=== PATIENT | female | born 1965 | race Caucasian/White ===

== ENCOUNTER 2017-05-06 10:12 | Inpatient (IN) | payer MEDICARE, MEDICAID ==
[~2017-05-06] VITALS: Ht 165.1 cm; Wt 88.7 kg
[2017-05-06] VITALS (36 sets, daily range): BP systolic 50–110; BP diastolic 38–69; PULSE 64–84; RESP 12–29; TEMP 97.6–98.2; O2SAT 76–100
[2017-05-06 10:59] LABS: AUTOMATED NEUTROPHIL # 5.8 TH/MM3 (1.8-7.7); BASOPHIL # 0.1 TH/MM3 (0-0.2); BASOPHIL % 1.7 % (0.0-2.0); EOSINOPHIL # 0.1 TH/MM3 (0-0.4); EOSINOPHIL % 0.8 % (0.0-4.0); HEMATOCRIT 48.8 % (35.0-46.0); HEMOGLOBIN 15.9 GM/DL (11.6-15.3); LYMPH % 15.9 % (9.0-44.0); LYMPHOCYTE # 1.2 TH/MM3 (1.0-4.8); MEAN CELL VOLUME 86.7 FL (80.0-100.0); MEAN CORPUSCULAR HEMOGLOBIN 28.2 PG (27.0-34.0); MEAN CORPUSCULAR HGB CONC 32.5 % (32.0-36.0); MEAN PLATELET VOLUME 9.6 FL (7.0-11.0); MONO % 5.9 % (0.0-8.0); MONOCYTE # 0.4 TH/MM3 (0-0.9); NEUT % 75.7 % (16.0-70.0); PLATELET COUNT 206 TH/MM3 (150-450); RED BLOOD COUNT 5.63 MIL/MM3 (4.00-5.30); RED CELL DISTRIBUTION WIDTH 18.8 % (11.6-17.2); WHITE BLOOD COUNT 7.6 TH/MM3 (4.0-11.0)
[2017-05-06] MEDS ORDERED: ZIPR1CAP12 PO (11:00)
[2017-05-06] MEDS ORDERED: CLON.5 PO (11:00)
[2017-05-06] MEDS ORDERED: PROM25TA10 PO (11:00)
[2017-05-06] MEDS ORDERED: ROSU1TAB10 PO (11:00)
[2017-05-06] MEDS ORDERED: CLOP75TA PO (11:00)
[2017-05-06] MEDS ORDERED: SERT-129 PO (11:00)
[2017-05-06] MEDS ORDERED: CYCL10TA PO (11:00)
[2017-05-06] MEDS ORDERED: METO1TAB43 PO (11:00)
[2017-05-06] MEDS ORDERED: LISI-515 PO (11:00)
[2017-05-06] MEDS ORDERED: HYDR25TA5 PO (11:00)
[2017-05-06] MEDS ORDERED: GABA600T PO (11:00)
[2017-05-06] MEDS ORDERED: ROPI2TAB PO (11:00)
[2017-05-06] MEDS ORDERED: LEVO100T5 PO (11:00)
[2017-05-06] MEDS ORDERED: OMEP20TA93 PO (11:00)
--- NOTE | 2017-05-06 11:00 | PD ---
HPI Chief Complaint: GI Complaint Time Seen by Provider: 10:29 Travel History International Travel<30 days: No Contact w/Intl Traveler<30days: No Traveled to known affect area: No History of Present Illness HPI The patient was seen and examined in the presence of the nurse. This patient is multiple complaints. She has had chest pain on and off for the last 3 days. It's located in the left upper chest. It is not exertional. It lasts several minutes and resolved. She is currently pain-free. She denies history of cardiac disease but she does take Plavix and has iliac stents for vascular disease. Symptom severity is moderate. No alleviating factors. No exacerbating factors. She also notes that her blood pressure was 100 systolic when she woke up this morning but then proceeded to take multiple antihypertensives. She has nausea and general malaise. She denies vomiting or diarrhea. No rectal bleeding. She has chronic intermittent abdominal discomfort and has had extensive workup including multiple CT scans and endoscopy/colonoscopy without diagnosis. [facility] Social History Alcohol Use: No Tobacco Use: No Substance Use: No Allergies-Medications (Allergen,Severity, Reaction): Coded Allergies: codeine (Verified Allergy, Intermediate, Anaphylaxis, 05/06/17) Reported Meds & Prescriptions Reported Meds & Active Scripts Active Reported [place] (Hydrocodone-Acetaminophen) 7.5-325 mg Tab 1 Tab PO Q8HR PRN Klonopin (Clonazepam) 0.5 Mg Tab 0.5 Mg PO TID PRN Rosuvastatin (Rosuvastatin Calcium) 40 Mg Tab 40 Mg PO HS Ziprasidone 80 Mg Cap 160 Mg PO HS Gabapentin 600 Mg Tab 600 Mg PO TID PRN Sertraline (Sertraline HCl) 100 Mg Tab 200 Mg PO DAILY Metoprolol Succinate ER 24 HR (Metoprolol Succinate) 100 Mg Tab 100 Mg PO DAILY Phenergan (Promethazine HCl) 25 Mg Tablet 25 Mg PO Q8HR PRN Flexeril (Cyclobenzaprine HCl) 10 Mg Tab 10 Mg PO BID Clopidogrel (Clopidogrel Bisulfate) 75 Mg Tab 75 Mg PO DAILY Lisinopril 20 Mg Tab 20 Mg PO HS Ropinirole 2 Mg Tab 2 Mg PO HS Omeprazole 20 Mg Tab 20 Mg PO DAILY Hydrochlorothiazide 25 Mg Tab 25 Mg PO DAILY Levothyroxine (Levothyroxine Sodium) 100 Mcg Tab 100 Mcg PO DAILY Review of Systems General / Constitutional: No: Fever Eyes: No: Visual changes HENT: Positive: Lightheadedness, No: Headaches Cardiovascular: Positive: Chest Pain or Discomfort Respiratory: No: Shortness of Breath Gastrointestinal: Positive: Nausea, Abdominal Pain Genitourinary: No: Dysuria Musculoskeletal: No: Pain Skin: No Rash Neurologic: No: Weakness Psychiatric: No: Depression Endocrine: No: Polydipsia Hematologic/Lymphatic: No: Easy Bruising Physical Exam Narrative GENERAL: Well-nourished, well-developed patient in no apparent distress. SKIN: Focused skin assessment reveals no rash and nodules. Skin is Warm and dry. HEAD: Atraumatic. Normocephalic. EYES: Pupils equal and round. No scleral icterus. No injection or drainage. ENT: No nasal bleeding or discharge. Mucous membranes pink and moist. NECK: Trachea midline. No JVD. CARDIOVASCULAR: Regular rate and rhythm. No murmur appreciated. RESPIRATORY: No accessory muscle use. Clear to auscultation. Breath sounds equal bilaterally. GASTROINTESTINAL: Abdomen soft, non-tender, nondistended. Hepatic and splenic margins not palpable. MUSCULOSKELETAL: No obvious deformities. No clubbing. No cyanosis. No edema. NEUROLOGICAL: Awake and alert. No obvious cranial nerve deficits. Motor grossly within normal limits. Normal speech. PSYCHIATRIC: Appropriate mood and affect; insight and judgment normal. Data Data Last Documented VS Vital Signs Date Time Temp Pulse Resp B/P (MAP) Pulse Ox O2 Delivery O2 Flow Rate FiO2 05/06/17 10:25 97.7 84 16 110/68 (82) 100 Orders Orders Iv Access Insert/Monitor (05/06/17 10:40) Complete Blood Count With Diff (05/06/17 10:40) Ckmb (Isoenzyme) Profile (05/06/17 10:40) Troponin I (05/06/17 10:40) Electrocardiogram (05/06/17 ) Chest, Single Ap (05/06/17 ) Prothrombin Time / Inr (Pt) (05/06/17 10:40) Act Partial Throm Time (Ptt) (05/06/17 10:40) Urinalysis - C+S If Indicated (05/06/17 10:40) Lipase (05/06/17 10:40) Comprehensive Metabolic Panel (05/06/17 10:40) Ondansetron Inj (Zofran Inj) (05/06/17 11:15) Sodium Chlor 0.9% 1000 Ml Inj (Ns 1000 M (05/06/17 11:15) Promethazine Inj (Phenergan Inj) (05/06/17 12:00) Sodium Chlor 0.9% 1000 Ml Inj (Ns 1000 M (05/06/17 12:00) CKMB (05/06/17 11:40) CKMB% (05/06/17 11:40) Admit Order (Ed Use Only) (05/06/17 12:26) Labs Laboratory Tests Test 05/06/17 10:40 05/06/17 11:40 White Blood Count 7.6 TH/MM3 Red Blood Count 5.63 MIL/MM3 Hemoglobin 15.9 GM/DL Hematocrit 48.8 % Mean Corpuscular Volume 86.7 FL Mean Corpuscular Hemoglobin 28.2 PG Mean Corpuscular Hemoglobin Concent 32.5 % Red Cell Distribution Width 18.8 % Platelet Count 206 TH/MM3 Mean Platelet Volume 9.6 FL Neutrophils (%) (Auto) 75.7 % Lymphocytes (%) (Auto) 15.9 % Monocytes (%) (Auto) 5.9 % Eosinophils (%) (Auto) 0.8 % Basophils (%) (Auto) 1.7 % Neutrophils # (Auto) 5.8 TH/MM3 Lymphocytes # (Auto) 1.2 TH/MM3 Monocytes # (Auto) 0.4 TH/MM3 Eosinophils # (Auto) 0.1 TH/MM3 Basophils # (Auto) 0.1 TH/MM3 CBC Comment DIFF FINAL Differential Comment Prothrombin Time 10.6 SEC Prothromb Time International Ratio 1.0 RATIO Activated Partial Thromboplast Time 27.1 SEC Blood Urea Nitrogen 14 MG/DL Creatinine 1.10 MG/DL Random Glucose 113 MG/DL Total Protein 6.8 GM/DL Albumin 3.5 GM/DL Calcium Level 9.1 MG/DL Alkaline Phosphatase 123 U/L Aspartate Amino Transf (AST/SGOT) 155 U/L Alanine Aminotransferase (ALT/SGPT) 195 U/L Total Bilirubin 0.3 MG/DL Sodium Level 135 MEQ/L Potassium Level 3.1 MEQ/L Chloride Level 98 MEQ/L Carbon Dioxide Level 30.5 MEQ/L Anion Gap 7 MEQ/L Estimat Glomerular Filtration Rate 52 ML/MIN Total Creatine Kinase 136 U/L Creatine Kinase MB 2.5 NG/ML Troponin I LESS THAN 0.02 NG/ML Lipase 142 U/L MDM Medical Decision Making Medical Screen Exam Complete: Yes Emergency Medical Condition: Yes Medical Record Reviewed: Yes Differential Diagnosis ACS, costochondritis, pleurisy, medication side effect, dehydration, gastroenteritis Narrative Course I have reviewed the patient's electronic medical record. IV placed I reviewed the EKG which is normal sinus rhythm without ST elevation I reviewed the chest x-ray which is normal Extended cardiac monitoring shows sinus rhythm without ectopy or tachycardia CBC which is normal Metabolic profile shows minor hyponatremia and hypokalemia CK is negative Troponin is negative Coagulation studies are normal LFTs show mild elevation in the 100-200 range Lipase is normal Initial blood pressure 98 systolic without tachycardia. I gave her IV Zofran and 1 L normal saline IV bolus and will reassess pressure Blood pressure didn't really change. Patient seems minimally symptomatic at this point. She has no tachycardia with a sinus rhythm in the 70s I'm giving her a second liter of normal saline IV now Call is in to the hospitalist to discuss She will require admission to telemetry for chest pain as well as other issues Will discuss CT imaging of the abdomen and pelvis with her but given that these are chronic abdominal symptoms and she's had multiple CTs I didn't immediately order it. Diagnosis Primary Impression: Chest pain in adult Additional Impressions: Nausea Hypotension Qualified Codes: I95.9 - Hypotension, unspecified Admitting Information Admitting Physician Requests: Admit Remigio Mahan MD May 06, 2017 11:00
[2017-05-06] MEDS ORDERED: HYDR-3288 PO (11:01)
[2017-05-06] MEDS ORDERED: ONDANSETRON HCL 4 MG/2 ML VIAL IVP ONE (11:15)
[2017-05-06] MEDS ORDERED: SODIUM CHLOR 0.9% 1000 ML INJ 1,000 ML IV ONE ×3 (11:15→13:45)
--- NOTE | 2017-05-06 11:42 | RADRPT ---
EXAM DATE/TIME: 05/06/2017 11:17 [facility] COMPARISON: No previous studies available for comparison. INDICATIONS : Left chest and upper abdomen pain for two days. MEDICAL HISTORY : Hypertension. SURGICAL HISTORY : None. ENCOUNTER: Initial ACUITY: 2 days PAIN SCORE: 8/10 LOCATION: Left chest Abdomen FINDINGS: A single view of the chest demonstrates the lungs to be symmetrically aerated without evidence of mas s, infiltrate or effusion. The cardiomediastinal contours are unremarkable. Osseous structures are intact. CONCLUSION: Normal examination. Vernon Vargas MD on May 06, 2017 at 11:40 Board Certified Radiologist. This report was verified electronically.
[2017-05-06 11:48] LABS: CHLORIDE 98 MEQ/L (98-107); SODIUM (NA) 135 MEQ/L (136-145)
[2017-05-06 11:52] LABS: ALBUMIN 3.5 GM/DL (3.4-5.0); CALCIUM 9.1 MG/DL (8.5-10.1)
[2017-05-06 11:53] LABS: BICARBONATE 30.5 MEQ/L (21.0-32.0); BLOOD UREA NITROGEN 14 MG/DL (7-18); GLUCOSE,RANDOM 113 MG/DL (74-106); LIPASE 142 U/L (73-393)
[2017-05-06 11:54] LABS: PROTHROMBIN TIME - PATIENT 10.6 SEC (9.8-11.6)
[2017-05-06 11:56] LABS: ALT (GPT) 195 U/L (10-53); AST (GOT) 155 U/L (15-37); GLOMERULAR FILTRATION RATE 52 ML/MIN (>89)
[2017-05-06 11:57] LABS: TOTAL BILIRUBIN ADULT 0.3 MG/DL (0.2-1.0); TOTAL PROTEIN 6.8 GM/DL (6.4-8.2)
[2017-05-06 11:58] LABS: ALKALINE PHOSPHATASE 123 U/L (45-117)
[2017-05-06] MEDS ORDERED: PROMETHAZINE INJ 25 MG/ML VIAL IM ONE (12:00)
[2017-05-06 12:01] LABS: TROPONIN I LESS THAN 0.02 NG/ML (0.02-0.05)
[2017-05-06 12:54] LABS: BILIRUBIN, URINE NEG (NEG); GLUCOSE,URINE NEG (NEG); KETONE, URINE NEG (NEG); NITRITE,URINE NEG (NEG); PH, URINE 6.5 (5.0-8.5); URINE LEUKOCYTE ESTERASE MOD (NEG)
[2017-05-06 12:59] LABS: BLOOD, URINE TRACE (NEG); URINE COLOR STRAW (YELLW/STRAW)
[2017-05-06 13:01] LABS: AMORPHOUS SEDIMENT, URINE MOD; BACTERIA, URINE MOD /hpf; RBC, URINE 0-3 /hpf (0-3)
[2017-05-06] MEDS ORDERED: VANCOMYCIN INJ 1,000 MG in SODIUM CHLOR 0.9% 250 ML INJ 250 ML IV SCH (14:00)
[2017-05-06] MEDS ORDERED: Vancomycin Consult Pharmacy 1 EA OTHER SCH (14:00)
--- NOTE | 2017-05-06 14:32 | HHI.HP ---
[facility] Service [facility] Primary Care Physician Non-Staff Admission Diagnosis chest pain,nausea,hypotension Diagnoses: Chief Complaint: Malaise for 4 days Travel History International Travel<30 Days: No Contact w/Intl Traveler <30 Da: No Traveled to Known Affected Are: No History of Present Illness This patient is a 51-year-old female with a history of hypertension. For the last 4 days she has felt ill. She says she's had vague chest discomfort which is nonexertional and not associated with cough. She's had abdominal pain which is typical for her as she has chronic abdominal discomfort and takes antiemetics and pain medicine for this. She notes no fevers or chills but felt dizzy. She had some diarrhea yesterday and this morning is awake but she took her blood pressure medications anyway. She came to the hospital and her blood pressure was actually in the 80s systolic. Dropped into the 60s. She has responded initially to normal saline and her blood pressures improved into the low 90s systolic. She denies any sick contacts. She has not had any intestinal bleeding. She says her toes feel blue and cold. She has good pulses on exam but says she felt like that previous to her iliac stent placement for peripheral artery disease. Normally takes Plavix for this and has not missed any doses. Recently her family relocated from [place] to [facility] and has yet to establish care locally. She has chronic pain and does take Narco code, Klonopin, Flexeril, gabapentin and notes that her blood pressure has never had a problem with these medications and she has not recently changed her medicines. EKG on my review is normal sinus without evidence of ischemic changes. Chest x-ray on my review is normal without any acute cardiopulmonary abnormality. Patient is recommended admission due to her persistent hypotension. Review of Systems Constitutional: COMPLAINS OF: Dizziness, DENIES: Diaphoretic episodes, Fatigue , Fever, Weight gain, Weight loss, Chills, Change in appetite, Night Sweats Endocrine: DENIES: Abnorml menstrual pattern, Heat/cold intolerance, Polydipsia , Polyuria, Polyphagia Eyes: DENIES: Blurred vision, Diplopia, Eye inflammation, Eye pain, Vision loss , Photosensitivity, Double Vision Ears, nose, mouth, throat: DENIES: Tinnitus, Hearing loss, Vertigo, Nasal discharge, Oral lesions, Throat pain, Hoarseness, Ear Pain, Running Nose, Epistaxis, Sinus Pain, Toothache, Odynophagia Respiratory: DENIES: Apneas, Cough, Snoring, Wheezing, Hemoptysis, Sputum production, Shortness of breath Cardiovascular: DENIES: Chest pain, Palpitations, Syncope, Dyspnea on Exertion , PND, Lower Extremity Edema, Orthopnea, Claudication Gastrointestinal: COMPLAINS OF: Abdominal pain, Diarrhea, Nausea, DENIES: Black stools, Bloody stools, Constipation, Vomiting, Difficulty Swallowing, Anorexia Genitourinary: DENIES: Abnormal vaginal bleeding, Dysmenorrhea, Dyspareunia, Sexual dysfunction, Urinary frequency, Urinary incontinence, Urgency, Hematuria , Dysuria, Nocturia, Vaginal discharge Musculoskeletal: DENIES: Joint pain, Muscle aches, Stiffness, Joint Swelling, Back pain, Neck pain Integumentary: DENIES: Abnormal pigmentation, Pruritus, Rash, Nail changes, Breast masses, Breast skin changes, Nipple discharge Hematologic/lymphatic: DENIES: Bruising, Lymphadenopathy Immunologic/allergic: DENIES: Eczema, Urticaria Neurologic: COMPLAINS OF: Poor Balance, DENIES: Abnormal gait, Headache, Localized weakness, Paresthesias, Seizures, Speech Problems, Tremor Psychiatric: DENIES: Anxiety, Confusion, Mood changes, Depression, Hallucinations, Agitation, Suicidal Ideation, Homicidal Ideation, Delusions Except as stated in HPI: all other systems reviewed are Neg Past Family Social History Past Medical History Hypertension Chronic back pain with spinal epidural several weeks ago Hyperlipidemia Restless leg syndrome Peripheral artery disease status post bilateral iliac stents Tobaccoism Past Surgical History Bilateral stents and iliac Bladder surg Reported Medications Viewed in the EMR Allergies: Coded Allergies: codeine (Verified Allergy, Intermediate, Anaphylaxis, 05/06/17) Active Ordered Medications Reviewed in the EMR Family History Mother had coronary disease and stents at 73, father's history is unknown Social History Patient smokes a half a pack a day for the last 20 years No alcohol Recently relocated to [place] Is raising her grandchildren Physical Exam Vital Signs Vital Signs Date Time Temp Pulse Resp B/P (MAP) Pulse Ox O2 Delivery O2 Flow Rate FiO2 05/06/17 14:02 69 16 85/58 (67) 98 Room Air 05/06/17 13:55 68 16 77/52 (60) 95 Room Air 05/06/17 13:45 68 16 76/55 (62) 95 Room Air 05/06/17 13:40 70 16 68/59 (62) 96 Room Air 05/06/17 13:35 71 16 69/49 (56) 96 Room Air 05/06/17 13:30 70 16 74/58 (63) 96 Room Air 05/06/17 12:30 70 16 93/69 (77) 96 Room Air 05/06/17 11:49 70 16 92/66 (75) 96 Room Air 05/06/17 10:30 78 16 98/65 (76) 95 Room Air 05/06/17 10:25 97.7 84 16 110/68 (82) 100 Physical Exam GENERAL: This is a well-nourished, well-developed patient,pale and light headed SKIN: No rashes, ecchymoses or lesions. Cool and dry. HEAD: Atraumatic. Normocephalic. No temporal or scalp tenderness. EYES: Pupils equal round and reactive. Extraocular motions intact. No scleral icterus. No injection or drainage. ENT: Nose without bleeding, purulent drainage or septal hematoma. Throat without erythema, tonsillar hypertrophy or exudate. Uvula midline. Airway patent. NECK: Trachea midline. No JVD or lymphadenopathy. Supple, nontender, no meningeal signs. CARDIOVASCULAR: Regular rate and rhythm without murmurs, gallops, or rubs. RESPIRATORY: Clear to auscultation. Breath sounds equal bilaterally. No wheezes , rales, or rhonchi. GASTROINTESTINAL: Abdomen soft, non-tender, nondistended. No hepato-splenomegaly , or palpable masses. No guarding. MUSCULOSKELETAL: Extremities without clubbing, cyanosis, or edema. No joint tenderness, effusion, or edema noted. No calf tenderness. Negative Homans sign bilaterally. NEUROLOGICAL: Awake and alert. Cranial nerves II through XII intact. Motor and sensory grossly within normal limits. Five out of 5 muscle strength in all muscle groups. Normal speech. Laboratory Laboratory Tests Test 05/06/17 10:40 05/06/17 11:40 05/06/17 12:45 White Blood Count 7.6 Red Blood Count 5.63 Hemoglobin 15.9 Hematocrit 48.8 Mean Corpuscular Volume 86.7 Mean Corpuscular Hemoglobin 28.2 Mean Corpuscular Hemoglobin Concent 32.5 Red Cell Distribution Width 18.8 Platelet Count 206 Mean Platelet Volume 9.6 Neutrophils (%) (Auto) 75.7 Lymphocytes (%) (Auto) 15.9 Monocytes (%) (Auto) 5.9 Eosinophils (%) (Auto) 0.8 Basophils (%) (Auto) 1.7 Neutrophils # (Auto) 5.8 Lymphocytes # (Auto) 1.2 Monocytes # (Auto) 0.4 Eosinophils # (Auto) 0.1 Basophils # (Auto) 0.1 CBC Comment DIFF FINAL Differential Comment Prothrombin Time 10.6 Prothromb Time International Ratio 1.0 Activated Partial Thromboplast Time 27.1 Blood Urea Nitrogen 14 Creatinine 1.10 Random Glucose 113 Total Protein 6.8 Albumin 3.5 Calcium Level 9.1 Alkaline Phosphatase 123 Aspartate Amino Transf (AST/SGOT) 155 Alanine Aminotransferase (ALT/SGPT) 195 Total Bilirubin 0.3 Sodium Level 135 Potassium Level 3.1 Chloride Level 98 Carbon Dioxide Level 30.5 Anion Gap 7 Estimat Glomerular Filtration Rate 52 Total Creatine Kinase 136 Creatine Kinase MB 2.5 Troponin I LESS THAN 0.02 Lipase 142 Urine Collection Type CLEAN CATCH Urine Color STRAW Urine Turbidity SLIGHT Urine pH 6.5 Urine Specific [place] 1.006 Urine Protein NEG Urine Glucose (UA) NEG Urine Ketones NEG Urine Occult Blood TRACE Urine Nitrite NEG Urine Bilirubin NEG Urine Leukocyte Esterase MOD Urine RBC 0-3 Urine WBC 20-24 Urine Squamous Epithelial Cells 6-8 Urine Amorphous Sediment MOD Urine Bacteria MOD Microscopic Urinalysis Comment CULTURE INDICATED Urine Collection Time 1247 Date/Time Source Procedure Growth Status 05/06/17 12:45 Urine Clean Catch Urine Culture Pending Received Result Diagram: 05/06/17 1040 05/06/17 1140 Imaging Last Impressions Chest X-Ray 05/06/17 0000 Signed Impressions: Service Date/Time: April 11:17 - CONCLUSION: Normal examination. MD Doug Varghese VTE Risk Assessment Doug VTE Risk Assessment: Mod/High Risk (score >= 2) Armandorini Risk Assessment Model Point Value = 1 Point Value = 2 Point Value = 3 Point Value = 5 Age 41-60 Minor surgery BMI > 25 kg/m2 Swollen legs Varicose veins or History of unexplained or recurrent spontaneous Oral contraceptives or hormone replacement Sepsis (< 1 month) Serious lung disease, including pneumonia (< 1 month) Abnormal pulmonary function Acute myocardial infarction Congestive heart failure (< 1 month) History of inflammatory bowel disease Medical patient at bed rest Age 61-74 Arthroscopic surgery Major open surgery (> 45 min) Laparoscopic surgery (> 45 min) Malignancy Confined to bed (> 72 hours) Immobilizing plaster cast Central venous access Age >= 75 History of VTE Family history of VTE Factor V Leiden Prothrombin [id number] Lupus anticoagulant Anticardiolipin antibodies Elevated serum homocysteine Heparin-induced thrombocytopenia Other congenital or acquired thrombophilia Stroke (< 1 month) Elective arthroplasty Hip, pelvis, or leg fracture Acute spinal cord injury (< 1 month) Prophylaxis Regimen Total Risk Factor Score Risk Level Prophylaxis Regimen 0-1 Low Early ambulation 2 Moderate Order ONE of the following: *Sequential Compression Device (SCD) *Heparin 5000 units SQ BID 3-4 Higher Order ONE of the following medications: *Heparin 5000 units SQ TID *Enoxaparin/Lovenox 40 mg SQ daily (WT < 150 kg, CrCl > 30 mL/min) *Enoxaparin/Lovenox 30 mg SQ daily (WT < 150 kg, CrCl > 10-29 mL/min) *Enoxaparin/Lovenox 30 mg SQ BID (WT < 150 kg, CrCl > 30 mL/min) AND/OR *Sequential Compression Device (SCD) 5 or more Highest Order ONE of the following medications: *Heparin 5000 units SQ TID (Preferred with Epidurals) *Enoxaparin/Lovenox 40 mg SQ daily (WT < 150 kg, CrCl > 30 mL/min) *Enoxaparin/Lovenox 30 mg SQ daily (WT < 150 kg, CrCl > 10-29 mL/min) *Enoxaparin/Lovenox 30 mg SQ BID (WT < 150 kg, CrCl > 30 mL/min) AND *Sequential Compression Device (SCD) Assessment and Plan Problem List: (1) Hypotension ICD Code: I95.9 - Hypotension, unspecified Status: Acute Plan: Persistent hypotension in patient who has multiple nondescript complaints. Patient has been taking her antihypertensive medications and we will hold these. 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 In the case of services not specified as inpatient-only, they are appropriately provided as inpatient services in accordance with the 2-midnight benchmark. Estimated LOS (days): 3 3 days is the estimated time the patient will need to remain in the hospital, assuming treatment plan goals are met and no additional complications. Post-Hospital Plan: Home Problem Qualifiers (1) Hypotension: Qualified Codes: I95.9 - Hypotension, unspecified Katerine Bach MD May 06, 2017 14:32
[2017-05-06] MEDS ORDERED: ACETAMINOPHEN 325 MG TAB PO PRN (14:45)
[2017-05-06] MEDS ORDERED: POTASSIUM CHLORIDE 10 MEQ CONTROLLED RELEASE TAB PO ONE (14:45)
[2017-05-06] MEDS ORDERED: SODIUM CHLORIDE 0.9% FLUSH 10 ML FLUSH IV FLUSH PRN (14:45)
[2017-05-06] MEDS ORDERED: NALOXONE HCL 0.4 MG/ML AMP IV PUSH PRN (14:45)
[2017-05-06] MEDS ORDERED: ONDANSETRON HCL 4 MG/2 ML VIAL IVP PRN (14:45)
[2017-05-06 14:51] LABS: AUTOMATED NEUTROPHIL # 4.1 TH/MM3 (1.8-7.7); BASOPHIL # 0.1 TH/MM3 (0-0.2); BASOPHIL % 2.1 % (0.0-2.0); EOSINOPHIL % 0.5 % (0.0-4.0); HEMATOCRIT 41.5 % (35.0-46.0); HEMOGLOBIN 13.1 GM/DL (11.6-15.3); LYMPH % 19.6 % (9.0-44.0); LYMPHOCYTE # 1.1 TH/MM3 (1.0-4.8); MEAN CELL VOLUME 87.9 FL (80.0-100.0); MEAN CORPUSCULAR HEMOGLOBIN 27.8 PG (27.0-34.0); MEAN CORPUSCULAR HGB CONC 31.6 % (32.0-36.0); MEAN PLATELET VOLUME 9.8 FL (7.0-11.0); MONO % 7.1 % (0.0-8.0); MONOCYTE # 0.4 TH/MM3 (0-0.9); NEUT % 70.7 % (16.0-70.0); PLATELET COUNT 153 TH/MM3 (150-450); RED BLOOD COUNT 4.72 MIL/MM3 (4.00-5.30); RED CELL DISTRIBUTION WIDTH 18.8 % (11.6-17.2); WHITE BLOOD COUNT 5.7 TH/MM3 (4.0-11.0)
--- NOTE | 2017-05-06 15:08 | EKG ---
Date Performed: 05/06/2017 Time Performed: 10:55:17 PTAGE: 51 years EKG: Baseline artifact present Sinus rhythm NORMAL ECG NO PREVIOUS TRACING DOCTOR: Sin Sams Interpretating Date/Time 05/06/2017 15:07:44
[2017-05-06] MEDS: HEPARIN SODIUM - SQ 10,000 UNITS/ML VIAL SQ SCH ×2 (15:10→23:27)
[2017-05-06] MEDS: VANCOMYCIN INJ 1,250 MG in SODIUM CHLOR 0.9% 250 ML INJ 250 ML IV SCH (15:11)
[2017-05-06] MEDS ORDERED: IOHEXOL 350 MG/ML 10 ML VIAL (for RAD DIAG) IVCONTRAST ONE (15:14)
[2017-05-06 15:38] LABS: ALBUMIN 3.1 GM/DL (3.4-5.0); ALKALINE PHOSPHATASE 113 U/L (45-117); ALT (GPT) 182 U/L (10-53); AST (GOT) 175 U/L (15-37); BLOOD UREA NITROGEN 13 MG/DL (7-18); CALCIUM 8.2 MG/DL (8.5-10.1); CHLORIDE 106 MEQ/L (98-107); CREATININE 0.92 MG/DL (0.50-1.00); GLOMERULAR FILTRATION RATE 64 ML/MIN (>89); GLUCOSE,RANDOM 89 MG/DL (74-106); SODIUM (NA) 138 MEQ/L (136-145); TOTAL BILIRUBIN ADULT 0.3 MG/DL (0.2-1.0); TOTAL PROTEIN 6.5 GM/DL (6.4-8.2)
--- NOTE | 2017-05-06 15:46 | RADRPT ---
EXAM DATE/TIME: 05/06/2017 14:48 [facility] COMPARISON: No previous studies available for comparison. INDICATIONS : Chest pain, upper back pain, upper abdominal pain x 4 days. Hypotension. Evaluate for aortic dissec tion. IV CONTRAST: 85 cc Omnipaque 350 (iohexol) IV RADIATION DOSE: 22.28 CTDIvol (mGy) MEDICAL HISTORY : Hypertension. Chronic obstructive pulmonary disease. Peripheral vascular disease. SURGICAL HISTORY : Tubal ligation. section.Appendectomy.Hysterectomy. Bladder tuck. Bilateral iliac stents. ENCOUNTER: Initial ACUITY: 4 - 6 days PAIN SCALE: 7/10 LOCATION: Left chest TECHNIQUE: Volumetric scanning was performed using a multi-row detector CT scanner. The data was post processed with a variety of visualization algorithms including full volume maximum intensity projection, multi -planar sliding thin slab reformation, curved planar reformation, and surface rendering techniques. Using automated exposure control and adjustment of the mA and/or kV according to patient size, radiat ion dose was kept as low as reasonably achievable to obtain optimal diagnostic quality images. DICOM format image data is available electronically for review and comparison. FINDINGS: These thoracic aorta is normal in caliber throughout. No evidence of stenosis, aneurysm or dissection . Mild atheromatous irregularity is present throughout. Classical three-vessel arch anatomy is identi fied. There is high grade stenosis at the origin of the left subclavian artery. The left common carot id artery and the right brachiocephalic artery are satisfactory in appearance. The visualized common carotid arteries are satisfactory in appearance. The abdominal aorta is also notable for mild diffuse atheromatous irregularity. There is slight fusif orm ectasia distally without mirela aneurysm. No stenosis or dissection. Looking at the aortic viscera l vessels, there is critical stenosis at the origin of the celiac artery and high-grade stenosis at t he origin of the superior mesenteric artery. There is mild disease involving the origin of the left r enal artery. Right renal artery is satisfactory. The DARRIUS is patent. Wrapped in the pelvis, the right common iliac is previously stented with mild neointimal hyperplasia within the stent. Left common carola ac is moderately stenotic. External iliacs are small in caliber however relatively free of disease. T he left distal external iliac is stented through the left common femoral to the level of the femoral bifurcation. The proximal SFA and profunda are intact. Contralateral right common femoral artery is n otable for mild-moderate posterior plaquing. The right SFA and proximal right profunda are intact. Elsewhere on the exam, note is made of mild emphysematous change and mild scarring or atelectasis in the posterior lung bases. No acute CT findings are identified in the abdomen or pelvis. CONCLUSION: High-grade ostial stenosis involving the left subclavian artery would be expected to produce signific ant asymmetry in arm pressures.. This lesion does appear amenable to endovascular treatment if the pa tient is symptomatic for claudication or subclavian steal symptoms. High-grade celiac and SMA stenoses. No acute vascular findings. Steven Silver MD on May 06, 2017 at 15:36 Board Certified Radiologist. This report was verified electronically.
[2017-05-06] MEDS ORDERED: PIPERACILLIN/TAZ 4.5 GM VIAL 4.5 GM in SODIUM CHLORIDE 0.9% INJ 100 ML IV ONE (16:00)
[2017-05-06] MEDS: SODIUM CHLOR 0.9% 1000 ML INJ 1,000 ML IV SCH (17:22)
[2017-05-06] MEDS ORDERED: CHLORHEXIDINE GLUCONATE 2 % 1 PACK (2 CLOTHS)(extra cloths) TOPICAL PRN (18:30)
[2017-05-06] MEDS ORDERED: TERBUTALINE INJ 1 MG/ML AMP SQ PRN (20:00)
[2017-05-06] MEDS ORDERED: HYDROCORTISONE SOD SUCCINATE 100 MG VIAL IV PUSH SCH (20:30)
[2017-05-06] MEDS ORDERED: ZIPRASIDONE HCL 80 MG CAP PO SCH (21:00)
[2017-05-06] MEDS: NOREPINEPHRINE INJ 4 MG in SODIUM CHLOR 0.9% 250 ML INJ 246 ML IV PRN (21:31)
[2017-05-06] MEDS: SODIUM CHLORIDE 0.9% FLUSH 10 ML FLUSH IV FLUSH SCH (21:36)
[2017-05-06] MEDS: ZIPRASIDONE HCL 40 MG CAP PO SCH (21:37)
[2017-05-06] MEDS ORDERED: PROMETHAZINE HCL 25 MG TAB PO PRN (22:00)
[2017-05-06] MEDS ORDERED: GABAPENTIN 300 MG CAP PO PRN (22:00)
[2017-05-06] MEDS: PIPERACIL-TAZO 4.5 GM PREMIX 100 ML IV SCH (23:49)
[2017-05-07] VITALS (66 sets, daily range): BP systolic 54–199; BP diastolic 35–107; PULSE 54–86; RESP 10–38; TEMP 97.6–98.7; O2SAT 87–100
[2017-05-07] MEDS: SODIUM CHLOR 0.9% 1000 ML INJ 1,000 ML IV SCH ×3 (02:32→20:58)
[2017-05-07] MEDS: CHLORHEXIDINE GLUCONATE 2 % 1 PACK (2 CLOTHS)(taper/protocol) TOPICAL SCH (04:00)
[2017-05-07] MEDS: HYDROCORTISONE SOD SUCCINATE 100 MG VIAL IV PUSH SCH ×4 (04:11→22:20)
[2017-05-07] MEDS: LEVOTHYROXINE SODIUM 100 MCG TAB PO SCH (05:05)
[2017-05-07 05:23] LABS: CREATININE 0.94 MG/DL (0.50-1.00)
[2017-05-07] MEDS: HEPARIN SODIUM - SQ 10,000 UNITS/ML VIAL SQ SCH ×3 (06:20→22:20)
[2017-05-07] MEDS: PIPERACIL-TAZO 4.5 GM PREMIX 100 ML IV SCH ×2 (09:03→19:09)
[2017-05-07] MEDS: VANCOMYCIN INJ 1,250 MG in SODIUM CHLOR 0.9% 250 ML INJ 250 ML IV SCH (09:04)
[2017-05-07] MEDS: PANTOPRAZOLE SOD 20 MG DELAYED RELEASE TAB PO SCH (09:04)
[2017-05-07] MEDS: SODIUM CHLORIDE 0.9% FLUSH 10 ML FLUSH IV FLUSH SCH ×2 (09:04→21:00)
[2017-05-07] MEDS: CLOPIDOGREL 75 MG TAB PO SCH (11:58)
[2017-05-07] MEDS: SERTRALINE HCL 100 MG TAB PO SCH (11:59)
[2017-05-07] MEDS: NOREPINEPHRINE INJ 4 MG in SODIUM CHLOR 0.9% 250 ML INJ 246 ML IV PRN (12:14)
--- NOTE | 2017-05-07 14:42 | HHI.PR ---
Subjective Remarks Patient seen and examined today in follow-up on hypotension, patient was still on Levophed first thing this morning. She was weaned off later this morning and is maintaining blood pressure at this time. Patient denies any symptoms to include chest pain, shortness of breath, abdominal pain, diarrhea, constipation , diaphoresis. Patient indicates that she usually has high blood pressure in which she is on at least 2 medications to control. She denies any overuse of her blood pressure medications. Will continue workup at this time. Objective Vital Signs Date Time Temp Pulse Resp B/P (MAP) Pulse Ox O2 Delivery O2 Flow Rate FiO2 05/07/17 13:20 80 84/54 05/07/17 13:10 80 92/54 05/07/17 12:34 80 106/75 05/07/17 12:24 78 56/49 05/07/17 12:14 82 54/41 05/07/17 08:16 70 18 113/80 (91) 97 05/07/17 07:46 72 22 112/67 (82) 96 05/07/17 07:31 66 15 105/77 (86) 97 05/07/17 07:30 97 Nasal Cannula 2.00 05/07/17 07:01 62 10 162/86 (111) 98 05/07/17 06:46 70 16 131/55 (80) 95 05/07/17 06:45 70 19 98 05/07/17 06:45 70 131/55 05/07/17 06:31 72 21 123/69 (87) 97 05/07/17 06:16 68 17 95/65 (75) 94 05/07/17 06:14 66 142/80 05/07/17 06:01 68 16 142/80 (100) 94 05/07/17 06:00 66 05/07/17 05:46 64 16 129/71 (90) 95 05/07/17 05:45 68 129/71 05/07/17 05:34 66 16 87/50 (62) 93 05/07/17 05:33 64 87/50 05/07/17 05:16 66 16 97/71 (80) 96 05/07/17 05:09 54 18 199/103 (135) 100 05/07/17 05:01 58 19 152/107 (122) 95 05/07/17 04:54 68 16 78/47 (57) 94 05/07/17 04:54 68 78/47 05/07/17 04:31 64 19 89/61 (70) 91 05/07/17 04:16 97.6 62 24 101/63 (76) 94 05/07/17 04:01 62 16 97/52 (67) 97 05/07/17 04:01 62 05/07/17 03:46 62 16 94/58 (70) 95 05/07/17 03:31 68 26 104/72 (83) 95 05/07/17 03:27 64 24 90/58 (69) 100 05/07/17 03:27 64 90/58 05/07/17 03:01 62 18 59/43 (48) 97 05/07/17 02:46 97 Nasal Cannula 2.00 05/07/17 02:31 60 18 63/42 (49) 95 05/07/17 02:30 65 71/37 05/07/17 02:16 62 16 71/37 (48) 94 05/07/17 02:01 64 05/07/17 02:01 95 Nasal Cannula 2.00 05/07/17 02:01 64 21 57/49 (52) 95 05/07/17 02:00 64 57/49 05/07/17 01:47 94 Nasal Cannula 2.00 05/07/17 01:46 64 17 65/44 (51) 95 05/07/17 01:31 66 22 61/44 (50) 94 05/07/17 01:16 66 15 70/35 (47) 93 05/07/17 01:01 68 19 60/35 (43) 87 05/07/17 01:00 86 Nasal Cannula 2.00 05/07/17 00:58 68 65/42 05/07/17 00:46 68 16 65/42 (50) 95 05/07/17 00:31 68 16 59/35 (43) 94 05/07/17 00:30 68 59/35 05/07/17 00:16 66 14 64/38 (47) 92 05/07/17 00:01 98.0 66 28 70/48 (55) 91 05/07/17 00:00 64 05/06/17 23:46 64 14 76/52 (60) 92 05/06/17 23:31 68 28 96/58 (71) 96 18 23:16 68 28 97/60 (72) 96 18 23:01 68 25 87/61 (70) 95 1818 22:46 66 21 77/60 (66) 76 18/18 22:30 66 20 77/51 (60) 98 1818 22:21 66 25 68/50 (56) 95 18 22:21 64 68/50 18 22:15 66 19 74/50 (58) 97 18 22:00 66 18 21:31 66 17 71/54 (60) 97 18 21:31 68 71/54 18 20:31 74 20 80/61 (67) 97 18 20:05 70 21 77/50 (59) 94 18 20:00 72 18 19:31 72 21 62/43 (49) 96 18 19:31 97.6 72 21 62/43 (49) 97 18 19:22 70 13 50/38 (42) 92 18 19:16 70 23 58/43 (48) 18 19:10 74 23 57/42 (47) 18 18:02 70 25 89/56 (67) 18 18:00 70 18 17:35 71 18 17:34 68 29 84/51 (62) 18 17:10 72 16 92/59 (70) 18 17:09 98.2 72 12 86/56 (66) 96 18 16:50 18 16:43 71 18 91/52 (65) 95 Room Air 05/06/17 16:15 74 16 107/56 (73) 94 Room Air 05/06/17 15:15 70 16 85/53 (64) 95 Room Air I/O 05/06/18 05/06/18 05/06/18 05/07/18 18 05/07/17 07:00 15:00 23:00 07:00 15:00 23:00 Intake Total 3000 ml 482.5 ml 2028 ml 972 ml Output Total 500 ml 1600 ml Balance 3000 ml -17.5 ml 428 ml 972 ml Intake Oral 120 ml 600 ml IV Total 3000 ml 362.5 ml 1428 ml 972 ml Output Urine Total 500 ml 1600 ml Stool Total 0 ml Result Diagram: 05/06/17 1440 05/07/17 0413 Imaging Last Impressions Chest X-Ray 05/06/17 0000 Signed Impressions: Service Date/Time: April 11:17 - CONCLUSION: Normal examination. Vernon Vargas MD Aorta CTA 05/06/17 0000 Signed Impressions: Service Date/Time: April 14:48 - CONCLUSION: High-grade ostial stenosis involving the left subclavian artery would be expected to produce significant asymmetry in arm pressures.. This lesion does appear amenable to endovascular treatment if the patient is symptomatic for claudication or subclavian steal symptoms. High-grade celiac and SMA stenoses. No acute vascular findings. Steven Silver MD Objective Remarks GENERAL: Well-developed, well-nourished, in no acute distress. alert and orientated HEENT: Head is normocephalic without any lesions or masses noted. Facial features are symmetric. Eyes: Extraocular muscles are intact. Conjunctivae were clear. NECK: Supple without any masses. Trachea midline no deviation. No JVD, CARDIAC: Regular rhythm, regular rate. S1/S2 are heard. No murmurs gallops or rubs. LUNGS: Clear to auscultation bilaterally. No wheeze, rhonchi or rales. No use of accessory muscles on inspiration or expiration. ABDOMEN: Soft, nontender. Nondistended. Bowel sounds heard in all 4 quadrants. No organomegaly or masses. Negative rebound, negative guarding EXTREMITIES: No edema, pulses are equal bilaterally. No cyanosis or clubbing NEUROLOGY: Mood and affect appear appropriate. Cranial nerves II through XII grossly intact. Moving all extremities, speech is clear A/P Assessment and Plan Hypotension, unknown etiology CTA of the aorta does not indicate any aortic dissection. Does show high- grade stenosis involving the left subclavian artery, high-grade celiac and SMA stenosis Status post 4 L of IV fluid Levophed to maintain map greater than 65. Had been weaned off by since 7:00 this morning Patient started on Solu-Cortef Continue to hold blood pressure medication Elevated liver enzymes, unknown etiology Could be secondary to hypoperfusion Continue monitor liver enzymes Obtain liver ultrasound Hypertension, hyperlipidemia, peripheral artery disease status post iliac stents Continue Plavix Blood pressure medication on hold secondary to hypotension We'll continue to hold statin secondary to elevated liver enzymes Chronic back pain, restless leg syndrome Hold narcotic medication this time secondary to hypotension Continue Requip, gabapentin Hypothyroidism Resume replacement therapy Check TSH DVT prevention Subcutaneous heparin Remigio Nunez May 07, 2017 14:42
[2017-05-07] MEDS ORDERED: SODIUM CHLOR 0.9% 1000 ML INJ 1,000 ML IV ONE (18:00)
[2017-05-07] MEDS ORDERED: ALBUMIN 25% INJ 50 ML IV ONE (18:00)
--- NOTE | 2017-05-07 19:42 | ECHRPT ---
Indication: Chest pain, unspecified CONCLUSIONS Normal left ventricular size and wall thickness. The left ventricular systolic function is normal wi th an estimated ejection fraction in the range of 60-65%. No definite wall motion abnormalities. Trace mitral valve regurgitation. There is trace tricuspid valve regurgitation. BP: / HR: Rhythm: Sinus MEASUREMENTS (Male / Female) Normal Values Technical Quality:Fair 2D ECHO LV Diastolic Diameter PLAX 4.3 cm 4.2 - 5.9 / 3.9 - 5.3 cm LV Systolic Diameter PLAX 3.4 cm IVS Diastolic Thickness 1.1 cm 0.6 - 1.0 / 0.6 - 0.9 cm LVPW Diastolic Thickness 1.0 cm 0.6 - 1.0 / 0.6 - 0.9 cm LV Relative Wall Thickness 0.5 LVOT Diameter 2.1 cm M-MODE Aortic Root Diameter MM 2.9 cm LA Systolic Diameter MM 4.4 cm LA Ao Ratio MM 1.5 AV Cusp Separation MM 1.7 cm DOPPLER AV Peak Velocity 194.0 cm/s AV Peak Gradient 15.1 mmHg LVOT Peak Velocity 164.0 cm/s LVOT Peak Gradient 10.8 mmHg AV Area Cont Eq pk 2.9 cm MR Peak Velocity 385.0 cm/s MR Peak Gradient 59.3 mmHg Mitral E Point Velocity 98.7 cm/s Mitral A Point Velocity 119.0 cm/s Mitral E to A Ratio 0.8 LV E' Lateral Velocity 9.6 cm/s Mitral E to LV E' Lateral Ratio 10.3 LV E' Septal Velocity 8.5 cm/s Mitral E to LV E' Septal Ratio 11.6 TR Peak Velocity 278.0 cm/s TR Peak Gradient 30.9 mmHg Right Atrial Pressure 10.0 mmHg Pulmonary Artery Systolic Pressu 40.9 mmHg Right Ventricular Systolic Press 40.9 mmHg PV Peak Velocity 129.0 cm/s PV Peak Gradient 6.7 mmHg FINDINGS LEFT VENTRICLE Normal left ventricular size and wall thickness. The left ventricular systolic function is normal wi th an estimated ejection fraction in the range of 60-65%. No definite wall motion abnormalities. RIGHT VENTRICLE Normal right ventricular size and systolic function. LEFT ATRIUM The left atrial size is mildly dilated. RIGHT ATRIUM The right atrial size is normal. ATRIAL SEPTUM Normal atrial septal thickness without atrial level shunting by limited color doppler interrogation. AORTA The aortic root and proximal ascending aorta are normal in size on limited imaging. MITRAL VALVE Trace mitral valve regurgitation. AORTIC VALVE Trileaflet aortic valve. No aortic valve stenosis or regurgitation. TRICUSPID VALVE There is trace tricuspid valve regurgitation. PULMONARY VALVE No pulmonary valve regurgitation or stenosis. VESSELS The inferior vena cava is normal in size. PERICARDIUM No pericardial effusion. Johnathan Zavala MD (Electronically Signed) Final Date:07 May 2017 19:41
[2017-05-07] MEDS: ZIPRASIDONE HCL 40 MG CAP PO SCH (19:54)
[2017-05-07] MEDS ORDERED: IBUPROFEN 400 MG TAB PO ONE (20:00)
[2017-05-07] MEDS ORDERED: ATORVASTATIN 80 MG TAB PO SCH (21:00)
[2017-05-07] MEDS ORDERED: ATORVASTATIN 40 MG TAB PO SCH (21:00)
[2017-05-08] VITALS (21 sets, daily range): BP systolic 102–138; BP diastolic 56–95; PULSE 68–84; RESP 15–32; TEMP 97–97.7; O2SAT 91–100
[2017-05-08] MEDS: PIPERACIL-TAZO 4.5 GM PREMIX 100 ML IV SCH ×2 (00:09→08:58)
[2017-05-08] MEDS: VANCOMYCIN INJ 1,250 MG in SODIUM CHLOR 0.9% 250 ML INJ 250 ML IV SCH (03:02)
[2017-05-08] MEDS: HYDROCORTISONE SOD SUCCINATE 100 MG VIAL IV PUSH SCH ×2 (03:47→08:59)
[2017-05-08] MEDS: CHLORHEXIDINE GLUCONATE 2 % 1 PACK (2 CLOTHS)(taper/protocol) TOPICAL SCH (03:47)
[2017-05-08] MEDS: SODIUM CHLOR 0.9% 1000 ML INJ 1,000 ML IV SCH (04:11)
[2017-05-08] MEDS: LEVOTHYROXINE SODIUM 100 MCG TAB PO SCH (05:30)
[2017-05-08] MEDS: HEPARIN SODIUM - SQ 10,000 UNITS/ML VIAL SQ SCH (05:31)
[2017-05-08 06:14] LABS: AUTOMATED NEUTROPHIL # 4.8 TH/MM3 (1.8-7.7); BASOPHIL % 0.1 % (0.0-2.0); HEMATOCRIT 37.4 % (35.0-46.0); HEMOGLOBIN 12.1 GM/DL (11.6-15.3); LYMPH % 10.7 % (9.0-44.0); LYMPHOCYTE # 0.6 TH/MM3 (1.0-4.8); MEAN CELL VOLUME 86.5 FL (80.0-100.0); MEAN CORPUSCULAR HEMOGLOBIN 28.1 PG (27.0-34.0); MEAN CORPUSCULAR HGB CONC 32.4 % (32.0-36.0); MEAN PLATELET VOLUME 9.4 FL (7.0-11.0); MONO % 3.8 % (0.0-8.0); MONOCYTE # 0.2 TH/MM3 (0-0.9); NEUT % 85.4 % (16.0-70.0); PLATELET COUNT 127 TH/MM3 (150-450); RED BLOOD COUNT 4.32 MIL/MM3 (4.00-5.30); RED CELL DISTRIBUTION WIDTH 18.1 % (11.6-17.2); WHITE BLOOD COUNT 5.6 TH/MM3 (4.0-11.0)
[2017-05-08 06:56] LABS: ALBUMIN 3.2 GM/DL (3.4-5.0); ALKALINE PHOSPHATASE 98 U/L (45-117); ALT (GPT) 186 U/L (10-53); AST (GOT) 155 U/L (15-37); BICARBONATE 26.2 MEQ/L (21.0-32.0); BLOOD UREA NITROGEN 14 MG/DL (7-18); CALCIUM 8.4 MG/DL (8.5-10.1); CHLORIDE 111 MEQ/L (98-107); CREATININE 0.85 MG/DL (0.50-1.00); GLOMERULAR FILTRATION RATE 70 ML/MIN (>89); GLUCOSE,RANDOM 115 MG/DL (74-106); MAGNESIUM 1.6 MG/DL (1.5-2.5); SODIUM (NA) 143 MEQ/L (136-145); TOTAL BILIRUBIN ADULT 0.2 MG/DL (0.2-1.0); TOTAL PROTEIN 6.1 GM/DL (6.4-8.2)
[2017-05-08] MEDS: CLOPIDOGREL 75 MG TAB PO SCH (08:58)
[2017-05-08] MEDS: SERTRALINE HCL 100 MG TAB PO SCH (08:58)
[2017-05-08] MEDS: PANTOPRAZOLE SOD 20 MG DELAYED RELEASE TAB PO SCH (08:58)
[2017-05-08] MEDS: SODIUM CHLORIDE 0.9% FLUSH 10 ML FLUSH IV FLUSH SCH (09:04)
--- NOTE | 2017-05-08 10:40 | RADRPT ---
EXAM DATE/TIME: 05/08/2017 09:51 [facility] COMPARISON: No previous studies available for comparison. INDICATIONS : Increased lab values. MEDICAL HISTORY : Chronic obstructive pulmonary disease. Hypercholesterolemia. Gastroesophageal reflux disease. Thyroid disease. Hearing loss. Syncope. Headaches. Hypertension. Peripheral vascular disease. Sleep apnea. I BD. Arthritis. Osteoporosis. Fatty liver disease. Depression. Anxiety. SURGICAL HISTORY : Appendectomy. Tubal ligation. Hysterectomy. section. Bladder tuck. Bilateral iliac stents. ENCOUNTER: Initial ACUITY: 2 days PAIN SCORE: 0/10 LOCATION: Bilateral upper quadrant MEASUREMENTS: LIVER: 21.2 cm length COMMON DUCT: 4 mm RIGHT KIDNEY: 11.3 x 5.0 x 5.4 cm SPLEEN: 16.4 cm length FINDINGS: The liver is slightly echogenic which maybe due to fatty infiltration and or hepatocellular dysfuncti on. The gallbladder is intact without any evidence for gallstones, however there is sludge in the gal lbladder without gallbladder wall thickening, or pericholecystic fluid. The visualized head of the p ancreas, and right kidney appear grossly intact for technique. The spleen is enlarged measuring 16.4 without focal lesions for technique. CONCLUSION: 1. The liver is slightly echogenic which maybe due to fatty infiltration and or hepatocellular dysfun ction. 2. Splenomegaly. 3. Sludge in the gallbladder without definite stones the technique. Lamin Cavazos MD on May 08, 2017 at 10:37 Board Certified Radiologist. This report was verified electronically.
[2017-05-08] MEDS ORDERED: POTASSIUM CHLORIDE 20 MEQ CONTROLLED RELEASE TAB PO ONE (10:45)
[2017-05-08] MEDS ORDERED: LISI10TA3 PO (10:56)
--- NOTE | 2017-05-08 10:56 | HHI.DCPOC ---
Discharge Care Plan Diagnosis: (1) Hypotension (2) LFT elevation Goals to Promote Your Health * To prevent worsening of your condition and complications * To maintain your health at the optimal level Directions to Meet Your Goals Take your medications as prescribed Follow your dietary instruction Follow activity as directed Keep your appointments as scheduled Take your immunizations and boosters as scheduled If your symptoms worsen call your PCP, if no PCP go to Urgent Care Center or Emergency Room Smoking is Dangerous to Your Health. Avoid second hand smoke Call the 24-hour hour crisis hotline for domestic abuse at Remigio Nunez May 08, 2017 10:56
--- NOTE | 2017-05-08 11:05 | HHI.DS ---
Discharge Summary Admission Date May 06, 2017 at 12:27 Discharge Date: May 08, 2017 Admitting Diagnosis chest pain,nausea,hypotension (1) Hypotension ICD Code: I95.9 - Hypotension, unspecified Status: Acute (2) LFT elevation ICD Code: R79.89 - Other specified abnormal findings of blood chemistry Procedures 05/07/17 echocardiogram showed normal left ventricular function, ejection fraction 60-65%. Trace of mitral valve regurgitation, trace of tricuspid valve regurgitation Brief History - From Admission This patient is a 51-year-old female with a history of hypertension. For the last 4 days she has felt ill. She says she's had vague chest discomfort which is nonexertional and not associated with cough. She's had abdominal pain which is typical for her as she has chronic abdominal discomfort and takes antiemetics and pain medicine for this. She notes no fevers or chills but felt dizzy. She had some diarrhea yesterday and this morning is awake but she took her blood pressure medications anyway. She came to the hospital and her blood pressure was actually in the 80s systolic. Dropped into the 60s. She has responded initially to normal saline and her blood pressures improved into the low 90s systolic. She denies any sick contacts. She has not had any intestinal bleeding. She says her toes feel blue and cold. She has good pulses on exam but says she felt like that previous to her iliac stent placement for peripheral artery disease. Normally takes Plavix for this and has not missed any doses. Recently her family relocated from [place] to [facility] and has yet to establish care locally. She has chronic pain and does take [place] code, Klonopin, Flexeril, gabapentin and notes that her blood pressure has never had a problem with these medications and she has not recently changed her medicines. EKG on my review is normal sinus without evidence of ischemic changes. Chest x-ray on my review is normal without any acute cardiopulmonary abnormality. Patient is recommended admission due to her persistent hypotension. CBC/BMP: 05/08/17 0550 05/08/17 0550 Significant Findings Laboratory Tests Test 05/06/17 10:40 05/06/17 11:40 05/06/17 12:45 05/06/17 14:35 Red Blood Count 5.63 MIL/MM3 (4.00-5.30) Hemoglobin 15.9 GM/DL (11.6-15.3) Hematocrit 48.8 % (35.0-46.0) Red Cell Distribution Width 18.8 % (11.6-17.2) Neutrophils (%) (Auto) 75.7 % (16.0-70.0) Creatinine 1.10 MG/DL (0.50-1.00) Random Glucose 113 MG/DL (74-106) Alkaline Phosphatase 123 U/L (45-117) Aspartate Amino Transf (AST/SGOT) 155 U/L (15-37) Alanine Aminotransferase (ALT/SGPT) 195 U/L (10-53) Sodium Level 135 MEQ/L (136-145) Potassium Level 3.1 MEQ/L (3.5-5.1) Estimat Glomerular Filtration Rate 52 ML/MIN (>89) Troponin I LESS THAN 0.02 NG/ML Urine Leukocyte Esterase MOD (NEG) Urine WBC 20-24 /hpf (0-5) Urine Squamous Epithelial Cells 6-8 /hpf (0-5) Urine Bacteria MOD /hpf (NONE) Test 05/06/17 14:40 05/06/17 20:05 05/07/17 04:13 05/08/17 05:50 Mean Corpuscular Hemoglobin Concent 31.6 % (32.0-36.0) Red Cell Distribution Width 18.8 % (11.6-17.2) 18.1 % (11.6-17.2) Neutrophils (%) (Auto) 70.7 % (16.0-70.0) 85.4 % (16.0-70.0) Basophils (%) (Auto) 2.1 % (0.0-2.0) Albumin 3.1 GM/DL (3.4-5.0) 3.2 GM/DL (3.4-5.0) Calcium Level 8.2 MG/DL (8.5-10.1) 8.4 MG/DL (8.5-10.1) Aspartate Amino Transf (AST/SGOT) 175 U/L (15-37) 155 U/L (15-37) Alanine Aminotransferase (ALT/SGPT) 182 U/L (10-53) 186 U/L (10-53) Estimat Glomerular Filtration Rate 64 ML/MIN (>89) 62 ML/MIN (>89) 70 ML/MIN (>89) Platelet Count 127 TH/MM3 (150-450) Lymphocytes # (Auto) 0.6 TH/MM3 (1.0-4.8) Random Glucose 115 MG/DL (74-106) Total Protein 6.1 GM/DL (6.4-8.2) Potassium Level 3.2 MEQ/L (3.5-5.1) Chloride Level 111 MEQ/L (98-107) Imaging Last Impressions Liver Ultrasound 05/08/17 0000 Signed Impressions: Service Date/Time: Monday, May 08, 2017 09:51 - CONCLUSION: 1. The liver is slightly echogenic which maybe due to fatty infiltration and or hepatocellular dysfunction. 2. Splenomegaly. 3. Sludge in the gallbladder without definite stones the technique. KLakeisha Cavazos MD Chest X-Ray 05/06/17 0000 Signed Impressions: Service Date/Time: April 11:17 - CONCLUSION: Normal examination. Vernon Vargas MD Aorta CTA 05/06/17 0000 Signed Impressions: Service Date/Time: April 14:48 - CONCLUSION: High-grade ostial stenosis involving the left subclavian artery would be expected to produce significant asymmetry in arm pressures.. This lesion does appear amenable to endovascular treatment if the patient is symptomatic for claudication or subclavian steal symptoms. High-grade celiac and SMA stenoses. No acute vascular findings. Steven Silver MD Hospital Course 51-year-old female with known history of hypertension who is on multiple medications for blood pressure to include metoprolol, lisinopril, clonidine, hydrochlorothiazide. Patient also with chronic back pain is on multiple medications to include Flexeril, Lortab. She does have anxiety, in which she is on multiple medications to include clonazepam, Zoloft, Zyprexa. Patient originally presented to the emergency department she had not felt very well for 4 days. She had vague chest discomfort which was nonexertional and is associated with a cough. There was chronic abdominal discomfort. She had workup done emergency department and found to have low blood pressure with systolic pressure lower than 100 on multiple occasions. Patient was given at least 4 L normal saline bolus and subsequently started on Levophed for blood pressure management. Blood pressure did well while on Levophed. It was discontinued yesterday morning and simply started back at 1 paolo in the afternoon. Patient was given another liter bolus with albumin. Her blood pressure has been doing fantastic since then. Patient has significant workup performed which did not indicate any acute coronary event. Echocardiogram was performed which did not indicate any abnormality and showed great ejection fraction and ventricular function. Blood pressure could have been low secondary to all of her medications that she has been taken. She did not indicate that she was doing any close follow-up with her primary medical doctor. Laboratory studies did indicate some mild liver enzyme elevation. Ultrasound was performed which did show some fatty liver. Patient is aware that at this time. Urinalysis was performed which does appear to have a mild urinary tract infection, however urine culture has not had any growth at this time. She was started on a plethora of antibiotics include vancomycin, Rocephin , Zosyn. Patient clinically stable this time is asking to go home. Will plan discharge accordingly. Notified the patient daily adjusting her medications and she needs to follow-up with her primary medical doctor in 3-5 days. Pt Condition on Discharge: Stable Discharge Disposition: Discharge Home Discharge Time: > 30 minutes Discharge Instructions DIET: Follow Instructions for: Heart Healthy Diet Activities you can perform: Regular-No Restrictions Activities to Avoid: Driving for 24 hrs Follow up Referrals: PCP Follow-up - 1 Week New Medications: Lisinopril (Lisinopril) 10 Mg Tab 10 MG PO DAILY, #30 TAB 0 Refills Continued Medications: Clonazepam (Klonopin) 0.5 Mg Tab 0.5 MG PO TID PRN for ANXIETY, #90 TAB 0 Refills Clopidogrel (Clopidogrel) 75 Mg Tab 75 MG PO DAILY for Blood Clot Prevention, #30 TAB 0 Refills Cyclobenzaprine (Flexeril) 10 Mg Tab 10 MG PO BID for Muscle Spasm, #90 TAB 0 Refills Gabapentin (Gabapentin) 600 Mg Tab 600 MG PO TID PRN for PAIN SCALE 1 TO 10, #90 TAB 0 Refills Hydrocodone-Acetaminophen ([place]) 7.5-325 mg Tab 1 TAB PO Q8HR PRN for PAIN, TAB 0 Refills Levothyroxine (Levothyroxine) 100 Mcg Tab 100 MCG PO DAILY for Thyroid, #30 TAB 0 Refills Omeprazole (Omeprazole) 20 Mg Tab 20 MG PO DAILY, #30 TAB 0 Refills Promethazine (Phenergan) 25 Mg Tablet 25 MG PO Q8HR PRN for NAUSEA OR VOMITING, TAB 0 Refills Ropinirole (Ropinirole) 2 Mg Tab 2 MG PO HS, #30 TAB 0 Refills Rosuvastatin (Rosuvastatin) 40 Mg Tab 40 MG PO HS for Cholesterol Management, #30 TAB 0 Refills Sertraline (Sertraline) 100 Mg Tab 200 MG PO DAILY, #30 TAB 0 Refills Ziprasidone (Ziprasidone) 80 Mg Cap 160 MG PO HS, #60 CAP 0 Refills Discontinued Medications: Hydrochlorothiazide (Hydrochlorothiazide) 25 Mg Tab 25 MG PO DAILY, #30 TAB 0 Refills Lisinopril (Lisinopril) 20 Mg Tab 20 MG PO HS, #30 TAB 0 Refills Metoprolol Succinate ER 24 HR (Metoprolol Succinate ER 24 HR) 100 Mg Tab 100 MG PO DAILY, #30 TAB 0 Refills Remigio Nunez May 08, 2017 11:05
[2017-05-08] MEDS ORDERED: PHARMACY ORDERED LAB ONE (20:45)
== END 2017-05-08 12:48 | disposition home or self-care (01) | DRG 316 ==
LOC: PHED 10:12 → PHEDA 12:27 → PHICU 17:00
PROVIDERS: ADMIT Hospitalist; ATTEND Hospitalist
DX: I95.9 Hypotension, unspecified (principal); K76.0 Fatty (change of) liver, not elsewhere classified; I10 Essential (primary) hypertension; I73.9 Peripheral vascular disease, unspecified; G89.29 Other chronic pain; M54.9 Dorsalgia, unspecified; E78.5 Hyperlipidemia, unspecified; G25.81 Restless legs syndrome; F17.210 Nicotine dependence, cigarettes, uncomplicated; R79.89 Other specified abnormal findings of blood chemistry; E03.9 Hypothyroidism, unspecified; F41.9 Anxiety disorder, unspecified
CPT/HCPCS: 71045; 71275; 74174; 76705; 80053; 81001; 82550; 82552; 82565; 83605; 83690; 83735; 84443; 84484; 85025; 85610; 85730; 87040; 87086; 87641; 87804; 93005; 93306; 96361; 96372; 96374; J1644; J1720; J2405; J2543; J2550; J3370; J7030; J7050; P9047; Q9967

== ENCOUNTER 2017-07-12 11:43 | Emergency (ER) | payer MEDICARE, MEDICAID ==
[~2017-07-12] VITALS: Ht 165.1 cm; Wt 79.2 kg
[~2017-07-12 11:43] MED LIST: CLON.5 PO; CLOP75TA PO; CYCL10TA PO; GABA600T PO; HYDR-3288 PO; LEVO100T5 PO; LISI10TA3 PO; OMEP20TA93 PO; PROM25TA10 PO; ROPI2TAB PO; ROSU1TAB10 PO; SERT-129 PO; ZIPR1CAP12 PO
[2017-07-12 11:46] VITALS: BP 145/64; PULSE 102; RESP 16; TEMP 98; O2SAT 97
[2017-07-12] MEDS ORDERED: ZOLO100T PO (12:23)
[2017-07-12] MEDS ORDERED: ASPI81CH6 CHEW (12:23)
[2017-07-12] MEDS ORDERED: REGL5TAB PO (12:23)
[2017-07-12] MEDS ORDERED: HYDR-3366 PO (12:23)
[2017-07-12] MEDS ORDERED: CLON0.5T PO (12:23)
[2017-07-12] MEDS ORDERED: LISI-519 PO (12:23)
--- NOTE | 2017-07-12 12:37 | PD ---
HPI Chief Complaint: Headache Time Seen by Provider: 12:35 Travel History International Travel<30 days: No Contact w/Intl Traveler<30days: No Traveled to known affect area: No History of Present Illness HPI 52-year-old female came to the emergency room with history of left-sided temporal headache along with some blurred vision for past 4 days. Patient says that she had a subclavian artery stent put in on the left side 4 days ago in [place]. She has history of peripheral ask her disease and has had other peripheral artery stented. After the procedure when she was in the recovery room she started to get headache. They gave her Percocet but the headache didn' t subside. Eventually they discharge her home. Patient has 10 mg of hydrocodone at home for her chronic pain which she took but the headache didn't get better. She also took her Reglan for nausea since patient was nauseous and vomited couple times. This did not help either. She called the vascular surgeon within the procedure and was recommended to come to the emergency room. Vital signs are stable. Patient has history of migraines which stopped 15 years ago. It has started now again. Patient does not appear to be toxic. No history of fever or chills. No history of neck pain. PFSH Past Medical History Narrative Medical List of her past medical, surgical, social and family history is reviewed from the nursing note. Hx Anticoagulant Therapy: Yes (PLAVIX) Arthritis: Yes Asthma: No Autoimmune Disease: No Anxiety: Yes Depression: Yes Cancer: No Cardiac Catheterization: Yes (07/09/17 STENT PLACED) Cardiovascular Problems: Yes (HTN) High Cholesterol: Yes Chest Pain: Yes COPD: Yes Cerebrovascular Accident: Yes (TIA'S TIMES 3) Endocrine: Yes Gastrointestinal Disorders: Yes GERD: Yes Genitourinary: Yes Headaches: Yes Hiatal Hernia: No Hypertension: Yes Immune Disorder: No Implanted Vascular Access Dvce: Yes Musculoskeletal: Yes (CHRONIC BACK PAIN, DDD) Neurologic: Yes Psychiatric: Yes Reproductive: No Respiratory: Yes Immunizations Current: Yes Sleep Apnea: Yes Thyroid Disease: Yes Ulcer: No Tetanus Vaccination: Never Vaccinated ?: Not Tubal Ligation: Yes Past Surgical History Abdominal Surgery: Yes (lap appy) Appendectomy: Yes Body Medical Devices: juana leg stents Section: Yes Coronary Stent: Yes (TOTAL STENTS =5) Genitourinary Surgery: Yes (BLADDER TUCK) Gynecologic Surgery: Yes (C section/Total hysterectomy) Hysterectomy: Yes Oral Surgery: Yes (uppers teeth romoved) Other Surgery: Yes (ILIAC STENTS X 3 BILATERALLY) Social History Alcohol Use: No Tobacco Use: Yes Substance Use: No Allergies-Medications (Allergen,Severity, Reaction): Coded Allergies: budesonide (Verified Allergy, Severe, 07/12/17) formoterol (Verified Allergy, Severe, 07/12/17) codeine (Verified Allergy, Intermediate, Anaphylaxis, 07/12/17) Comments List of allergies reviewed from the nursing note. Reported Meds & Prescriptions Reported Meds & Active Scripts Active Fioricet (Fkpkyaffnt-Nbuqpqwvsimub-Ovrkhjmx) 50-300-40 Mg Cap 1 Cap PO Q4H PRN Reported Zoloft (Sertraline HCl) 100 Mg Tab 150 Mg PO HS Reglan (Metoclopramide HCl) 5 Mg Tab 5 Mg PO DAILY Lisinopril 5 Mg Tab 5 Mg PO DAILY Clonazepam 0.5 Mg Tab 0.5 Mg PO HS [place] (Hydrocodone-Acetaminophen) 10-325 Mg Tab 1 Tab PO Q6H PRN Aspirin Low Dose (Aspirin) 81 Mg Chew 81 Mg CHEW DAILY Rosuvastatin (Rosuvastatin Calcium) 40 Mg Tab 40 Mg PO HS Ziprasidone 80 Mg Cap 160 Mg PO HS Clopidogrel (Clopidogrel Bisulfate) 75 Mg Tab 75 Mg PO DAILY Ropinirole 2 Mg Tab 2 Mg PO HS Omeprazole 20 Mg Tab 20 Mg PO DAILY Levothyroxine (Levothyroxine Sodium) 100 Mcg Tab 100 Mcg PO DAILY Narrative Medication List of her home medications reviewed from the nursing note. Review of Systems Except as stated in HPI: all other systems reviewed are Neg Neurologic: Positive: Headache Physical Exam Narrative GENERAL: Awake, alert, moderate distress SKIN: Focused skin assessment warm/dry. HEAD: Atraumatic. Normocephalic. EYES: Pupils equal and round. No scleral icterus. No injection or drainage. ENT: No nasal bleeding or discharge. Mucous membranes pink and moist. NECK: Trachea midline. No JVD. No neck stiffness or meningismus CARDIOVASCULAR: Regular rate and rhythm. No murmur appreciated. RESPIRATORY: No accessory muscle use. Clear to auscultation. Breath sounds equal bilaterally. GASTROINTESTINAL: Abdomen soft, non-tender, nondistended. Hepatic and splenic margins not palpable. MUSCULOSKELETAL: No obvious deformities. No clubbing. No cyanosis. No edema. NEUROLOGICAL: Awake and alert. No obvious cranial nerve deficits. Motor grossly within normal limits. Normal speech. PSYCHIATRIC: Appropriate mood and affect; insight and judgment normal. Data Data Last Documented VS Orders Orders Ct Brain W/O Iv Contrast(Rout) (07/12/17 ) Complete Blood Count With Diff (07/12/17 12:51) Basic Metabolic Panel (Bmp) (07/12/17 12:51) Ecg Monitoring (07/12/17 12:51) Iv Access Insert/Monitor (07/12/17 12:51) Oximetry (07/12/17 12:51) Sodium Chloride 0.9% Flush (Ns Flush) (07/12/17 13:00) Prochlorperazine Inj (Compazine Inj) (07/12/17 13:00) Sodium Chlor 0.9% 1000 Ml Inj (Ns 1000 M (07/12/17 12:51) Ed Discharge Order (07/12/17 14:03) Ketorolac Inj (Toradol Inj) (07/12/17 14:15) Labs Laboratory Tests Test 07/12/17 13:18 White Blood Count 4.3 TH/MM3 Red Blood Count 3.95 MIL/MM3 Hemoglobin 11.2 GM/DL Hematocrit 34.5 % Mean Corpuscular Volume 87.4 FL Mean Corpuscular Hemoglobin 28.4 PG Mean Corpuscular Hemoglobin Concent 32.5 % Red Cell Distribution Width 16.8 % Platelet Count 224 TH/MM3 Mean Platelet Volume 8.0 FL Neutrophils (%) (Auto) 72.3 % Lymphocytes (%) (Auto) 18.9 % Monocytes (%) (Auto) 7.5 % Eosinophils (%) (Auto) 0.6 % Basophils (%) (Auto) 0.7 % Neutrophils # (Auto) 3.2 TH/MM3 Lymphocytes # (Auto) 0.8 TH/MM3 Monocytes # (Auto) 0.3 TH/MM3 Eosinophils # (Auto) 0.0 TH/MM3 Basophils # (Auto) 0.0 TH/MM3 CBC Comment DIFF FINAL Differential Comment Blood Urea Nitrogen 6 MG/DL Creatinine 0.65 MG/DL Random Glucose 103 MG/DL Calcium Level 9.1 MG/DL Sodium Level 140 MEQ/L Potassium Level 4.2 MEQ/L Chloride Level 111 MEQ/L Carbon Dioxide Level 22.0 MEQ/L Anion Gap 7 MEQ/L Estimat Glomerular Filtration Rate 95 ML/MIN MDM Medical Decision Making Medical Screen Exam Complete: Yes Emergency Medical Condition: Yes Medical Record Reviewed: Yes Differential Diagnosis Migraine headache, status migrainous, headache NOS Narrative Course 1:57 PM patient was given IV fluid bolus and IV Compazine. Head CT and blood test results are unremarkable. I will reassess her. If she is feeling better she'll be discharged home. 2:01 PM patient says the headache has improved slightly. I we'll order dose of Toradol. She will be discharged home after that. Patient wanted me to look at her catheter site where they inserted for the stent. There is some bruising around but overall looks good. No pulsatile mass was felt. Procedures EKG Prior to Arrival: No Diagnosis Primary Impression: Status migrainosus Referrals: Primary Care Physician Additional Instructions: Drink lots of caffeinated beverages and stay hydrated. Take the medication as per the prescription direction. Return to the ER if condition worsens or any other new concerns. He should stay away from cigarette, alcohol, cheese, chocolate since these will worsen the headache. Follow-up with your primary care. Med/Other Pt SpecificInfo: Prescription(s) given Scripts Xmgkmyapxw-Hwnfkltsizpij-Xppkhtjq (Fioricet) 50-300-40 Mg Cap 1 CAP PO Q4H Y for HEADACHE, #20 CAP 0 Refills Prov: Mariia Braden MD 07/12/17 Disposition: DISCHARGE HOME Condition: Stable Mariia Braden MD Jul 12, 2017 12:36
[2017-07-12] MEDS ORDERED: SODIUM CHLOR 0.9% 1000 ML INJ 1,000 ML IV ONE (12:51)
[2017-07-12] MEDS ORDERED: PROCHLORPERAZINE INJ 10 MG/2 ML VIAL IVP ONE (13:00)
[2017-07-12] MEDS ORDERED: SODIUM CHLORIDE 0.9% FLUSH 10 ML FLUSH IVF PRN (13:00)
[2017-07-12 13:21] VITALS: O2SAT 97
[2017-07-12 13:27] LABS: AUTOMATED NEUTROPHIL # 3.2 TH/MM3 (1.8-7.7); BASOPHIL % 0.7 % (0.0-2.0); EOSINOPHIL % 0.6 % (0.0-4.0); HEMATOCRIT 34.5 % (35.0-46.0); HEMOGLOBIN 11.2 GM/DL (11.6-15.3); LYMPH % 18.9 % (9.0-44.0); LYMPHOCYTE # 0.8 TH/MM3 (1.0-4.8); MEAN CELL VOLUME 87.4 FL (80.0-100.0); MEAN CORPUSCULAR HEMOGLOBIN 28.4 PG (27.0-34.0); MEAN CORPUSCULAR HGB CONC 32.5 % (32.0-36.0); MONO % 7.5 % (0.0-8.0); MONOCYTE # 0.3 TH/MM3 (0-0.9); NEUT % 72.3 % (16.0-70.0); PLATELET COUNT 224 TH/MM3 (150-450); RED BLOOD COUNT 3.95 MIL/MM3 (4.00-5.30); RED CELL DISTRIBUTION WIDTH 16.8 % (11.6-17.2); WHITE BLOOD COUNT 4.3 TH/MM3 (4.0-11.0)
--- NOTE | 2017-07-12 13:37 | RADRPT ---
EXAM DATE/TIME: 07/12/2017 13:25 [facility] COMPARISON: No previous studies available for comparison. INDICATIONS : Cardiac catheterization three days ago, and now has a headache. RADIATION DOSE: 61.47 CTDIvol (mGy) MEDICAL HISTORY : Cardiovascular disease. Cerebrovascular disease. Anticoagulant therapy. SURGICAL HISTORY : Coronary artery stent. Hysterectomy. ENCOUNTER: Initial ACUITY: 3 days PAIN SCALE: 6/10 LOCATION: Left occipital TECHNIQUE: Multiple contiguous axial images were obtained of the head. Using automated exposure control and adj ustment of the mA and/or kV according to patient size, radiation dose was kept as low as reasonably a chievable to obtain optimal diagnostic quality images. DICOM format image data is available electro nically for review and comparison. FINDINGS: CEREBRUM: The ventricles are normal for age. No evidence of midline shift, mass lesion, hemorrhage or acute in farction. There is a small benign appearing calcification in left parietal lobe. No extra-axial flui d collections are seen. POSTERIOR FOSSA: The cerebellum and brainstem are intact. The 4th ventricle is midline. The cerebellopontine angle i s unremarkable. EXTRACRANIAL: The visualized portion of the orbits is intact. SKULL: The calvaria is intact. No evidence of skull fracture. CONCLUSION: Negative noncontrast CT. Austin Russell MD on July 12, 2017 at 13:32 Board Certified Radiologist. This report was verified electronically.
[2017-07-12 13:40] LABS: CALCIUM 9.1 MG/DL (8.5-10.1)
[2017-07-12 13:42] VITALS: BP 110/64; PULSE 86; RESP 18; O2SAT 95
[2017-07-12 13:44] LABS: CREATININE 0.65 MG/DL (0.50-1.00)
[2017-07-12] MEDS ORDERED: BUTA1CAP PO (14:03)
[2017-07-12] MEDS ORDERED: KETOROLAC TROMETHAMINE 30 MG/ML (IVP) VIAL IV PUSH ONE (14:15)
== END 2017-07-12 14:40 | disposition home or self-care (01) ==
LOC: PHED 11:43
DX: G43.901 Migraine, unspecified, not intractable, with status migrainosus (principal); E78.00 Pure hypercholesterolemia, unspecified; F32.9 Major depressive disorder, single episode, unspecified; F41.9 Anxiety disorder, unspecified; I10 Essential (primary) hypertension; J44.9 Chronic obstructive pulmonary disease, unspecified; I73.9 Peripheral vascular disease, unspecified; Z95.828 Presence of other vascular implants and grafts; Z72.0 Tobacco use
CPT/HCPCS: 70450; 80048; 85025; 96361; 96374; 96375; 99285; J0780; J1885; J7030

== ENCOUNTER 2017-10-03 12:04 | Inpatient (IN) | payer MEDICARE, MEDICAID ==
[2017-10-03] VITALS (11 sets, daily range): BP systolic 72–164; BP diastolic 42–76; PULSE 64–91; RESP 18–20; TEMP 97.5–98.1; O2SAT 93–97
[~2017-10-03] VITALS: Ht 165.1 cm; Wt 76.8 kg
[2017-10-03] MEDS: POTASSIUM CHLORIDE 20 MEQ CONTROLLED RELEASE TAB PO ONE (02:00)
[~2017-10-03 12:04] MED LIST changes: +ASPI81CH6 CHEW; +BUTA1CAP PO; -CLON.5 PO; +CLON0.5T PO; -CYCL10TA PO; -GABA600T PO; -HYDR-3288 PO; +HYDR-3366 PO; +LISI-519 PO; -LISI10TA3 PO; -PROM25TA10 PO; +REGL5TAB PO; -SERT-129 PO; +ZOLO100T PO
[2017-10-03] MEDS ORDERED: METO1TAB9 PO (13:25)
[2017-10-03 13:47] LABS: BILIRUBIN, URINE NEG (NEG); BLOOD, URINE MOD (NEG); GLUCOSE,URINE NEG (NEG); KETONE, URINE NEG (NEG); NITRITE,URINE NEG (NEG); URINE COLOR YELLOW (YELLW/STRAW); URINE LEUKOCYTE ESTERASE NEG (NEG)
[2017-10-03] MEDS ORDERED: SODIUM CHLOR 0.9% 1000 ML INJ 1,000 ML IV SCH (14:00)
[2017-10-03 14:16] LABS: AUTOMATED NEUTROPHIL # 7.9 TH/MM3 (1.8-7.7); BASOPHIL # 0.1 TH/MM3 (0-0.2); BASOPHIL % 0.6 % (0.0-2.0); EOSINOPHIL % 0.1 % (0.0-4.0); HEMATOCRIT 47.8 % (35.0-46.0); HEMOGLOBIN 15.9 GM/DL (11.6-15.3); LYMPH % 8.9 % (9.0-44.0); LYMPHOCYTE # 0.9 TH/MM3 (1.0-4.8); MEAN CELL VOLUME 87.3 FL (80.0-100.0); MEAN CORPUSCULAR HEMOGLOBIN 29.1 PG (27.0-34.0); MEAN CORPUSCULAR HGB CONC 33.3 % (32.0-36.0); MONO % 6.9 % (0.0-8.0); MONOCYTE # 0.7 TH/MM3 (0-0.9); NEUT % 83.5 % (16.0-70.0); PLATELET COUNT 167 TH/MM3 (150-450); RED BLOOD COUNT 5.48 MIL/MM3 (4.00-5.30); RED CELL DISTRIBUTION WIDTH 15.5 % (11.6-17.2); WHITE BLOOD COUNT 9.6 TH/MM3 (4.0-11.0)
--- NOTE | 2017-10-03 14:16 | PD ---
HPI Chief Complaint: GI Complaint Time Seen by Provider: 13:23 Travel History International Travel<30 days: No Contact w/Intl Traveler<30days: No Traveled to known affect area: No History of Present Illness HPI Is a 52-year-old woman who presents to the emergency department complaining of nausea vomiting abdominal pain weakness ongoing for the past several months or so, worse over the past week or 2. States she has lost 50 pounds during this time. Pain waxes and wanes, worse in certain positions and worse after eating. She had vomiting. States she has not been able to eat more than a peach in the past 2 weeks. She does drink some fluid. Pain is severe. She states she has had exhaustive testing and no etiology has been identified. She came in today because she just continues to worsen. She has a history of PAD, recently had her left subclavian stented by her lamp inspector in [place], Dr. mota. She is also had stents placed in her iliacs in the past. She has a history of COPD. She continues to smoke tobacco. She is a TIA, GERD, hypertension, thyroid disease. Multiple abdominal surgeries as well. History Past Medical History Narrative Medical TIA COPD Anxiety depression GERD Hypertension Thyroid disease PAD, history of stents in her left subclavian, and bilateral iliacs Multiple abdominal surgeries including appendectomy, bladder tuck. Social History Alcohol Use: No Tobacco Use: Yes (1ppd) Allergies-Medications (Allergen,Severity, Reaction): Coded Allergies: budesonide (Verified Allergy, Severe, 10/03/17) formoterol (Verified Allergy, Severe, 10/03/17) codeine (Verified Allergy, Intermediate, Anaphylaxis, 10/03/17) Reported Meds & Prescriptions Reported Meds & Active Scripts Active Fioricet (Gdotzgrvfy-Rcgphxevpjnyp-Argeekhs) 50-300-40 Mg Cap 1 Cap PO Q4H PRN Reported Metoprolol Succinate ER 24 HR (Metoprolol Succinate) 50 Mg Tab 50 Mg PO DAILY Zoloft (Sertraline HCl) 100 Mg Tab 150 Mg PO HS Reglan (Metoclopramide HCl) 5 Mg Tab 5 Mg PO DAILY Lisinopril 5 Mg Tab 20 Mg PO DAILY Clonazepam 0.5 Mg Tab 0.5 Mg PO HS [place] (Hydrocodone-Acetaminophen) 10-325 Mg Tab 1 Tab PO Q6H PRN Aspirin Low Dose (Aspirin) 81 Mg Chew 81 Mg CHEW DAILY Rosuvastatin (Rosuvastatin Calcium) 40 Mg Tab 40 Mg PO HS Ziprasidone 80 Mg Cap 160 Mg PO HS Clopidogrel (Clopidogrel Bisulfate) 75 Mg Tab 75 Mg PO DAILY Ropinirole 2 Mg Tab 2 Mg PO HS Omeprazole 20 Mg Tab 20 Mg PO DAILY Levothyroxine (Levothyroxine Sodium) 100 Mcg Tab 100 Mcg PO DAILY Review of Systems Except as stated in HPI: all other systems reviewed are Neg Physical Exam Narrative GENERAL: 52-year-old woman, generally well-appearing, nontoxic. SKIN: Focused skin assessment warm/dry. NECK: Trachea midline. No JVD. CARDIOVASCULAR: Regular rate and rhythm. No murmur appreciated. RESPIRATORY: No accessory muscle use. Clear to auscultation. Breath sounds equal bilaterally. GASTROINTESTINAL: Abdomen soft, non-tender, nondistended. Hepatic and splenic margins not palpable. MUSCULOSKELETAL: No obvious deformities. No clubbing. No cyanosis. No edema. NEUROLOGICAL: Awake and alert. No obvious cranial nerve deficits. Motor grossly within normal limits. Normal speech. PSYCHIATRIC: Appropriate mood and affect; insight and judgment normal. Data Data Last Documented VS Vital Signs Date Time Temp Pulse Resp B/P (MAP) Pulse Ox O2 Delivery O2 Flow Rate FiO2 10/03/17 16:48 69 18 94/57 (69) 96 Room Air 10/03/17 12:13 98.1 Orders Orders Urinalysis - C+S If Indicated (10/03/17 13:12) Complete Blood Count With Diff (10/03/17 13:50) Comprehensive Metabolic Panel (10/03/17 13:50) Lipase (10/03/17 13:50) Iv Access Insert/Monitor (10/03/17 13:50) Sodium Chlor 0.9% 1000 Ml Inj (Ns 1000 M (10/03/17 14:00) Metoclopramide Inj (Reglan Inj) (10/03/17 14:30) Urine Culture (10/03/17 13:15) Potassium Chlor 20 Meq Premix (Kcl 20 Me (10/03/17 15:00) Sodium Chlor 0.9% 1000 Ml Inj (Ns 1000 M (10/03/17 15:00) Us Abdomen Gallbladder (10/03/17 ) Labs Laboratory Tests Test 10/03/17 13:15 10/03/17 14:00 Urine Collection Type VOIDED Urine Color YELLOW Urine Turbidity CLEAR Urine pH 6.0 Urine Specific [place] 1.015 Urine Protein 100 mg/dL Urine Glucose (UA) NEG mg/dL Urine Ketones NEG mg/dL Urine Occult Blood MOD Urine Nitrite NEG Urine Bilirubin NEG Urine Urobilinogen 0.2 MG/DL Urine Leukocyte Esterase NEG Urine WBC 9-14 /hpf Urine Squamous Epithelial Cells 2-4 /hpf Urine Bacteria FEW /hpf Microscopic Urinalysis Comment CULTURE INDICATED White Blood Count 9.6 TH/MM3 Red Blood Count 5.48 MIL/MM3 Hemoglobin 15.9 GM/DL Hematocrit 47.8 % Mean Corpuscular Volume 87.3 FL Mean Corpuscular Hemoglobin 29.1 PG Mean Corpuscular Hemoglobin Concent 33.3 % Red Cell Distribution Width 15.5 % Platelet Count 167 TH/MM3 Mean Platelet Volume 11.0 FL Neutrophils (%) (Auto) 83.5 % Lymphocytes (%) (Auto) 8.9 % Monocytes (%) (Auto) 6.9 % Eosinophils (%) (Auto) 0.1 % Basophils (%) (Auto) 0.6 % Neutrophils # (Auto) 7.9 TH/MM3 Lymphocytes # (Auto) 0.9 TH/MM3 Monocytes # (Auto) 0.7 TH/MM3 Eosinophils # (Auto) 0.0 TH/MM3 Basophils # (Auto) 0.1 TH/MM3 CBC Comment DIFF FINAL Differential Comment Blood Urea Nitrogen 47 MG/DL Creatinine 2.10 MG/DL Random Glucose 112 MG/DL Total Protein 7.5 GM/DL Albumin 3.6 GM/DL Calcium Level 10.0 MG/DL Alkaline Phosphatase 135 U/L Aspartate Amino Transf (AST/SGOT) 300 U/L [place] Aminotransferase (ALT/SGPT) 257 U/L Total Bilirubin 0.3 MG/DL Sodium Level 130 MEQ/L Potassium Level 2.3 MEQ/L Chloride Level 95 MEQ/L Carbon Dioxide Level 20.6 MEQ/L Anion Gap 14 MEQ/L Estimat Glomerular Filtration Rate 25 ML/MIN Lipase 127 U/L [facility] Medical Decision Making Medical Screen Exam Complete: Yes Emergency Medical Condition: Yes Interpretation(s) LABS: CBC shows elevated H&H probably hemoconcentration. CMP shows low sodium, low potassium, low bicarb, elevated BUN and creatinine, elevated liver enzymes Lipase is normal UA trace pyuria. Ultrasound gallbladder: No gallstones seen. No focal lesion. Differential Diagnosis Chronic mesenteric ischemia, bowel obstruction, gastroparesis, gastritis, other Narrative Course Medical decision making Is a 52-year-old woman, worsening subacute abdominal pain the past couple months , worse after eating. Straight vasculopathy. Review of the CTA of the aorta shows critical stenosis of the origin of the celiac trunk, and high-grade stenosis of the origin of the SMA. I think the patient's symptoms are consistent with chronic mesenteric ischemia that appears to be steadily worsening. States she is not able to eat or drink at this point, is having severe abdominal pains. Will repeat a CTA of the abdominal aorta with focus on the abdominal branch vessels, likely admission for evaluation for intervention. FINAL: 52-year-old woman with symptoms suggestive of chronic mesenteric ischemia. Known critical stenosis of the celiac, and significant stenosis of the SMA. She has acute kidney injury with elevated creatinine I do not think treating the angiography today. I spoke with Dr. Jerez, vascular surgery. He will consult on patient. We will plan on admission, volume resuscitation and electrolyte correction, vascular surgery consultation. Liver enzymes are abnormal however right upper quadrant ultrasound does not show any evidence of chronic cholecystitis. I think her history is more suggestive of mesenteric ischemia. Diagnosis Primary Impression: Mesenteric ischemia, chronic Additional Impressions: Hypokalemia Dehydration Admitting Information Admitting Physician Requests: it Vernon Munoz MD Oct 03, 2017 14:16
[2017-10-03] MEDS ORDERED: METOCLOPRAMIDE HCL 10 MG/2 ML VIAL IV PUSH ONE (14:30)
[2017-10-03 14:34] LABS: BACTERIA, URINE FEW /hpf
[2017-10-03 14:46] LABS: ALBUMIN 3.6 GM/DL (3.4-5.0); ALKALINE PHOSPHATASE 135 U/L (45-117); ALT (GPT) 257 U/L (10-53); AST (GOT) 300 U/L (15-37); BICARBONATE 20.6 MEQ/L (21.0-32.0); BLOOD UREA NITROGEN 47 MG/DL (7-18); CHLORIDE 95 MEQ/L (98-107); GLOMERULAR FILTRATION RATE 25 ML/MIN (>89); GLUCOSE,RANDOM 112 MG/DL (74-106); SODIUM (NA) 130 MEQ/L (136-145); TOTAL BILIRUBIN ADULT 0.3 MG/DL (0.2-1.0); TOTAL PROTEIN 7.5 GM/DL (6.4-8.2)
[2017-10-03] MEDS: POTASSIUM CHLOR 20 MEQ PREMIX 100 ML IV SCH ×2 (15:22→17:11)
[2017-10-03] MEDS: SODIUM CHLOR 0.9% 1000 ML INJ 1,000 ML IV SCH (15:22)
--- NOTE | 2017-10-03 16:56 | RADRPT ---
EXAM DATE: 10/03/2017 4:45 PM EDT AGE/SEX: 52 years / Female INDICATIONS: Right upper quadrant pain. CLINICAL DATA: This is the patient's initial encounter. Patient reports that signs and/or symptoms h ave been present for 7 - 11 months and indicates a pain score of 7/10. MEDICAL/SURGICAL HISTORY: Chronic obstructive pulmonary disease. Hypercholesterolemia. Hypertensi on. Thyroid disease. Numbness. Anticoagulant therapy. Sleep apnea. IBD. GERD. Back pain. Arthritis. Osteoporosis. Depression. Anxiety. Fatty liver disease. Cerebrovascular accident. Syncope. Appendect randell. section. Hysterectomy. Coronary artery stents. Tubal ligation. Bilateral iliac stent s. COMPARISON: No prior exams available for comparison. MEASUREMENTS (cm x cm x cm): Liver:__ 17.3 cm length Common Bile Duct:__ 6mm FINDINGS: Liver: Normal echotexture without focal lesion or ductal dilatation. Portal Vein: Hepatopedal flow seen in portal vein. Common Duct: No intraluminal mass or stone visualized. Gallbladder: Demonstrates no wall thickening or pericholecystic fluid. No stones visualized. Pancreas: The visualized portions are within normal limits Right Kidney: Normal echotexture and cortical thickness. No mass or hydronephrosis. Other: None. CONCLUSION: 1. No gallstones seen. 2. Hepatomegaly without focal lesion. Electronically signed by: Riki Hardin MD 10/03/2017 4:54 PM EDT
[2017-10-03] MEDS ORDERED: ACETAMINOPHEN 325 MG TAB PO PRN (17:45)
[2017-10-03] MEDS ORDERED: BISACODYL 10 MG SUPP RECTAL PRN (17:45)
[2017-10-03] MEDS ORDERED: SODIUM CHLORIDE 0.9% FLUSH 10 ML FLUSH IV FLUSH PRN (17:45)
[2017-10-03] MEDS ORDERED: NALOXONE HCL 0.4 MG/ML AMP IV PUSH PRN (17:45)
[2017-10-03] MEDS: METOCLOPRAMIDE HCL 10 MG/2 ML VIAL IV PUSH PRN (20:14)
[2017-10-03] MEDS: HEPARIN SODIUM - SQ 10,000 UNITS/ML VIAL SQ SCH (20:20)
[2017-10-03] MEDS: SODIUM CHLORIDE 0.9% FLUSH 10 ML FLUSH IV FLUSH SCH (20:21)
[2017-10-03] MEDS ORDERED: SODIUM CHLORID 0.9% 500 ML INJ 500 ML IV ONE (22:30)
[2017-10-03] MEDS ORDERED: SODIUM CHLOR 0.9% 1000 ML INJ 1,000 ML IV ONE (23:15)
--- NOTE | 2017-10-03 23:26 | HHI.HP ---
HPI Service [facility] Primary Care Physician Non-Staff Admission Diagnosis Mesenteric ischemia, dehydration, hypokalemia Diagnoses: Chief Complaint: N/V, abd pain Travel History International Travel<30 Days: No Contact w/Intl Traveler <30 Da: No Traveled to Known Affected Are: No History of Present Illness This patient is a 52-year-old female with a history of hypertension, chronic back pain, hyperlipidemia, restless leg syndrome, peripheral artery disease status post iliac stents bilaterally, chronic mesenteric ischemia, TIA, GERD, HTN and current tobacco use. Patient presents to the [facility] complaining of nausea vomiting abdominal pain weakness ongoing for the past 7 months or so, worse over the past 1-2 weeks. States she has lost 50 pounds during this time. Pain waxes and wanes, worse in certain positions and worse after eating. Patient reports she has had nausea and vomiting for the past 7 months. Patient reports she was able to tolerate pizza earlier today and she has been able to drink some fluids. She came in today because she just continues to worsen. She has a history of PAD, recently had her left subclavian stented by her productivity engineer in [place]. She is also had stents placed bilateral iliacs arteries in the past. She continues to smoke tobacco. Review of Systems Except as stated in HPI: all other systems reviewed are Neg Past Family Social History Past Medical History hypertension, chronic back pain, hyperlipidemia, restless leg syndrome, peripheral artery disease status post iliac stents bilaterally, chronic mesenteric ischemia, TIA, GERD, HTN and current tobacco use Past Surgical History Bilateral iliac stents Subclavian stent Bladder surg Reported Medications Fioricet (Plnlahuyyj-Emwodhinzxxny-Qaicduus) 50-300-40 Mg Cap 1 Cap PO Q4H PRN Metoprolol Succinate ER 24 HR (Metoprolol Succinate) 50 Mg Tab 50 Mg PO DAILY Zoloft (Sertraline HCl) 100 Mg Tab 150 Mg PO HS Reglan (Metoclopramide HCl) 5 Mg Tab 5 Mg PO DAILY Lisinopril 5 Mg Tab 20 Mg PO DAILY Clonazepam 0.5 Mg Tab 0.5 Mg PO HS [place] (Hydrocodone-Acetaminophen) 10-325 Mg Tab 1 Tab PO Q6H PRN Aspirin Low Dose (Aspirin) 81 Mg Chew 81 Mg CHEW DAILY Rosuvastatin (Rosuvastatin Calcium) 40 Mg Tab 40 Mg PO HS Ziprasidone 80 Mg Cap 160 Mg PO HS Clopidogrel (Clopidogrel Bisulfate) 75 Mg Tab 75 Mg PO DAILY Ropinirole 2 Mg Tab 2 Mg PO HS Omeprazole 20 Mg Tab 20 Mg PO DAILY Levothyroxine (Levothyroxine Sodium) 100 Mcg Tab 100 Mcg PO DAILY Allergies: Coded Allergies: budesonide (Verified Allergy, Severe, 10/03/17) formoterol (Verified Allergy, Severe, 10/03/17) codeine (Verified Allergy, Intermediate, Anaphylaxis, 10/03/17) Active Ordered Medications Current Medications Medications (Trade) Dose Ordered Sig/Bhakti Route Start Time Stop Time Status Last Admin Sodium Chloride 1,000 ml @ 125 mls/hr Q8H IV 10/03/17 15:00 10/03/17 15:22 (NS Flush) 2 ml UNSCH PRN IV FLUSH 10/03/17 17:45 (NS Flush) 2 ml BID IV FLUSH 10/03/17 21:00 10/03/17 20:21 (Tylenol) 650 mg Q4H PRN PO 10/03/17 17:45 (Reglan Inj) 5 mg Q6H PRN IV PUSH 10/03/17 17:45 10/03/17 20:14 (Narcan Inj) 0.4 mg UNSCH PRN IV PUSH 10/03/17 17:45 (Dulcolax Supp) 10 mg DAILY PRN RECTAL 10/03/17 17:45 (Heparin Inj) 5,000 units Q12HR SQ 10/03/17 21:00 10/03/17 20:20 Sodium Chloride 500 ml @ 500 mls/hr BOLUS ONCE IV 10/03/17 22:30 10/03/17 23:29 10/03/17 22:30 Sodium Chloride 1,000 ml @ 999 mls/hr BOLUS ONCE IV 10/03/17 23:15 10/04/17 00:15 Family History Mother had coronary disease and stents at 73, father's history is unknown Social History Patient smokes a half a pack a day for the last 20 years has cut back from 1 pack per day started smoking at age 8 No alcohol Denies EtOH use Physical Exam Vital Signs Vital Signs Date Time Temp Pulse Resp B/P (MAP) Pulse Ox O2 Delivery O2 Flow Rate FiO2 10/03/17 22:59 72/42 (52) 10/03/17 22:30 97.5 66 18 79/44 (56) 96 10/03/17 21:17 10/03/17 20:21 64 18 100/67 (78) 95 Room Air 10/03/17 18:55 68 18 86/59 (68) 97 Room Air 10/03/17 17:11 68 18 119/57 (77) 96 Room Air 10/03/17 16:48 69 18 94/57 (69) 96 Room Air 10/03/17 15:54 68 18 83/59 (67) 96 Room Air 10/03/17 15:34 67 18 89/50 (63) 96 Room Air 10/03/17 13:26 73 18 94/52 (66) 97 Room Air 10/03/17 12:13 98.1 73 20 86/59 (68) 97 Physical Exam GENERAL: This is a well-nourished, well-developed patient, in no apparent distress. SKIN: No rashes, ecchymoses or lesions. Cool and dry. HEAD: Atraumatic. Normocephalic. No temporal or scalp tenderness. EYES: Extraocular motions intact. No scleral icterus. No injection or drainage. CARDIOVASCULAR: Regular rate and rhythm RESPIRATORY: Clear to auscultation. Breath sounds equal bilaterally. GASTROINTESTINAL: Abdomen soft, mildly tender RUQ, nondistended. MUSCULOSKELETAL: Extremities without clubbing, cyanosis, or edema. No joint tenderness, effusion, or edema noted. No calf tenderness. Negative Homans sign bilaterally. NEUROLOGICAL: Awake and alert. No focal deficits. Motor and sensory grossly within normal limits. Five out of 5 muscle strength in all muscle groups. Normal speech. Laboratory Laboratory Tests Test 10/03/17 13:15 10/03/17 14:00 Urine Collection Type VOIDED Urine Color YELLOW Urine Turbidity CLEAR Urine pH 6.0 Urine Specific [place] 1.015 Urine Protein 100 Urine Glucose (UA) NEG Urine Ketones NEG Urine Occult Blood MOD Urine Nitrite NEG Urine Bilirubin NEG Urine Urobilinogen 0.2 Urine Leukocyte Esterase NEG Urine WBC 9-14 Urine Squamous Epithelial Cells 2-4 Urine Bacteria FEW Microscopic Urinalysis Comment CULTURE INDICATED White Blood Count 9.6 Red Blood Count 5.48 Hemoglobin 15.9 Hematocrit 47.8 Mean Corpuscular Volume 87.3 Mean Corpuscular Hemoglobin 29.1 Mean Corpuscular Hemoglobin Concent 33.3 Red Cell Distribution Width 15.5 Platelet Count 167 Mean Platelet Volume 11.0 Neutrophils (%) (Auto) 83.5 Lymphocytes (%) (Auto) 8.9 Monocytes (%) (Auto) 6.9 Eosinophils (%) (Auto) 0.1 Basophils (%) (Auto) 0.6 Neutrophils # (Auto) 7.9 Lymphocytes # (Auto) 0.9 Monocytes # (Auto) 0.7 Eosinophils # (Auto) 0.0 Basophils # (Auto) 0.1 CBC Comment DIFF FINAL Differential Comment Blood Urea Nitrogen 47 Creatinine 2.10 Random Glucose 112 Total Protein 7.5 Albumin 3.6 Calcium Level 10.0 Alkaline Phosphatase 135 Aspartate Amino Transf (AST/SGOT) 300 Alanine Aminotransferase (ALT/SGPT) 257 Total Bilirubin 0.3 Sodium Level 130 Potassium Level 2.3 Chloride Level 95 Carbon Dioxide Level 20.6 Anion Gap 14 Estimat Glomerular Filtration Rate 25 Lipase 127 Date/Time Source Procedure Growth Status 10/03/17 13:15 Urine Random Urine Urine Culture Pending Received Result Diagram: 10/03/17 1400 10/03/17 1400 Imaging Last Impressions Gall Bladder Ultrasound 10/03/17 0000 Signed Impressions: CONCLUSION: 1. No gallstones seen. 2. Hepatomegaly without focal lesion. Caprini VTE Risk Assessment Caprini VTE Risk Assessment: Mod/High Risk (score >= 2) Caprini Risk Assessment Model Point Value = 1 Point Value = 2 Point Value = 3 Point Value = 5 Age 41-60 Minor surgery BMI > 25 kg/m2 Swollen legs Varicose veins or History of unexplained or recurrent spontaneous Oral contraceptives or hormone replacement Sepsis (< 1 month) Serious lung disease, including pneumonia (< 1 month) Abnormal pulmonary function Acute myocardial infarction Congestive heart failure (< 1 month) History of inflammatory bowel disease Medical patient at bed rest Age 61-74 Arthroscopic surgery Major open surgery (> 45 min) Laparoscopic surgery (> 45 min) Malignancy Confined to bed (> 72 hours) Immobilizing plaster cast Central venous access Age >= 75 History of VTE Family history of VTE Factor V Leiden Prothrombin [id number] Lupus anticoagulant Anticardiolipin antibodies Elevated serum homocysteine Heparin-induced thrombocytopenia Other congenital or acquired thrombophilia Stroke (< 1 month) Elective arthroplasty Hip, pelvis, or leg fracture Acute spinal cord injury (< 1 month) Prophylaxis Regimen Total Risk Factor Score Risk Level Prophylaxis Regimen 0-1 Low Early ambulation 2 Moderate Order ONE of the following: *Sequential Compression Device (SCD) *Heparin 5000 units SQ BID 3-4 Higher Order ONE of the following medications: *Heparin 5000 units SQ TID *Enoxaparin/Lovenox 40 mg SQ daily (WT < 150 kg, CrCl > 30 mL/min) *Enoxaparin/Lovenox 30 mg SQ daily (WT < 150 kg, CrCl > 10-29 mL/min) *Enoxaparin/Lovenox 30 mg SQ BID (WT < 150 kg, CrCl > 30 mL/min) AND/OR *Sequential Compression Device (SCD) 5 or more Highest Order ONE of the following medications: *Heparin 5000 units SQ TID (Preferred with Epidurals) *Enoxaparin/Lovenox 40 mg SQ daily (WT < 150 kg, CrCl > 30 mL/min) *Enoxaparin/Lovenox 30 mg SQ daily (WT < 150 kg, CrCl > 10-29 mL/min) *Enoxaparin/Lovenox 30 mg SQ BID (WT < 150 kg, CrCl > 30 mL/min) AND *Sequential Compression Device (SCD) Assessment and Plan Problem List: (1) Mesenteric ischemia, chronic ICD Code: K55.1 - Chronic vascular disorders of intestine Status: Acute Plan: CTA with runoff May 06, 2017 revealed high-grade celiac and SMA stenosis CTA not repeated today due to elevated creatinine Patient presented to [facility] today with continued chronic nausea vomiting and abdominal pain for the past 7 months Gallbladder ultrasound revealed no gallstones and hepatomegaly without focal lesion ER provider spoke to Dr. Jerez who will see patient in consult Consultation placed to Dr. Jerez (2) Dehydration ICD Code: E86.0 - Dehydration Status: Acute Plan: Likely secondary to poor p.o. intake IV fluids for hydration Recheck BMP in a.m. (3) Hypokalemia ICD Code: E87.6 - Hypokalemia Status: Acute Plan: 40 meq KCL IV 40 meq KCL PO check Mag (4) LFT elevation ICD Code: R79.89 - Other specified abnormal findings of blood chemistry Plan: recheck CMP in AM (5) Hypotension ICD Code: I95.9 - Hypotension, unspecified Plan: Patient has been been hypotension through out today after 500ml bolus BP 72/42 Transfer patient to ICU 1L NS bolus Assessment and Plan Case discussed with Dr. Walter Patient also evaluated by Dr. Walter Physician Certification 2 Midnight Certification Type: Admission for Inpatient Services Order for Inpatient Services The services are ordered in accordance with Medicare regulations or non- Medicare payer requirements, as applicable. In the case of services not specified as inpatient-only, they are appropriately provided as inpatient services in accordance with the 2-midnight benchmark. Estimated LOS (days): 4 days is the estimated time the patient will need to remain in the hospital, assuming treatment plan goals are met and no additional complications. Post-Hospital Plan: Not yet determined Gisela Ramsey Oct 03, 2017 23:26
[2017-10-04] VITALS (12 sets, daily range): BP systolic 85–117; BP diastolic 44–62; PULSE 58–82; RESP 12–22; TEMP 97.7–98.2; O2SAT 92–99
[2017-10-04] MEDS: SODIUM CHLOR 0.9% 1000 ML INJ 1,000 ML IV SCH ×3 (00:44→13:30)
[2017-10-04] MEDS: POTASSIUM CHLOR 20 MEQ PREMIX 100 ML IV SCH ×2 (01:37→04:06)
[2017-10-04] MEDS: POTASSIUM CHLORIDE 20 MEQ CONTROLLED RELEASE TAB PO ONE (01:53)
[2017-10-04 02:05] LABS: BICARBONATE 18.8 MEQ/L (21.0-32.0); CALCIUM 8.2 MG/DL (8.5-10.1); CREATININE 1.39 MG/DL (0.50-1.00)
[2017-10-04 02:23] LABS: BASOPHIL % 0.3 % (0.0-2.0); EOSINOPHIL % 0.2 % (0.0-4.0); HEMATOCRIT 36.8 % (35.0-46.0); HEMOGLOBIN 12.3 GM/DL (11.6-15.3); LYMPH % 23.1 % (9.0-44.0); MEAN CORPUSCULAR HGB CONC 33.4 % (32.0-36.0); MONO % 8.8 % (0.0-8.0); NEUT % 67.6 % (16.0-70.0); PLATELET COUNT 106 TH/MM3 (150-450); RED BLOOD COUNT 4.23 MIL/MM3 (4.00-5.30); RED CELL DISTRIBUTION WIDTH 15.9 % (11.6-17.2); WHITE BLOOD COUNT 4.9 TH/MM3 (4.0-11.0)
[2017-10-04 02:24] LABS: AUTOMATED NEUTROPHIL # 3.3 TH/MM3 (1.8-7.7); LYMPHOCYTE # 1.1 TH/MM3 (1.0-4.8); MONOCYTE # 0.4 TH/MM3 (0-0.9)
[2017-10-04] MEDS: METOCLOPRAMIDE HCL 10 MG/2 ML VIAL IV PUSH PRN ×3 (05:16→19:08)
[2017-10-04] MEDS: SODIUM CHLORIDE 0.9% FLUSH 10 ML FLUSH IV FLUSH SCH ×2 (08:49→21:00)
[2017-10-04] MEDS: HEPARIN SODIUM - SQ 10,000 UNITS/ML VIAL SQ SCH ×3 (08:50→21:31)
[2017-10-04] MEDS ORDERED: POTASSIUM CHLOR 20 MEQ PREMIX 100 ML IV ONE ×2 (13:30)
--- NOTE | 2017-10-04 15:02 | PD.CAR.PN ---
CVT Progress Note Subjective/Hospital Course: 52-year-old patient with chronic abdominal pain and about 40 pound weight loss. 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 Since then patient has been treated at [facility] with subclavian stent however according to her the other issues were not addressed Patient now comes to us through the ER because " she lives closer to here'. On exam abdomen is soft active bowel sounds and tender diffusely tender but no rebound or guarding is noted Patient should have repeat CT angiogram here because I am not sure what was done up there in last few months and what was actually not addressed and based on that we can tailor further therapy Full consult to follow Thanks J Objective: Vital Signs Date Time Temp Pulse Resp B/P (MAP) Pulse Ox O2 Delivery O2 Flow Rate FiO2 10/04/17 14:00 65 10/04/17 12:00 66 10/04/17 12:00 98.0 66 14 103/52 (69) 99 10/04/17 10:00 67 10/04/17 08:00 97.7 73 16 102/57 (72) 92 10/04/17 08:00 73 10/04/17 07:00 98 Room Air 10/04/17 06:00 68 10/04/17 04:00 98.0 62 20 117/62 (80) 99 10/04/17 04:00 62 10/04/17 02:00 68 10/04/17 00:00 97.9 58 22 85/44 (58) 95 10/04/17 00:00 58 10/03/17 22:59 72/42 (52) 10/03/17 22:30 97.5 66 18 79/44 (56) 96 10/03/17 21:17 10/03/17 20:21 64 18 100/67 (78) 95 Room Air 10/03/17 18:55 68 18 86/59 (68) 97 Room Air 10/03/17 17:11 68 18 119/57 (77) 96 Room Air 10/03/17 16:48 69 18 94/57 (69) 96 Room Air 10/03/17 15:54 68 18 83/59 (67) 96 Room Air 10/03/17 15:34 67 18 89/50 (63) 96 Room Air Labs: Laboratory Tests Test 10/04/17 12:31 Potassium Level 2.9 MEQ/L (3.5-5.1) Result Diagram: 10/04/17 0038 10/04/17 1231 Margo Robert MD Oct 04, 2017 15:02
--- NOTE | 2017-10-04 15:52 | HHI.PR ---
Subjective Remarks "Him hungry ""can I eat" Patient reported abdominal pain 6 out of 10 with positive nausea vomiting she did not vomit today, no fever or chills, positive bowel movement no blood Objective Vitals Vital Signs Date Time Temp Pulse Resp B/P (MAP) Pulse Ox O2 Delivery O2 Flow Rate FiO2 10/04/17 14:00 65 10/04/17 12:00 66 10/04/17 12:00 98.0 66 14 103/52 (69) 99 10/04/17 10:00 67 10/04/17 08:00 97.7 73 16 102/57 (72) 92 10/04/17 08:00 73 10/04/17 07:00 98 Room Air 10/04/17 06:00 68 10/04/17 04:00 98.0 62 20 117/62 (80) 99 10/04/17 04:00 62 10/04/17 02:00 68 10/04/17 00:00 97.9 58 22 85/44 (58) 95 10/04/17 00:00 58 10/03/17 22:59 72/42 (52) 10/03/17 22:30 97.5 66 18 79/44 (56) 96 10/03/17 21:17 10/03/17 20:21 64 18 100/67 (78) 95 Room Air 10/03/17 18:55 68 18 86/59 (68) 97 Room Air 10/03/17 17:11 68 18 119/57 (77) 96 Room Air 10/03/17 16:48 69 18 94/57 (69) 96 Room Air 10/03/17 15:54 68 18 83/59 (67) 96 Room Air I/O 10/03/17 10/03/17 10/03/17 10/04/17 10/04/17 10/04/17 07:00 15:00 23:00 07:00 15:00 23:00 Intake Total 1100 ml 1700 ml 1100 ml Balance 1100 ml 1700 ml 1100 ml Intake Oral 100 ml IV Total 1100 ml 1600 ml 1100 ml # Voids 1 3 # Bowel Movements 0 Result Diagram: 10/04/17 0038 10/04/17 1231 Objective Remarks GENERAL: This is a well-nourished, well-developed patient, in no apparent distress. CARDIOVASCULAR: RRR, no gallops, or rubs. RESPIRATORY: Fair air entry bilaterally. No W, R, or R GASTROINTESTINAL: Abdomen soft, positive tenderness to palpation, nondistended. Positive bowel sounds MUSCULOSKELETAL: Extremities without clubbing, cyanosis, or edema. Pedal pulses appreciated NEUROLOGICAL: Awake and alert. Moves all extremity. Normal speech.no focal neurological deficit A/P Problem List: (1) Mesenteric ischemia, chronic ICD Code: K55.1 - Chronic vascular disorders of intestine Status: Acute (2) Dehydration ICD Code: E86.0 - Dehydration Status: Acute (3) Hypokalemia ICD Code: E87.6 - Hypokalemia Status: Acute (4) LFT elevation ICD Code: R79.89 - Other specified abnormal findings of blood chemistry (5) Hypotension ICD Code: I95.9 - Hypotension, unspecified Assessment and Plan Chronic mesenteric ischemia Dehydration Elevated LFT Lactic acidosis Hypertension DVT prophylaxis on heparin, watch out closely due to drop in platelets 106 Plan: CTA not repeated today due to elevated creatinine Patient presented to [facility] today with continued chronic nausea vomiting and abdominal pain for the past 7 months Gallbladder ultrasound revealed no gallstones and hepatomegaly without focal lesion Surgery consulted Dr. Jerez will see the patient appreciate their assistance Continue IV fluid with as needed repleting potassium Monitor CMP C BC in a.m. to monitor platelet 10/04: Check CMP in a.m., pending surgery consult, continue aggressive hydration Cyril Navarrete MD Oct 04, 2017 15:52
[2017-10-04 17:22] LABS: INTERNATIONAL NORMALIZED RATIO 1.1 RATIO; PROTHROMBIN TIME - PATIENT 10.7 SEC (9.8-11.6)
[2017-10-05] VITALS (21 sets, daily range): BP systolic 106–143; BP diastolic 55–78; PULSE 61–72; RESP 12–21; TEMP 97.7–98.5; O2SAT 93–100
[2017-10-05] MEDS: SODIUM CHLOR 0.9% 1000 ML INJ 1,000 ML IV SCH ×2 (00:40→08:40)
[2017-10-05] MEDS: METOCLOPRAMIDE HCL 10 MG/2 ML VIAL IV PUSH PRN ×4 (01:51→18:47)
[2017-10-05 06:26] LABS: ALBUMIN 2.8 GM/DL (3.4-5.0); BICARBONATE 17.7 MEQ/L (21.0-32.0); CALCIUM 9.1 MG/DL (8.5-10.1); CREATININE 0.78 MG/DL (0.50-1.00); DIRECT BILIRUBIN ADULT 0.1 MG/DL (0.0-0.2); INDIRECT BILIRUBIN 0.1 MG/DL (0.0-0.8); MAGNESIUM 1.3 MG/DL (1.5-2.5); PHOSPHORUS 2.5 MG/DL (2.5-4.9); TOTAL BILIRUBIN ADULT 0.2 MG/DL (0.2-1.0); TOTAL PROTEIN 5.5 GM/DL (6.4-8.2)
--- NOTE | 2017-10-05 07:52 | MB ---
cc: Margo Robert MD DATE: 10/04/2017 CONSULTING PHYSICIAN: Dr. Robert, Vascular Surgery REASON FOR CONSULTATION: Critical SMA and celiac axis stenosis, chronic intestinal ischemia, PVD and abdominal pain. TIME SPENT: Critical care 32 minutes. HISTORY OF PRESENT ILLNESS: This is a 52-year-old female with a quite extensive medical history, presents to the [facility] in [place] with nausea, vomiting, abdominal pain of about 7 months. The patient states is somewhat worse over the last few weeks. During that period, she lost about 50 pounds. Pain comes and goes. The patient stated that she was admitted in April to our hospital, I could see those studies, and was admitted to the hospital in [facility] and there had some stents put in, probably left subclavian, I would say. I do not know if there was anything down to the legs. Now, question arises about SMA and celiac axis stenosis noted on a CT angiogram of the aorta. PAST MEDICAL HISTORY: Hyperlipidemia, hypertension, chronic back pain, peripheral artery disease, post-iliac stenting bilaterally at [facility], TIA, hypertension. PAST SURGICAL HISTORY: That of left subclavian stent and bladder surgery. MEDICATIONS: Can be found on the record. SOCIAL HISTORY: The patient continues to smoke about half pack a day. Before that, she smoked about 1 pack a day from age of 8, so I guess 45 years and is not stopping. PHYSICAL EXAMINATION: GENERAL: Reveals a 52-year-old female appearing older than her actual age. HEENT: Normocephalic. No trauma to the head. Pupils are equal, reactive. Extraocular muscles intact. NECK: Supple. Bilateral carotid pulses, actually faint right-sided carotid bruit. CHEST: Bilateral breath sounds. HEART: Regular rhythm. ABDOMEN, PELVIC: Soft, active bowel sounds. No rebound, no guarding, no masses. On palpation, sort of tender in all 4 quadrants, but not specifically no point tenderness is noted. The patient then states that the pain comes and goes. Pelvic area is normal. Groins are normal. No hernias. EXTREMITIES: Within normal limits. No signs of acute vascular deficit. The patient has poor femoral pulses, barely palpable, popliteal only by Doppler and then posterior tibial, bilateral dorsalis pedis only on the right. NEUROLOGIC: The patient is grossly intact. PLAN: I reviewed the diagnostic procedures. This patient in April had a CTA of the aorta, which does show indeed fairly tight SMA and celiac artery stenosis. DARRIUS looks okay. After this, the patient and went to [facility] and they stuck some stents in her, probably subclavian, which was an easy thing and maybe some iliac stents, but I have not seen those yet because there is no repeat study. At this point, I believe the best way to go is to do a formal angiogram of the aorta, see how tight the stenosis are, measure the pressures and then if necessary do a balloon angioplasty of the SMA. Celiac axis is rarely an issue, so this should probably be left alone. Otherwise, there is a problem with it. Rarely ever these patients end up having a bypass surgery as an open procedure and should be avoided if possible. Thank you very much for referral. I will consult also interventional radiology. We will see where we go from here. MD TIFF Buck/SERA , 06:17 PM , 09:34 PM
[2017-10-05] MEDS: HEPARIN SODIUM - SQ 10,000 UNITS/ML VIAL SQ SCH ×2 (08:44→20:40)
[2017-10-05] MEDS: SODIUM CHLORIDE 0.9% FLUSH 10 ML FLUSH IV FLUSH SCH ×2 (08:44→20:40)
--- NOTE | 2017-10-05 09:41 | PD.RAD ---
Radiology Note 52 y/o with a 7 month history of abdominal pain and a 50lb weight loss during that time. PT experiences severe post prandial abdominal pain. Pt. is know to have advanced vascular disease with previous stent placement in the left subclavian and the iliac circulation. CTA demonstrated severe stenosis at the celiac and SMA origins. A/P: 52 y/o with mesenteric ischemia. Lesions at the SMA and celiac are amenable to stent placement. The risk, benefits and potential complications of celiac and SMA stenting were discussed. The risk included but were not limited to bleeding, bowel infarction , emergent surgery and rarely . The patient understands these risks. Signed consent obtained. Isauro Rendon MD Oct 05, 2017 09:41
[2017-10-05] MEDS ORDERED: MIDAZOLAM HCL 5 MG/5 ML VIAL ONE (09:43)
[2017-10-05] MEDS ORDERED: fentaNYL CITRATE 250 MCG/5 ML AMP ONE (09:43)
[2017-10-05] MEDS ORDERED: HEPARIN SODIUM - IV 10,000 UNITS/10 ML VIAL ONE (10:21)
[2017-10-05] MEDS ORDERED: ceFAZolin 2 GM PREMIX 50 ML ONE (10:39)
[2017-10-05] MEDS ORDERED: POTASSIUM CHLOR 20 MEQ PREMIX 100 ML IV ONE (10:45)
[2017-10-05] MEDS ORDERED: CLOPIDOGREL 75 MG TAB PO ONE (11:30)
--- NOTE | 2017-10-05 11:31 | PD.RAD ---
Post Procedure Progress Note Pre Procedure Diagnosis: (1) Mesenteric ischemia, chronic Post Procedure Diagnosis: (1) Mesenteric ischemia, chronic Procedure Date: Oct 05, 2017 Supervising Radiologist: Isauro Rendon Estimated blood loss: 5cc Anesthesia: Local, Conscious Sedation Plan of Activity Patient to Unit: Nursing Unit Patient Condition: Fair Additional Comments: SMA and Celiac stents placed without difficulty. Excellent flow in both arteries post procedure. Full dictated report to follow. See PACS Report for procedural detail/treatment Isauro Rendon MD Oct 05, 2017 11:31
[2017-10-05] MEDS ORDERED: IODIXANOL 320 MG/ML 50 ML VIAL (for RAD SPEC) I-ARTERIAL ONE (11:40)
[2017-10-05] MEDS ORDERED: PILL SPLITTER OTHER PRN (12:00)
[2017-10-05] MEDS: MAGNESIUM SULFATE 1 GM PREMIX 100 ML IV SCH ×2 (12:28→14:39)
[2017-10-05] MEDS: METOPROLOL SUCCINATE 50 MG EXTENDED RELEASE TAB PO SCH (12:33)
[2017-10-05] MEDS: LEVOTHYROXINE SODIUM 100 MCG TAB PO SCH (12:33)
[2017-10-05] MEDS: LISINOPRIL 20 MG TAB PO SCH (12:33)
[2017-10-05] MEDS: PANTOPRAZOLE SOD 20 MG DELAYED RELEASE TAB PO SCH (12:34)
[2017-10-05] MEDS ORDERED: ICU - MAGNESIUM SULFATE 4 GM/NS 100 ML IV PRN ×2 (13:15)
[2017-10-05] MEDS ORDERED: ICU - POTASSIUM CHLORIDE/AQUEOUS SOLN 40 MEQ/100 ML IVPB IV PRN (13:15)
[2017-10-05] MEDS ORDERED: ICU - CALL ORDERING PHYSICIAN PRN (13:15)
[2017-10-05] MEDS ORDERED: POTASSIUM CHLORIDE 25 MEQ EFFERVESCENT TAB PO PRN (13:15)
[2017-10-05] MEDS ORDERED: ICU - POTASSIUM CHLORIDE/AQUEOUS SOLN 20 MEQ/100 ML IVPB IV PRN (13:15)
[2017-10-05] MEDS ORDERED: ICU - POTASSIUM PHOSPHATE MONOBASIC 500 MG TAB PO PRN (13:15)
[2017-10-05] MEDS ORDERED: ICU - MAGNESIUM SULFATE 2 GM/NS 100 ML IV PRN ×2 (13:15)
[2017-10-05] MEDS ORDERED: ICU - POTASSIUM PHOSPHATE 30 MMOL/NS 250 ML IV PRN ×2 (13:15)
[2017-10-05] MEDS ORDERED: ICU - D/C ICU ELECTROLYTE ORDERS PRN (13:15)
[2017-10-05] MEDS ORDERED: ICU - SODIUM PHOSPHATE 30 MMOL/NS 250 ML IV PRN ×2 (13:15)
[2017-10-05] MEDS ORDERED: ICU - MAGNESIUM OXIDE 400 MG TAB PO PRN (13:15)
--- NOTE | 2017-10-05 13:24 | HHI.PR ---
Subjective Remarks Patient had an SMA and iliac stenting today, he is laying in bed now she told me the abdominal pain feels better now however she requested pain medication for her chronic pain, she also reported little nausea but no vomiting Objective Vitals Vital Signs Date Time Temp Pulse Resp B/P (MAP) Pulse Ox O2 Delivery O2 Flow Rate FiO2 10/05/17 08:00 97.7 64 19 131/61 (84) 100 10/05/17 08:00 64 10/05/17 07:00 98 Room Air 10/05/17 06:00 68 10/05/17 04:00 97.8 66 20 116/59 (78) 95 10/05/17 04:00 69 10/05/17 02:00 67 10/05/17 00:00 72 10/05/17 00:00 97.7 72 20 125/61 (82) 95 10/04/17 22:00 70 10/04/17 20:00 98.2 82 16 103/61 (75) 96 10/04/17 20:00 82 10/04/17 19:00 96 Room Air 10/04/17 18:00 68 10/04/17 16:00 64 10/04/17 16:00 98.0 64 12 99/56 (70) 99 10/04/17 14:00 65 I/O 10/04/17 10/04/17 10/04/17 10/05/17 10/05/17 10/05/17 07:00 15:00 23:00 07:00 15:00 23:00 Intake Total 1700 ml 1100 ml 820 ml 580 ml 50 ml Balance 1700 ml 1100 ml 820 ml 580 ml 50 ml Intake Oral 100 ml 720 ml 480 ml IV Total 1600 ml 1100 ml 100 ml 100 ml 50 ml # Voids 3 6 4 # Bowel Movements 0 4 1 Result Diagram: 10/04/17 0038 10/05/17 0544 Objective Remarks GENERAL: This is a well-nourished, well-developed patient, in no apparent distress. CARDIOVASCULAR: RRR, no gallops, or rubs. RESPIRATORY: Fair air entry bilaterally. No W, R, or R GASTROINTESTINAL: Abdomen soft, no tenderness palpation, nondistended. Positive bowel sounds MUSCULOSKELETAL: Extremities without clubbing, cyanosis, or edema. Pedal pulses appreciated NEUROLOGICAL: Awake and alert. Moves all extremity. Normal speech.no focal neurological deficit A/P Problem List: (1) Mesenteric ischemia, chronic ICD Code: K55.1 - Chronic vascular disorders of intestine Status: Acute (2) Dehydration ICD Code: E86.0 - Dehydration Status: Acute (3) Hypokalemia ICD Code: E87.6 - Hypokalemia Status: Acute (4) LFT elevation ICD Code: R79.89 - Other specified abnormal findings of blood chemistry (5) Hypotension ICD Code: I95.9 - Hypotension, unspecified Assessment and Plan Chronic mesenteric ischemia Dehydration Elevated LFT Lactic acidosis Hypertension DVT prophylaxis on heparin, watch out closely due to drop in platelets 106 Plan: Appreciate CVA consultation, status post SMA and celiac stent successfully 10/05 Patient presented to [facility] today with continued chronic nausea vomiting and abdominal pain for the past 7 months Gallbladder ultrasound revealed no gallstones and hepatomegaly without focal lesion Continue IV fluid with as needed repleting potassium Monitor CMP C BC in a.m. to monitor platelet Cyril Navarrete MD Oct 05, 2017 13:24
--- NOTE | 2017-10-05 13:35 | RADRPT ---
EXAM DATE: 10/05/2017 12:15 PM EDT AGE/SEX: 52 years / Female INDICATIONS: Patient presents with mesenteric ischemia in need of angiogram with possible interventi ons. CLINICAL DATA: This is the patient's initial encounter. Patient reports that signs and symptoms have been present for 2 days and indicates a pain score of 8/10. MEDICAL/SURGICAL HISTORY: . HypertensionChronic back painHyperlipidemiaRestless leg syndromePer ipheral artery disease Iliac stents bilaterallyChronic mesenteric ischemiaTIAGERDHTN Current tobacco use . Bilateral iliac stents Subclavian stentBladder surgery COMPARISON: HHPO, CTA THORACIC ABDOMINAL AORTA W 3D RECON, 05/06/2017. . FLUORO TIME (min): 29.18 IMAGE SERIES: 22 ACCESS SITE: Right femoral artery SEDATION TIME (min): 60 CONTRAST (cc): 125 cc Visipaque (iodixanol) MEDICATION(S): 2 g Ancef 250 mcg fentanyl (Sublimaze) IV 5,000 units Heparin IV 5 mg midazolam (Versed) IV Vancomycin within 2 hrs of procedure, Ancef (or alternative) within 1 hr of procedure. DEVICE(S): Right Superior mesenteric artery stent (balloon expanding) 6mm x 17mm 75cm Right celiac artery stent (balloon expanding) 7mm x 15mm 150cm Right common femoral artery Angio-Seal 6fr PROCEDURE : 1. Ultrasound-guided puncture of the access site. 2. Conscious sedation with continuous EKG and Oximetry monitoring. 3. Angiography of the celiac axis 4. Angiography of the SMA 5. Angiography of the right common femoral 6. Stenting of the celiac axis. 7. Stenting of the SMA. 8. Follow-up angiogram x2. The risks, benefits and alternatives to the procedure were explained and verbal and written consent w as obtained. The site was prepped in sterile fashion. Full sterile technique was used, including ca p, mask, sterile gloves and gown and a large sterile sheet. Hand hygiene and 2% chlorhexidine and/or betadine/alcohol prep was utilized per protocol for cutaneous antisepsis. Sterile gel and sterile p robe cover were utilized for ultrasound guidance. The skin and subcutaneous tissues were infiltrated with local anesthetic solution. With ultrasound and fluoroscopic guidance the selected artery was punctured and a vascular sheath was placed. A 0.035 angle Glidewire and 4 Egyptian hook catheter was advanced into the abdominal aorta. The celiac origin was selected. Selective angiography confirmed high-grade stenosis at the origin of the celiac. The catheter was pulled down. Evaluation of the SMA was performed. This again confirmed high-grade o stial stenosis of the SMA. The 4 Egyptian sheath was exchanged for a 6 Egyptian Ansell 3 catheter. This was advanced into the abdomi nal aorta. The SMA origin was easily selected. A 6 mm x 1.7 cm balloon expanding stent was advanced i nto position across the origin of the SMA. Multiple angiographic runs confirm position. The stent was deployed without difficulty. Follow-up angiography demonstrated the SMA to be widely patent. The the Walter wire was removed from the SMA. The celiac was again selected with a 4 Egyptian duct and a 0.035 angle Glidewire. This combination was advanced out into the celiac circulation exchanged for a 0.018 steel core wire. A 7 mm x 1.5 cm balloon expanding stent was advanced over the wire and positi oned across the celiac origin. The stent was deployed without difficulty. Follow-up angiography demon strated the celiac to be widely patent. The puncture site in the right groin was closed with an Angio-Seal closure device. The patient tolera barrett the procedure well. Conscious sedation was performed with the prescribed dosages and duration as above in the presence of an independent trained radiology nurse to assist in the monitoring of the patient. EKG and oximetry remained stable throughout the procedure. CONCLUSION: 1. Successful stenting of high-grade stenosis at the SMA origin. 2. Successful stenting of a high-grade stenosis at the celiac origin. Electronically signed by: Isauro Rendon MD 10/05/2017 1:33 PM EDT
[2017-10-05] MEDS: NS + KCL 20 MEQ INJ 1,000 ML IV SCH ×2 (14:45→20:41)
[2017-10-05] MEDS ORDERED: ACETAMINOPHEN/HYDROcodone 325 MG/7.5 MG TAB PO PRN ×2 (15:45)
[2017-10-05] MEDS ORDERED: ACETAMINOPHEN/HYDROcodone 325 MG/5 MG TAB PO PRN ×2 (15:45)
[2017-10-05] MEDS ORDERED: clonazePAM 0.5 MG TAB PO SCH (21:00)
[2017-10-05] MEDS ORDERED: ATORVASTATIN 80 MG TAB PO SCH (21:00)
[2017-10-05] MEDS ORDERED: ZIPRASIDONE HCL 80 MG CAP PO SCH (21:00)
[2017-10-05] MEDS ORDERED: SERTRALINE HCL 100 MG TAB PO SCH (21:00)
[2017-10-05 21:58] LABS: MAGNESIUM 1.7 MG/DL (1.5-2.5)
[2017-10-06] VITALS (9 sets, daily range): BP systolic 106–132; BP diastolic 53–74; PULSE 64–78; RESP 15–26; TEMP 97.7–98.8; O2SAT 94–98
[2017-10-06] MEDS: LEVOTHYROXINE SODIUM 100 MCG TAB PO SCH (05:32)
[2017-10-06] MEDS: NS + KCL 20 MEQ INJ 1,000 ML IV SCH ×2 (05:33→13:30)
[2017-10-06] MEDS ORDERED: CLOPIDOGREL 75 MG TAB PO SCH (09:00)
[2017-10-06 09:10] LABS: AUTOMATED NEUTROPHIL # 3.2 TH/MM3 (1.8-7.7); BASOPHIL % 0.3 % (0.0-2.0); EOSINOPHIL % 0.5 % (0.0-4.0); HEMATOCRIT 39.3 % (35.0-46.0); LYMPH % 14.1 % (9.0-44.0); LYMPHOCYTE # 0.6 TH/MM3 (1.0-4.8); MEAN CELL VOLUME 86.9 FL (80.0-100.0); MEAN CORPUSCULAR HEMOGLOBIN 28.7 PG (27.0-34.0); MEAN PLATELET VOLUME 9.8 FL (7.0-11.0); MONO % 6.6 % (0.0-8.0); MONOCYTE # 0.3 TH/MM3 (0-0.9); NEUT % 78.5 % (16.0-70.0); PLATELET COUNT 116 TH/MM3 (150-450); RED BLOOD COUNT 4.52 MIL/MM3 (4.00-5.30); RED CELL DISTRIBUTION WIDTH 16.4 % (11.6-17.2); WHITE BLOOD COUNT 4.1 TH/MM3 (4.0-11.0)
[2017-10-06] MEDS: PANTOPRAZOLE SOD 20 MG DELAYED RELEASE TAB PO SCH (09:18)
[2017-10-06] MEDS: METOPROLOL SUCCINATE 50 MG EXTENDED RELEASE TAB PO SCH (09:18)
[2017-10-06] MEDS: LISINOPRIL 20 MG TAB PO SCH (09:18)
[2017-10-06] MEDS: HEPARIN SODIUM - SQ 10,000 UNITS/ML VIAL SQ SCH (09:19)
[2017-10-06] MEDS: SODIUM CHLORIDE 0.9% FLUSH 10 ML FLUSH IV FLUSH SCH (09:19)
[2017-10-06 09:31] LABS: BICARBONATE 17.1 MEQ/L (21.0-32.0); CALCIUM 9.2 MG/DL (8.5-10.1); CREATININE 0.65 MG/DL (0.50-1.00)
--- NOTE | 2017-10-06 10:53 | PD.CAR.PN ---
CVT Progress Note Subjective/Hospital Course: 52-year-old patient with chronic abdominal pain and about 40 pound weight loss. 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 Since then patient has been treated at [facility] with subclavian stent however according to her the other issues were not addressed Patient now comes to us through the ER because " she lives closer to here'. On exam abdomen is soft active bowel sounds and tender diffusely tender but no rebound or guarding is noted Patient should have repeat CT angiogram here because I am not sure what was done up there in last few months and what was actually not addressed and based on that we can tailor further therapy Full consult to follow Thanks J 10/06/2017 Patient is status post successful celiac artery and superior mesenteric artery balloon angioplasty and stenting in interventional suite Superb job by Dr. James Rendon Abdomen is soft with active bowel sounds Patient can transfer to floor and be discharged when okay with medicine Nothing to add from vascular/endovascular surgery point Objective: Vital Signs Date Time Temp Pulse Resp B/P (MAP) Pulse Ox O2 Delivery O2 Flow Rate FiO2 10/06/17 06:00 69 10/06/17 04:00 98.4 64 15 106/54 (71) 94 10/06/17 04:00 64 10/06/17 02:00 68 10/06/17 00:00 70 10/06/17 00:00 98.3 70 22 111/53 (72) 94 10/05/17 22:00 72 10/05/17 20:00 61 10/05/17 20:00 97.9 61 12 118/55 (76) 100 10/05/17 19:00 100 Room Air 10/05/17 18:00 98.4 61 19 107/64 (78) 98 10/05/17 18:00 61 10/05/17 17:00 98.4 66 14 119/70 (86) 99 10/05/17 16:30 98.4 65 20 120/67 (84) 99 10/05/17 16:00 63 10/05/17 16:00 98.4 63 15 124/78 (93) 98 10/05/17 15:30 97.7 65 18 128/66 (86) 96 10/05/17 15:00 97.7 68 17 117/58 (77) 96 10/05/17 14:30 97.7 68 18 130/67 (88) 96 10/05/17 14:00 67 10/05/17 14:00 98.5 67 21 127/65 (85) 96 10/05/17 13:30 98.5 69 17 95 10/05/17 13:00 98.5 63 21 143/72 (95) 95 10/05/17 12:45 98.4 69 15 95 10/05/17 12:30 98.5 67 17 93 10/05/17 12:15 98.5 62 20 106/64 (78) 93 10/05/17 12:00 64 Labs: Laboratory Tests Test 10/06/17 08:45 White Blood Count 4.1 TH/MM3 (4.0-11.0) Red Blood Count 4.52 MIL/MM3 (4.00-5.30) Hemoglobin 13.0 GM/DL (11.6-15.3) Hematocrit 39.3 % (35.0-46.0) Mean Corpuscular Volume 86.9 FL (80.0-100.0) Mean Corpuscular Hemoglobin 28.7 PG (27.0-34.0) Mean Corpuscular Hemoglobin Concent 33.0 % (32.0-36.0) Red Cell Distribution Width 16.4 % (11.6-17.2) Platelet Count 116 TH/MM3 (150-450) Mean Platelet Volume 9.8 FL (7.0-11.0) Neutrophils (%) (Auto) 78.5 % (16.0-70.0) Lymphocytes (%) (Auto) 14.1 % (9.0-44.0) Monocytes (%) (Auto) 6.6 % (0.0-8.0) Eosinophils (%) (Auto) 0.5 % (0.0-4.0) Basophils (%) (Auto) 0.3 % (0.0-2.0) Neutrophils # (Auto) 3.2 TH/MM3 (1.8-7.7) Lymphocytes # (Auto) 0.6 TH/MM3 (1.0-4.8) Monocytes # (Auto) 0.3 TH/MM3 (0-0.9) Eosinophils # (Auto) 0.0 TH/MM3 (0-0.4) Basophils # (Auto) 0.0 TH/MM3 (0-0.2) CBC Comment DIFF FINAL Differential Comment Blood Urea Nitrogen 4 MG/DL (7-18) Creatinine 0.65 MG/DL (0.50-1.00) Random Glucose 89 MG/DL (74-106) Calcium Level 9.2 MG/DL (8.5-10.1) Sodium Level 143 MEQ/L (136-145) Potassium Level 3.1 MEQ/L (3.5-5.1) Chloride Level 115 MEQ/L (98-107) Carbon Dioxide Level 17.1 MEQ/L (21.0-32.0) Anion Gap 11 MEQ/L (5-15) Estimat Glomerular Filtration Rate 95 ML/MIN (>89) Result Diagram: 10/06/17 0845 10/06/17 0845 Margo Robert MD Oct 06, 2017 10:52
[2017-10-06] MEDS ORDERED: POTASSIUM CHLORIDE 10 MEQ CONTROLLED RELEASE TAB PO ONE (12:00)
--- NOTE | 2017-10-06 14:35 | PD.RAD ---
Radiology Note 52 y/o POD #1 s/p celiac and SMA Stent placement. S: Pt. resting comfortably state she is now able to eat again and her symptoms have completely resolved. O: No hematoma at the right groin access site. A/P: 1. Pt. will continue Plavix 75mg PO Qday indefinitely. 2. Discharge will be per hospitalist service 3. 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
[2017-10-06] MEDS ORDERED: CLOP75TA PO (16:54)
[2017-10-06] MEDS ORDERED: PANT20 PO (16:54)
[2017-10-06] MEDS ORDERED: LISI-519 PO (16:54)
[2017-10-06] MEDS ORDERED: POTA10CA PO (16:55)
[2017-10-06] MEDS ORDERED: SODIUM BICARBONATE 325 MG TAB PO ONE (17:00)
[2017-10-06] MEDS ORDERED: POTASSIUM CHLORIDE 10 MEQ CAP PO ONE (17:00)
--- NOTE | 2017-10-06 17:02 | HHI.PR ---
Subjective Remarks Patient says she is feeling well. Denies any chest pain or shortness of breath. Reports abdominal pain has improved. She agrees to follow-up with primary care within several days. Very eager to leave hospital. Objective Vital Signs Date Time Temp Pulse Resp B/P (MAP) Pulse Ox O2 Delivery O2 Flow Rate FiO2 10/06/17 07:00 95 Room Air 10/06/17 06:00 69 10/06/17 04:00 98.4 64 15 106/54 (71) 94 10/06/17 04:00 64 10/06/17 02:00 68 10/06/17 00:00 70 10/06/17 00:00 98.3 70 22 111/53 (72) 94 10/05/17 22:00 72 10/05/17 20:00 61 10/05/17 20:00 97.9 61 12 118/55 (76) 100 10/05/17 19:00 100 Room Air 10/05/17 18:00 98.4 61 19 107/64 (78) 98 10/05/17 18:00 61 I/O 10/05/17 10/05/17 10/05/17 10/06/17 10/06/17 10/06/17 07:00 15:00 23:00 07:00 15:00 23:00 Intake Total 580 ml 1125 ml 1920 ml 1000 ml Output Total 1450 ml Balance 580 ml 1125 ml 1920 ml -450 ml Intake Oral 480 ml 720 ml IV Total 100 ml 1125 ml 1200 ml 1000 ml Output Urine Total 1450 ml # Voids 4 6 3 # Bowel Movements 1 1 1 Result Diagram: 10/06/17 0845 10/06/17 0845 Objective Remarks GENERAL: Patient lying in bed. Appears comfortable. Alert and oriented 3. SKIN: Warm and dry. HEAD: Normocephalic. EYES: No scleral icterus. No injection or drainage. NECK: Supple, trachea midline. No JVD. CARDIOVASCULAR: Regular rate and rhythm without murmurs, gallops, or rubs. RESPIRATORY: Breath sounds equal bilaterally. No accessory muscle use. GASTROINTESTINAL: Abdomen soft, non-tender, nondistended. Positive bowel sounds MUSCULOSKELETAL: No cyanosis, or edema. BACK: Nontender without obvious deformity. No CVA tenderness. A/P Assessment and Plan //Chronic mesenteric ischemia Gallbladder ultrasound revealed no gallstones and hepatomegaly without focal lesion = Status post SMA and celiac stent on 10/05. Cleared by interventional radiology. Continue on Plavix indefinitely. Follow-up with primary care and Dr. Jerez as outpatient. //Hypokalemia. Potassium 3.1. Replace. //Dehydration = Improved after IV fluids. Regular diet at home. //Elevated LFT = LFTs have stabilized. Hold off on statin for now follow-up with primary care as outpatient. Follow-up with primary care. //Lactic acidosis. Resolved. //Hypertension. Blood pressure acceptable. //DVT prophylaxis on heparin, watch out closely due to drop in platelets 106- stable. Discharge Planning Discharge home. Mahamed Valentin MD Oct 06, 2017 17:02
--- NOTE | 2017-10-06 17:06 | HHI.DS ---
Discharge Summary Admission Date Oct 03, 2017 at 17:20 Discharge Date: Oct 06, 2017 Admitting Diagnosis Mesenteric ischemia, dehydration, hypokalemia (1) Mesenteric ischemia, chronic ICD Code: K55.1 - Chronic vascular disorders of intestine Status: Acute (2) Dehydration ICD Code: E86.0 - Dehydration Status: Acute (3) Hypokalemia ICD Code: E87.6 - Hypokalemia Status: Acute (4) LFT elevation ICD Code: R79.89 - Other specified abnormal findings of blood chemistry (5) Hypotension ICD Code: I95.9 - Hypotension, unspecified Procedures Interventional radiology stented SMA, celiac arteries. Please see report. Brief History - From Admission This patient is a 52-year-old female with a history of hypertension, chronic back pain, hyperlipidemia, restless leg syndrome, peripheral artery disease status post iliac stents bilaterally, chronic mesenteric ischemia, TIA, GERD, HTN and current tobacco use. Patient presents to the [facility] complaining of nausea vomiting abdominal pain weakness ongoing for the past 7 months or so, worse over the past 1-2 weeks. States she has lost 50 pounds during this time. Pain waxes and wanes, worse in certain positions and worse after eating. Patient reports she has had nausea and vomiting for the past 7 months. Patient reports she was able to tolerate pizza earlier today and she has been able to drink some fluids. She came in today because she just continues to worsen. 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 She is also had stents placed bilateral iliacs arteries in the past. She continues to smoke tobacco. CBC/BMP: 10/06/17 0845 10/06/17 0845 Significant Findings Laboratory Tests Test 10/04/17 00:38 10/04/17 12:31 10/04/17 16:55 10/05/17 05:44 Platelet Count 106 TH/MM3 (150-450) Monocytes (%) (Auto) 8.8 % (0.0-8.0) Blood Urea Nitrogen 34 MG/DL (7-18) Creatinine 1.39 MG/DL (0.50-1.00) Calcium Level 8.2 MG/DL (8.5-10.1) Potassium Level 2.6 MEQ/L (3.5-5.1) 2.9 MEQ/L (3.5-5.1) 2.8 MEQ/L (3.5-5.1) Chloride Level 111 MEQ/L (98-107) 115 MEQ/L (98-107) Carbon Dioxide Level 18.8 MEQ/L (21.0-32.0) 17.7 MEQ/L (21.0-32.0) Estimat Glomerular Filtration Rate 40 ML/MIN (>89) 77 ML/MIN (>89) Total Protein 5.5 GM/DL (6.4-8.2) Albumin 2.8 GM/DL (3.4-5.0) Magnesium Level 1.3 MG/DL (1.5-2.5) Alkaline Phosphatase 123 U/L (45-117) Aspartate Amino Transf (AST/SGOT) 274 U/L (15-37) Alanine Aminotransferase (ALT/SGPT) 233 U/L (10-53) Test 10/05/17 21:05 10/06/17 08:45 Potassium Level 3.0 MEQ/L (3.5-5.1) 3.1 MEQ/L (3.5-5.1) Platelet Count 116 TH/MM3 (150-450) Neutrophils (%) (Auto) 78.5 % (16.0-70.0) Lymphocytes # (Auto) 0.6 TH/MM3 (1.0-4.8) Blood Urea Nitrogen 4 MG/DL (7-18) Chloride Level 115 MEQ/L (98-107) Carbon Dioxide Level 17.1 MEQ/L (21.0-32.0) Imaging Last Impressions Abdominal Angiography 10/05/17 0000 Signed Impressions: CONCLUSION: 1. Successful stenting of high-grade stenosis at the SMA origin. 2. Successful stenting of a high-grade stenosis at the celiac origin. Gall Bladder Ultrasound 10/03/17 0000 Signed Impressions: CONCLUSION: 1. No gallstones seen. 2. Hepatomegaly without focal lesion. PE at Discharge GENERAL: This is a well-nourished, well-developed patient, in no apparent distress. CARDIOVASCULAR: RRR, no gallops, or rubs. RESPIRATORY: Fair air entry bilaterally. No W, R, or R GASTROINTESTINAL: Abdomen soft, no tenderness palpation, nondistended. Positive bowel sounds MUSCULOSKELETAL: Extremities without clubbing, cyanosis, or edema. Pedal pulses appreciated NEUROLOGICAL: Awake and alert. Moves all extremity. Normal speech.no focal neurological deficit Hospital Course Labs on admission showed severe hypokalemia with potassium 2.3, as well as AK I with creatinine 2.1. Aggressive potassium and fluid replacement with resolution of AK I, as well as potassium increasing to 3.1. Patient will go home on 10 MEQ daily potassium for 1 week. Close follow-up with primary care for repeat labs. Patient was found to have SMA, as well as celiac stenosis on imaging as above. This was stented by interventional radiology. Patient will need to continue on Plavix indefinitely. Follow-up with vascular surgery as outpatient. Patient was also found to have elevation in LFTs with ultrasound as above. AST , ALT in the 300s. Stable however. Will need to follow with primary care. Statin medication will be held for now. Recommend consider restarting anticholesterol medication as outpatient due to atherosclerosis. For problem based summary from most recent progress note, please see below. //Chronic mesenteric ischemia Gallbladder ultrasound revealed no gallstones and hepatomegaly without focal lesion = Status post SMA and celiac stent on 10/05. Cleared by interventional radiology. Continue on Plavix indefinitely. Follow-up with primary care and Dr. Jerez as outpatient. //Hypokalemia. Potassium 3.1. Replace. //Dehydration = Improved after IV fluids. Regular diet at home. //Elevated LFT = LFTs have stabilized. Hold off on statin for now follow-up with primary care as outpatient. Follow-up with primary care. //Lactic acidosis. Resolved. //Hypertension. Blood pressure acceptable. //DVT prophylaxis on heparin, watch out closely due to drop in platelets 106- stable. Pt Condition on Discharge: Good Discharge Disposition: Discharge Home Discharge Time: > 30 minutes Discharge Instructions DIET: Follow Instructions for: Heart Healthy Diet Activities you can perform: Regular-No Restrictions Follow up Referrals: PCP Follow-up - 3-5 Days Vascular Surgery - 1 Week New Orders: COMP MET PROF (CMP) - 3-5 Days New Medications: Potassium Chloride ER (Potassium Chloride ER) 10 Meq Cap 10 MEQ PO DAILY for Electrolyte Replacement for 7 Days, #7 CAP 0 Refills Pantoprazole (Protonix) 20 Mg Tab 20 MG PO DAILY for Reflux for 30 Days, #30 TAB Changed Medications: Lisinopril (Lisinopril) 5 Mg Tab 5 MG PO DAILY for Blood Pressure Management for 30 Days, #30 TAB 0 Refills ( Changed from: 20 MG) Continued Medications: Aspirin (Aspirin Low Dose) 81 Mg Chew 81 MG CHEW DAILY, TAB 0 Refills Dthvquhaxe-Qbnyrbvdocvjx-Idyjmdup (Fioricet) 50-300-40 Mg Cap 1 CAP PO Q4H PRN for HEADACHE, #20 CAP 0 Refills Clonazepam (Clonazepam) 0.5 Mg Tab 0.5 MG PO HS, #60 TAB 0 Refills Clopidogrel (Clopidogrel) 75 Mg Tab 75 MG PO DAILY for Blood Clot Prevention for 30 Days, #30 TAB 0 Refills (This prescription has been renewed) Hydrocodone-Acetaminophen ([place]) 10-325 Mg Tab 1 TAB PO Q6H PRN for PAIN, TAB 0 Refills Levothyroxine (Levothyroxine) 100 Mcg Tab 100 MCG PO DAILY for Thyroid, #30 TAB 0 Refills Metoclopramide (Reglan) 5 Mg Tab 5 MG PO DAILY, #120 TAB 0 Refills Metoprolol Succinate ER 24 HR (Metoprolol Succinate ER 24 HR) 50 Mg Tab 50 MG PO DAILY, #30 TAB 0 Refills Ropinirole (Ropinirole) 2 Mg Tab 2 MG PO HS, #30 TAB 0 Refills Sertraline (Zoloft) 100 Mg Tab 150 MG PO HS, #30 TAB 0 Refills Ziprasidone (Ziprasidone) 80 Mg Cap 160 MG PO HS, #60 CAP 0 Refills Discontinued Medications: Omeprazole (Omeprazole) 20 Mg Tab 20 MG PO DAILY, #30 TAB 0 Refills Rosuvastatin (Rosuvastatin) 40 Mg Tab 40 MG PO HS for Cholesterol Management, #30 TAB 0 Refills Mahamed Valentin MD Oct 06, 2017 17:06
== END 2017-10-06 18:21 | disposition home or self-care (01) | DRG 357 ==
LOC: PHED 12:04 → PHEDA 17:20 → N07B 21:50 → N03B 23:29
PROVIDERS: ADMIT Internal Medicine; ATTEND Internal Medicine
PROC: 04713DZ Dilation of Celiac Artery with Intraluminal Device, Percutaneous Approach (ICD-10-PCS; principal; 2017-10-05)
PROC: 04753DZ Dilation of Superior Mesenteric Artery with Intraluminal Device, Percutaneous Approach (ICD-10-PCS; 2017-10-05)
PROC: B41FYZZ Fluoroscopy of Right Lower Extremity Arteries using Other Contrast (ICD-10-PCS; 2017-10-05)
PROC: B41JYZZ Fluoroscopy of Other Lower Arteries using Other Contrast (ICD-10-PCS; 2017-10-05)
PROC: B414YZZ Fluoroscopy of Superior Mesenteric Artery using Other Contrast (ICD-10-PCS; 2017-10-05)
DX: K55.1 Chronic vascular disorders of intestine (principal); N17.9 Acute kidney failure, unspecified; I95.9 Hypotension, unspecified; I77.4 Celiac artery compression syndrome; E87.2 Acidosis; R16.0 Hepatomegaly, not elsewhere classified; I10 Essential (primary) hypertension; J44.9 Chronic obstructive pulmonary disease, unspecified; E86.0 Dehydration; E87.6 Hypokalemia; I73.9 Peripheral vascular disease, unspecified; K21.9 Gastro-esophageal reflux disease without esophagitis; E07.9 Disorder of thyroid, unspecified; E78.5 Hyperlipidemia, unspecified; R79.89 Other specified abnormal findings of blood chemistry; R63.4 Abnormal weight loss; F17.210 Nicotine dependence, cigarettes, uncomplicated; F41.8 Other specified anxiety disorders; Z86.73 Personal history of transient ischemic attack (TIA), and cerebral infarction without residual deficits; Z88.5 Allergy status to narcotic agent; Z95.820 Peripheral vascular angioplasty status with implants and grafts
CPT/HCPCS: 76705; 80048; 80053; 80076; 81001; 83605; 83690; 83735; 84100; 84132; 85025; 85610; 87086; 96361; 96365; 96366; 96375; C1760; C1769; C1874; C1876; C1887; C1894; J0690; J1644; J2250; J2765; J3010; J3475; J3480; J7030; J7040; Q9967

== ENCOUNTER 2017-11-03 20:40 | Inpatient (IN) ==
[2017-11-03] MEDS ORDERED: Sod Chloride 0.9% Inj 1,000 ML IV.SIG ONE ×3 (21:14→23:36)
[2017-11-03] MEDS ORDERED: Morphine Inj 4 MG/ML Vial IV.PUSH ONE (21:14)
[2017-11-03 21:33] LABS: Baso % (Auto) 0.5 % (0.0-2.0); Eos % (Auto) 0.3 % (0.0-4.0); Hemoglobin 16.5 gm/dL (11.6-15.3); Lymph # (Auto) 1.7 th/mm3 (1.0-4.8); Lymph % (Auto) 19.3 % (9.0-44.0); Mean Corpuscular HGB Conc 33.1 % (32.0-36.0); Mean Corpuscular Hemoglobin 28.9 pg (27.0-34.0); Mean Corpuscular Volume 87.4 fL (80.0-100.0); Mean Platelet Volume 8.9 fL (7.0-11.0); Mono # (Auto) 0.6 th/mm3 (0.0-0.9); Mono % (Auto) 6.9 % (0.0-8.0); Neut # (Auto) 6.7 th/mm3 (1.8-7.7); Platelet Count 203 th/mm3 (150-450); Red Blood Count 5.72 mil/mm3 (4.00-5.30); Red Cell Distribution Width 14.7 % (11.6-17.2)
[2017-11-03 21:45] LABS: Activated Partial Thrombo Time 48.9 sec (24.3-30.1); INR 1.4 Ratio; Prothrombin Time 13.7 sec (9.8-11.6)
[2017-11-03 21:49] LABS: Alanine Aminotransferase 61 U/L (10-53); Albumin 4.3 g/dL (3.4-5.0); Alkaline Phosphatase 109 U/L (45-117); Anion Gap 11 meq/L (5-15); Aspartate Aminotransferase 67 U/L (15-37); Blood Urea Nitrogen 20 mg/dL (7-18); Carbon Dioxide 24.9 meq/L (21.0-32.0); Chloride 92 meq/L (98-107); Glomerular Filtration Rate 52 mL/min (>89); Glucose,Random 112 mg/dL (74-106); Lipase 138 U/L (73-393); Sodium 128 meq/L (136-145)
[2017-11-03 21:53] LABS: Potassium 1.9 meq/L (3.5-5.1)
--- NOTE | 2017-11-03 22:04 | ED ---
HPI General Chief complaint: Nausea/Vomiting/Diarrhea Stated complaint: Low Bp/Light Headed/N/V [id number] Time Seen by Provider: 11/03/17 21:04 Source: patient Mode of arrival: wheelchair Limitations: no limitations History of Present Illness HPI narrative: Patient is a 52-year-old female who comes in complaining of abdominal pain with nausea and vomiting. She says this is been going on for the past 7 months. She has been admitted here a few times for this. Most recently in September, she had stents placed in her SMA and celiac arteries. She says she continues to vomit. She says that it has gotten worse over the past 2 or 3 days. She says the pain is in the left side of her abdomen. She says she has not been able to eat anything, so she has not had a bowel movement. She denies fever chills. She has been feeling very weak, noticed her blood pressure was low today, prompting her to come in. Severity is moderate. Related Data Home Medications Medication Instructions Recorded Confirmed Aspirin Low Dose 81 mg PO DAILY 11/03/17 11/03/17 albuterol sulfate [ProAir HFA] 2 puff INHALATION Q4H PRN 11/03/17 11/03/17 levothyroxine 100 mcg PO DAILY 11/03/17 11/03/17 lisinopril 5 mg PO DAILY 11/03/17 11/03/17 metoclopramide HCl 10 mg PO QID 11/03/17 11/03/17 metoprolol succinate 50 mg PO DAILY 11/03/17 11/03/17 pantoprazole [Protonix] 40 mg PO DAILY 11/03/17 11/03/17 potassium chloride [Klor-Con 10] 10 meq PO DAILY 11/03/17 11/03/17 rivaroxaban [Xarelto] 20 mg PO DAILY 11/03/17 11/03/17 ropinirole 2 mg PO DAILY 11/03/17 11/03/17 sertraline 200 mg PO DAILY 11/03/17 11/03/17 umeclidinium-vilanterol [Anoro 1 inh INHALATION Q24H 11/03/17 11/03/17 Ellipta] ziprasidone HCl [Geodon] 80 mg PO QPM 11/03/17 11/03/17 Allergies Allergy/AdvReac Type Severity Reaction Status Date / Time budesonide Allergy Severe Swelling Verified 11/03/17 20:45 of Lip/Tongue/Throat formoterol Allergy Severe Swelling Verified 11/03/17 20:45 of Lip/Tongue/Throat codeine Allergy Intermediate Anaphylaxis Verified 11/03/17 21:12 Review of Systems Except as stated in HPI: all other systems reviewed are negative Constitutional Denies chills, Denies fever(s) and Reports headache(s) ENT Reports dizziness Cardiovascular Denies chest pain and Denies dyspnea Gastrointestinal Reports abdominal pain, Reports nausea and Reports vomiting Musculoskeletal Denies myalgias and Denies arthralgias Integumentary/Breasts Denies rash Neurologic Denies focal weakness [facility] Medical History Medical History CAD (coronary artery disease) (Acute) COPD (chronic obstructive pulmonary disease) (Acute) IBS (irritable bowel syndrome) (Acute) PAD (peripheral artery disease) (Acute) TIA (transient ischemic attack) (Acute) Surgical History Surgical History H/O heart artery stent (Acute) History of (Acute) History of cholecystectomy (Acute) S/P appy (Acute) Social History Social History Substance History: Active Abuse Second Hand Smoke Exposure: No Smoking Status: Heavy tobacco smoker Tobacco Type: Cigarettes How Often Do You Have a Drink Containing Alcohol: Never Recent Travel in [facility] within the Last 8 Weeks: No Recent Out of Country Travel within the Last 8 Weeks: No Substance Abuse Detail Marijuana: Route Used Substance Abuse: Inhalation Substance Abuse Comment: USES FOR NAUSEA AND VOMITING Immunization History Tetanus Immunization: <5 Years Hx Influenza Vaccine This Season: No Exam Narrative Exam Narrative: GENERAL: Awake and alert, no acute distress. SKIN: Focused skin assessment warm/dry. No wounds or signs of infection. HEAD: Atraumatic. Normocephalic. EYES: Pupils equal and round. No scleral icterus. ENT: Dry mucous membranes. NECK: Trachea midline. No JVD. CARDIOVASCULAR: Regular rate and rhythm. No murmur appreciated. RESPIRATORY: No accessory muscle use. Clear to auscultation. Breath sounds equal bilaterally. GASTROINTESTINAL: Abdomen soft, nondistended. Tender to palpation of left side of the abdomen. No rebound or guarding. MUSCULOSKELETAL: No obvious deformities. No clubbing. No cyanosis. No edema. NEUROLOGICAL: Awake and alert. No obvious cranial nerve deficits. Motor grossly within normal limits. Normal speech. PSYCHIATRIC: Appropriate mood and affect; insight and judgment normal. Procedures Central Line Placement Right IJ: Time Out Performed: Yes Patient Placed on Monitor/Pulse Ox: Yes MD Prep: mask, gown, gloves and other Central Line Prep: Chlorhexidine scrub and sterile drapes applied Local anesthesia used: lidocaine 1% Amount of anesthesia used (mL): 4 Ultrasound Used for Placement: Yes Central Line Lumen Inserted: triple Post Procedure: sutured in place, good blood return, all ports aspirated, flushed, capped and sterile dressing applied Post Procedure X-Ray: tip of catheter in good position and no pneumothorax seen Patient Tolerated Procedure: well and no complications Course Hospital Course: IV established, labs sent. Patient given IV fluids, morphine, Compazine. Reevaluation(s) Reevaluation #1: Patient resting comfortably. Blood pressure did drop after medications. Given additional fluids. Potassium is low, replacement ordered. Time: 22:27 Initial Documented Vital Signs Temperature 98.8 F 11/03/17 20:45 Pulse Rate 72 11/03/17 20:45 Respiratory Rate 16 11/03/17 20:45 Pulse Oximetry 97 11/03/17 20:45 Last Documented Vital Signs Temperature 98.3 F 11/04/17 14:00 Pulse Rate 62 11/04/17 18:00 Respiratory Rate 16 11/04/17 18:00 Blood Pressure 124/59 L 11/04/17 18:00 Pulse Oximetry 91 L 11/04/17 18:00 Critical Care Time Critical Care Time: Yes Total Critical Care Time: 45 Attestation: Aggregate critical care time was 45 minutes. Time to perform other separately billable procedures was not included in the critical care time. My time did not include minutes spent treating any other patients simultaneously or on activities that did not directly contribute to the patient's treatment. The services I provided to this patient were to treat and/or prevent clinically significant deterioration that could result in: Serious illness or I provided critical care services requiring my management, as noted below: Chart data review, documentation time, medication orders and management, vital sign assessments/reviewing monitor data, ordering and reviewing lab tests, ordering and interpreting/reviewing x-rays and diagnostic studies, care of the patient and discussion of the patient with the admitting physicians. Medical Decision Making MDM Narrative Medical decision making narrative: Patient is a 52-year-old female who comes in complaining of nausea, vomiting, weakness. Exam shows tenderness left side of the abdomen. IV established, labs sent. Labs concerning for a potassium of 1.9. Patient is hypotensive, given IV fluids with some response. Lactic acid is within normal limits. Based on patient's electrolyte abnormalities and hypotension, believe patient will benefit from ICU stay. Differential Diagnosis Differential Diagnosis: Dehydration versus electrolyte abnormality versus gastroenteritis Medical Records Medical records reviewed: Yes I reviewed the patient's medical records. Lab Data Lab results reviewed: Yes I reviewed the patient's lab results. Result diagrams: 11/03/17 21:10 11/04/17 14:54 Lab Results 11/03/17 11/03/17 11/03/17 Range/Units 21:10 21:10 21:10 CBC w Diff Auto diff final WBC 9.0 (4.0-11.0) th/mm3 RBC 5.72 H (4.00-5.30) mil/mm3 Hgb 16.5 H (11.6-15.3) gm/dL Hct 50.0 H (35.0-46.0) % MCV 87.4 (80.0-100.0) fL MCH 28.9 (27.0-34.0) pg MCHC 33.1 (32.0-36.0) % RDW 14.7 (11.6-17.2) % Plt Count 203 (150-450) th/mm3 MPV 8.9 (7.0-11.0) fL Neut % (Auto) 73.0 H (16.0-70.0) % Lymph % (Auto) 19.3 (9.0-44.0) % [place] % (Auto) 6.9 (0.0-8.0) % Eos % (Auto) 0.3 (0.0-4.0) % Baso % (Auto) 0.5 (0.0-2.0) % Neut # (Auto) 6.7 (1.8-7.7) th/mm3 Lymph # (Auto) 1.7 (1.0-4.8) th/mm3 [place] # (Auto) 0.6 (0.0-0.9) th/mm3 Eos # (Auto) 0.0 (0.0-0.4) th/mm3 Baso # (Auto) 0.0 (0.0-0.2) th/mm3 WBC Differential . Differential Comment . PT 13.7 H (9.8-11.6) sec INR 1.4 Ratio APTT 48.9 H (24.3-30.1) sec Sodium 128 L (136-145) meq/L Potassium 1.9 L* (3.5-5.1) meq/L Chloride 92 L (98-107) meq/L Carbon Dioxide 24.9 (21.0-32.0) meq/L Anion Gap 11 (5-15) meq/L BUN 20 H (7-18) mg/dL Creatinine 1.10 H (0.50-1.00) mg/dL Estimated GFR 52 L (>89) mL/min Random Glucose 112 H (74-106) mg/dL Lactic Acid (0.4-2.0) mmol/L Calcium 11.0 H (8.5-10.1) mg/dL Magnesium 2.0 (1.5-2.5) mg/dL Total Bilirubin 0.5 (0.2-1.0) mg/dL AST 67 H (15-37) U/L ALT 61 H (10-53) U/L Alkaline Phosphatase 109 (45-117) U/L Lactate Dehydrogenase (84-246) U/L Total Creatine Kinase (26-192) U/L Total Protein 8.0 (6.4-8.2) g/dL Albumin 4.3 (3.4-5.0) g/dL Amylase (25-115) U/L Lipase 138 (73-393) U/L TSH (0.358-3.740) uIU/mL Cortisol mcg/dL Urine Color (Yellw/Straw) Urine Clarity (Clear) Urine pH (5.0-8.5) Ur Specific [place] (1.002-1.035) Urine Protein (Neg-Trace) mg/dL Urine Glucose (UA) (Negative) mg/dL Urine Ketones (Negative) mg/dL Urine Occult Blood (Negative) Urine Nitrate (Negative) Urine Bilirubin (Negative) Urine Urobilinogen (Less than 2) mg/dL Ur Leukocyte Esterase (Negative) Urine RBC (0-3) /hpf Urine WBC (0-5) /hpf Ur Squamous Epith Cells (0-5) /hpf Micro UA Comment Urine Culture Comments Nasal Screen MRSA (PCR) (Negative) 11/03/17 11/04/17 11/04/17 Range/Units 21:10 00:30 02:45 CBC w Diff WBC (4.0-11.0) th/mm3 RBC (4.00-5.30) mil/mm3 Hgb (11.6-15.3) gm/dL Hct (35.0-46.0) % MCV (80.0-100.0) fL MCH (27.0-34.0) pg MCHC (32.0-36.0) % RDW (11.6-17.2) % Plt Count (150-450) th/mm3 MPV (7.0-11.0) fL Neut % (Auto) (16.0-70.0) % Lymph % (Auto) (9.0-44.0) % [place] % (Auto) (0.0-8.0) % Eos % (Auto) (0.0-4.0) % Baso % (Auto) (0.0-2.0) % Neut # (Auto) (1.8-7.7) th/mm3 Lymph # (Auto) (1.0-4.8) th/mm3 [place] # (Auto) (0.0-0.9) th/mm3 Eos # (Auto) (0.0-0.4) th/mm3 Baso # (Auto) (0.0-0.2) th/mm3 WBC Differential Differential Comment PT (9.8-11.6) sec INR Ratio APTT (24.3-30.1) sec Sodium (136-145) meq/L Potassium (3.5-5.1) meq/L Chloride (98-107) meq/L Carbon Dioxide (21.0-32.0) meq/L Anion Gap (5-15) meq/L BUN (7-18) mg/dL Creatinine (0.50-1.00) mg/dL Estimated GFR (>89) mL/min Random Glucose (74-106) mg/dL Lactic Acid 0.9 (0.4-2.0) mmol/L Calcium (8.5-10.1) mg/dL Magnesium (1.5-2.5) mg/dL Total Bilirubin (0.2-1.0) mg/dL AST (15-37) U/L ALT (10-53) U/L Alkaline Phosphatase (45-117) U/L Lactate Dehydrogenase (84-246) U/L Total Creatine Kinase (26-192) U/L Total Protein (6.4-8.2) g/dL Albumin (3.4-5.0) g/dL Amylase (25-115) U/L Lipase (73-393) U/L TSH (0.358-3.740) uIU/mL Cortisol mcg/dL Urine Color Yellow (Yellw/Straw) Urine Clarity Clear (Clear) Urine pH 7.0 (5.0-8.5) Ur Specific [place] Less/equal 1.005 (1.002-1.035) Urine Protein Negative (Neg-Trace) mg/dL Urine Glucose (UA) Negative (Negative) mg/dL Urine Ketones Negative (Negative) mg/dL Urine Occult Blood Negative (Negative) Urine Nitrate Negative (Negative) Urine Bilirubin Negative (Negative) Urine Urobilinogen 0.2 (Less than 2) mg/dL Ur Leukocyte Esterase Negative (Negative) Urine RBC 0-3 (0-3) /hpf Urine WBC 0-5 (0-5) /hpf Ur Squamous Epith Cells 0-5 (0-5) /hpf Micro UA Comment Cath-culture not ind Urine Culture Comments Cath-cult not ind Nasal Screen MRSA (PCR) Not detected (Negative) 11/04/17 11/04/17 11/04/17 Range/Units 03:15 03:15 03:15 CBC w Diff WBC (4.0-11.0) th/mm3 RBC (4.00-5.30) mil/mm3 Hgb (11.6-15.3) gm/dL Hct (35.0-46.0) % MCV (80.0-100.0) fL MCH (27.0-34.0) pg MCHC (32.0-36.0) % RDW (11.6-17.2) % Plt Count (150-450) th/mm3 MPV (7.0-11.0) fL Neut % (Auto) (16.0-70.0) % Lymph % (Auto) (9.0-44.0) % [place] % (Auto) (0.0-8.0) % Eos % (Auto) (0.0-4.0) % Baso % (Auto) (0.0-2.0) % Neut # (Auto) (1.8-7.7) th/mm3 Lymph # (Auto) (1.0-4.8) th/mm3 [place] # (Auto) (0.0-0.9) th/mm3 Eos # (Auto) (0.0-0.4) th/mm3 Baso # (Auto) (0.0-0.2) th/mm3 WBC Differential Differential Comment PT (9.8-11.6) sec INR Ratio APTT (24.3-30.1) sec Sodium 143 D (136-145) meq/L Potassium 3.0 L D (3.5-5.1) meq/L Chloride 112 H D (98-107) meq/L Carbon Dioxide 21.8 (21.0-32.0) meq/L Anion Gap 9 (5-15) meq/L BUN 15 (7-18) mg/dL Creatinine 0.72 (0.50-1.00) mg/dL Estimated GFR 84 L (>89) mL/min Random Glucose 85 (74-106) mg/dL Lactic Acid (0.4-2.0) mmol/L Calcium 7.5 L D (8.5-10.1) mg/dL Magnesium 1.6 (1.5-2.5) mg/dL Total Bilirubin (0.2-1.0) mg/dL AST (15-37) U/L ALT (10-53) U/L Alkaline Phosphatase (45-117) U/L Lactate Dehydrogenase (84-246) U/L Total Creatine Kinase (26-192) U/L Total Protein (6.4-8.2) g/dL Albumin (3.4-5.0) g/dL Amylase (25-115) U/L Lipase (73-393) U/L TSH 1.060 (0.358-3.740) uIU/mL Cortisol 19.7 mcg/dL Urine Color (Yellw/Straw) Urine Clarity (Clear) Urine pH (5.0-8.5) Ur Specific [place] (1.002-1.035) Urine Protein (Neg-Trace) mg/dL Urine Glucose (UA) (Negative) mg/dL Urine Ketones (Negative) mg/dL Urine Occult Blood (Negative) Urine Nitrate (Negative) Urine Bilirubin (Negative) Urine Urobilinogen (Less than 2) mg/dL Ur Leukocyte Esterase (Negative) Urine RBC (0-3) /hpf Urine WBC (0-5) /hpf Ur Squamous Epith Cells (0-5) /hpf Micro UA Comment Urine Culture Comments Nasal Screen MRSA (PCR) (Negative) 11/04/17 11/04/17 Range/Units 12:13 14:54 CBC w Diff WBC (4.0-11.0) th/mm3 RBC (4.00-5.30) mil/mm3 Hgb (11.6-15.3) gm/dL Hct (35.0-46.0) % MCV (80.0-100.0) fL MCH (27.0-34.0) pg MCHC (32.0-36.0) % RDW (11.6-17.2) % Plt Count (150-450) th/mm3 MPV (7.0-11.0) fL Neut % (Auto) (16.0-70.0) % Lymph % (Auto) (9.0-44.0) % [place] % (Auto) (0.0-8.0) % Eos % (Auto) (0.0-4.0) % Baso % (Auto) (0.0-2.0) % Neut # (Auto) (1.8-7.7) th/mm3 Lymph # (Auto) (1.0-4.8) th/mm3 [place] # (Auto) (0.0-0.9) th/mm3 Eos # (Auto) (0.0-0.4) th/mm3 Baso # (Auto) (0.0-0.2) th/mm3 WBC Differential Differential Comment PT (9.8-11.6) sec INR Ratio APTT (24.3-30.1) sec Sodium 145 (136-145) meq/L Potassium 3.2 L (3.5-5.1) meq/L Chloride 115 H (98-107) meq/L Carbon Dioxide 21.7 (21.0-32.0) meq/L Anion Gap 8 (5-15) meq/L BUN 10 (7-18) mg/dL Creatinine 0.62 (0.50-1.00) mg/dL Estimated GFR Greater than 89 (>89) mL/min Random Glucose 105 (74-106) mg/dL Lactic Acid 0.6 (0.4-2.0) mmol/L Calcium 8.5 D (8.5-10.1) mg/dL Magnesium (1.5-2.5) mg/dL Total Bilirubin (0.2-1.0) mg/dL AST (15-37) U/L ALT (10-53) U/L Alkaline Phosphatase (45-117) U/L Lactate Dehydrogenase 130 (84-246) U/L Total Creatine Kinase 124 (26-192) U/L Total Protein (6.4-8.2) g/dL Albumin (3.4-5.0) g/dL Amylase 21 L (25-115) U/L Lipase (73-393) U/L TSH (0.358-3.740) uIU/mL Cortisol mcg/dL Urine Color (Yellw/Straw) Urine Clarity (Clear) Urine pH (5.0-8.5) Ur Specific [place] (1.002-1.035) Urine Protein (Neg-Trace) mg/dL Urine Glucose (UA) (Negative) mg/dL Urine Ketones (Negative) mg/dL Urine Occult Blood (Negative) Urine Nitrate (Negative) Urine Bilirubin (Negative) Urine Urobilinogen (Less than 2) mg/dL Ur Leukocyte Esterase (Negative) Urine RBC (0-3) /hpf Urine WBC (0-5) /hpf Ur Squamous Epith Cells (0-5) /hpf Micro UA Comment Urine Culture Comments Nasal Screen MRSA (PCR) (Negative) Imaging Data Radiologist's impression: Chest X-Ray 11/04/17 00:06 CONCLUSION: Right central line tip in superior vena cava without pneumothorax. Abdomen/Pelvis CT 11/04/17 00:07 CONCLUSION: 1. Dependent atelectasis in the lungs. 2. Stable appearance of vascular stents in the celiac and superior mesenteric artery and proximal right common iliac artery compared with October 16. Stable stenosis left common iliac artery. 3. Carmen catheter in bladder. Colonic diverticulosis. ECG Data EKG Prior to Arrival: No Attestation: I personally reviewed and interpreted this ECG as follows: Interpretation: ECG shows sinus bradycardia at a rate of 56. There is T-wave inversions and Q waves in leads I, 2, aVL, V3 through V6. Discharge Plan Discharge Disposition Patient Disposition: 30 Still Patient Physicians Team ED Provider: Tammy Quinn Primary Care Provider: UNKNOWN, Attending Provider: Aster Hensley Other Providers: Jim Barry Status ED Status: Left Department Discharge Information Discharge Date/Time: 11/04/17 02:10
[2017-11-03] MEDS: Potassium Chlor 10 mEq Premix 10 MEQ/100 ML PIGGYBACK IV.SIG SCH ×2 (22:24→23:42)
[2017-11-03] MEDS ORDERED: Sodium Phosphate Inj 30 MMOL in Sodium Chlor 0.9% Inj 250 ML IV.SIG PRN (23:03)
[2017-11-03] MEDS ORDERED: Potassium Chlor 20 mEq Premix 20 MEQ/100 ML PIGGYBACK IV.SIG PRN ×2 (23:03)
[2017-11-03] MEDS ORDERED: Potassium Chloride 25 MEQ Effervescent Tablet PO PRN (23:03)
[2017-11-03] MEDS ORDERED: Magnesium Sulfate Inj 2 GM in Sodium Chlor 0.9% Inj 96 ML IV.SIG PRN (23:03)
[2017-11-03] MEDS ORDERED: Potassium Phosphate Inj 30 MMOL in Sodium Chlor 0.9% Inj 250 ML IV.SIG PRN (23:03)
[2017-11-03] MEDS ORDERED: Potassium Chlor 40 mEq Premix 40 MEQ/100 ML PIGGYBACK IV.SIG PRN (23:03)
[2017-11-03] MEDS ORDERED: Potassium Phosphate 500 MG Soluble Tablet PO PRN ×2 (23:03)
[2017-11-03] MEDS ORDERED: Magnesium Sulfate Inj 4 GM in Sodium Chlor 0.9% Inj 92 ML IV.SIG PRN (23:03)
[2017-11-03] MEDS ORDERED: Magnesium Oxide 400 MG Tablet PO PRN (23:03)
--- NOTE | 2017-11-04 00:25 | XR ---
EXAM DATE: 11/04/2017 12:21 AM EDT AGE/SEX: 52 years / Female INDICATIONS: . Evaluate for right sided central line placement. CLINICAL DATA: This is the patient's initial encounter. Patient reports that signs and symptoms have been present for 1 day and indicates a pain score of 0/10. MEDICAL/SURGICAL HISTORY: None. None. COMPARISON: [facility], CHEST SINGLE AP, 05/06/2017. . FINDINGS: A single AP view of the chest demonstrates the lungs to be symmetrically aerated without evidence of mass, infiltrate or effusion. Right central line tip in superior vena cava. The cardiomediastinal co ntours are unremarkable. Osseous structures are intact. CONCLUSION: Right central line tip in superior vena cava without pneumothorax. Electronically signed by: Pelon Macedo MD 11/04/2017 12:24 AM EDT
[2017-11-04] MEDS: Potassium Chlor 10 mEq Premix 10 MEQ/100 ML PIGGYBACK IV.SIG SCH (00:42)
--- NOTE | 2017-11-04 01:19 | CT ---
EXAM DATE: 11/04/2017 1:10 AM EDT AGE/SEX: 52 years / Female INDICATIONS: Abdominal pain. Nausea. Vomiting. CLINICAL DATA: This is the patient's initial encounter. Patient reports that signs and symptoms have been present for 7 - 11 months and indicates a pain score of 7/10. MEDICAL/SURGICAL HISTORY: Chronic obstructive pulmonary disease. Irritable bowel syndrome. Lloyd arean section. Cholecystectomy. ORAL CONTRAST: No oral contrast ingested. RADIATION DOSE: 14.85 CTDI (mGy) COMPARISON: [facility], CTA ABDOMEN & PELVIS W 3D RECON, 10/16/2017. . TECHNIQUE: Multiple contiguous axial images were obtained through the abdomen and pelvis following b olus infusion of 100 ml Omnipaque 350 (iohexol) nonionic water-soluble contrast as a single exam do se. No oral contrast ingested. Using automated exposure control and adjustment of the mA and/or kV a ccording to patient size, radiation dose was kept as low as reasonably achievable to obtain optimal d iagnostic quality images. DICOM format image data is available electronically for review and compari son. FINDINGS: Lung bases demonstrate some dependent atelectasis. There is a vascular stent in the proximal celiac and superior mesenteric arteries. No acute findings in the liver, spleen, adrenals, kidneys or pancreas. No calcified gallstones or biliary ductal dilata tion. Again seen is stenosis of the left common iliac artery and dense plaque in the proximal right common iliac artery unchanged from [place] on October 16. Right common iliac artery stent is noted. There is colonic diverticulosis without evidence for diverticulitis. No inflammatory changes identifi ed within the abdomen and pelvis. Carmen catheter in the bladder. CONCLUSION: 1. Dependent atelectasis in the lungs. 2. Stable appearance of vascular stents in the celiac and superior mesenteric artery and proximal ri ght common iliac artery compared with October 16. Stable stenosis left common iliac artery. 3. Carmen catheter in bladder. Colonic diverticulosis. Electronically signed by: Pelon Macedo MD 11/04/2017 1:18 AM EDT
[2017-11-04 01:32] LABS: Bilirubin,Urine Negative (Negative); Clarity,Urine Clear (Clear); Color,Urine Yellow (Yellw/Straw); Glucose,Urine (UA) Negative (Negative); Leukocyte Esterase,Urine Negative (Negative); Nitrite,Urine Negative (Negative); Specific Gravity,Urine Less/Equal 1.005 (1.002-1.035); Urobilinogen,Urine 0.2 mg/dL (Less than 2)
[2017-11-04] MEDS: Potassium Chlor 40 mEq Premix 40 MEQ/100 ML PIGGYBACK IV.SIG SCH ×2 (01:42→05:42)
[2017-11-04 01:53] LABS: Squamous Epithelial Cell,Urine 0-5 /hpf (0-5); WBC,Urine 0-5 /hpf (0-5)
[2017-11-04 01:54] LABS: RBC,Urine 0-3 /hpf (0-3)
[2017-11-04] MEDS ORDERED: Dicyclomine 10 MG Capsule PO PRN (03:25)
[2017-11-04 04:18] LABS: Magnesium 1.6 mg/dL (1.5-2.5)
[2017-11-04 04:27] LABS: Thyroid Stimulating Hormone 1.06 uIU/mL (0.358-3.740)
[2017-11-04 04:50] LABS: Calcium 7.5 mg/dL (8.5-10.1); Carbon Dioxide 21.8 meq/L (21.0-32.0)
--- NOTE | 2017-11-04 06:47 | P.HPCC ---
History of Present Illness Service: Critical Care medicine Primary Care Physician: UNKNOWN History of Present Illness: 52 yo WF with PMH of chronic mesenteric ischemia, PAD with bilateral iliac stents, left subclavian stent, hypothyroidism, depression, chronic pain, restless leg syndrome, TIA, GERD, who states she has an 8 month history of abdominal pain, nausea and vomiting. 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 James Rendon. She states since that time she has had "constant" abdominal pain, multifocal (points to right upper abdomen and left mid and lower abdomen). She states pain is worse with eating and is accompanied by postprandial nausea and vomiting. She has had no melena or bright red blood per rectum. No hematemesis. Stools tend to be loose when she does have them, last bowel movement was 4 days ago. No hematemesis. She states she had an EGD and colonoscopy in February 2017 performed in [place] and states that they were unremarkable. Reports 60 pound unintentional weight loss. She presented to [facility] ED last night. She states " I couldn't keep anything down x 3days and was lightheaded and I knew it had gotten to the point of dehydration" and because BP on home monitor was in the 50s or 60s. She has been on a liquid diet for several months, says she can't tolerated solids at all. Upon presentation, she had no fever or leukocytosis. Lactic acid was normal. She was hemoconcentrated with HCT 50, with MARIUSZ with creatinine 1.1 and severe hypokalemia with potassium 1.9. Initially plan was to admit to [facility] for electrolyte replacement and IVF, however she had persistent hypotension requiring multiple fluid boluses so Dr. Quinn placed R IJ CVL and transferred to [facility]. CT abd/pelvis demonstrates patency of celiac and SMA stents without abnormality. - Diagnosis (1) Chronic mesenteric ischemia (2) SMA stenosis (3) Depression (4) Chronic abdominal pain (5) Moderate protein malnutrition (6) Hypothyroid (7) Tobacco abuse counseling (8) Intractable nausea and vomiting (9) MARIUSZ (acute kidney injury) (10) Hypokalemia (11) Dehydration with hyponatremia (12) PAD (peripheral artery disease) (13) Chronic anticoagulation Inpatient Certification: I certify that the inpatient services were ordered in accordance with Medicare regulations governing the order. This includes certification that hospital inpatient services are reasonable and necessary and in the case of services not specified as inpatient-only under 42 CFR 419.22(n), that they are appropriately provided as inpatient services in accordance to with the 2-midnight benchmark under 43 CFR 412.3(e) [facility] - History History Provided By: Patient, Family Member - Medical History Medical History: Medical History (Last Updated 11/04/17 @ 07:13 by Aster Hensley MD) CAD (coronary artery disease) COPD (chronic obstructive pulmonary disease) Celiac artery stenosis Depression Hypothyroid IBS (irritable bowel syndrome) PAD (peripheral artery disease) Restless leg syndrome Subclavian artery stenosis, left Superior mesenteric artery stenosis TIA (transient ischemic attack) Tobacco abuse - Surgical History Surgical History: Surgical History (Last Reviewed 11/03/17 @ 22:03 by Tammy Quinn MD) H/O heart artery stent History of History of cholecystectomy S/P appy - Family History Family History: Family History (Last Updated 11/04/17 @ 07:14 by Aster Hensley MD) Mother HTN (hypertension) Emphysema of lung - Tobacco History Second Hand Smoke Exposure: No Tobacco Use In Past 30 Days: Yes Smoking Status: Heavy tobacco smoker Tobacco Type: Cigarettes - Alcohol History How Often Do You Have a Drink Containing Alcohol: Never - Substance Use History Substance History: Active Abuse - Substance Use Type Marijuana Status: Active Route Used: Inhalation Comment: USES FOR NAUSEA AND VOMITING - Travel History Recent Travel in the [place] Within the Last 8 Weeks: No Recent Travel Out of the Country Within the Last 8 Weeks: No - Immunization History Tetanus Immunization: <5 Years Hx Influenza Vaccine This Season: No Medications and Allergies Active Medications: Active Medications Aspirin (Aspirin Chew) 81 mg PO DAILY REGINALDO Dicyclomine HCl (Bentyl) 10 mg PO QID PRN PRN Reason: ABDOMINAL PAIN Potassium Chloride (Kcl 40 Meq Premix Inj) 40 meq in 100 mls @ 25 mls/hr IV.SIG Q4H REGINALDO Stop: 11/04/17 07:14 Last Admin: 11/04/17 05:42 Dose: 25 mls/hr Magnesium Sulfate Inj 2 gm/ (Sodium Chloride) 100 mls @ 50 mls/hr IV.SIG UNSCH PRN PRN Reason: For Magnesium 1.2 - 1.6 mg/dL Potassium Chloride (Kcl 40 Meq Premix Inj) 40 meq in 100 mls @ 25 mls/hr IV.SIG Q2H PRN PRN Reason: For Potassium 2.8 - 3.2 mEq/L Potassium Chloride (Kcl 20 Meq Premix Inj) 20 meq in 100 mls @ 50 mls/hr IV.SIG Q2H PRN PRN Reason: For Potassium 3.3 - 3.5 mEq/L Potassium Chloride (Kcl 40 Meq Premix Inj) 40 meq in 100 mls @ 25 mls/hr IV.SIG UNSCH PRN PRN Reason: For Potassium 3.3 - 3.5 mEq/L Last Admin: 11/04/17 05:42 Dose: 25 mls/hr Potassium Chloride (Kcl 20 Meq Premix Inj) 20 meq in 100 mls @ 50 mls/hr IV.SIG Q2H PRN PRN Reason: For Potassium 2.8 - 3.2 mEq/L Potassium Phosphate 30 mmol/ (Sodium Chloride) 260 mls @ 42 mls/hr IV.SIG UNSCH PRN PRN Reason: SEE LABEL COMMENTS Sodium Phosphate 30 mmol/ (Sodium Chloride) 260 mls @ 42 mls/hr IV.SIG UNSCH PRN PRN Reason: For Phosphorus < 2.5 mg/dL Magnesium Sulfate Inj 4 gm/ (Sodium Chloride) 100 mls @ 50 mls/hr IV.SIG UNSCH PRN PRN Reason: For Magnesium 0.9 - 1.1 mg/dL Potassium Chloride/Sodium Chloride (Ns + Kcl 40 Meq Inj) 1,000 mls @ 125 mls/ hr IV.CONT .Q8H REGINALDO Last Admin: 11/04/17 01:24 Dose: 125 mls/hr Magnesium Oxide (Mag-Ox) 800 mg PO UNSCH PRN PRN Reason: For Magnesium 1.2 - 1.6 mg/dL Ondansetron HCl (Zofran Odt) 4 mg PO Q4H PRN PRN Reason: NAUSEA OR VOMITING Potassium Bicarb/Potassium Chloride (K-Lyte Cl Eff) 50 meq PO UNSCH PRN PRN Reason: For Potassium 3.3 - 3.5 mEq/L Potassium Phosphate (K-Phos Original) 2,000 mg PO Q4H PRN PRN Reason: Phosphorus Less Than 2.5 mg/dL Potassium Phosphate (K-Phos Original) 2,000 mg PO UNSCH PRN PRN Reason: SEE LABEL COMMENTS Sodium Chloride (Ns Flush) 2 ml IV.FLUSH PRN PRN PRN Reason: FLUSH AFTER USING IV ACCESS Allergies Allergy/AdvReac Type Severity Reaction Status Date / Time budesonide Allergy Severe Swelling Verified 11/03/17 20:45 of Lip/Tongue/Throat formoterol Allergy Severe Swelling Verified 11/03/17 20:45 of Lip/Tongue/Throat codeine Allergy Intermediate Anaphylaxis Verified 11/03/17 21:12 Home Medications Medication Instructions Recorded Confirmed Type Aspirin Low Dose 81 mg PO DAILY 11/03/17 11/03/17 History albuterol sulfate [ProAir HFA] 2 puff INHALATION Q4H PRN 11/03/17 11/03/17 History levothyroxine 100 mcg PO DAILY 11/03/17 11/03/17 History lisinopril 5 mg PO DAILY 11/03/17 11/03/17 History metoclopramide HCl 10 mg PO QID 11/03/17 11/03/17 History metoprolol succinate 50 mg PO DAILY 11/03/17 11/03/17 History pantoprazole [Protonix] 40 mg PO DAILY 11/03/17 11/03/17 History potassium chloride [Klor-Con 10] 10 meq PO DAILY 11/03/17 11/03/17 History rivaroxaban [Xarelto] 20 mg PO DAILY 11/03/17 11/03/17 History ropinirole 2 mg PO DAILY 11/03/17 11/03/17 History sertraline 200 mg PO DAILY 11/03/17 11/03/17 History umeclidinium-vilanterol [Anoro 1 inh INHALATION Q24H 11/03/17 11/03/17 History Ellipta] ziprasidone HCl [Geodon] 80 mg PO QPM 11/03/17 11/03/17 History Results - Labs CBC & Chem 7: 11/03/17 21:10 11/04/17 03:15 Labs: Short CBC 11/03/17 Range/Units 21:10 WBC 9.0 (4.0-11.0) th/mm3 Hgb 16.5 H (11.6-15.3) gm/dL Hct 50.0 H (35.0-46.0) % Plt Count 203 (150-450) th/mm3 [facility] 11/03/17 11/04/17 21:10 03:15 Sodium 128 L 143 D Potassium 1.9 L* 3.0 L D Chloride 92 L 112 H D Carbon Dioxide 24.9 21.8 BUN 20 H 15 Creatinine 1.10 H 0.72 Calcium 11.0 H 7.5 L D Liver Function 11/03/17 Range/Units 21:10 Total Bilirubin 0.5 (0.2-1.0) mg/dL AST 67 H (15-37) U/L ALT 61 H (10-53) U/L Alkaline Phosphatase 109 (45-117) U/L Albumin 4.3 (3.4-5.0) g/dL Urine 11/04/17 Range/Units 00:30 Urine Color Yellow (Yellw/Straw) Urine Clarity Clear (Clear) Urine pH 7.0 (5.0-8.5) Ur Specific [place] Less/equal 1.005 (1.002-1.035) Urine Protein Negative (Neg-Trace) mg/dL Urine Glucose (UA) Negative (Negative) mg/dL - Imaging Impressions Chest X-Ray 11/04/17 00:06 CONCLUSION: Right central line tip in superior vena cava without pneumothorax. Abdomen/Pelvis CT 11/04/17 00:07 CONCLUSION: 1. Dependent atelectasis in the lungs. 2. Stable appearance of vascular stents in the celiac and superior mesenteric artery and proximal right common iliac artery compared with October 16. Stable stenosis left common iliac artery. 3. Carmen catheter in bladder. Colonic diverticulosis. Exam Vital signs: Vital Signs 11/03/17 20:45 11/03/17 21:05 11/03/17 21:26 Temperature 98.8 F Pulse Rate 72 58 L Respiratory Rate 16 16 Blood Pressure 81/62 L 95/48 L Pulse Oximetry 97 94 L 11/03/17 21:52 11/03/17 21:53 11/03/17 22:15 Temperature Pulse Rate 58 L 56 L Respiratory Rate 16 18 Blood Pressure 72/45 L 65/47 L Pulse Oximetry 95 95 98 11/03/17 22:20 11/03/17 22:40 11/04/17 00:13 Temperature Pulse Rate 57 L 55 L Respiratory Rate 16 16 Blood Pressure 72/44 L 91/52 L 90/56 L Pulse Oximetry 100 11/04/17 00:33 11/04/17 01:17 11/04/17 01:30 Temperature Pulse Rate 56 L 57 L 58 L Respiratory Rate 16 16 16 Blood Pressure 93/50 L 87/55 L 90/60 L Pulse Oximetry 97 11/04/17 02:07 11/04/17 02:08 11/04/17 02:38 Temperature Pulse Rate 64 60 Respiratory Rate 18 20 Blood Pressure 95/58 L Pulse Oximetry 97 11/04/17 02:41 11/04/17 03:00 11/04/17 04:00 Temperature 97.9 F Pulse Rate 61 60 63 Respiratory Rate 15 20 18 Blood Pressure 102/63 109/55 L Pulse Oximetry 96 98 11/04/17 04:01 11/04/17 04:07 11/04/17 05:00 Temperature Pulse Rate 66 66 66 Respiratory Rate 28 H 22 17 Blood Pressure 83/50 L 84/51 L Pulse Oximetry 97 98 95 11/04/17 05:01 11/04/17 05:08 11/04/17 05:33 Temperature Pulse Rate 67 67 60 Respiratory Rate 16 16 22 Blood Pressure 79/48 L 79/51 L 80/53 L Pulse Oximetry 95 96 99 11/04/17 05:44 11/04/17 06:00 Temperature Pulse Rate 58 L 59 L Respiratory Rate 19 20 Blood Pressure 92/50 L 93/46 L Pulse Oximetry 98 97 Intake & Output 11/03/17 11/03/17 11/04/17 06:59 18:59 06:59 Intake Total 2700 / 2700 Output Total 1700 / 1700 Balance 1000 / 1000 Weight 72.2 kg Intake: IV 2500 / 2500 KCl 10 mEq Premix Inj 10 meq In 300 / 300 100 ml @ 100 mls/hr IV.SIG Q1H REGINALDO Rx#:[id number] KCl 40 mEq Premix Inj 40 meq In 100 / 100 100 ml @ 25 mls/hr IV.SIG Q4H REGINALDO Rx#:[id number] NS Inj 1,000 ML @ Wide Open IV. 1999 SIG BOLUS ONE Rx#:[id number] Rocephin Inj 1,000 MG In NS Inj 100 / 100 100 ML @ 200 mls/hr IV.SIG Q24H REGINALDO Rx#:[id number] Oral 200 / 200 Output: Urine Amount (Catheter) 1700 / 1700 Indwelling Urethral Catheter 1700 / 1700 Other: Date of Last Bowel Movement 11/01/17 Weight On Admission 72 kg Narrative: GENERAL: Well developed, alert and pleasant female laying in [facility] [place]. SKIN: Warm and dry, adequately perfused. HEAD: Atraumatic. Normocephalic. EYES: Pupils equal and round, 3 mm and reactive to 2 mm bilaterally. No scleral icterus. No injection or drainage. ENT: No nasal bleeding or discharge. Mucous membranes dry. NECK: Trachea midline. No JVD. CARDIOVASCULAR: Regular rate and rhythm, sinus on the monitor. No murmurs rubs or gallops. RESPIRATORY: No accessory muscle use, breathing comfortably on 2 L NC. Clear to auscultation. Breath sounds equal bilaterally. GASTROINTESTINAL: Abdomen soft, tender right upper/mid abdomen and Left mid and lower abdomen. No rebound or guarding. Bowel sounds present. No HSM. : Carmen in place with light yellow urine output per MUSCULOSKELETAL: Extremities without clubbing, cyanosis, or edema. No obvious deformities. NEUROLOGICAL: Awake and alert. No obvious cranial nerve deficits. Motor grossly within normal limits. Normal speech. Caprini VTE Risk Assessment Caprini VTE Risk Assessment: Moderate/High Risk (score >= 2) Caprini Risk Assessment Model: Point Value = 1 Point Value = 2 Point Value = 3 Point Value = 5 Age 41-60 Minor surgery BMI > 25 kg/m2 Swollen legs Varicose veins or History of unexplained or recurrent spontaneous Oral contraceptives or hormone replacement Sepsis (< 1 month) Serious lung disease, including pneumonia (< 1 month) Abnormal pulmonary function Acute myocardial infarction Congestive heart failure (< 1 month) History of inflammatory bowel disease Medical patient at bed rest Age 61-74 Arthroscopic surgery Major open surgery (> 45 min) Laparoscopic surgery (> 45 min) Malignancy Confined to bed (> 72 hours) Immobilizing plaster cast Central venous access Age >= 75 History of VTE Family history of VTE Factor V Leiden Prothrombin [id number] Lupus anticoagulant Anticardiolipin antibodies Elevated serum homocysteine Heparin-induced thrombocytopenia Other congenital or acquired thrombophilia Stroke (< 1 month) Elective arthroplasty Hip, pelvis, or leg fracture Acute spinal cord injury (< 1 month) Prophylaxis Regimen: Total Risk Factor Score Risk Level Prophylaxis Regimen 0-1 Low Early ambulation 2 Moderate Order ONE of the following: *Sequential Compression Device (SCD) *Heparin 5000 units SQ BID 3-4 Higher Order ONE of the following medications: *Heparin 5000 units SQ TID *Enoxaparin/Lovenox 40 mg SQ daily (WT < 150 kg, CrCl > 30 mL/min) *Enoxaparin/Lovenox 30 mg SQ daily (WT < 150 kg, CrCl > 10-29 mL/min) *Enoxaparin/Lovenox 30 mg SQ BID (WT < 150 kg, CrCl > 30 mL/min) AND/OR *Sequential Compression Device (SCD) 5 or more Highest Order ONE of the following medications: *Heparin 5000 units SQ TID (Preferred with Epidurals) *Enoxaparin/Lovenox 40 mg SQ daily (WT < 150 kg, CrCl > 30 mL/min) *Enoxaparin/Lovenox 30 mg SQ daily (WT < 150 kg, CrCl > 10-29 mL/min) *Enoxaparin/Lovenox 30 mg SQ BID (WT < 150 kg, CrCl > 30 mL/min) AND *Sequential Compression Device (SCD) Assessment and Plan - Problem List (1) Chronic mesenteric ischemia Code(s): K55.1 - Chronic vascular disorders of intestine Status: Chronic (2) SMA stenosis Code(s): I77.1 - Stricture of artery Status: Chronic (3) Depression Code(s): F32.9 - Major depressive disorder, single episode, unspecified Status : Chronic (4) Chronic abdominal pain Code(s): R10.9 - Unspecified abdominal pain; G89.29 - Other chronic pain Status: Chronic (5) Moderate protein malnutrition Code(s): E44.0 - Moderate protein-calorie malnutrition Status: Chronic (6) Hypothyroid Code(s): E03.9 - Hypothyroidism, unspecified Status: Chronic (7) Tobacco abuse counseling Code(s): Z71.6 - Tobacco abuse counseling Status: Acute (8) Intractable nausea and vomiting Code(s): R11.2 - Nausea with vomiting, unspecified Status: Acute (9) MARIUSZ (acute kidney injury) Code(s): N17.9 - Acute kidney failure, unspecified Status: Acute (10) Hypokalemia Code(s): E87.6 - Hypokalemia Status: Acute (11) Dehydration with hyponatremia Code(s): E87.1 - Hypo-osmolality and hyponatremia Status: Acute (12) PAD (peripheral artery disease) Code(s): I73.9 - Peripheral vascular disease, unspecified Status: Chronic (13) Chronic anticoagulation Code(s): Z79.01 - care home (current) use of anticoagulants Status: Chronic - Assessment and Plan Plan: NEURO: Chronic pain Depression Restless leg syndrome Continue Zoloft, geodon, ropinirole Morphine reportedly caused significant hypotension. RESP: Tobacco abuse Tobacco cessation counseling discussed. Incentive spirometry every hour awake Continue Anoro-Ellipta inhaler. CV: Hypotension secondary to hypovolemia PAD with iliac stents Continue ASA 81 daily. Hold lisinopril/metoprolol due to hypotension. Received 3 L NS bolus. Continue Fluid resus with NS adn 40 MEQ KCL/L @ 125/hr. TSH and cortisol normal. GI: Chronic abdominal pain Intractable nausea/vomiting Chronic mesenteric ischemia with SMA and celiac stenosis now s/p stents 10/05/17 Recurrent prandial n/v, abdominal pain. Stents patent on followup CT scan 10/16 and 11/04. Consult GI for recommendations regarding chronic pain and vomiting. ? feeding tube with continuous feeds to see if that would be better tolerated form of nutrition. Dr. Jerez with Vascular surgery saw previously, no further recommendations. Continue ASA. Rivaroxaban on hold this morning, but will resume if no procedures planned. Bentyl prn abd pain. Zofran prn. FEN/RENAL: MARIUSZ Severe hypokalemia Hyponatremic dehydration Carmen is in place. Monitoring intake and output closely. Monitoring electrolytes. Received KCl 50 mEq p.o. in the emergency department. Giving additional KCL 120 MEQ IV. Followup BMP. ID: Single dose of Rocephin given due to concern for UTI, however later realized lab was from 10/03 so was discontinued. Repeat U/a today is normal. HEME: Monitor CBC ENDO: Chronic hypothyroidism. TSH at target. Continue synthroid. PROPH: SCDs for DVT prophylaxis. Rivaroxaban currently on hold pending GI plan , but can be resumed to provide DVT prophylaxis. Protonix for stress ulcer proph and history of GERD ACCESS: Right IJ central venous line placed by ED physician FULL CODE Level 3 H and P H&P: Quality - VTE Deep Vein Thrombosis/Pulmonary Embolism Present on Admission: No
[2017-11-04] MEDS ORDERED: Bisacodyl 10 MG Supp RECTAL PRN (07:24)
[2017-11-04] MEDS: Sertraline 100 MG Tablet PO SCH (08:49)
[2017-11-04] MEDS: Metoclopramide 10 MG Tablet PO SCH ×4 (08:50→20:40)
[2017-11-04] MEDS: Senna/Docusate Sodium 8.6/50 MG Tablet PO SCH ×2 (08:52→20:41)
[2017-11-04] MEDS ORDERED: Rivaroxaban 10 MG Tablet PO SCH (09:00)
[2017-11-04] MEDS: Levothyroxine 50 MCG Tablet PO SCH (12:30)
[2017-11-04] MEDS: Umeclindinium 62.5 MCG/Vilanterol 25 MCG Inhaler INH SCH (12:30)
[2017-11-04] MEDS: Mag Sulf 1 gm/100 ml Premix 100 ML IV.SIG SCH ×2 (13:45→14:57)
--- NOTE | 2017-11-04 14:10 | P.CONGI ---
History of Present Illness Consult date: 11/04/17 Consult reason: Intractable nausea and vomiting Chief complaint: Hypokalemia,hypotension,dehydration History of Present Illness: This is a 52 yo F with PMH significant for mesenteric ischemia S/P stenting of the celiac axis and SMA, PAD with bilateral iliac stent, left subclavian stent, hypothyroidism, depression, chronic pain, restless leg syndrome, TIA and GERD who presented to the ER yesterday with complaints of nausea, vomiting and abdominal pain for the past seven months. States she has anywhere from 4-10 episodes of emesis daily, denies hematemesis and coffee ground emesis. States emesis not always related to PO intake but any time she does try eating she is unable to finish a meal without everything coming back up. States abdominal bloating after meals. Also reports abdominal pain, points to multiple places in her abdomen (epigastric area, RUQ, and LLQ) and states pains are constant with intermittent episodes of intensified pains. Also reports diarrhea for the past seven months associated with fecal urgency and incontinence. Denies hematochezia and melena. Last EGD and colonoscopy in August 2016 done at [facility], states both exams were normal. Denies ETOH. Smokes 10 cigarettes a day. Also admits to routine marijuana use, last use was yesterday. Denies NSAID use. <Carin Omalley - Last Filed: 11/04/17 13:53> Review of Systems Gastrointestinal: Reports abdominal pain, Reports loose stools, Reports nausea, Reports vomiting <Carin Omalley - Last Filed: 11/04/17 13:53> [facility] - History History Provided By: Patient, Family Member - Medical History Medical History: Medical History (Last Reviewed 11/04/17 @ 12:28 by Behzad Zamarripa MD) CAD (coronary artery disease) COPD (chronic obstructive pulmonary disease) Celiac artery stenosis Depression Hypothyroid IBS (irritable bowel syndrome) PAD (peripheral artery disease) Restless leg syndrome Subclavian artery stenosis, left Superior mesenteric artery stenosis TIA (transient ischemic attack) Tobacco abuse - Surgical History Surgical History: Surgical History (Last Reviewed 11/04/17 @ 12:28 by Behzad Zamarripa MD) H/O heart artery stent History of History of cholecystectomy S/P appy - Family History Family History: Family History (Last Reviewed 11/04/17 @ 12:28 by Behzad Zamarripa MD) Mother HTN (hypertension) Emphysema of lung - Tobacco History Second Hand Smoke Exposure: No Tobacco Use In Past 30 Days: Yes Smoking Status: Heavy tobacco smoker Tobacco Type: Cigarettes - Alcohol History How Often Do You Have a Drink Containing Alcohol: Never - Substance Use History Substance History: Active Abuse - Substance Use Type Marijuana Status: Active Route Used: Inhalation Comment: USES FOR NAUSEA AND VOMITING - Travel History Recent Travel in the [place] Within the Last 8 Weeks: No Recent Travel Out of the Country Within the Last 8 Weeks: No - Immunization History Tetanus Immunization: <5 Years Hx Influenza Vaccine This Season: No <Carin Omalley - Last Filed: 11/04/17 13:53> - Medical History Medical History: Medical History (Last Reviewed 11/04/17 @ 12:28 by Behzad Zamarripa MD) CAD (coronary artery disease) COPD (chronic obstructive pulmonary disease) Celiac artery stenosis Depression Hypothyroid IBS (irritable bowel syndrome) PAD (peripheral artery disease) Restless leg syndrome Subclavian artery stenosis, left Superior mesenteric artery stenosis TIA (transient ischemic attack) Tobacco abuse - Surgical History Surgical History: Surgical History (Last Reviewed 11/04/17 @ 12:28 by Behzad Zamarripa MD) H/O heart artery stent History of History of cholecystectomy S/P appy - Family History Family History: Family History (Last Reviewed 11/04/17 @ 12:28 by Behzad Zamarripa MD) Mother HTN (hypertension) Emphysema of lung <Jim Barry - Last Filed: 11/04/17 22:13> Medications and Allergies Active Medications: Active Medications Al Hydroxide/Mg Hydroxide (Milk Of Lary Barney) 30 ml PO Q12H PRN PRN Reason: Mild Constipation Aspirin (Aspirin Chew) 81 mg PO DAILY [facility] Last Admin: 11/04/17 08:50 Dose: 81 mg Bisacodyl (Dulcolax Supp) 10 mg RECTAL DAILY PRN PRN Reason: SEVERE CONSITIPATION Chlorhexidine Gluconate (Chlorhexidine 2% Cloth) 3 pack TOPICAL DAILY@0400 PRN PRN Reason: Extra cloth needed Stop: 11/10/17 03:59 Dicyclomine HCl (Bentyl) 10 mg PO QID PRN PRN Reason: ABDOMINAL PAIN Last Admin: 11/04/17 12:39 Dose: 10 mg Magnesium Sulfate Inj 2 gm/ (Sodium Chloride) 100 mls @ 50 mls/hr IV.SIG UNSCH PRN PRN Reason: For Magnesium 1.2 - 1.6 mg/dL Potassium Chloride (Kcl 40 Meq Premix Inj) 40 meq in 100 mls @ 25 mls/hr IV.SIG Q2H PRN PRN Reason: For Potassium 2.8 - 3.2 mEq/L Potassium Chloride (Kcl 20 Meq Premix Inj) 20 meq in 100 mls @ 50 mls/hr IV.SIG Q2H PRN PRN Reason: For Potassium 3.3 - 3.5 mEq/L Potassium Chloride (Kcl 40 Meq Premix Inj) 40 meq in 100 mls @ 25 mls/hr IV.SIG UNSCH PRN PRN Reason: For Potassium 3.3 - 3.5 mEq/L Last Admin: 11/04/17 05:42 Dose: 25 mls/hr Potassium Chloride (Kcl 20 Meq Premix Inj) 20 meq in 100 mls @ 50 mls/hr IV.SIG Q2H PRN PRN Reason: For Potassium 2.8 - 3.2 mEq/L Potassium Phosphate 30 mmol/ (Sodium Chloride) 260 mls @ 42 mls/hr IV.SIG UNSCH PRN PRN Reason: SEE LABEL COMMENTS Sodium Phosphate 30 mmol/ (Sodium Chloride) 260 mls @ 42 mls/hr IV.SIG UNSCH PRN PRN Reason: For Phosphorus < 2.5 mg/dL Magnesium Sulfate Inj 4 gm/ (Sodium Chloride) 100 mls @ 50 mls/hr IV.SIG UNSCH PRN PRN Reason: For Magnesium 0.9 - 1.1 mg/dL Potassium Chloride/Sodium Chloride (Ns + Kcl 40 Meq Inj) 1,000 mls @ 125 mls/ hr IV.CONT .Q8H [facility] Last Admin: 11/04/17 08:51 Dose: 125 mls/hr Magnesium Sulfate/Dextrose (Magnesium Sulfate 1 Gm/D5w 100 Ml Premix) 100 mls @ 100 mls/hr IV.SIG Q1H [facility] Stop: 11/04/17 14:59 Last Admin: 11/04/17 13:45 Dose: 100 mls/hr Lactulose (Lactulose Liq) 30 ml PO DAILY PRN PRN Reason: SEVERE CONSITIPATION Levothyroxine Sodium (Synthroid) 100 mcg PO DAILY@0600 [facility] Last Admin: 11/04/17 12:30 Dose: Not Given Magnesium Oxide (Mag-Ox) 800 mg PO UNSCH PRN PRN Reason: For Magnesium 1.2 - 1.6 mg/dL Metoclopramide HCl (Reglan) 10 mg PO QID [facility] Last Admin: 11/04/17 12:39 Dose: 10 mg Ondansetron HCl (Zofran Odt) 4 mg PO Q4H PRN PRN Reason: NAUSEA OR VOMITING Last Admin: 11/04/17 08:50 Dose: 4 mg Pantoprazole Sodium (Protonix) 40 mg PO DAILY [facility] Last Admin: 11/04/17 08:50 Dose: 40 mg Potassium Bicarb/Potassium Chloride (K-Lyte Cl Eff) 50 meq PO UNSCH PRN PRN Reason: For Potassium 3.3 - 3.5 mEq/L Potassium Phosphate (K-Phos Original) 2,000 mg PO Q4H PRN PRN Reason: Phosphorus Less Than 2.5 mg/dL Potassium Phosphate (K-Phos Original) 2,000 mg PO UNSCH PRN PRN Reason: SEE LABEL COMMENTS Ropinirole HCl (Requip) 2 mg PO DAILY [facility] Last Admin: 11/04/17 12:30 Dose: Not Given Senna/Docusate Sodium (Ericka-Colace) 1 tab PO BID [facility] Last Admin: 11/04/17 08:52 Dose: 1 tab Sennosides (Senokot) 17.2 mg PO Q12H PRN PRN Reason: Moderate Constipation Sertraline HCl (Zoloft) 200 mg PO DAILY [facility] Last Admin: 11/04/17 08:49 Dose: 200 mg Sodium Chloride (Ns Flush) 2 ml IV.FLUSH BID [facility] Last Admin: 11/04/17 08:51 Dose: 2 ml Sodium Chloride (Ns Flush) 2 ml IV.FLUSH PRN PRN PRN Reason: FLUSH AFTER USING IV ACCESS Umeclidinium/Vilanterol (Anoro-Ellipta 62.5/25 Mcg Inh) 1 puff INH Q24H [facility] Last Admin: 11/04/17 12:30 Dose: Not Given Ziprasidone (Geodon) 80 mg PO QPM [facility] <Carin Omalley - Last Filed: 11/04/17 13:53> Active Medications: Active Medications Al Hydroxide/Mg Hydroxide (Milk Of Lary Barney) 30 ml PO Q12H PRN PRN Reason: Mild Constipation Aspirin (Aspirin Chew) 81 mg PO DAILY [facility] Last Admin: 11/04/17 08:50 Dose: 81 mg Bisacodyl (Dulcolax Supp) 10 mg RECTAL DAILY PRN PRN Reason: SEVERE CONSITIPATION Chlorhexidine Gluconate (Chlorhexidine 2% Cloth) 3 pack TOPICAL DAILY@0400 PRN PRN Reason: Extra cloth needed Stop: 11/10/17 03:59 Dicyclomine HCl (Bentyl) 10 mg PO QID PRN PRN Reason: ABDOMINAL PAIN Last Admin: 11/04/17 12:39 Dose: 10 mg Magnesium Sulfate Inj 2 gm/ (Sodium Chloride) 100 mls @ 50 mls/hr IV.SIG UNSCH PRN PRN Reason: For Magnesium 1.2 - 1.6 mg/dL Potassium Chloride (Kcl 40 Meq Premix Inj) 40 meq in 100 mls @ 25 mls/hr IV.SIG Q2H PRN PRN Reason: For Potassium 2.8 - 3.2 mEq/L Last Admin: 11/04/17 22:04 Dose: 25 mls/hr Potassium Chloride (Kcl 20 Meq Premix Inj) 20 meq in 100 mls @ 50 mls/hr IV.SIG Q2H PRN PRN Reason: For Potassium 3.3 - 3.5 mEq/L Potassium Chloride (Kcl 40 Meq Premix Inj) 40 meq in 100 mls @ 25 mls/hr IV.SIG UNSCH PRN PRN Reason: For Potassium 3.3 - 3.5 mEq/L Last Admin: 11/04/17 05:42 Dose: 25 mls/hr Potassium Chloride (Kcl 20 Meq Premix Inj) 20 meq in 100 mls @ 50 mls/hr IV.SIG Q2H PRN PRN Reason: For Potassium 2.8 - 3.2 mEq/L Potassium Phosphate 30 mmol/ (Sodium Chloride) 260 mls @ 42 mls/hr IV.SIG UNSCH PRN PRN Reason: SEE LABEL COMMENTS Sodium Phosphate 30 mmol/ (Sodium Chloride) 260 mls @ 42 mls/hr IV.SIG UNSCH PRN PRN Reason: For Phosphorus < 2.5 mg/dL Magnesium Sulfate Inj 4 gm/ (Sodium Chloride) 100 mls @ 50 mls/hr IV.SIG UNSCH PRN PRN Reason: For Magnesium 0.9 - 1.1 mg/dL Potassium Chloride/Sodium Chloride (Ns + Kcl 40 Meq Inj) 1,000 mls @ 125 mls/ hr IV.CONT .Q8H [facility] Last Admin: 11/04/17 14:58 Dose: 125 mls/hr Lactulose (Lactulose Liq) 30 ml PO DAILY PRN PRN Reason: SEVERE CONSITIPATION Levothyroxine Sodium (Synthroid) 100 mcg PO DAILY@0600 [facility] Last Admin: 11/04/17 12:30 Dose: Not Given Magnesium Oxide (Mag-Ox) 800 mg PO UNSCH PRN PRN Reason: For Magnesium 1.2 - 1.6 mg/dL Metoclopramide HCl (Reglan) 10 mg PO QID [facility] Last Admin: 11/04/17 20:40 Dose: 10 mg Ondansetron HCl (Zofran Odt) 4 mg PO Q4H PRN PRN Reason: NAUSEA OR VOMITING Last Admin: 11/04/17 08:50 Dose: 4 mg Pantoprazole Sodium (Protonix) 40 mg PO DAILY [facility] Last Admin: 11/04/17 08:50 Dose: 40 mg Potassium Bicarb/Potassium Chloride (K-Lyte Cl Eff) 50 meq PO UNSCH PRN PRN Reason: For Potassium 3.3 - 3.5 mEq/L Potassium Phosphate (K-Phos Original) 2,000 mg PO Q4H PRN PRN Reason: Phosphorus Less Than 2.5 mg/dL Potassium Phosphate (K-Phos Original) 2,000 mg PO UNSCH PRN PRN Reason: SEE LABEL COMMENTS Ropinirole HCl (Requip) 2 mg PO DAILY [facility] Last Admin: 11/04/17 12:30 Dose: Not Given Senna/Docusate Sodium (Ericka-Colace) 1 tab PO BID [facility] Last Admin: 11/04/17 20:41 Dose: Not Given Sennosides (Senokot) 17.2 mg PO Q12H PRN PRN Reason: Moderate Constipation Sertraline HCl (Zoloft) 200 mg PO DAILY [facility] Last Admin: 11/04/17 08:49 Dose: 200 mg Sodium Chloride (Ns Flush) 2 ml IV.FLUSH BID [facility] Last Admin: 11/04/17 20:45 Dose: 2 ml Sodium Chloride (Ns Flush) 2 ml IV.FLUSH PRN PRN PRN Reason: FLUSH AFTER USING IV ACCESS Umeclidinium/Vilanterol (Anoro-Ellipta 62.5/25 Mcg Inh) 1 puff INH Q24H [facility] Last Admin: 11/04/17 12:30 Dose: Not Given Ziprasidone (Geodon) 160 mg PO HS [facility] <Jim Barry - Last Filed: 11/04/17 22:13> Allergies Allergy/AdvReac Type Severity Reaction Status Date / Time budesonide Allergy Severe Swelling Verified 11/03/17 20:45 of Lip/Tongue/Throat formoterol Allergy Severe Swelling Verified 11/03/17 20:45 of Lip/Tongue/Throat codeine Allergy Intermediate Anaphylaxis Verified 11/03/17 21:12 Home Medications Medication Instructions Recorded Confirmed Type Aspirin Low Dose 81 mg PO DAILY 11/03/17 11/03/17 History albuterol sulfate [ProAir HFA] 2 puff INHALATION Q4H PRN 11/03/17 11/03/17 History levothyroxine 100 mcg PO DAILY 11/03/17 11/03/17 History lisinopril 5 mg PO DAILY 11/03/17 11/03/17 History metoclopramide HCl 10 mg PO QID 11/03/17 11/03/17 History metoprolol succinate 50 mg PO DAILY 11/03/17 11/03/17 History pantoprazole [Protonix] 40 mg PO DAILY 11/03/17 11/03/17 History potassium chloride [Klor-Con 10] 10 meq PO DAILY 11/03/17 11/03/17 History rivaroxaban [Xarelto] 20 mg PO DAILY 11/03/17 11/03/17 History ropinirole 2 mg PO DAILY 11/03/17 11/03/17 History sertraline 200 mg PO DAILY 11/03/17 11/03/17 History umeclidinium-vilanterol [Anoro 1 inh INHALATION Q24H 11/03/17 11/03/17 History Ellipta] ziprasidone HCl [Geodon] 80 mg PO QPM 11/03/17 11/03/17 History Exam Vital signs: Vital Signs 11/03/17 20:45 11/03/17 21:05 11/03/17 21:26 Temperature 98.8 F Pulse Rate 72 58 L Respiratory Rate 16 16 Blood Pressure 81/62 L 95/48 L Pulse Oximetry 97 94 L 11/03/17 21:52 11/03/17 21:53 11/03/17 22:15 Temperature Pulse Rate 58 L 56 L Respiratory Rate 16 18 Blood Pressure 72/45 L 65/47 L Pulse Oximetry 95 95 98 11/03/17 22:20 11/03/17 22:40 11/04/17 00:13 Temperature Pulse Rate 57 L 55 L Respiratory Rate 16 16 Blood Pressure 72/44 L 91/52 L 90/56 L Pulse Oximetry 100 11/04/17 00:33 11/04/17 01:17 11/04/17 01:30 Temperature Pulse Rate 56 L 57 L 58 L Respiratory Rate 16 16 16 Blood Pressure 93/50 L 87/55 L 90/60 L Pulse Oximetry 97 11/04/17 02:07 11/04/17 02:08 11/04/17 02:38 Temperature Pulse Rate 64 60 Respiratory Rate 18 20 Blood Pressure 95/58 L Pulse Oximetry 97 11/04/17 02:41 11/04/17 03:00 11/04/17 04:00 Temperature 97.9 F Pulse Rate 61 60 63 Respiratory Rate 15 20 18 Blood Pressure 102/63 109/55 L Pulse Oximetry 96 98 11/04/17 04:01 11/04/17 04:07 11/04/17 05:00 Temperature Pulse Rate 66 66 66 Respiratory Rate 28 H 22 17 Blood Pressure 83/50 L 84/51 L Pulse Oximetry 97 98 95 11/04/17 05:01 11/04/17 05:08 11/04/17 05:33 Temperature Pulse Rate 67 67 60 Respiratory Rate 16 16 22 Blood Pressure 79/48 L 79/51 L 80/53 L Pulse Oximetry 95 96 99 11/04/17 05:44 11/04/17 06:00 11/04/17 08:00 Temperature 98 F Pulse Rate 58 L 59 L 64 Respiratory Rate 19 20 18 Blood Pressure 92/50 L 93/46 L 91/55 L Pulse Oximetry 98 97 98 11/04/17 09:00 11/04/17 09:12 11/04/17 10:00 Temperature 97.8 F Pulse Rate 60 61 Respiratory Rate 16 18 Blood Pressure 77/51 L 80/46 L Pulse Oximetry 98 99 91 L 11/04/17 11:00 11/04/17 12:00 11/04/17 13:00 Temperature 98 F Pulse Rate 65 60 59 L Respiratory Rate 20 16 18 Blood Pressure 91/52 L 97/52 L 91/51 L Pulse Oximetry 88 L 97 99 Intake & Output 11/03/17 11/04/17 11/04/17 18:59 06:59 18:59 Intake Total 2700 / 2700 1000 / 1000 Output Total 1700 / 1700 Balance 1000 / 1000 1000 / 1000 Weight 72.2 kg Intake: IV 2500 / 2500 1000 / 1000 NS + KCl 40 mEq Inj 1,000 ML @ 1000 / 1000 125 mls/hr IV.CONT .Q8H [facility] Rx# :[id number] KCl 10 mEq Premix Inj 10 meq In 300 / 300 100 ml @ 100 mls/hr IV.SIG Q1H [facility] Rx#:[id number] KCl 40 mEq Premix Inj 40 meq In 100 / 100 100 ml @ 25 mls/hr IV.SIG Q4H [facility] Rx#:[id number] NS Inj 1,000 ML @ Wide Open IV. 1999 / 1999 SIG BOLUS ONE Rx#:[id number] Rocephin Inj 1,000 MG In NS Inj 100 / 100 100 ML @ 200 mls/hr IV.SIG Q24H [facility] Rx#:[id number] Oral 200 / 200 Output: Urine Amount (Catheter) 1700 / 1700 Indwelling Urethral Catheter 1700 / 1700 Other: Date of Last Bowel Movement 11/01/17 11/01/17 Weight On Admission 72 kg - Constitutional no acute distress - Routine HEENT Exam Head: Present: normocephalic, atraumatic - Routine Respiratory Exam Absent: accessory muscle use - Routine Cardiovascular Exam Present: RRR - Routine Abdominal Exam Present: soft, normoactive bowel sounds, tenderness (diffuse tenderness ) - Routine Skin Exam Present: dry, warm - Routine Neurological Exam Present: alert, oriented X3 <Carin Omalley - Last Filed: 11/04/17 13:53> Vital signs: Vital Signs 11/03/17 22:15 11/03/17 22:20 11/03/17 22:40 Temperature Pulse Rate 56 L 57 L Respiratory Rate 18 16 Blood Pressure 65/47 L 72/44 L 91/52 L Pulse Oximetry 98 100 11/04/17 00:13 11/04/17 00:33 11/04/17 01:17 Temperature Pulse Rate 55 L 56 L 57 L Respiratory Rate 16 16 16 Blood Pressure 90/56 L 93/50 L 87/55 L Pulse Oximetry 11/04/17 01:30 11/04/17 02:07 11/04/17 02:08 Temperature Pulse Rate 58 L 64 Respiratory Rate 16 18 Blood Pressure 90/60 L 95/58 L Pulse Oximetry 97 97 11/04/17 02:38 11/04/17 02:41 11/04/17 03:00 Temperature 97.9 F Pulse Rate 60 61 60 Respiratory Rate 20 15 20 Blood Pressure 102/63 109/55 L Pulse Oximetry 96 11/04/17 04:00 11/04/17 04:01 11/04/17 04:07 Temperature Pulse Rate 63 66 66 Respiratory Rate 18 28 H 22 Blood Pressure 83/50 L 84/51 L Pulse Oximetry 98 97 98 11/04/17 05:00 11/04/17 05:01 11/04/17 05:08 Temperature Pulse Rate 66 67 67 Respiratory Rate 17 16 16 Blood Pressure 79/48 L 79/51 L Pulse Oximetry 95 95 96 11/04/17 05:33 11/04/17 05:44 11/04/17 06:00 Temperature Pulse Rate 60 58 L 59 L Respiratory Rate 22 19 20 Blood Pressure 80/53 L 92/50 L 93/46 L Pulse Oximetry 99 98 97 11/04/17 08:00 11/04/17 09:00 11/04/17 09:12 Temperature 98 F 97.8 F Pulse Rate 64 60 Respiratory Rate 18 16 Blood Pressure 91/55 L 77/51 L Pulse Oximetry 98 98 99 11/04/17 10:00 11/04/17 11:00 11/04/17 12:00 Temperature 98 F Pulse Rate 61 65 60 Respiratory Rate 18 20 16 Blood Pressure 80/46 L 91/52 L 97/52 L Pulse Oximetry 91 L 88 L 97 11/04/17 13:00 11/04/17 14:00 11/04/17 15:00 Temperature 98.3 F Pulse Rate 59 L 64 65 Respiratory Rate 18 20 16 Blood Pressure 91/51 L 101/58 L 101/56 L Pulse Oximetry 99 92 L 91 L 11/04/17 17:00 11/04/17 18:00 Temperature Pulse Rate 65 62 Respiratory Rate 18 16 Blood Pressure 126/60 124/59 L Pulse Oximetry 96 91 L Intake & Output 11/04/17 11/04/17 11/05/17 06:59 18:59 06:59 Intake Total 2700 / 2700 2700 / 2700 Output Total 1700 / 1700 4000 / 4000 Balance 1000 / 1000 -1300 / -1300 Weight 72.2 kg Intake: IV 2500 / 2500 2100 / 2100 NS + KCl 40 mEq Inj 1,000 ML @ 1999 / 1999 125 mls/hr IV.CONT .Q8H [facility] Rx# :[id number] Magnesium Sulfate 1 gm/D5W 100 100 / 100 ml Premix 100 ML @ 100 mls/hr IV.SIG Q1H [facility] Rx#:[id number] KCl 10 mEq Premix Inj 10 meq In 300 / 300 100 ml @ 100 mls/hr IV.SIG Q1H [facility] Rx#:[id number] KCl 40 mEq Premix Inj 40 meq In 100 / 100 100 ml @ 25 mls/hr IV.SIG Q4H [facility] Rx#:[id number] NS Inj 1,000 ML @ Wide Open IV. 1999 SIG BOLUS ONE Rx#:[id number] Rocephin Inj 1,000 MG In NS Inj 100 / 100 100 ML @ 200 mls/hr IV.SIG Q24H [facility] Rx#:[id number] Oral 200 / 200 600 / 600 Output: Urine Amount (Catheter) 1700 / 1700 4000 / 4000 Indwelling Urethral Catheter 1700 / 1700 4000 / 4000 Other: Date of Last Bowel Movement 11/01/17 11/01/17 Weight On Admission 72 kg <Jim Barry E - Last Filed: 11/04/17 22:13> Results - Labs CBC & Chem 7: 11/03/17 21:10 11/04/17 03:15 Labs: Laboratory Results - last 24 hr 11/03/17 11/03/17 11/03/17 21:10 21:10 21:10 CBC w Diff Auto diff final WBC 9.0 RBC 5.72 H Hgb 16.5 H Hct 50.0 H MCV 87.4 MCH 28.9 MCHC 33.1 RDW 14.7 Plt Count 203 MPV 8.9 Neut % (Auto) 73.0 H Lymph % (Auto) 19.3 [place] % (Auto) 6.9 Eos % (Auto) 0.3 Baso % (Auto) 0.5 Neut # (Auto) 6.7 Lymph # (Auto) 1.7 [place] # (Auto) 0.6 Eos # (Auto) 0.0 Baso # (Auto) 0.0 WBC Differential . Differential Comment . PT 13.7 H INR 1.4 APTT 48.9 H Sodium 128 L Potassium 1.9 L* Chloride 92 L Carbon Dioxide 24.9 Anion Gap 11 BUN 20 H Creatinine 1.10 H Estimated GFR 52 L Random Glucose 112 H Lactic Acid Calcium 11.0 H Magnesium 2.0 Total Bilirubin 0.5 AST 67 H ALT 61 H Alkaline Phosphatase 109 Total Protein 8.0 Albumin 4.3 Lipase 138 TSH Cortisol Urine Color Urine Clarity Urine pH Ur Specific Moro Urine Protein Urine Glucose (UA) Urine Ketones Urine Occult Blood Urine Nitrate Urine Bilirubin Urine Urobilinogen Ur Leukocyte Esterase Urine RBC Urine WBC Ur Squamous Epith Cells Micro UA Comment Urine Culture Comments Nasal Screen MRSA (PCR) 11/03/17 11/04/17 11/04/17 21:10 00:30 02:45 CBC w Diff WBC RBC Hgb Hct MCV MCH MCHC RDW Plt Count MPV Neut % (Auto) Lymph % (Auto) [place] % (Auto) Eos % (Auto) Baso % (Auto) Neut # (Auto) Lymph # (Auto) [place] # (Auto) Eos # (Auto) Baso # (Auto) WBC Differential Differential Comment PT INR APTT Sodium Potassium Chloride Carbon Dioxide Anion Gap BUN Creatinine Estimated GFR Random Glucose Lactic Acid 0.9 Calcium Magnesium Total Bilirubin AST ALT Alkaline Phosphatase Total Protein Albumin Lipase TSH Cortisol Urine Color Yellow Urine Clarity Clear Urine pH 7.0 Ur Specific [place] Less/equal 1.005 Urine Protein Negative Urine Glucose (UA) Negative Urine Ketones Negative Urine Occult Blood Negative Urine Nitrate Negative Urine Bilirubin Negative Urine Urobilinogen 0.2 Ur Leukocyte Esterase Negative Urine RBC 0-3 Urine WBC 0-5 Ur Squamous Epith Cells 0-5 Micro UA Comment Cath-culture not ind Urine Culture Comments Cath-cult not ind Nasal Screen MRSA (PCR) Not detected 11/04/17 11/04/17 11/04/17 03:15 03:15 03:15 CBC w Diff WBC RBC Hgb Hct MCV MCH MCHC RDW Plt Count MPV Neut % (Auto) Lymph % (Auto) [place] % (Auto) Eos % (Auto) Baso % (Auto) Neut # (Auto) Lymph # (Auto) [place] # (Auto) Eos # (Auto) Baso # (Auto) WBC Differential Differential Comment PT INR APTT Sodium 143 D Potassium 3.0 L D Chloride 112 H D Carbon Dioxide 21.8 Anion Gap 9 BUN 15 Creatinine 0.72 Estimated GFR 84 L Random Glucose 85 Lactic Acid Calcium 7.5 L D Magnesium 1.6 Total Bilirubin AST ALT Alkaline Phosphatase Total Protein Albumin Lipase TSH 1.060 Cortisol 19.7 Urine Color Urine Clarity Urine pH Ur Specific [place] Urine Protein Urine Glucose (UA) Urine Ketones Urine Occult Blood Urine Nitrate Urine Bilirubin Urine Urobilinogen Ur Leukocyte Esterase Urine RBC Urine WBC Ur Squamous Epith Cells Micro UA Comment Urine Culture Comments Nasal Screen MRSA (PCR) 11/04/17 12:13 CBC w Diff WBC RBC Hgb Hct MCV MCH MCHC RDW Plt Count MPV Neut % (Auto) Lymph % (Auto) [place] % (Auto) Eos % (Auto) Baso % (Auto) Neut # (Auto) Lymph # (Auto) [place] # (Auto) Eos # (Auto) Baso # (Auto) WBC Differential Differential Comment PT INR APTT Sodium Potassium Chloride Carbon Dioxide Anion Gap BUN Creatinine Estimated GFR Random Glucose Lactic Acid 0.6 Calcium Magnesium Total Bilirubin AST ALT Alkaline Phosphatase Total Protein Albumin Lipase TSH Cortisol Urine Color Urine Clarity Urine pH Ur Specific [place] Urine Protein Urine Glucose (UA) Urine Ketones Urine Occult Blood Urine Nitrate Urine Bilirubin Urine Urobilinogen Ur Leukocyte Esterase Urine RBC Urine WBC Ur Squamous Epith Cells Micro UA Comment Urine Culture Comments Nasal Screen MRSA (PCR) - Imaging Impressions Chest X-Ray 11/04/17 00:06 CONCLUSION: Right central line tip in superior vena cava without pneumothorax. Abdomen/Pelvis CT 11/04/17 00:07 CONCLUSION: 1. Dependent atelectasis in the lungs. 2. Stable appearance of vascular stents in the celiac and superior mesenteric artery and proximal right common iliac artery compared with October 16. Stable stenosis left common iliac artery. 3. Carmen catheter in bladder. Colonic diverticulosis. <Carin Omalley - Last Filed: 11/04/17 13:53> - Labs CBC & Chem 7: 11/03/17 21:10 11/04/17 14:54 Labs: Laboratory Results - last 24 hr 11/03/17 11/04/17 11/04/17 21:10 00:30 02:45 Sodium 128 L Potassium 1.9 L* Chloride 92 L Carbon Dioxide 24.9 Anion Gap 11 BUN 20 H Creatinine 1.10 H Estimated GFR 52 L Random Glucose 112 H Lactic Acid Calcium 11.0 H Magnesium 2.0 Total Bilirubin 0.5 AST 67 H ALT 61 H Alkaline Phosphatase 109 Lactate Dehydrogenase Total Creatine Kinase Total Protein 8.0 Albumin 4.3 Amylase Lipase 138 TSH Cortisol Urine Color Yellow Urine Clarity Clear Urine pH 7.0 Ur Specific [place] Less/equal 1.005 Urine Protein Negative Urine Glucose (UA) Negative Urine Ketones Negative Urine Occult Blood Negative Urine Nitrate Negative Urine Bilirubin Negative Urine Urobilinogen 0.2 Ur Leukocyte Esterase Negative Urine RBC 0-3 Urine WBC 0-5 Ur Squamous Epith Cells 0-5 Micro UA Comment Cath-culture not ind Urine Culture Comments Cath-cult not ind Nasal Screen MRSA (PCR) Not detected 11/04/17 11/04/17 11/04/17 03:15 03:15 03:15 Sodium 143 D Potassium 3.0 L D Chloride 112 H D Carbon Dioxide 21.8 Anion Gap 9 BUN 15 Creatinine 0.72 Estimated GFR 84 L Random Glucose 85 Lactic Acid Calcium 7.5 L D Magnesium 1.6 Total Bilirubin AST ALT Alkaline Phosphatase Lactate Dehydrogenase Total Creatine Kinase Total Protein Albumin Amylase Lipase TSH 1.060 Cortisol 19.7 Urine Color Urine Clarity Urine pH Ur Specific [place] Urine Protein Urine Glucose (UA) Urine Ketones Urine Occult Blood Urine Nitrate Urine Bilirubin Urine Urobilinogen Ur Leukocyte Esterase Urine RBC Urine WBC Ur Squamous Epith Cells Micro UA Comment Urine Culture Comments Nasal Screen MRSA (PCR) 11/04/17 11/04/17 12:13 14:54 Sodium 145 Potassium 3.2 L Chloride 115 H Carbon Dioxide 21.7 Anion Gap 8 BUN 10 Creatinine 0.62 Estimated GFR Greater than 89 Random Glucose 105 Lactic Acid 0.6 Calcium 8.5 D Magnesium Total Bilirubin AST ALT Alkaline Phosphatase Lactate Dehydrogenase 130 Total Creatine Kinase 124 Total Protein Albumin Amylase 21 L Lipase TSH Cortisol Urine Color Urine Clarity Urine pH Ur Specific Moro Urine Protein Urine Glucose (UA) Urine Ketones Urine Occult Blood Urine Nitrate Urine Bilirubin Urine Urobilinogen Ur Leukocyte Esterase Urine RBC Urine WBC Ur Squamous Epith Cells Micro UA Comment Urine Culture Comments Nasal Screen MRSA (PCR) - Imaging Impressions Chest X-Ray 11/04/17 00:06 CONCLUSION: Right central line tip in superior vena cava without pneumothorax. Abdomen/Pelvis CT 11/04/17 00:07 CONCLUSION: 1. Dependent atelectasis in the lungs. 2. Stable appearance of vascular stents in the celiac and superior mesenteric artery and proximal right common iliac artery compared with October 16. Stable stenosis left common iliac artery. 3. Carmen catheter in bladder. Colonic diverticulosis. <Jim Barry - Last Filed: 11/04/17 22:13> Assessment and Plan - Plan Assessment: - MARIUSZ secondary to dehydration from intractable nausea and vomiting Pt reports symptoms for the past seven months of nausea with 4-10 episodes of emesis daily, denies hematemesis and coffee ground emesis. Also reports abdominal pain, constant (points to RUQ, LLQ and epigastric area). Abdominal bloating after meals. Last EGD in Feb 2017 and states normal exam Pt reports frequent marijuana use to try and help with nausea symptoms, last use was yesterday. - Diarrhea for the past seven months with fecal urgency and incontinence, denies hematochezia and melena. Last BM was 4 days ago. Last colonoscopy in Feb 2017 and states normal exam - Mesenteric ischemia S/P stenting of the celiac axis and SMA CT noted stents to be patent. - Elevated LFTs AST-67 ALT-61 Alk phos-109 T bili-0.5 LFTs highest during admission in April Liver US (Apr 2017) The liver is slightly echogenic which maybe due to fatty infiltration and or hepatocellular dysfunction. Splenomegaly. Sludge in the gallbladder without definite stones the technique. Pt denies ETOH Symptoms may be in part related to cyclic vomiting secondary to marijuana use. Plan for EGD and colonoscopy to rule out other etiology. Plan: EGD and colonoscopy tomorrow Obtain consent Clear liquids today Mag Citrate prep NPO after MN Continue Reglan Stool studies Advised again marijuana use Further recommendations based on clinical course and results of above Pt has been seen and examined by myself and Dr. Barry and this note is written on his behalf <Carin Omalley - Last Filed: 11/04/17 13:53> - Attending Attestation Patient seen and examined Agree with above Continue with current supportive care Monitor labs EGD colonoscopy tomorrow <Jim Barry - Last Filed: 11/04/17 22:13>
[2017-11-04] MEDS ORDERED: Magnesium Citrate Liq 300 ML Bottle PO ONE ×2 (16:00→18:00)
[2017-11-04 16:26] LABS: Amylase 21 U/L (25-115); Anion Gap 8 meq/L (5-15); Blood Urea Nitrogen 10 mg/dL (7-18); Calcium 8.5 mg/dL (8.5-10.1); Carbon Dioxide 21.7 meq/L (21.0-32.0); Chloride 115 meq/L (98-107); Creatine Kinase 124 U/L (26-192); Glomerular Filtration Rate Greater Than 89 mL/min (>89); Glucose,Random 105 mg/dL (74-106); Lactate Dehydrogenase 130 U/L (84-246); Potassium 3.2 meq/L (3.5-5.1); Sodium 145 meq/L (136-145)
--- NOTE | 2017-11-04 17:17 | P.PNADD ---
Addendum to Inpatient Note Reason for Addendum: Additional Documentation (Patient seen and examined. Plan for EGD and colonoscopy with GI in a.m. 11/05. Will hold rivaroxaban in the interim per gastroenterology request for a total of 48 hours off for endoscopy as above. A.m. laboratory orders have been placed. Discussed with patient.)
--- NOTE | 2017-11-04 19:15 | ECG ---
Date Performed: 11/03/2017 Time Performed: 22:09:09 PTAGE: 52 years EKG: NORMAL SINUS RYTHM NONSPECIFIC ST & T-WAVE ABNORMALITY BORDERLINE ECG PREVIOUS TRACING : 10/16/2017 16.30 Marked prolonged QT interval more prominent in the prior tr acing. Clinical correlation is recommended DOCTOR: Pedro Marks Interpretating Date/Time 11/04/2017 19:14:55
[2017-11-04] MEDS: Potassium Chlor 40 mEq Premix 40 MEQ/100 ML PIGGYBACK IV.SIG PRN (22:04)
[2017-11-05] MEDS: Potassium Chlor 40 mEq Premix 40 MEQ/100 ML PIGGYBACK IV.SIG PRN (03:27)
[2017-11-05] MEDS ORDERED: Chlorhexidine Gluconate 2% 1 Pack (2 Cloths) TOPICAL SCH (04:00)
[2017-11-05] MEDS ORDERED: Chlorhexidine Gluconate 2% 1 Pack (2 Cloths) TOPICAL PRN (04:00)
[2017-11-05 04:49] LABS: Hematocrit 32.9 % (35.0-46.0); Hemoglobin 10.8 gm/dL (11.6-15.3); Mean Corpuscular HGB Conc 32.9 % (32.0-36.0); Mean Corpuscular Hemoglobin 28.3 pg (27.0-34.0); Mean Corpuscular Volume 86.1 fL (80.0-100.0); Mean Platelet Volume 8.3 fL (7.0-11.0); Platelet Count 91 th/mm3 (150-450); Red Blood Count 3.82 mil/mm3 (4.00-5.30); Red Cell Distribution Width 16.3 % (11.6-17.2)
[2017-11-05 05:17] LABS: Anion Gap 9 meq/L (5-15); Blood Urea Nitrogen 5 mg/dL (7-18); Calcium 9.2 mg/dL (8.5-10.1); Carbon Dioxide 19.4 meq/L (21.0-32.0); Chloride 119 meq/L (98-107); Glomerular Filtration Rate Greater Than 89 mL/min (>89); Glucose,Random 74 mg/dL (74-106); Phosphorus 1.8 mg/dL (2.5-4.9); Potassium 3.8 meq/L (3.5-5.1); Sodium 147 meq/L (136-145)
[2017-11-05] MEDS: Levothyroxine 50 MCG Tablet PO SCH (05:41)
[2017-11-05] MEDS: Senna/Docusate Sodium 8.6/50 MG Tablet PO SCH ×2 (08:12→20:06)
[2017-11-05] MEDS: Sertraline 100 MG Tablet PO SCH (08:12)
[2017-11-05] MEDS: Metoclopramide 10 MG Tablet PO SCH ×4 (08:12→20:06)
[2017-11-05] MEDS: Umeclindinium 62.5 MCG/Vilanterol 25 MCG Inhaler INH SCH (08:13)
--- NOTE | 2017-11-05 10:22 | P.PCN ---
Date of procedure: 11/05/17 Pre-op diagnosis: Nausea, vomiting, diarrhea Post-op diagnosis: other Procedure: PROCEDURE PERFORMED EGD with biopsy followed by colonoscopy with biopsy INDICATION FOR PROCEDURE Nausea, vomiting, diarrhea PROCEDURE: The procedure, risks and benefits were discussed with Patient/POA and informed consent was obtained. Anesthesia sedated Patient with Diprivan. Patient was placed in the left lateral decubitus position. EGD: The Pentax videoscope was introduced through the oropharynx and advanced to the second portion of the duodenum under direct visualization. Retroflexion was performed in the stomach. FINDINGS: The esophagus this appeared to be unremarkable and within normal limits The stomach there was patchy erythema in the antrum but no ulcerations and no erosions antral biopsies were taken for further evaluation the rest of the stomach was unremarkable The duodenum this was normal Colonoscopy: The Pentax videoscope was introduced through the rectum and advanced to cecum where the ileocecal valve and appendiceal orifice were identified. Retroflexion was performed in the rectum. Colonic prep was fair FINDINGS: Colonic withdrawal time greater than 6 minutes. As the scope was slowly withdrawn colonic mucosa was carefully inspected colonic mucosa appeared to be unremarkable and within normal limits all the way through random biopsies were taken from the ascending and descending colon the patient was noted to have mild diverticulosis of the sigmoid region retroflexion did reveal moderate size internal hemorrhoids rectal examination otherwise unremarkable ESTIMATED BLOOD LOSS: None SPECIMENS REMOVED: Gastric and colon biopsies COMPLICATIONS: None IMPRESSION: Mild gastritis Mild diverticulosis Moderate size internal hemorrhoids PLAN: Await biopsies Continue supportive care Stop marijuana use High-fiber diet Colonoscopy in 5 years Anesthesia: IVÁN Surgeon: Jim Barry Pathology: other Condition: stable Disposition: no change
--- NOTE | 2017-11-05 11:11 | P.PNCC ---
Subjective Subjective Remarks/Hospital Course: 52 yo WF with PMH of chronic mesenteric ischemia, PAD with bilateral iliac stents, left subclavian stent, hypothyroidism, depression, chronic pain, restless leg syndrome, TIA, GERD, who states she has an 8 month history of abdominal pain, nausea and vomiting. 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 James Rendon. She states since that time she has had "constant" abdominal pain, multifocal (points to right upper abdomen and left mid and lower abdomen). She states pain is worse with eating and is accompanied by postprandial nausea and vomiting. She has had no melena or bright red blood per rectum. No hematemesis. Stools tend to be loose when she does have them, last bowel movement was 4 days ago. No hematemesis. She states she had an EGD and colonoscopy in February 2017 performed in [place] and states that they were unremarkable. Reports 60 pound unintentional weight loss. She presented to [facility] ED last night. She states " I couldn't keep anything down x 3days and was lightheaded and I knew it had gotten to the point of dehydration" and because BP on home monitor was in the 50s or 60s. She has been on a liquid diet for several months, says she can't tolerated solids at all. Upon presentation, she had no fever or leukocytosis. Lactic acid was normal. She was hemoconcentrated with HCT 50, with MARIUSZ with creatinine 1.1 and severe hypokalemia with potassium 1.9. Initially plan was to admit to [facility] for electrolyte replacement and IVF, however she had persistent hypotension requiring multiple fluid boluses so Dr. Quinn placed R IJ CVL and transferred to [facility]. CT abd/pelvis demonstrates patency of celiac and SMA stents without abnormality. Subjective 11/05: Status post EGD/colonoscopy today. Revealed mild gastritis, diverticulosis and hemorrhoids. Recommended cessation of cannabis use. Restart diet. Complains of abdominal pain 7 out of 10. Poor appetite. Received 1 bolus of LR overnight. Objective Vital Signs / I&O: Vital Signs 11/04/17 11:58 11/04/17 12:00 11/04/17 13:00 Temperature 98 F Pulse Rate 61 59 L Respiratory Rate 17 18 Blood Pressure 86/52 L 97/52 L 91/51 L Pulse Oximetry 98 99 07/19/18 14:00 11/04/17 14:25 11/04/17 14:26 Temperature 98.3 F Pulse Rate 65 67 68 Respiratory Rate 18 17 17 Blood Pressure 76/50 L 79/50 L 81/51 L Pulse Oximetry 91 L 95 93 L 11/04/17 14:36 11/04/17 14:37 11/04/17 14:38 Temperature Pulse Rate 64 63 64 Respiratory Rate 17 18 18 Blood Pressure 76/52 L 79/50 L 80/50 L Pulse Oximetry 95 95 92 L 11/04/17 15:00 11/04/17 16:00 11/04/17 16:50 Temperature Pulse Rate 65 64 62 Respiratory Rate 16 18 24 Blood Pressure 101/56 L 101/58 L 111/51 L Pulse Oximetry 91 L 92 L 100 11/04/17 16:54 11/04/17 17:00 11/04/17 18:00 Temperature Pulse Rate 64 63 62 Respiratory Rate 11 L 27 H 24 Blood Pressure 126/60 126/60 124/59 L Pulse Oximetry 97 96 91 L 11/04/17 18:09 11/04/17 19:00 11/04/17 20:00 Temperature 98.1 F Pulse Rate 63 75 63 Respiratory Rate 22 18 16 Blood Pressure 124/59 L 111/60 Pulse Oximetry 97 94 L 95 11/04/17 20:07 11/04/17 21:00 11/04/17 22:00 Temperature Pulse Rate 67 67 73 Respiratory Rate 15 17 20 Blood Pressure 132/60 121/74 Pulse Oximetry 96 95 95 11/04/17 22:02 11/04/17 23:00 11/04/17 23:01 Temperature Pulse Rate 71 62 61 Respiratory Rate 19 18 17 Blood Pressure 112/71 70/51 L Pulse Oximetry 93 L 92 L 92 L 11/04/17 23:13 11/04/17 23:14 11/05/17 00:00 Temperature Pulse Rate 64 63 65 Respiratory Rate 18 19 20 Blood Pressure 79/50 L 95/52 L 73/48 L Pulse Oximetry 93 L 95 94 L 11/05/17 00:02 11/05/17 00:20 11/05/17 00:40 Temperature 97.9 F Pulse Rate 64 62 61 Respiratory Rate 21 17 21 Blood Pressure 79/50 L 94/60 L 89/54 L Pulse Oximetry 95 98 98 11/05/17 01:00 11/05/17 01:21 11/05/17 01:31 Temperature Pulse Rate 68 71 66 Respiratory Rate 18 18 19 Blood Pressure 79/48 L 58/38 L 95/51 L Pulse Oximetry 96 96 95 11/05/17 01:41 11/05/17 02:00 11/05/17 02:20 Temperature Pulse Rate 64 68 71 Respiratory Rate 16 33 H 34 H Blood Pressure 88/61 L 94/54 L 89/53 L Pulse Oximetry 99 98 96 11/05/17 02:40 11/05/17 02:42 11/05/17 03:00 Temperature Pulse Rate 68 67 64 Respiratory Rate 20 18 17 Blood Pressure 74/42 L 113/55 L 96/55 L Pulse Oximetry 96 98 98 11/05/17 03:20 11/05/17 03:40 11/05/17 04:00 Temperature 98.6 F Pulse Rate 63 64 64 Respiratory Rate 18 17 1 L Blood Pressure 89/54 L 93/50 L 96/57 L Pulse Oximetry 97 98 98 11/05/17 04:20 11/05/17 04:40 11/05/17 05:00 Temperature Pulse Rate 73 64 64 Respiratory Rate 24 19 19 Blood Pressure 91/55 L 93/52 L 88/55 L Pulse Oximetry 94 L 96 95 11/05/17 05:20 11/05/17 05:40 11/05/17 06:00 Temperature Pulse Rate 68 64 69 Respiratory Rate 21 19 23 Blood Pressure 96/64 L 103/52 L 103/59 L Pulse Oximetry 100 99 93 L 11/05/17 06:20 11/05/17 06:40 11/05/17 07:00 Temperature Pulse Rate 79 80 79 Respiratory Rate 26 H 33 H 19 Blood Pressure 153/70 H 131/60 117/58 L Pulse Oximetry 91 L 92 L 94 L 11/05/17 07:20 11/05/17 08:35 11/05/17 10:23 Temperature 97.1 F L Pulse Rate 79 68 72 Respiratory Rate 25 H 14 22 Blood Pressure 126/80 123/71 114/56 L Pulse Oximetry 98 100 11/05/17 10:35 Temperature Pulse Rate 70 Respiratory Rate 20 Blood Pressure 109/62 Pulse Oximetry Intake & Output 11/04/17 11/05/17 11/05/17 18:59 06:59 18:59 Intake Total 2700 / 2700 3024 / 3024 350 / 350 Output Total 4000 / 4000 3000 / 3000 Balance -1300 / -1300 24 / 24 350 / 350 Weight 72 kg Intake: IV 2099 / 2099 2624 / 2624 NS + KCl 40 mEq Inj 1,000 ML @ 1999 / 1999 1524 / 1524 125 mls/hr IV.CONT .Q8H REGINALDO Rx# :[id number] LR 1000 mL Inj 1,000 ML @ Wide 1000 / 1000 Open IV.SIG BOLUS ONE Rx#: [id number] Magnesium Sulfate 1 gm/D5W 100 100 / 100 ml Premix 100 ML @ 100 mls/hr IV.SIG Q1H REGINALDO Rx#:[id number] KCl 40 mEq Premix Inj 40 meq In 100 / 100 100 ml @ 25 mls/hr IV.SIG Q2H PRN Rx#:[id number] Oral 600 / 600 400 / 400 Anesthesia Amount 350 / 350 Output: Urine Amount (Catheter) 4000 / 4000 3000 / 3000 Indwelling Urethral Catheter 4000 / 4000 3000 / 3000 Other: Date of Last Bowel Movement 11/01/17 11/05/17 # Bowel Movements 5 Result Diagrams: 11/05/17 04:31 11/05/17 04:31 Other Results: Microbiology 11/03/17 23:40 Blood - Peripheral Aerobic Blood Culture - Preliminary No growth in 2 days 11/03/17 23:40 Blood - Peripheral Anaerobic Blood Culture - Preliminary No growth in 2 days 11/03/17 23:35 Blood - Peripheral Aerobic Blood Culture - Preliminary No growth in 2 days 11/03/17 23:35 Blood - Peripheral Anaerobic Blood Culture - Preliminary No growth in 2 days Imaging: ITS Impressions Chest X-Ray 11/04/17 00:06 CONCLUSION: Right central line tip in superior vena cava without pneumothorax. Abdomen/Pelvis CT 11/04/17 00:07 CONCLUSION: 1. Dependent atelectasis in the lungs. 2. Stable appearance of vascular stents in the celiac and superior mesenteric artery and proximal right common iliac artery compared with October 16. Stable stenosis left common iliac artery. 3. Carmen catheter in bladder. Colonic diverticulosis. Objective Remarks: GENERAL: 52-year-old male currently resting in bed in no acute distress SKIN: Warm and dry. HEAD: Atraumatic. Normocephalic. EYES: Pupils equal and round. No scleral icterus. No injection or drainage. ENT: No nasal bleeding or discharge. Mucous membranes pink and moist. NECK: Trachea midline. No JVD. CARDIOVASCULAR: Regular rate and rhythm. S1, S2 no S4. RESPIRATORY: No accessory muscle use. Clear to auscultation. Breath sounds equal bilaterally. GASTROINTESTINAL: Abdomen soft, vague tenderness to palpation all 4 quadrants. No guarding rigidity. MUSCULOSKELETAL: Extremities with trace bilateral lower extremity edema. No obvious deformities. NEUROLOGICAL: Awake and alert. No obvious cranial nerve deficits. Motor grossly within normal limits. Five out of 5 muscle strength in the arms and legs. Normal speech. PSYCHIATRIC: Appropriate mood and affect; insight and judgment normal. Assessment and Plan - Assessment and Plan Plan: NEURO/PSYCH: Chronic pain syndrome NOS Depression disorder NOS Restless leg syndrome Continue sertraline 200 mg, risperidone 160 mg, ropinirole 2 mg daily/home medications for her underlying chronic pain syndrome/depression and restless leg syndrome Morphine sulfate reportedly caused significant hypotension. RESP: Tobacco abuse Nasal cannula to maintain saturations greater than equal 92% Tobacco cessation counseling/self education/evaluation booklet will be provided Incentive spirometry every hour awake Continue umeclidium/viltarenol 62.5/25 1 inhalation daily inhaler. Patient is on an albuterol inhaler 2 puffs every 4 hours as needed at home CV: Hypotension secondary to hypovolemia PAD with iliac stents Continue ASA 81 daily. Hold lisinopril 5 mg daily/metoprolol tartrate 50 mg twice daily due to hypotension. Received 3 L NS bolus. Received 2.5 L LR yesterday Currently on one half normal saline with 20 mEq KCl at 84 cc an hour TSH 1.06 and cortisol 19.3 normal. GI: Chronic abdominal pain Intractable nausea/vomiting Chronic mesenteric ischemia with SMA and celiac stenosis now s/p stents 10/05/17 Possible cannabinoid hyperemesis syndrome Mild gastritis Mild diverticulosis Internal hemorrhoids Status post EGD/colonoscopy with biopsy by Dr. Barry 11/08 results as above. Recommendations include cessation of THC use. Follow-up colonoscopy in 5 years Recurrent prandial n/v, abdominal pain. Stents patent on followup CT scan 10/16 and 11/04. Dr. Jerez with Vascular surgery saw previously, no further recommendations. Continue ASA 81 mg daily. Rivaroxaban on hold this morning, but will resume in a.m. 11/06 at 20 mg daily/ home medication Dicyclomine 10 mg every 6 hours prn abd pain. Ondansetron prn. FEN/RENAL: MARIUSZ -resolved Hypophosphatemia Carmen is in place. Monitoring intake and output closely. Monitoring electrolytes. 15 mmol K-Phos IV 1 now. Recheck in a.m. A.m. BMP ID: Single dose of ceftriaxone given due to concern for UTI, however later realized lab was from 10/03 so was discontinued. Repeat U/a today is normal. HEME: Normocytic anemia Thrombocytopenia Monitor CBC ENDO: Hypothyroidism. TSH at target 1.06. Continue levothyroxine in the 100 mcg daily PROPH: SCDs for DVT prophylaxis. Rivaroxaban currently on hold pending GI plan , but can be resumed to provide DVT prophylaxis. Pantoprazole for stress ulcer proph and history of GERD ACCESS: Right IJ central venous line placed by ED physician FULL CODE Level 2 follow-up. Patient is stable from a critical care medicine standpoint. Assign care to hospitalist in a.m. 11/06.
[2017-11-05] MEDS ORDERED: Potassium Phosphate Inj 15 MMOL in Sodium Chlor 0.9% Inj 150 ML IV.SIG ONE (12:00)
[2017-11-05] MEDS ORDERED: Sodium Chlor 0.9% Inj 500 ML IV.SIG ONE (12:00)
[2017-11-05] MEDS ORDERED: Lidocaine PF 1% Inj 5 ML Syringe INFILTRATN ONE (12:00)
[2017-11-05] MEDS: Potassium Chloride Inj 10 MEQ in Sodium Chloride 0.45 % Inj 1,000 ML IV.CONT SCH (12:57)
[2017-11-06] MEDS: Potassium Chloride Inj 10 MEQ in Sodium Chloride 0.45 % Inj 1,000 ML IV.CONT SCH (00:33)
[2017-11-06] MEDS: Levothyroxine 50 MCG Tablet PO SCH (05:13)
[2017-11-06 05:14] LABS: Baso % (Auto) 0.4 % (0.0-2.0); Eos % (Auto) 0.8 % (0.0-4.0); Hematocrit 33.4 % (35.0-46.0); Hemoglobin 11.2 gm/dL (11.6-15.3); Lymph # (Auto) 0.7 th/mm3 (1.0-4.8); Lymph % (Auto) 17.4 % (9.0-44.0); Mean Corpuscular HGB Conc 33.5 % (32.0-36.0); Mean Corpuscular Hemoglobin 28.5 pg (27.0-34.0); Mean Corpuscular Volume 85.1 fL (80.0-100.0); Mean Platelet Volume 8.4 fL (7.0-11.0); Mono # (Auto) 0.2 th/mm3 (0.0-0.9); Mono % (Auto) 6.2 % (0.0-8.0); Neut # (Auto) 2.8 th/mm3 (1.8-7.7); Neut % (Auto) 75.2 % (16.0-70.0); Platelet Count 91 th/mm3 (150-450); Red Blood Count 3.93 mil/mm3 (4.00-5.30); White Blood Count 3.7 th/mm3 (4.0-11.0)
[2017-11-06 05:52] LABS: Anion Gap 7 meq/L (5-15); Blood Urea Nitrogen 3 mg/dL (7-18); Calcium 8.8 mg/dL (8.5-10.1); Chloride 115 meq/L (98-107); Glomerular Filtration Rate Greater Than 89 mL/min (>89); Glucose,Random 76 mg/dL (74-106); Magnesium 1.1 mg/dL (1.5-2.5); Phosphorus 2.6 mg/dL (2.5-4.9); Potassium 3.1 meq/L (3.5-5.1); Sodium 144 meq/L (136-145)
[2017-11-06] MEDS: Sertraline 100 MG Tablet PO SCH (08:25)
[2017-11-06] MEDS: Metoclopramide 10 MG Tablet PO SCH ×5 (08:25→21:13)
[2017-11-06] MEDS: Rivaroxaban 20 MG Tablet PO SCH (08:26)
[2017-11-06] MEDS: Umeclindinium 62.5 MCG/Vilanterol 25 MCG Inhaler INH SCH (08:26)
[2017-11-06] MEDS: Senna/Docusate Sodium 8.6/50 MG Tablet PO SCH ×2 (08:26→20:57)
[2017-11-06] MEDS ORDERED: Potassium Chloride 10 MEQ ER Capsule PO ONE (11:30)
--- NOTE | 2017-11-06 17:25 | P.PNIM ---
Subjective Interval history: 52 yo WF with PMH of chronic mesenteric ischemia, PAD with bilateral iliac stents, left subclavian stent, hypothyroidism, depression, chronic pain, restless leg syndrome, TIA, GERD, who states she has an 8 month history of abdominal pain, nausea and vomiting. 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 James Rendon. She states since that time she has had "constant" abdominal pain, multifocal (points to right upper abdomen and left mid and lower abdomen). She states pain is worse with eating and is accompanied by postprandial nausea and vomiting. She has had no melena or bright red blood per rectum. No hematemesis. Stools tend to be loose when she does have them, last bowel movement was 4 days ago. No hematemesis. She states she had an EGD and colonoscopy in February 2017 performed in [place] and states that they were unremarkable. Reports 60 pound unintentional weight loss. She presented to [facility] ED last night. She states " I couldn't keep anything down x 3days and was lightheaded and I knew it had gotten to the point of dehydration" and because BP on home monitor was in the 50s or 60s. She has been on a liquid diet for several months, says she can't tolerated solids at all. Upon presentation, she had no fever or leukocytosis. Lactic acid was normal. She was hemoconcentrated with HCT 50, with MARIUSZ with creatinine 1.1 and severe hypokalemia with potassium 1.9. Initially plan was to admit [place] [facility] [place] electrolyte replacement and IVF, however she had persistent hypotension requiring multiple fluid boluses so Dr. Quinn placed R IJ CVL and transferred to [facility]. CT abd/pelvis demonstrates patency of celiac and SMA stents without abnormality. 11/05: Status post EGD/colonoscopy today. Revealed mild gastritis, diverticulosis and hemorrhoids. Recommended cessation of cannabis use. Restart diet. Complains of abdominal pain 7 out of 10. Poor appetite. Received 1 bolus of LR overnight 11-06 patient had EGD ADN COLONOSCOPY TOMORROW DW RN AND PT TRANSFER OUT OF ICU AM LABS COMPLAINS OF ABDOMINAL PAIN Physical Exam Vital signs: Vital Signs 11/05/17 17:30 11/05/17 18:00 11/05/17 18:30 Temperature Pulse Rate 76 75 76 Respiratory Rate 19 21 19 Blood Pressure 122/67 123/66 126/65 Pulse Oximetry 91 L 90 L 97 11/05/17 19:00 11/05/17 19:30 11/05/17 19:49 Temperature Pulse Rate 77 79 Respiratory Rate 14 17 Blood Pressure 112/59 L 123/64 Pulse Oximetry 95 95 97 11/05/17 20:00 11/05/17 20:30 11/05/17 21:00 Temperature 98.8 F Pulse Rate 78 79 80 Respiratory Rate 25 H 12 21 Blood Pressure 126/62 131/68 121/59 L Pulse Oximetry 96 94 L 89 L 11/05/17 21:30 11/05/17 22:00 11/05/17 22:01 Temperature Pulse Rate 78 77 76 Respiratory Rate 18 23 21 Blood Pressure 103/58 L 79/48 L 75/44 L Pulse Oximetry 92 L 94 L 94 L 11/05/17 22:03 11/05/17 22:15 11/05/17 22:30 Temperature Pulse Rate 74 77 76 Respiratory Rate 20 19 21 Blood Pressure 66/39 L 82/47 L 89/52 L Pulse Oximetry 92 L 95 94 L 11/05/17 23:00 11/05/17 23:30 11/06/17 00:00 Temperature Pulse Rate 71 69 68 Respiratory Rate 20 20 20 Blood Pressure 99/55 L 103/56 L 90/53 L Pulse Oximetry 95 95 94 L 11/06/17 00:30 11/06/17 01:00 11/06/17 01:30 Temperature Pulse Rate 66 69 72 Respiratory Rate 19 12 26 H Blood Pressure 100/63 105/60 97/57 L Pulse Oximetry 96 95 94 L 11/06/17 02:00 11/06/17 02:30 11/06/17 03:00 Temperature Pulse Rate 73 69 68 Respiratory Rate 19 18 24 Blood Pressure 91/57 L 88/50 L 90/53 L Pulse Oximetry 94 L 93 L 95 11/06/17 03:30 11/06/17 04:00 11/06/17 04:30 Temperature 98.4 F Pulse Rate 67 67 79 Respiratory Rate 18 29 H 17 Blood Pressure 94/53 L 93/57 L 147/86 H Pulse Oximetry 96 96 98 11/06/17 05:00 11/06/17 05:30 11/06/17 06:00 Temperature Pulse Rate 69 67 69 Respiratory Rate 25 H 19 23 Blood Pressure 137/76 118/70 Pulse Oximetry 97 95 91 L 11/06/17 06:01 11/06/17 06:30 11/06/17 07:00 Temperature Pulse Rate 68 73 76 Respiratory Rate 20 20 14 Blood Pressure 102/72 111/61 119/75 Pulse Oximetry 91 L 89 L 97 11/06/17 07:30 11/06/17 08:00 11/06/17 08:31 Temperature Pulse Rate 78 86 85 Respiratory Rate 16 17 17 Blood Pressure 127/74 117/81 186/86 H Pulse Oximetry 97 97 98 11/06/17 09:00 11/06/17 09:01 11/06/17 09:30 Temperature Pulse Rate 83 85 81 Respiratory Rate 16 23 17 Blood Pressure 132/61 133/69 Pulse Oximetry 97 95 97 11/06/17 10:00 11/06/17 10:30 11/06/17 10:48 Temperature Pulse Rate 80 79 78 Respiratory Rate 19 23 12 Blood Pressure 137/81 173/103 H 117/60 Pulse Oximetry 98 98 97 11/06/17 11:00 11/06/17 11:30 11/06/17 12:00 Temperature Pulse Rate 76 80 78 Respiratory Rate 17 19 23 Blood Pressure 116/60 102/55 L 138/66 Pulse Oximetry 97 88 L 95 11/06/17 12:30 11/06/17 13:00 11/06/17 13:01 Temperature Pulse Rate 79 80 81 Respiratory Rate 22 21 23 Blood Pressure 132/64 126/72 128/61 Pulse Oximetry 97 96 95 11/06/17 13:30 11/06/17 14:00 Temperature Pulse Rate 80 83 Respiratory Rate 24 20 Blood Pressure 130/65 126/72 Pulse Oximetry 90 L 95 Intake & Output 11/05/17 11/06/17 11/06/17 18:59 06:59 18:59 Intake Total 1925 / 1925 1815 / 1815 Output Total 1575 / 1575 1950 / 1950 Balance 350 / 350 -135 / -135 Weight 160.2 kg Intake: IV 855 / 855 1415 / 1415 NS + KCl 40 mEq Inj 1,000 ML @ 500 / 500 125 mls/hr IV.CONT .Q8H [facility] Rx# :[id number] KCl Inj 10 MEQ In 1/2 Normal 1415 / 1415 Saline Inj 1,000 ML @ 84 mls/hr IV.CONT .[id number] [facility] Rx#: [id number] KCl 40 mEq Premix Inj 40 meq In 100 / 100 100 ml @ 25 mls/hr IV.SIG UNSCH PRN Rx#:[id number] Potassium Phosphate Inj 15 MMOL 155 / 155 In NS Inj 150 ML @ 38.75 mls/ hr IV.SIG ONCE ONE Rx#:[id number] Oral 720 / 720 400 / 400 Anesthesia Amount 350 / 350 Output: Urine 1575 / 1575 Urine Amount (Catheter) 1949 Indwelling Urethral Catheter 1949 Other: Date of Last Bowel Movement 11/05/17 11/05/17 11/05/17 # Bowel Movements 5 0 Narrative: GENERAL: AWAKE AND ALERT AND ORIENTED X3 TALKATIVE AND COOPERATIVE SKIN: Warm and dry. HEAD: Atraumatic. Normocephalic. EYES: Pupils equal and round. No scleral icterus. No injection or drainage. EOMI ENT: No nasal bleeding or discharge. Mucous membranes pink and moist. TONGUE MIDLINE NECK: Trachea midline. No JVD. CARDIOVASCULAR: Regular rate and rhythm. S1, S2 NO S3 OR S4 RESPIRATORY: No accessory muscle use. Clear to auscultation. Breath sounds equal bilaterally. GASTROINTESTINAL: Abdomen soft, non-tender, nondistended. Hepatic and splenic margins not palpable. MUSCULOSKELETAL: Extremities without clubbing, cyanosis, or edema. No obvious deformities. NEUROLOGICAL: Awake and alert. No obvious cranial nerve deficits. Motor grossly within normal limits. Five out of 5 muscle strength in the arms and legs. Normal speech. PSYCHIATRIC: Appropriate mood and affect; insight and judgment normal. - Urinary Catheter Management Indwelling Urethral Catheter Cath placed during this visit: yes Reason for continuing: Not indwelling catheter Insertion date: 11/04/17 Insertion time: 00:30 Results - Labs CBC & Chem 7: 11/06/17 04:51 11/06/17 04:51 Laboratory Results - last 24 hr 11/06/17 11/06/17 04:51 04:51 WBC 3.7 L RBC 3.93 L Hgb 11.2 L Hct 33.4 L MCV 85.1 MCH 28.5 MCHC 33.5 RDW 16.0 Plt Count 91 L MPV 8.4 Prelim Diff (Auto) Slide review pending Neut % (Auto) 75.2 H Lymph % (Auto) 17.4 [place] % (Auto) 6.2 Eos % (Auto) 0.8 Baso % (Auto) 0.4 Neut # (Auto) 2.8 Lymph # (Auto) 0.7 L [place] # (Auto) 0.2 Eos # (Auto) 0.0 Baso # (Auto) 0.0 WBC Differential . Diff Scan Auto diff confirmed Differential Comment . Sodium 144 Potassium 3.1 L Chloride 115 H Carbon Dioxide 22.0 Anion Gap 7 BUN 3 L Creatinine 0.45 L Estimated GFR Greater than 89 Random Glucose 76 Calcium 8.8 Phosphorus 2.6 Magnesium 1.1 L D Microbiology 11/03/17 23:40 Blood - Peripheral Aerobic Blood Culture - Preliminary No growth in 3 days 11/03/17 23:40 Blood - Peripheral Anaerobic Blood Culture - Preliminary No growth in 3 days 11/03/17 23:35 Blood - Peripheral Aerobic Blood Culture - Preliminary No growth in 3 days 11/03/17 23:35 Blood - Peripheral Anaerobic Blood Culture - Preliminary No growth in 3 days - Imaging Chest X-Ray 11/04/17 00:06 CONCLUSION: Right central line tip in superior vena cava without pneumothorax. Abdomen/Pelvis CT 11/04/17 00:07 CONCLUSION: 1. Dependent atelectasis in the lungs. 2. Stable appearance of vascular stents in the celiac and superior mesenteric artery and proximal right common iliac artery compared with October 16. Stable stenosis left common iliac artery. 3. Carmen catheter in bladder. Colonic diverticulosis. - Procedures Date of procedure: 11/05/17 Pre-op diagnosis: Nausea, vomiting, diarrhea Post-op diagnosis: other Procedure: PROCEDURE PERFORMED EGD with biopsy followed by colonoscopy with biopsy INDICATION FOR PROCEDURE Nausea, vomiting, diarrhea PROCEDURE: The procedure, risks and benefits were discussed with Patient/POA and informed consent was obtained. Anesthesia sedated Patient with Diprivan. Patient was placed in the left lateral decubitus position. EGD: The Pentax videoscope was introduced through the oropharynx and advanced to the second portion of the duodenum under direct visualization. Retroflexion was performed in the stomach. FINDINGS: The esophagus this appeared to be unremarkable and within normal limits The stomach there was patchy erythema in the antrum but no ulcerations and no erosions antral biopsies were taken for further evaluation the rest of the stomach was unremarkable The duodenum this was normal Colonoscopy: The Pentax videoscope was introduced through the rectum and advanced to cecum where the ileocecal valve and appendiceal orifice were identified. Retroflexion was performed in the rectum. Colonic prep was fair FINDINGS: Colonic withdrawal time greater than 6 minutes. As the scope was slowly withdrawn colonic mucosa was carefully inspected colonic mucosa appeared to be unremarkable and within normal limits all the way through random biopsies were taken from the ascending and descending colon the patient was noted to have mild diverticulosis of the sigmoid region retroflexion did reveal moderate size internal hemorrhoids rectal examination otherwise unremarkable ESTIMATED BLOOD LOSS: None SPECIMENS REMOVED: Gastric and colon biopsies COMPLICATIONS: None IMPRESSION: Mild gastritis Mild diverticulosis Moderate size internal hemorrhoids PLAN: Await biopsies Continue supportive care Stop marijuana use High-fiber diet Colonoscopy in 5 years Assessment and Plan - Plan NEURO/PSYCH: Chronic pain syndrome NOS Depression disorder NOS Restless leg syndrome Continue sertraline 200 mg, risperidone 160 mg, ropinirole 2 mg daily/home medications for her underlying chronic pain syndrome/depression and restless leg syndrome Morphine sulfate reportedly caused significant hypotension. IS CHRONICALLY ON OXYCODONE 10MG Q4 TO 6 RESP: Tobacco abuse Nasal cannula to maintain saturations greater than equal 92% Tobacco cessation counseling/self education/evaluation booklet will be provided Incentive spirometry every hour awake Continue umeclidium/viltarenol 62.5/25 1 inhalation daily inhaler. Patient is on an albuterol inhaler 2 puffs every 4 hours as needed at home CV: Hypotension secondary to hypovolemia PAD with iliac stents Continue ASA 81 daily. Hold lisinopril 5 mg daily/metoprolol tartrate 50 mg twice daily due to hypotension. Received 3 L NS bolus. Received 2.5 L LR yesterday Currently on one half normal saline with 20 mEq KCl at 84 cc an hour TSH 1.06 and cortisol 19.3 normal. GI: Chronic abdominal pain Intractable nausea/vomiting Chronic mesenteric ischemia with SMA and celiac stenosis now s/p stents 10/05/17 Possible cannabinoid hyperemesis syndrome Mild gastritis Mild diverticulosis Internal hemorrhoids Status post EGD/colonoscopy with biopsy by Dr. Barry 11/08 results as above. Recommendations include cessation of THC use. Follow-up colonoscopy in 5 years Recurrent prandial n/v, abdominal pain. Stents patent on followup CT scan 10/16 and 11/04. Dr. Jerez with Vascular surgery saw previously, no further recommendations. Continue ASA 81 mg daily. Rivaroxaban on hold this morning, but will resume in a.m. 11/06 at 20 mg daily/ home medication Dicyclomine 10 mg every 6 hours prn abd pain. Ondansetron prn. FEN/RENAL: MARIUSZ -resolved Hypophosphatemia Carmen is in place. Monitoring intake and output closely. Monitoring electrolytes. 15 mmol K-Phos IV 1 now. Recheck in a.m. A.m. BMP ID: Single dose of ceftriaxone given due to concern for UTI, however later realized lab was from 10/03 so was discontinued. Repeat U/a today is normal. HEME: Normocytic anemia Thrombocytopenia Monitor CBC ENDO: Hypothyroidism. TSH at target 1.06. Continue levothyroxine in the 100 mcg daily PROPH: SCDs for DVT prophylaxis. Rivaroxaban currently on hold pending GI plan , but can be resumed to provide DVT prophylaxis. Pantoprazole for stress ulcer proph and history of GERD ACCESS: Right IJ central venous line placed by ED physician FULL CODE TRANSFER OUT OF ICU AM LABS PT AND OT PO PAIN MEDS Code Status: FULL CODE Discussed Condition With: RN AND PATIENT Discharge Planning: PENDING AM LABS AND IMPROVEMENT
--- NOTE | 2017-11-06 17:46 | P.PNGI ---
Subjective Interval history: Laying in bed still complains of nausea claims she vomited yesterday the nurse reports patient eating today but small amounts with no vomiting today Physical Exam Vital signs: Vital Signs 11/05/17 18:00 11/05/17 18:30 11/05/17 19:00 Temperature Pulse Rate 75 76 77 Respiratory Rate 21 19 14 Blood Pressure 123/66 126/65 112/59 L Pulse Oximetry 90 L 97 95 11/05/17 19:30 11/05/17 19:49 11/05/17 20:00 Temperature 98.8 F Pulse Rate 79 78 Respiratory Rate 17 25 H Blood Pressure 123/64 126/62 Pulse Oximetry 95 97 96 11/05/17 20:30 11/05/17 21:00 11/05/17 21:30 Temperature Pulse Rate 79 80 78 Respiratory Rate 12 21 18 Blood Pressure 131/68 121/59 L 103/58 L Pulse Oximetry 94 L 89 L 92 L 11/05/17 22:00 11/05/17 22:01 11/05/17 22:03 Temperature Pulse Rate 77 76 74 Respiratory Rate 23 21 20 Blood Pressure 79/48 L 75/44 L 66/39 L Pulse Oximetry 94 L 94 L 92 L 11/05/17 22:15 11/05/17 22:30 11/05/17 23:00 Temperature Pulse Rate 77 76 71 Respiratory Rate 19 21 20 Blood Pressure 82/47 L 89/52 L 99/55 L Pulse Oximetry 95 94 L 95 11/05/17 23:30 11/06/17 00:00 11/06/17 00:30 Temperature Pulse Rate 69 68 66 Respiratory Rate 20 20 19 Blood Pressure 103/56 L 90/53 L 100/63 Pulse Oximetry 95 94 L 96 11/06/17 01:00 11/06/17 01:30 11/06/17 02:00 Temperature Pulse Rate 69 72 73 Respiratory Rate 12 26 H 19 Blood Pressure 105/60 97/57 L 91/57 L Pulse Oximetry 95 94 L 94 L 11/06/17 02:30 11/06/17 03:00 11/06/17 03:30 Temperature Pulse Rate 69 68 67 Respiratory Rate 18 24 18 Blood Pressure 88/50 L 90/53 L 94/53 L Pulse Oximetry 93 L 95 96 11/06/17 04:00 11/06/17 04:30 11/06/17 05:00 Temperature 98.4 F Pulse Rate 67 79 69 Respiratory Rate 29 H 17 25 H Blood Pressure 93/57 L 147/86 H 137/76 Pulse Oximetry 96 98 97 11/06/17 05:30 11/06/17 06:00 11/06/17 06:01 Temperature Pulse Rate 67 69 68 Respiratory Rate 19 23 20 Blood Pressure 118/70 102/72 Pulse Oximetry 95 91 L 91 L 11/06/17 06:30 11/06/17 07:00 11/06/17 07:30 Temperature Pulse Rate 73 76 78 Respiratory Rate 20 14 16 Blood Pressure 111/61 119/75 127/74 Pulse Oximetry 89 L 97 97 11/06/17 08:00 11/06/17 08:31 11/06/17 09:00 Temperature Pulse Rate 86 85 83 Respiratory Rate 17 17 16 Blood Pressure 117/81 186/86 H Pulse Oximetry 97 98 97 11/06/17 09:01 11/06/17 09:30 11/06/17 10:00 Temperature Pulse Rate 85 81 80 Respiratory Rate 23 17 19 Blood Pressure 132/61 133/69 137/81 Pulse Oximetry 95 97 98 11/06/17 10:30 11/06/17 10:48 11/06/17 11:00 Temperature Pulse Rate 79 78 76 Respiratory Rate 23 12 17 Blood Pressure 173/103 H 117/60 116/60 Pulse Oximetry 98 97 97 11/06/17 11:30 11/06/17 12:00 11/06/17 12:30 Temperature Pulse Rate 80 78 79 Respiratory Rate 19 23 22 Blood Pressure 102/55 L 138/66 132/64 Pulse Oximetry 88 L 95 97 11/06/17 13:00 11/06/17 13:01 11/06/17 13:30 Temperature Pulse Rate 80 81 80 Respiratory Rate 21 23 24 Blood Pressure 126/72 128/61 130/65 Pulse Oximetry 96 95 90 L 11/06/17 14:00 Temperature Pulse Rate 83 Respiratory Rate 20 Blood Pressure 126/72 Pulse Oximetry 95 Intake & Output 11/05/17 11/06/17 11/06/17 18:59 06:59 18:59 Intake Total 5 / 1925 1815 / 1815 Output Total 1575 / 1575 1950 / 1950 Balance 350 / 350 -135 / -135 Weight 160.2 kg Intake: IV 855 / 855 1415 / 1415 NS + KCl 40 mEq Inj 1,000 ML @ 500 / 500 125 mls/hr IV.CONT .Q8H [facility] Rx# :[id number] KCl Inj 10 MEQ In 1/2 Normal 1415 / 1415 Saline Inj 1,000 ML @ 84 mls/hr IV.CONT .[id number] [facility] Rx#: [id number] KCl 40 mEq Premix Inj 40 meq In 100 / 100 100 ml @ 25 mls/hr IV.SIG UNSCH PRN Rx#:[id number] Potassium Phosphate Inj 15 MMOL 155 / 155 In NS Inj 150 ML @ 38.75 mls/ hr IV.SIG ONCE ONE Rx#:[id number] Oral 720 / 720 400 / 400 Anesthesia Amount 350 / 350 Output: Urine 1575 / 1575 Urine Amount (Catheter) 1949 Indwelling Urethral Catheter 1949 Other: Date of Last Bowel Movement 11/05/17 11/05/17 11/05/17 # Bowel Movements 5 0 - Constitutional no acute distress - Routine HEENT Exam Head: Present: normocephalic, atraumatic - Routine Neck Exam Present: supple - Routine Respiratory Exam Present: CTA bilaterally - Routine Cardiovascular Exam Present: RRR - Routine Abdominal Exam Present: soft, normoactive bowel sounds - Routine Neurological Exam Present: alert, oriented X3 - Routine Psychiatric Exam Present: normal affect - Urinary Catheter Management Indwelling Urethral Catheter Cath placed during this visit: yes Reason for continuing: Not indwelling catheter Insertion date: 11/04/17 Insertion time: 00:30 Results - Labs CBC & Chem 7: 11/06/17 04:51 11/06/17 04:51 Laboratory Results - last 24 hr 11/06/17 11/06/17 04:51 04:51 WBC 3.7 L RBC 3.93 L Hgb 11.2 L Hct 33.4 L MCV 85.1 MCH 28.5 MCHC 33.5 RDW 16.0 Plt Count 91 L MPV 8.4 Prelim Diff (Auto) Slide review pending Neut % (Auto) 75.2 H Lymph % (Auto) 17.4 [place] % (Auto) 6.2 Eos % (Auto) 0.8 Baso % (Auto) 0.4 Neut # (Auto) 2.8 Lymph # (Auto) 0.7 L [place] # (Auto) 0.2 Eos # (Auto) 0.0 Baso # (Auto) 0.0 WBC Differential . Diff Scan Auto diff confirmed Differential Comment . Sodium 144 Potassium 3.1 L Chloride 115 H Carbon Dioxide 22.0 Anion Gap 7 BUN 3 L Creatinine 0.45 L Estimated GFR Greater than 89 Random Glucose 76 Calcium 8.8 Phosphorus 2.6 Magnesium 1.1 L D Microbiology 11/03/17 23:40 Blood - Peripheral Aerobic Blood Culture - Preliminary No growth in 3 days 11/03/17 23:40 Blood - Peripheral Anaerobic Blood Culture - Preliminary No growth in 3 days 11/03/17 23:35 Blood - Peripheral Aerobic Blood Culture - Preliminary No growth in 3 days 11/03/17 23:35 Blood - Peripheral Anaerobic Blood Culture - Preliminary No growth in 3 days - Procedures Date of procedure: 11/05/17 Pre-op diagnosis: Nausea, vomiting, diarrhea Post-op diagnosis: other Procedure: PROCEDURE PERFORMED EGD with biopsy followed by colonoscopy with biopsy INDICATION FOR PROCEDURE Nausea, vomiting, diarrhea PROCEDURE: The procedure, risks and benefits were discussed with Patient/POA and informed consent was obtained. Anesthesia sedated Patient with Diprivan. Patient was placed in the left lateral decubitus position. EGD: The Pentax videoscope was introduced through the oropharynx and advanced to the second portion of the duodenum under direct visualization. Retroflexion was performed in the stomach. FINDINGS: The esophagus this appeared to be unremarkable and within normal limits The stomach there was patchy erythema in the antrum but no ulcerations and no erosions antral biopsies were taken for further evaluation the rest of the stomach was unremarkable The duodenum this was normal Colonoscopy: The Pentax videoscope was introduced through the rectum and advanced to cecum where the ileocecal valve and appendiceal orifice were identified. Retroflexion was performed in the rectum. Colonic prep was fair FINDINGS: Colonic withdrawal time greater than 6 minutes. As the scope was slowly withdrawn colonic mucosa was carefully inspected colonic mucosa appeared to be unremarkable and within normal limits all the way through random biopsies were taken from the ascending and descending colon the patient was noted to have mild diverticulosis of the sigmoid region retroflexion did reveal moderate size internal hemorrhoids rectal examination otherwise unremarkable ESTIMATED BLOOD LOSS: None SPECIMENS REMOVED: Gastric and colon biopsies COMPLICATIONS: None IMPRESSION: Mild gastritis Mild diverticulosis Moderate size internal hemorrhoids PLAN: Await biopsies Continue supportive care Stop marijuana use High-fiber diet Colonoscopy in 5 years Assessment and Plan - Plan Assessment: - MARIUSZ secondary to dehydration from intractable nausea and vomiting Pt reports symptoms for the past seven months of nausea with 4-10 episodes of emesis daily, denies hematemesis and coffee ground emesis. Also reports abdominal pain, constant (points to RUQ, LLQ and epigastric area). Abdominal bloating after meals. Last EGD in Feb 2017 and states normal exam Pt reports frequent marijuana use to try and help with nausea symptoms, last use was yesterday. - Diarrhea for the past seven months with fecal urgency and incontinence, denies hematochezia and melena. Last BM was 4 days ago. Last colonoscopy in Feb 2017 and states normal exam - Mesenteric ischemia S/P stenting of the celiac axis and SMA CT noted stents to be patent. - Elevated LFTs AST-67 ALT-61 Alk phos-109 T bili-0.5 LFTs highest during admission in April Liver US (Apr 2017) The liver is slightly echogenic which maybe due to fatty infiltration and or hepatocellular dysfunction. Splenomegaly. Sludge in the gallbladder without definite stones the technique. Pt denies ETOH Symptoms may be in part related to cyclic vomiting secondary to marijuana use. EGD colonoscopy basically unremarkable showing some gastritis and diverticulosis CT of the abdomen unremarkable Labs also unremarkable Plan: Etiology for the nausea and vomiting is unclear but possibly related to drug side effects or marijuana use or combination Continue Reglan and Zofran Stool studies no stools have been presented and the diarrhea has resolved Advised again marijuana use We will order a gastric emptying scan to rule out gastroparesis
[2017-11-07] MEDS ORDERED: Sod Chloride 0.9% Inj 1,000 ML IV.SIG ONE (00:26)
[2017-11-07] MEDS: Potassium Chloride Inj 10 MEQ in Sodium Chloride 0.45 % Inj 1,000 ML IV.CONT SCH ×2 (01:56)
[2017-11-07] MEDS: Levothyroxine 50 MCG Tablet PO SCH (06:10)
[2017-11-07] MEDS: Metoclopramide 10 MG Tablet PO SCH ×2 (08:05→13:07)
[2017-11-07] MEDS: Senna/Docusate Sodium 8.6/50 MG Tablet PO SCH ×2 (08:07→20:52)
[2017-11-07] MEDS: Sertraline 100 MG Tablet PO SCH (08:26)
[2017-11-07] MEDS: Rivaroxaban 20 MG Tablet PO SCH (08:27)
[2017-11-07] MEDS: Umeclindinium 62.5 MCG/Vilanterol 25 MCG Inhaler INH SCH (08:39)
[2017-11-07 09:19] LABS: Baso % (Auto) 0.4 % (0.0-2.0); Eos % (Auto) 0.4 % (0.0-4.0); Hematocrit 33.2 % (35.0-46.0); Hemoglobin 10.9 gm/dL (11.6-15.3); Lymph # (Auto) 0.5 th/mm3 (1.0-4.8); Lymph % (Auto) 13.8 % (9.0-44.0); Mean Corpuscular Hemoglobin 28.8 pg (27.0-34.0); Mean Corpuscular Volume 87.3 fL (80.0-100.0); Mean Platelet Volume 8.3 fL (7.0-11.0); Mono # (Auto) 0.2 th/mm3 (0.0-0.9); Mono % (Auto) 6.2 % (0.0-8.0); Neut # (Auto) 2.9 th/mm3 (1.8-7.7); Neut % (Auto) 79.2 % (16.0-70.0); Platelet Count 83 th/mm3 (150-450); Red Cell Distribution Width 16.1 % (11.6-17.2); White Blood Count 3.7 th/mm3 (4.0-11.0)
--- NOTE | 2017-11-07 09:20 | P.PNIM ---
Subjective Interval history: still with mild abdominal pain, not tolerating a lot of diet, s/p GES, wants to go home. Physical Exam Vital signs: Vital Signs 11/06/17 09:30 11/06/17 10:00 11/06/17 10:30 Temperature Pulse Rate 81 80 79 Respiratory Rate 17 19 23 Blood Pressure 133/69 137/81 173/103 H Pulse Oximetry 97 98 98 11/06/17 10:48 11/06/17 11:00 11/06/17 11:30 Temperature Pulse Rate 78 76 80 Respiratory Rate 12 17 19 Blood Pressure 117/60 116/60 102/55 L Pulse Oximetry 97 97 88 L 11/06/17 12:00 11/06/17 12:30 11/06/17 13:00 Temperature Pulse Rate 78 79 80 Respiratory Rate 23 22 21 Blood Pressure 138/66 132/64 126/72 Pulse Oximetry 95 97 96 11/06/17 13:01 11/06/17 13:30 11/06/17 14:00 Temperature Pulse Rate 81 80 83 Respiratory Rate 23 24 20 Blood Pressure 128/61 130/65 126/72 Pulse Oximetry 95 90 L 95 11/06/17 16:00 11/06/17 20:00 11/06/17 22:00 Temperature 99.3 F Pulse Rate 78 76 87 Respiratory Rate 20 18 Blood Pressure 135/79 111/56 L Pulse Oximetry 97 11/06/17 22:25 11/07/17 00:00 11/07/17 00:10 Temperature 97.7 F Pulse Rate 69 65 Respiratory Rate 18 18 Blood Pressure 79/49 L Pulse Oximetry 95 11/07/17 01:24 11/07/17 02:01 11/07/17 04:00 Temperature Pulse Rate 62 Respiratory Rate Blood Pressure 83/51 L 116/56 L Pulse Oximetry 11/07/17 04:15 11/07/17 06:54 Temperature 97.7 F Pulse Rate 75 Respiratory Rate 18 16 Blood Pressure 119/58 L Pulse Oximetry Intake & Output 11/06/17 11/07/17 11/07/17 18:59 06:59 18:59 Intake Total 1330 / 1330 1553 / 1553 Output Total 3525 / 3525 Balance -2195 / -2195 1553 / 1553 Weight 73.2 kg Intake: IV 580 / 580 1353 / 1353 KCl Inj 10 MEQ In 1/2 Normal 580 / 580 353 / 353 Saline Inj 1,000 ML @ 84 mls/hr IV.CONT .[id number] [facility] Rx#: [id number] NS Inj 1,000 ML @ Wide Open IV. 1000 / 1000 SIG BOLUS ONE Rx#:[id number] Oral 400 / 400 200 / 200 Anesthesia Amount 350 / 350 Output: Urine 1575 / 1575 Urine Amount (Catheter) 1949 Indwelling Urethral Catheter 1949 Other: Date of Last Bowel Movement 11/05/17 11/06/17 # Bowel Movements 0 Narrative: Not in distress Pupils equal round reactive Regular rate and rhythm, no murmurs Clear breath sounds Abdomen soft, mild global tenderness, no guarding Mild edema awake alert and oriented, no focal deficits. - Urinary Catheter Management Indwelling Urethral Catheter Cath placed during this visit: yes Reason for continuing: Not indwelling catheter Insertion date: 11/04/17 Insertion time: 00:30 Results - Labs CBC & Chem 7: 11/07/17 09:06 11/07/17 09:06 Laboratory Results - last 24 hr 11/06/17 04:51 WBC Differential . Diff Scan Auto diff confirmed Microbiology 11/03/17 23:40 Blood - Peripheral Aerobic Blood Culture - Preliminary No growth in 3 days 11/03/17 23:40 Blood - Peripheral Anaerobic Blood Culture - Preliminary No growth in 3 days 11/03/17 23:35 Blood - Peripheral Aerobic Blood Culture - Preliminary No growth in 3 days 11/03/17 23:35 Blood - Peripheral Anaerobic Blood Culture - Preliminary No growth in 3 days - Procedures Date of procedure: 11/05/17 Pre-op diagnosis: Nausea, vomiting, diarrhea Post-op diagnosis: other Procedure: PROCEDURE PERFORMED EGD with biopsy followed by colonoscopy with biopsy INDICATION FOR PROCEDURE Nausea, vomiting, diarrhea PROCEDURE: The procedure, risks and benefits were discussed with Patient/POA and informed consent was obtained. Anesthesia sedated Patient with Diprivan. Patient was placed in the left lateral decubitus position. EGD: The Pentax videoscope was introduced through the oropharynx and advanced to the second portion of the duodenum under direct visualization. Retroflexion was performed in the stomach. FINDINGS: The esophagus this appeared to be unremarkable and within normal limits The stomach there was patchy erythema in the antrum but no ulcerations and no erosions antral biopsies were taken for further evaluation the rest of the stomach was unremarkable The duodenum this was normal Colonoscopy: The Pentax videoscope was introduced through the rectum and advanced to cecum where the ileocecal valve and appendiceal orifice were identified. Retroflexion was performed in the rectum. Colonic prep was fair FINDINGS: Colonic withdrawal time greater than 6 minutes. As the scope was slowly withdrawn colonic mucosa was carefully inspected colonic mucosa appeared to be unremarkable and within normal limits all the way through random biopsies were taken from the ascending and descending colon the patient was noted to have mild diverticulosis of the sigmoid region retroflexion did reveal moderate size internal hemorrhoids rectal examination otherwise unremarkable ESTIMATED BLOOD LOSS: None SPECIMENS REMOVED: Gastric and colon biopsies COMPLICATIONS: None IMPRESSION: Mild gastritis Mild diverticulosis Moderate size internal hemorrhoids PLAN: Await biopsies Continue supportive care Stop marijuana use High-fiber diet Colonoscopy in 5 years Assessment and Plan - Plan This is a 48-year-old female with history of chronic mesenteric ischemia, peripheral arterial disease with bilateral iliac stents, hypothyroidism, TIA, recently found to have SMA and celiac stenosis, status post stenting in September 2017, presented to emergency department due to unremitting nausea, vomiting and hypotension. Patient was initially admitted to the intensive care unit, patient not transferred to the hospitalist service Abdominal pain, severe nausea and vomiting secondary to chronic mesenteric ischemia secondary to SMA and celiac stenosis, rule out cannabinoid hyperemesis syndrome -Patient found to have SMA and CF stenosis status post stenting in September 2017. CT scan of the abdomen and pelvis demonstrates patency of celiac and SMA stents without any abnormality. -Status post EGD/colonoscopy with biopsy by Dr. Barry 11/08. Recommendations include cessation of THC use. Follow-up colonoscopy in [address] Jerez has seen the patient, no further recommendations. Continue aspirin, Xarelto, dicyclomine, Zofran. -Gastric emptying study revealed abnormal gastric emptying with no response to Reglan, discussed with GI, will start on Bentyl ATC, small frequent feeding, low fiber diet Hypotension secondary to hypovolemia-continue aspirin, lisinopril and metoprolol on hold. Status post fluid resuscitation. Chronic pain syndrome, depression, restless leg syndrome-continue sertraline, risperidone, ropinirole, on chronic oxycodone. Morphine causes significant hypotension. Shortness of breath-chronic tobacco user, continue spirometry, oxygen support, Continue umeclidium/viltarenol 62.5/25 1 inhalation daily inhaler. PAD-status post iliac stenting Acute renal failure-resolved Hypothyroidism-continue Synthroid, TSH at target. Rule out UTI-status post ceftriaxone, UA is normal. Antibiotics stopped. FEN Hypophosphatemia-replace, recheck tomorrow. Hypomagnesemia-replace, recheck tomorrow DVT prophylaxis: Xarelto GI prophylaxis Protonix, patient is a history of ulcer Physical therapy: Discharge home tomorrow and electrolytes ready.
[2017-11-07 09:35] LABS: Albumin 2.4 g/dL (3.4-5.0); Anion Gap 7 meq/L (5-15); Aspartate Aminotransferase 32 U/L (15-37); Blood Urea Nitrogen 2 mg/dL (7-18); Calcium 8.9 mg/dL (8.5-10.1); Carbon Dioxide 18.6 meq/L (21.0-32.0); Chloride 116 meq/L (98-107); Glomerular Filtration Rate Greater Than 89 mL/min (>89); Glucose,Random 78 mg/dL (74-106); Potassium 3.5 meq/L (3.5-5.1); Sodium 142 meq/L (136-145)
[2017-11-07 09:36] LABS: Alanine Aminotransferase 27 U/L (10-53)
[2017-11-07 09:44] LABS: Alkaline Phosphatase 92 U/L (45-117); Free T4 (Free Thyroxine) 1.39 ng/dL (0.76-1.46); Thyroid Stimulating Hormone 0.455 uIU/mL (0.358-3.740)
[2017-11-07 10:47] LABS: Platelet Morphology Normal (Normal)
[2017-11-07] MEDS: Mag Sulf 1 gm/100 ml Premix 100 ML IV.SIG SCH ×2 (13:03→14:09)
[2017-11-07] MEDS: Potassium Phos/Sodium Phos 250 MG Tablet PO SCH ×3 (13:04→17:50)
--- NOTE | 2017-11-07 13:04 | NM ---
EXAM DATE: 11/07/2017 12:51 PM EDT AGE/SEX: 52 years / Female INDICATIONS: Nausea and vomiting for one week. CLINICAL DATA: This is the patient's initial encounter. Patient reports that signs and symptoms have been present for 1 week and indicates a pain score of 0/10. MEDICAL/SURGICAL HISTORY: Cardiovascular disease. Chronic obstructive pulmonary disease. Hypo thyroidism. Coronary artery stent. Cholecystectomy. section. COMPARISON: No prior exams available for comparison. No external comparison. DOSE: 1.1 mCi Tc99m Sulfur Colloid Labeled Whole Egg PO MEDICATION: 5 mg Reglan IV at 90 min. minutes. IMAGING TIME: 2 hr TECHNIQUE: Following the oral ingestion of radiotracer-labeled meal, dynamic sequential images in the GERMAN projection were acquired with simultaneous computer acquisition. The data set was decay-correcte d. FINDINGS: Lag Phase: There is approximately 15 minutes before onset of gastric emptying. Emptying: Gastric emptying kinetics are linear. The decay-corrected, back-extrapolated half-time of emptying is 96 minutes. (Normal for this lab is 45 - 90 minutes) Intervention: Reglan was given at 90 minutes with no significant change. CONCLUSION: 1. Abnormal gastric emptying with T1 half of approximately 96 minutes. 2. Reglan was given with no therapeutic response. Electronically signed by: Austin Russell MD 11/07/2017 1:02 PM EDT
[2017-11-07 14:09] LABS: Hemoglobin A1c 5.5 % (4.3-6.0)
--- NOTE | 2017-11-07 14:21 | P.PNGI ---
Subjective Interval history: Pt resting in bed, GES done this morning. Reports continued nausea but no emesis since the night before last. Continued abdominal pain, points to multiple areas on her abdomen. of note, has multiple types of candies at bedside that she has been eating, recommend bland diet. <Carin Omalley - Last Filed: 11/07/17 14:28> Physical Exam Vital signs: Vital Signs 11/06/17 16:00 11/06/17 20:00 11/06/17 22:00 Temperature 99.3 F Pulse Rate 78 76 87 Respiratory Rate 20 18 Blood Pressure 135/79 111/56 L Pulse Oximetry 97 11/06/17 22:25 11/07/17 00:00 11/07/17 00:10 Temperature 97.7 F Pulse Rate 69 65 Respiratory Rate 18 18 Blood Pressure 79/49 L Pulse Oximetry 95 11/07/17 01:24 11/07/17 02:01 11/07/17 04:00 Temperature Pulse Rate 62 Respiratory Rate Blood Pressure 83/51 L 116/56 L Pulse Oximetry 11/07/17 04:15 11/07/17 06:54 11/07/17 08:00 Temperature 97.7 F 97.7 F Pulse Rate 75 102 H Respiratory Rate 18 16 18 Blood Pressure 119/58 L 139/94 H Pulse Oximetry 98 11/07/17 10:00 11/07/17 12:44 Temperature Pulse Rate 92 H 96 H Respiratory Rate Blood Pressure Pulse Oximetry Intake & Output 11/06/17 11/07/17 11/07/17 18:59 06:59 18:59 Intake Total 1330 / 1330 1553 / 1553 100 / 100 Output Total 3525 / 3525 Balance -2195 / -2195 1553 / 1553 100 / 100 Weight 73.2 kg Intake: IV 580 / 580 1353 / 1353 100 / 100 KCl Inj 10 MEQ In 1/2 Normal 580 / 580 353 / 353 Saline Inj 1,000 ML @ 84 mls/hr IV.CONT .[id number] [facility] Rx#: [id number] Magnesium Sulfate 1 gm/D5W 100 100 / 100 ml Premix 100 ML @ 100 mls/hr IV.SIG Q1H [facility] Rx#:[id number] NS Inj 1,000 ML @ Wide Open IV. 1000 / 1000 SIG BOLUS ONE Rx#:[id number] Oral 400 / 400 200 / 200 Anesthesia Amount 350 / 350 Output: Urine 1575 / 1575 Urine Amount (Catheter) 1949 Indwelling Urethral Catheter 1949 Other: Date of Last Bowel Movement 11/05/17 11/06/17 # Bowel Movements 0 - Constitutional no acute distress - Routine HEENT Exam Head: Present: normocephalic, atraumatic - Routine Respiratory Exam Absent: accessory muscle use - Routine Abdominal Exam Present: soft, normoactive bowel sounds, tenderness. Absent: distended - Routine Skin Exam Present: dry, warm - Routine Neurological Exam Present: alert, oriented X3 - Urinary Catheter Management Indwelling Urethral Catheter Cath placed during this visit: yes Reason for continuing: Not indwelling catheter Insertion date: 11/04/17 Insertion time: 00:30 <Carin Omalley - Last Filed: 11/07/17 14:28> Vital signs: Vital Signs 11/06/17 16:00 11/06/17 20:00 11/06/17 22:00 Temperature 99.3 F Pulse Rate 78 76 87 Respiratory Rate 20 18 Blood Pressure 135/79 111/56 L Pulse Oximetry 97 11/06/17 22:25 11/07/17 00:00 11/07/17 00:10 Temperature 97.7 F Pulse Rate 69 65 Respiratory Rate 18 18 Blood Pressure 79/49 L Pulse Oximetry 95 11/07/17 01:24 11/07/17 02:01 11/07/17 04:00 Temperature Pulse Rate 62 Respiratory Rate Blood Pressure 83/51 L 116/56 L Pulse Oximetry 11/07/17 04:15 11/07/17 06:54 11/07/17 08:00 Temperature 97.7 F 97.7 F Pulse Rate 75 102 H Respiratory Rate 18 16 18 Blood Pressure 119/58 L 139/94 H Pulse Oximetry 98 11/07/17 10:00 11/07/17 12:44 Temperature Pulse Rate 92 H 96 H Respiratory Rate Blood Pressure Pulse Oximetry Intake & Output 11/06/17 11/07/17 11/07/17 18:59 06:59 18:59 Intake Total 1330 / 1330 1553 / 1553 100 / 100 Output Total 3525 / 3525 Balance -2195 / -2195 1553 / 1553 100 / 100 Weight 73.2 kg Intake: IV 580 / 580 1353 / 1353 100 / 100 KCl Inj 10 MEQ In 1/2 Normal 580 / 580 353 / 353 Saline Inj 1,000 ML @ 84 mls/hr IV.CONT .[id number] [facility] Rx#: [id number] Magnesium Sulfate 1 gm/D5W 100 100 / 100 ml Premix 100 ML @ 100 mls/hr IV.SIG Q1H [facility] Rx#:[id number] NS Inj 1,000 ML @ Wide Open IV. 1000 / 1000 SIG BOLUS ONE Rx#:[id number] Oral 400 / 400 200 / 200 Anesthesia Amount 350 / 350 Output: Urine 1575 / 1575 Urine Amount (Catheter) 1949 Indwelling Urethral Catheter 1949 Other: Date of Last Bowel Movement 11/05/17 11/06/17 # Bowel Movements 0 - Urinary Catheter Management Indwelling Urethral Catheter Cath placed during this visit: no <Jim Barry E - Last Filed: 11/07/17 15:52> Results - Labs CBC & Chem 7: 11/07/17 09:06 11/07/17 09:06 Laboratory Results - last 24 hr 11/07/17 11/07/17 11/07/17 09:06 09:06 09:06 WBC 3.7 L RBC 3.80 L Hgb 10.9 L Hct 33.2 L MCV 87.3 MCH 28.8 MCHC 33.0 RDW 16.1 Plt Count 83 L MPV 8.3 Prelim Diff (Auto) Slide review pending Neut % (Auto) 79.2 H Lymph % (Auto) 13.8 Todd % (Auto) 6.2 Eos % (Auto) 0.4 Baso % (Auto) 0.4 Neut # (Auto) 2.9 Lymph # (Auto) 0.5 L Todd # (Auto) 0.2 Eos # (Auto) 0.0 Baso # (Auto) 0.0 WBC Differential . Diff Scan Auto diff confirmed Differential Comment . Platelet Estimate Low L Platelet Morphology Normal Sodium 142 Potassium 3.5 Chloride 116 H Carbon Dioxide 18.6 L Anion Gap 7 BUN 2 L Creatinine 0.42 L Estimated GFR Greater than 89 Random Glucose 78 Hemoglobin A1c 5.5 Calcium 8.9 Phosphorus 2.0 L Magnesium 1.0 L Total Bilirubin 0.3 AST 32 ALT 27 Alkaline Phosphatase 92 Total Protein 5.0 L D Albumin 2.4 L TSH 0.455 Free T4 1.39 Microbiology 11/03/17 23:40 Blood - Peripheral Aerobic Blood Culture - Preliminary No growth in 4 days 11/03/17 23:40 Blood - Peripheral Anaerobic Blood Culture - Preliminary No growth in 4 days 11/03/17 23:35 Blood - Peripheral Aerobic Blood Culture - Preliminary No growth in 4 days 11/03/17 23:35 Blood - Peripheral Anaerobic Blood Culture - Preliminary No growth in 4 days - Imaging Impressions Gastric Emptying Nuclear Medicine 11/07/17 00:00 CONCLUSION: 1. Abnormal gastric emptying with T1 half of approximately 96 minutes. 2. Reglan was given with no therapeutic response. - Procedures Date of procedure: 11/05/17 Pre-op diagnosis: Nausea, vomiting, diarrhea Post-op diagnosis: other Procedure: PROCEDURE PERFORMED EGD with biopsy followed by colonoscopy with biopsy INDICATION FOR PROCEDURE Nausea, vomiting, diarrhea PROCEDURE: The procedure, risks and benefits were discussed with Patient/POA and informed consent was obtained. Anesthesia sedated Patient with Diprivan. Patient was placed in the left lateral decubitus position. EGD: The Pentax videoscope was introduced through the oropharynx and advanced to the second portion of the duodenum under direct visualization. Retroflexion was performed in the stomach. FINDINGS: The esophagus this appeared to be unremarkable and within normal limits The stomach there was patchy erythema in the antrum but no ulcerations and no erosions antral biopsies were taken for further evaluation the rest of the stomach was unremarkable The duodenum this was normal Colonoscopy: The Pentax videoscope was introduced through the rectum and advanced to cecum where the ileocecal valve and appendiceal orifice were identified. Retroflexion was performed in the rectum. Colonic prep was fair FINDINGS: Colonic withdrawal time greater than 6 minutes. As the scope was slowly withdrawn colonic mucosa was carefully inspected colonic mucosa appeared to be unremarkable and within normal limits all the way through random biopsies were taken from the ascending and descending colon the patient was noted to have mild diverticulosis of the sigmoid region retroflexion did reveal moderate size internal hemorrhoids rectal examination otherwise unremarkable ESTIMATED BLOOD LOSS: None SPECIMENS REMOVED: Gastric and colon biopsies COMPLICATIONS: None IMPRESSION: Mild gastritis Mild diverticulosis Moderate size internal hemorrhoids PLAN: Await biopsies Continue supportive care Stop marijuana use High-fiber diet Colonoscopy in 5 years <Carin Omalley - Last Filed: 11/07/17 14:28> - Labs CBC & Chem 7: 11/07/17 09:06 11/07/17 09:06 Laboratory Results - last 24 hr 11/07/17 11/07/17 11/07/17 09:06 09:06 09:06 WBC 3.7 L RBC 3.80 L Hgb 10.9 L Hct 33.2 L MCV 87.3 MCH 28.8 MCHC 33.0 RDW 16.1 Plt Count 83 L MPV 8.3 Prelim Diff (Auto) Slide review pending Neut % (Auto) 79.2 H Lymph % (Auto) 13.8 Todd % (Auto) 6.2 Eos % (Auto) 0.4 Baso % (Auto) 0.4 Neut # (Auto) 2.9 Lymph # (Auto) 0.5 L Todd # (Auto) 0.2 Eos # (Auto) 0.0 Baso # (Auto) 0.0 WBC Differential . Diff Scan Auto diff confirmed Differential Comment . Platelet Estimate Low L Platelet Morphology Normal PT INR Sodium 142 Potassium 3.5 Chloride 116 H Carbon Dioxide 18.6 L Anion Gap 7 BUN 2 L Creatinine 0.42 L Estimated GFR Greater than 89 Random Glucose 78 Hemoglobin A1c 5.5 Calcium 8.9 Phosphorus 2.0 L Magnesium 1.0 L Total Bilirubin 0.3 AST 32 ALT 27 Alkaline Phosphatase 92 Total Protein 5.0 L D Albumin 2.4 L TSH 0.455 Free T4 1.39 11/07/17 13:50 WBC RBC Hgb Hct MCV MCH MCHC RDW Plt Count MPV Prelim Diff (Auto) Neut % (Auto) Lymph % (Auto) Todd % (Auto) Eos % (Auto) Baso % (Auto) Neut # (Auto) Lymph # (Auto) Todd # (Auto) Eos # (Auto) Baso # (Auto) WBC Differential Diff Scan Differential Comment Platelet Estimate Platelet Morphology PT 12.0 H INR 1.2 Sodium Potassium Chloride Carbon Dioxide Anion Gap BUN Creatinine Estimated GFR Random Glucose Hemoglobin A1c Calcium Phosphorus Magnesium Total Bilirubin AST ALT Alkaline Phosphatase Total Protein Albumin TSH Free T4 Microbiology 11/03/17 23:40 Blood - Peripheral Aerobic Blood Culture - Preliminary No growth in 4 days 11/03/17 23:40 Blood - Peripheral Anaerobic Blood Culture - Preliminary No growth in 4 days 11/03/17 23:35 Blood - Peripheral Aerobic Blood Culture - Preliminary No growth in 4 days 11/03/17 23:35 Blood - Peripheral Anaerobic Blood Culture - Preliminary No growth in 4 days - Imaging Impressions Gastric Emptying Nuclear Medicine 11/07/17 00:00 CONCLUSION: 1. Abnormal gastric emptying with T1 half of approximately 96 minutes. 2. Reglan was given with no therapeutic response. <Jim Barry - Last Filed: 11/07/17 15:52> Assessment and Plan - Plan Assessment: - MARIUSZ secondary to dehydration from intractable nausea and vomiting Pt reports symptoms for the past seven months of nausea with 4-10 episodes of emesis daily, denies hematemesis and coffee ground emesis. Also reports abdominal pain, constant (points to RUQ, LLQ and epigastric area). Abdominal bloating after meals. Last EGD in Feb 2017 and states normal exam Pt reports frequent marijuana use to try and help with nausea symptoms, last use was yesterday. - Diarrhea for the past seven months with fecal urgency and incontinence, denies hematochezia and melena. Last BM was 4 days ago. Last colonoscopy in Feb 2017 and states normal exam - Mesenteric ischemia S/P stenting of the celiac axis and SMA CT noted stents to be patent. - Elevated LFTs AST-67 ALT-61 Alk phos-109 T bili-0.5 LFTs highest during admission in April Liver US (Apr 2017) The liver is slightly echogenic which maybe due to fatty infiltration and or hepatocellular dysfunction. Splenomegaly. Sludge in the gallbladder without definite stones the technique. Pt denies ETOH Symptoms may be in part related to cyclic vomiting secondary to marijuana use. EGD colonoscopy basically unremarkable showing some gastritis and diverticulosis CT of the abdomen unremarkable Labs also unremarkable (11/07) GES revealed delayed gastric emptying with no response to Reglan. Will DC Reglan and add Bethanechol (EES not added due to other medications with QT prolongation) . Pt with multiple candies at bedside, advised to try bland and easy to digest food. Plan: DC Reglan Start Bethanechol Zofran PRN Avoid Marijuana Floyd diet, small meals Further recommendation based on clinical course Pt has been seen and examined by myself and Dr. Barry and this note is written on his behalf <Carin Omalley - Last Filed: 11/07/17 14:28> - Attending Attestation Patient seen and examined Agree with above Continue with current supportive care Monitor labs Gastroparesis precautions were explained in detail to the patient Not much to add from a GI perspective we will sign off Follow-up with GI post discharge <Jim Barry E - Last Filed: 11/07/17 15:52>
[2017-11-07 14:37] LABS: INR 1.2 Ratio
[2017-11-07] MEDS: Dicyclomine 10 MG Capsule PO SCH ×3 (14:55→20:52)
[2017-11-08 04:54] LABS: Anion Gap 7 meq/L (5-15); Blood Urea Nitrogen 2 mg/dL (7-18); Calcium 8.8 mg/dL (8.5-10.1); Chloride 117 meq/L (98-107); Glomerular Filtration Rate Greater Than 89 mL/min (>89); Glucose,Random 77 mg/dL (74-106); Magnesium 1.4 mg/dL (1.5-2.5); Phosphorus 2.9 mg/dL (2.5-4.9); Potassium 3.1 meq/L (3.5-5.1); Sodium 145 meq/L (136-145)
[2017-11-08] MEDS: Levothyroxine 50 MCG Tablet PO SCH (06:15)
[2017-11-08] MEDS: Senna/Docusate Sodium 8.6/50 MG Tablet PO SCH (08:11)
[2017-11-08] MEDS: Sertraline 100 MG Tablet PO SCH (08:12)
[2017-11-08] MEDS: Rivaroxaban 20 MG Tablet PO SCH (08:12)
[2017-11-08] MEDS: Potassium Phos/Sodium Phos 250 MG Tablet PO SCH ×2 (08:12→15:00)
[2017-11-08] MEDS: Umeclindinium 62.5 MCG/Vilanterol 25 MCG Inhaler INH SCH (08:13)
[2017-11-08] MEDS: Dicyclomine 10 MG Capsule PO SCH ×2 (08:13→15:00)
--- NOTE | 2017-11-08 08:33 | P.DS ---
Date of admission: 11/03/17 23:04 Primary care physician: UNKNOWN Brief History from admission: 52 yo WF with PMH of chronic mesenteric ischemia, PAD with bilateral iliac stents, left subclavian stent, hypothyroidism, depression, chronic pain, restless leg syndrome, TIA, GERD, who states she has an 8 month history of abdominal pain, nausea and vomiting. 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 James Rendon. She states since that time she has had "constant" abdominal pain, multifocal (points to right upper abdomen and left mid and lower abdomen). She states pain is worse with eating and is accompanied by postprandial nausea and vomiting. She has had no melena or bright red blood per rectum. No hematemesis. Stools tend to be loose when she does have them, last bowel movement was 4 days ago. No hematemesis. She states she had an EGD and colonoscopy in February 2017 performed in [place] and states that they were unremarkable. Reports 60 pound unintentional weight loss. She presented to [facility] ED last night. She states " I couldn't keep anything down x 3days and was lightheaded and I knew it had gotten to the point of dehydration" and because BP on home monitor was in the 50s or 60s. She has been on a liquid diet for several months, says she can't tolerated solids at all. Upon presentation, she had no fever or leukocytosis. Lactic acid was normal. She was hemoconcentrated with HCT 50, with MARIUSZ with creatinine 1.1 and severe hypokalemia with potassium 1.9. Initially plan was to admit to [facility] for electrolyte replacement and IVF, however she had persistent hypotension requiring multiple fluid boluses so Dr. Quinn placed R IJ CVL and transferred to [facility]. CT abd/pelvis demonstrates patency of celiac and SMA stents without abnormality. DS: Diagnosis - Discharge Diagnosis (1) Delayed gastric emptying Status: Acute (2) Celiac artery stenosis Status: Chronic DS: Medications - Discharge Medications Prescriptions: dicyclomine 10 mg PO QID #120 cap ondansetron 4 mg PO Q4H PRN #20 tab PRN Reason: Nausea Or Vomiting DS: Summary Hospital Course: This is a 48-year-old female with history of chronic mesenteric ischemia, peripheral arterial disease with bilateral iliac stents, hypothyroidism, TIA, recently found to have SMA and celiac stenosis, status post stenting in September 2017, presented to emergency department due to unremitting nausea, vomiting and hypotension. Patient was initially admitted to the intensive care unit, patient not transferred to the hospitalist service.CT scan of the abdomen and pelvis demonstrates patency of celiac and SMA stents without any abnormality. Gastroenterology was consulted, EGD and colonoscopy were performed. Pathology pending but nonremarkable. Gastric emptying study was done which showed delayed gastric emptying with no response to Reglan. Patient was started on Bentyl, low fiber diet and small frequent feeding. Patient improving. Elect lites were replaced. She will be discharged to follow-up with GI as outpatient and recommended cessation of marijuana use. She also came in with hypotension and acute renal failure which improved with volume resuscitation. The rest of her hospital course was uncomplicated. - Time Spent with Patient Total time spent providing and/or coordinating discharge services: Greater than 30 minutes - Quality: VTE Deep Vein Thrombosis/Pulmonary Embolism Present on Admission: No Exam Vital signs: Vital Signs 11/07/17 10:00 11/07/17 12:44 11/07/17 16:00 Temperature 98 F Pulse Rate 92 H 96 H 92 H Respiratory Rate 17 Blood Pressure 92/50 L Pulse Oximetry 98 11/07/17 20:00 11/08/17 00:00 11/08/17 04:00 Temperature 98.3 F 98.7 F 97.9 F Pulse Rate 78 75 79 Respiratory Rate 18 18 18 Blood Pressure 123/65 110/55 L 100/55 L Pulse Oximetry 95 95 95 Intake & Output 11/07/17 11/08/17 11/08/17 18:59 06:59 18:59 Intake Total 100 / 100 1752 / 1752 Balance 100 / 100 1752 / 1752 Weight 73 kg Intake: IV 100 / 100 1752 / 1752 LR 1000 mL Inj 1,000 ML @ 84 1000 / 1000 mls/hr IV.CONT .[id number] REGINALDO Rx# :[id number] KCl Inj 10 MEQ In 1/2 Normal 652 / 652 Saline Inj 1,000 ML @ 84 mls/hr IV.CONT .[id number] REGINALDO Rx#: [id number] Magnesium Sulfate 1 gm/D5W 100 100 / 100 100 / 100 ml Premix 100 ML @ 100 mls/hr IV.SIG Q1H REGINALDO Rx#:[id number] Other: # Voids 4 2 Date of Last Bowel Movement 11/06/17 11/07/17 Narrative: S> on the day of discharge, she is tolerating small frequent feeding with mild to moderate epigastric pain, about 4/10 without analgesics. No fever overnight. No nausea or vomiting O >Not in distress Pupils equal round reactive Regular rate and rhythm, no murmurs Clear breath sounds Abdomen soft, mild epigastric tenderness, no guarding. Mild edema awake alert and oriented, no focal deficits. Results Procedures completed during hospitalization: Date of procedure: 11/05/17 Pre-op diagnosis: Nausea, vomiting, diarrhea Post-op diagnosis: other Procedure: PROCEDURE PERFORMED EGD with biopsy followed by colonoscopy with biopsy INDICATION FOR PROCEDURE Nausea, vomiting, diarrhea PROCEDURE: The procedure, risks and benefits were discussed with Patient/POA and informed consent was obtained. Anesthesia sedated Patient with Diprivan. Patient was placed in the left lateral decubitus position. EGD: The Pentax videoscope was introduced through the oropharynx and advanced to the second portion of the duodenum under direct visualization. Retroflexion was performed in the stomach. FINDINGS: The esophagus this appeared to be unremarkable and within normal limits The stomach there was patchy erythema in the antrum but no ulcerations and no erosions antral biopsies were taken for further evaluation the rest of the stomach was unremarkable The duodenum this was normal Colonoscopy: The Pentax videoscope was introduced through the rectum and advanced to cecum where the ileocecal valve and appendiceal orifice were identified. Retroflexion was performed in the rectum. Colonic prep was fair FINDINGS: Colonic withdrawal time greater than 6 minutes. As the scope was slowly withdrawn colonic mucosa was carefully inspected colonic mucosa appeared to be unremarkable and within normal limits all the way through random biopsies were taken from the ascending and descending colon the patient was noted to have mild diverticulosis of the sigmoid region retroflexion did reveal moderate size internal hemorrhoids rectal examination otherwise unremarkable ESTIMATED BLOOD LOSS: None SPECIMENS REMOVED: Gastric and colon biopsies COMPLICATIONS: None IMPRESSION: Mild gastritis Mild diverticulosis Moderate size internal hemorrhoids PLAN: Await biopsies Continue supportive care Stop marijuana use High-fiber diet Colonoscopy in 5 years Pending studies at discharge: Pending at discharge 11/05/17 14:17 Surgical [PTH] Routine Labs on day of discharge: Labs from last 24 hours 11/08/17 11/07/17 11/07/17 04:10 13:50 09:06 WBC RBC Hgb Hct MCV MCH MCHC RDW Plt Count MPV Prelim Diff (Auto) Neut % (Auto) Lymph % (Auto) Ness % (Auto) Eos % (Auto) Baso % (Auto) Neut # (Auto) Lymph # (Auto) Ness # (Auto) Eos # (Auto) Baso # (Auto) WBC Differential Diff Scan Differential Comment Platelet Estimate Platelet Morphology PT 12.0 H INR 1.2 Sodium 145 142 Potassium 3.1 L 3.5 Chloride 117 H 116 H Carbon Dioxide 21.0 18.6 L Anion Gap 7 7 BUN 2 L 2 L Creatinine 0.45 L 0.42 L Estimated GFR Greater than 89 Greater than 89 Random Glucose 77 78 Hemoglobin A1c Calcium 8.8 8.9 Phosphorus 2.9 2.0 L Magnesium 1.4 L 1.0 L Total Bilirubin 0.3 AST 32 ALT 27 Alkaline Phosphatase 92 Total Protein 5.0 L D Albumin 2.4 L TSH 0.455 Free T4 1.39 11/07/17 11/07/17 09:06 09:06 WBC 3.7 L RBC 3.80 L Hgb 10.9 L Hct 33.2 L MCV 87.3 MCH 28.8 MCHC 33.0 RDW 16.1 Plt Count 83 L MPV 8.3 Prelim Diff (Auto) Slide review pending Neut % (Auto) 79.2 H Lymph % (Auto) 13.8 Ness % (Auto) 6.2 Eos % (Auto) 0.4 Baso % (Auto) 0.4 Neut # (Auto) 2.9 Lymph # (Auto) 0.5 L Ness # (Auto) 0.2 Eos # (Auto) 0.0 Baso # (Auto) 0.0 WBC Differential . Diff Scan Auto diff confirmed Differential Comment . Platelet Estimate Low L Platelet Morphology Normal PT INR Sodium Potassium Chloride Carbon Dioxide Anion Gap BUN Creatinine Estimated GFR Random Glucose Hemoglobin A1c 5.5 Calcium Phosphorus Magnesium Total Bilirubin AST ALT Alkaline Phosphatase Total Protein Albumin TSH Free T4 Preliminary micro results at discharge 11/03/17 23:40 Aerobic Blood Culture - Preliminary Blood - Peripheral No growth in 4 days Anaerobic Blood Culture - Preliminary No growth in 4 days 11/03/17 23:35 Aerobic Blood Culture - Preliminary Blood - Peripheral No growth in 4 days Anaerobic Blood Culture - Preliminary No growth in 4 days - Impressions ITS Impressions Chest X-Ray 11/04/17 00:06 CONCLUSION: Right central line tip in superior vena cava without pneumothorax. Abdomen/Pelvis CT 11/04/17 00:07 CONCLUSION: 1. Dependent atelectasis in the lungs. 2. Stable appearance of vascular stents in the celiac and superior mesenteric artery and proximal right common iliac artery compared with October 16. Stable stenosis left common iliac artery. 3. Carmen catheter in bladder. Colonic diverticulosis. Gastric Emptying Nuclear Medicine 11/07/17 00:00 CONCLUSION: 1. Abnormal gastric emptying with T1 half of approximately 96 minutes. 2. Reglan was given with no therapeutic response. Discharge Plan - Discharge Disposition Patient Disposition: Discharge Home - Discharge Condition Condition: Good - Discharge Order Discharge Orders: Discharge Order (Routine); Ordered 11/08/17 Ordered By: Kassi Robin - Discharge Details Anticipated Discharge Date: 11/08/17 Discharge Comment: d/c after K,Mg replacement and if BMP is better later today - Physicians Team Primary Care Provider: UNKNOWN, Attending Provider: Kassi Robin Other Providers: Jim Brary MD ; [employer],Insurance
[2017-11-08] MEDS ORDERED: Mag Sulf 1 gm/100 ml Premix 100 ML IV.SIG ONE (09:00)
[2017-11-08] MEDS: Potassium Chlor 20 mEq Premix 20 MEQ/100 ML PIGGYBACK IV.SIG SCH ×2 (09:01→11:08)
[2017-11-08] MEDS ORDERED: Famotidine PF Inj 20 MG/2 ML Vial IV.PUSH ONE (16:06)
[2017-11-08] MEDS ORDERED: predniSONE 20 MG Tablet PO ONE (16:15)
[2017-11-08 17:13] LABS: Anion Gap 8 meq/L (5-15); Blood Urea Nitrogen 2 mg/dL (7-18); Calcium 8.9 mg/dL (8.5-10.1); Carbon Dioxide 21.8 meq/L (21.0-32.0); Chloride 115 meq/L (98-107); Glomerular Filtration Rate Greater Than 89 mL/min (>89); Glucose,Random 79 mg/dL (74-106); Magnesium 1.7 mg/dL (1.5-2.5); Sodium 145 meq/L (136-145)
[2017-11-08 17:25] LABS: Potassium 3.2 meq/L (3.5-5.1)
== END 2017-11-08 17:57 | disposition home or self-care (01) ==
LOC: PHED 20:40 → PHEDA 23:04 → HIMC 11-04 02:10 → N05 11-06 19:30
PROVIDERS: ADMIT Internal Medicine; ATTEND Internal Medicine

== ENCOUNTER 2017-12-15 16:49 | Inpatient (IN) ==
[2017-12-15] MEDS ORDERED: Sod Chloride 0.9% Inj 1,000 ML IV.SIG ONE ×2 (17:26→17:57)
[2017-12-15] MEDS ORDERED: fentaNYL Citrate Inj 100 MCG/2 ML Ampul IV.PUSH ONE (17:31)
--- NOTE | 2017-12-15 17:39 | ED ---
HPI General Chief complaint: Nausea/Vomiting/Diarrhea Stated complaint: BP up x 8 mo Time Seen by Provider: 12/15/17 19:12 Source: patient, RN notes reviewed and old records reviewed Mode of arrival: ambulatory History of Present Illness HPI narrative: 52yF presenting with abdominal pain, nausea, and vomiting. 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 She was admitted last month for hypotension and multiple electrolyte derangements requiring transfer to the [facility] for ICU care. She states that for the past 8 months she's had diffuse severe abdominal pain which is constant, worse with PO intake and not made better by anything, and non- radiating. For the past 3 days, she has been unable to tolerate any PO intake and reports multiple episodes of vomiting per day. Denies fever but admits to chills, denies chest pain, diarrhea, hematochezia, or dysuria. Related Data Home Medications Medication Instructions Recorded Confirmed Aspirin Low Dose 81 mg PO DAILY 11/03/17 12/15/17 albuterol sulfate [ProAir HFA] 2 puff INHALATION Q4H PRN 11/03/17 12/15/17 levothyroxine 100 mcg PO DAILY 11/03/17 12/15/17 lisinopril 5 mg PO DAILY 11/03/17 12/15/17 metoprolol succinate 50 mg PO DAILY 11/03/17 12/15/17 pantoprazole [Protonix] 40 mg PO DAILY 11/03/17 12/15/17 potassium chloride [Klor-Con 10] 10 meq PO DAILY 11/03/17 12/15/17 rivaroxaban [Xarelto] 20 mg PO DAILY 11/03/17 12/15/17 ropinirole 2 mg PO DAILY 11/03/17 12/15/17 sertraline 200 mg PO DAILY 11/03/17 12/15/17 umeclidinium-vilanterol [Anoro 1 inh INHALATION Q24H 11/03/17 12/15/17 Ellipta] ziprasidone HCl [Geodon] 80 mg PO QPM 11/03/17 12/15/17 clonazepam 0.5 mg PO TID 12/15/17 12/15/17 Previous Rx's Medication Instructions Recorded dicyclomine 10 mg PO QID #120 cap 11/08/17 Allergies Allergy/AdvReac Type Severity Reaction Status Date / Time budesonide Allergy Severe Swelling Verified 12/15/17 16:58 of Lip/Tongue/Throat formoterol Allergy Severe Swelling Verified 12/15/17 16:58 of Lip/Tongue/Throat codeine Allergy Intermediate Anaphylaxis Verified 12/15/17 16:58 Review of Systems ROS: all other systems reviewed are negative PMFSH History History Provided By: Patient Medical History Medical History Subclavian artery stenosis, left (Acute) 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) Restless leg syndrome (Acute) Depression (Acute) Hypothyroid (Acute) Tobacco abuse (Acute) IBS (irritable bowel syndrome) (Acute) TIA (transient ischemic attack) (Acute) COPD (chronic obstructive pulmonary disease) (Acute) CAD (coronary artery disease) (Acute) PAD (peripheral artery disease) (Acute) Surgical History Surgical History S/P appy (Acute) History of cholecystectomy (Acute) History of (Acute) H/O heart artery stent (Acute) Family History Family History Mother HTN (hypertension) Emphysema of lung Social History Social History Substance History: Active Abuse Second Hand Smoke Exposure: No Smoking Status: Current every day smoker Tobacco Type: Cigarettes How Often Do You Have a Drink Containing Alcohol: Never Recent Travel in [facility] within the Last 8 Weeks: No Recent Out of Country Travel within the Last 8 Weeks: No Substance Abuse Detail Marijuana: Substance Use Status: Active Route Used Substance Abuse: Inhalation Substance Frequency: occ Reason for Use: Calm Down Immunization History Tetanus Immunization: <5 Years Hx Influenza Vaccine This Season: No Exam Const Other: Appears uncomfortable HENMT Head: normocephalic and atraumatic Face and sinus: normal facial exam Eyes General: appearance normal, both eyes and all related structures Pupils: PERRL Chest Chest: normal inspection of the chest Resp Effort & Inspection: normal respiratory effort Auscultation: no rhonchi and no wheezes Cardio Rate: regular rate Rhythm: regular rhythm GI Other: Soft, non-distended, exquisitely tender in all quadrants, no guarding Skin General: no rashes or lesions noted Neuro General: alert, awake, oriented x3 and no focal motor deficits Psych Affect: normal affect Course Consultations Consultation #1: Discussed with and accepted by Dr Rodriguez to [facility] IMC/ICU Initial Documented Vital Signs Temperature 98.5 F 12/15/17 16:54 Pulse Rate 75 12/15/17 16:54 Respiratory Rate 16 12/15/17 16:54 Blood Pressure 99/65 L 12/15/17 16:54 Pulse Oximetry 98 12/15/17 16:54 Last Documented Vital Signs Temperature 97.9 F 12/16/17 00:00 Pulse Rate 68 12/16/17 02:18 Respiratory Rate 16 12/16/17 02:18 Blood Pressure 122/66 12/16/17 02:18 Pulse Oximetry 97 12/16/17 02:18 Critical Care Time Critical Care Time: Yes Total Critical Care Time: 35 Attestation: Aggregate critical care time was 35 minutes. Time to perform other separately billable procedures was not included in the critical care time. My time did not include minutes spent treating any other patients simultaneously or on activities that did not directly contribute to the patient's treatment. The services I provided to this patient were to treat and/or prevent clinically significant deterioration that could result in: Shock, respiratory failure, I provided critical care services requiring my management, as noted below: Chart data review, documentation time, medication orders and management, vital sign assessments/reviewing monitor data, ordering and reviewing lab tests, ordering and interpreting/reviewing x-rays and diagnostic studies, care of the patient and discussion of the patient with the admitting physicians. Sign Out Sign Out Data: Patient Sign Out occurred on 12/15/17 at 19:12. Patient's care was discussed, and care was transferred from Neda Flores DO to Hailey Segundo MD. Sign Out Comment: 52yF with abdominal pain, nausea, vomiting; pending CTA to r/ o mesenteric ischemia/ SBO Last updated by Neda Flores DO at 12/15/17 18:57 Post-Handoff Eval: Accepted in transfer of care from Dr. Flores for follow-up of CTA to evaluate for mesenteric ischemia and small bowel obstruction also patient currently receiving replacement potassium and magnesium and IV fluid boluses for hypotension with patient reportedly baseline systolic blood pressure of 90 mmHg. Patient currently voicing no concerns or complaints but refusing IV potassium and has been administered oral potassium replacement for potassium of 3.3 Medical Decision Making MDM Narrative Medical decision making narrative: Assessment: 52yF presenting with abdominal pain, nausea, vomiting Plan: EKG and monitor IV fluids, antiemetics, pain control (previous charts report profound hypotension after receiving morphine, will give low-dose fentanyl) CTA abd/ pelvis At [address] abdomen pelvis identifies that she has significant arterial vascular disease however stents are patent and no evidence of arterial occlusion is identified however patient is identified to have inflammatory changes around identified sigmoidal diverticulum consistent with sigmoid diverticulitis patient is also identified on review of results of labs to have abnormal urinalysis with positive nitrites positive leukocyte esterase positive WBCs and many bacteria although she was epithelial cells are greater than 10. Total white cell count is in normal range at 8000 does have left shift 75% neutrophils by automated differential globin is stable at 12.9 platelets are normal range at 246,000 electrolytes are remarkable for potassium of 3.3 and magnesium of 1.7 which have been replaced and mild hyponatremia of 130 patient also identified to have normal bicarb of 24 and anion gap of 10 lipase is in normal range at 116 LFTs are also within normal range lactic acid is 0.2 patient is not tachycardic tachypneic or hypotensive and presents afebrile patient's current blood pressure is 99/56 reportedly patient maintains a baseline systolic pressure in the 90s; patient has received 2 L of normal saline ; patient will be administered Zosyn 4.5 g IV piggyback 1 dose and will have blood cultures obtained prior to administration of antibiotic. In view of recent hospitalization with hypotension and pressure support will discuss patient's case with certified personal chef as may benefit from observation overnight in the ICU and then transition to the medicine service after fluid resuscitation electrolyte replacement duration of IV antibiotic therapy. Patient's case discussed with certified personal chef as again pressure has decreased to 80 systolic will administer an additional liter of normal saline; patient has been given Zosyn; patient resting comfortably voicing no concerns or complaints; patient identified to be very sensitive to pain medications with marked drop in blood pressure after morphine during last visit and after receiving pain medication fentanyl here noted to have a drop in blood pressure as well therefore no additional pain medication administered. Patient is aware of imaging results. Patient's case has been discussed with certified personal chef who has graciously accepted the patient for admission to their is patient reports since April 2017 she has kept a low systolic blood pressure due to difficulties with remaining hydrated and recurrent bouts of vomiting and more recently diagnosis of gastroparesis. Patient has normal bicarb normal anion gap normal lactic acid of 0.2 not elevated multiple white cell count. These values were found after patient reportedly intolerant of any oral hydration with episodes of vomiting and ongoing nausea 3 days. No fever no chills. No report of bloody diarrhea. At 9:45 PM patient found at bedside commode using the bathroom and asymptomatic , prior BP 80/53, had gotten off the commode and was getting back in bed when nurse noticed that patient was also eating white rice that had been given to her by her family after being told that she was n.p.o.; current BP: 93/58. Patient reports BP low since April. At 10:25 PM patient noted to have again low blood pressure and sinus bradycardia heart rate 56 therefore started patient on low-dose dopamine infusion; call placed to certified personal chef. Patient with improved BP response to dopamine infusion. Medical Screen Exam Complete: Yes Emergency Medical Condition: Yes Differential Diagnosis Differential Diagnosis: Differential diagnosis includes, but is not limited to: mesenteric ischemia, SBO, gastroparesis, colitis, diverticulitis, pancreatitis, electrolyte derangement, dehydration Lab Data Result diagrams: 12/16/17 02:19 12/16/17 02:19 Lab Results 12/15/17 12/15/17 12/15/17 Range/Units 17:35 17:35 17:35 CBC w Diff Auto diff final WBC 8.0 (4.0-11.0) th/mm3 RBC 4.27 (4.00-5.30) mil/mm3 Hgb 12.9 (11.6-15.3) gm/dL Hct 38.0 (35.0-46.0) % MCV 89.0 (80.0-100.0) fL MCH 30.1 (27.0-34.0) pg MCHC 33.8 (32.0-36.0) % RDW 19.1 H (11.6-17.2) % Plt Count 246 (150-450) th/mm3 MPV 8.8 (7.0-11.0) fL Neut % (Auto) 75.2 H (16.0-70.0) % Lymph % (Auto) 15.2 (9.0-44.0) % [place] % (Auto) 6.5 (0.0-8.0) % Eos % (Auto) 0.6 (0.0-4.0) % Baso % (Auto) 2.5 H (0.0-2.0) % Neut # (Auto) 6.1 (1.8-7.7) th/mm3 Lymph # (Auto) 1.2 (1.0-4.8) th/mm3 [place] # (Auto) 0.5 (0.0-0.9) th/mm3 Eos # (Auto) 0.0 (0.0-0.4) th/mm3 Baso # (Auto) 0.2 (0.0-0.2) th/mm3 WBC Differential . Differential Comment . Hematology Comments PT (9.8-11.6) sec INR Ratio APTT (24.3-30.1) sec Puncture Site Patient Temperature O2 Saturation (90-100) % ABG pH (7.380-7.420) ABG pCO2 (38-42) mmHg ABG pO2 (61-120) mmHg ABG HCO3 (22-26) mmol/L ABG O2 Content (12.0-20.0) Vol % ABG Base Excess (-2-2) mmol/L ABG Methemoglobin (0-2) % Rod Test Hemoglobin (12.0-16.0) G/DL Carboxyhemoglobin (0-4) % O2 Delivery Device Liter Flow L/M Inspired O2 % Critical Value Sodium 130 L (136-145) meq/L Potassium 3.2 L (3.5-5.1) meq/L Chloride 96 L (98-107) meq/L Carbon Dioxide 24.0 (21.0-32.0) meq/L Anion Gap 10 (5-15) meq/L BUN 13 (7-18) mg/dL Creatinine 0.74 (0.50-1.00) mg/dL Estimated GFR 82 L (>89) mL/min Random Glucose 95 (74-106) mg/dL Lactic Acid 0.2 L (0.4-2.0) mmol/L Calcium 10.7 H (8.5-10.1) mg/dL Phosphorus 3.5 (2.5-4.9) mg/dL Magnesium 1.7 (1.5-2.5) mg/dL Total Bilirubin 0.3 (0.2-1.0) mg/dL AST 23 (15-37) U/L ALT 27 (10-53) U/L Alkaline Phosphatase 98 (45-117) U/L Total Creatine Kinase (26-192) U/L Troponin I (0.02-0.05) ng/mL Total Protein 6.8 (6.4-8.2) g/dL Albumin 3.5 (3.4-5.0) g/dL Lipase 116 (73-393) U/L Urine Color (Yellw/Straw) Urine Clarity (Clear) Urine pH (5.0-8.5) Ur Specific [place] (1.002-1.035) Urine Protein (Neg-Trace) mg/dL Urine Glucose (UA) (Negative) mg/dL Urine Ketones (Negative) mg/dL Urine Occult Blood (Negative) Urine Nitrate (Negative) Urine Bilirubin (Negative) Urine Urobilinogen (Less than 2) mg/dL Ur Leukocyte Esterase (Negative) Urine RBC (0-3) /hpf Urine WBC (0-5) /hpf Ur Squamous Epith Cells (0-5) /hpf Urine Bacteria (None) /hpf Micro UA Comment Ur Microscopic Review Urine Culture Comments Urine Opiates Screen (Neg) Ur Barbiturates Screen (Neg) Ur Amphetamines Screen (Neg) U Benzodiazepines Scrn (Neg) Urine Cocaine Screen (Neg) U Cannabinoids Screen (Neg) 12/15/17 12/15/17 12/15/17 Range/Units 18:00 21:40 22:52 CBC w Diff WBC (4.0-11.0) th/mm3 RBC (4.00-5.30) mil/mm3 Hgb (11.6-15.3) gm/dL Hct (35.0-46.0) % MCV (80.0-100.0) fL MCH (27.0-34.0) pg MCHC (32.0-36.0) % RDW (11.6-17.2) % Plt Count (150-450) th/mm3 MPV (7.0-11.0) fL Neut % (Auto) (16.0-70.0) % Lymph % (Auto) (9.0-44.0) % [place] % (Auto) (0.0-8.0) % Eos % (Auto) (0.0-4.0) % Baso % (Auto) (0.0-2.0) % Neut # (Auto) (1.8-7.7) th/mm3 Lymph # (Auto) (1.0-4.8) th/mm3 [place] # (Auto) (0.0-0.9) th/mm3 Eos # (Auto) (0.0-0.4) th/mm3 Baso # (Auto) (0.0-0.2) th/mm3 WBC Differential Differential Comment Hematology Comments PT (9.8-11.6) sec INR Ratio APTT (24.3-30.1) sec Puncture Site Left radial Patient Temperature 98.6 O2 Saturation 89 L* (90-100) % ABG pH 7.30 L (7.380-7.420) ABG pCO2 42 (38-42) mmHg ABG pO2 74 (61-120) mmHg ABG HCO3 20 L (22-26) mmol/L ABG O2 Content 13.7 (12.0-20.0) Vol % ABG Base Excess -5.0 L (-2-2) mmol/L ABG Methemoglobin 1.2 (0-2) % Rod Test Y Hemoglobin 10.9 L (12.0-16.0) G/DL Carboxyhemoglobin 5.2 H* (0-4) % O2 Delivery Device Nasal cannula Liter Flow 3.00 L/M Inspired O2 21 % Critical Value Yes Sodium (136-145) meq/L Potassium (3.5-5.1) meq/L Chloride (98-107) meq/L Carbon Dioxide (21.0-32.0) meq/L Anion Gap (5-15) meq/L BUN (7-18) mg/dL Creatinine (0.50-1.00) mg/dL Estimated GFR (>89) mL/min Random Glucose (74-106) mg/dL Lactic Acid (0.4-2.0) mmol/L Calcium (8.5-10.1) mg/dL Phosphorus (2.5-4.9) mg/dL Magnesium (1.5-2.5) mg/dL Total Bilirubin (0.2-1.0) mg/dL AST (15-37) U/L ALT (10-53) U/L Alkaline Phosphatase (45-117) U/L Total Creatine Kinase (26-192) U/L Troponin I (0.02-0.05) ng/mL Total Protein (6.4-8.2) g/dL Albumin (3.4-5.0) g/dL Lipase (73-393) U/L Urine Color Yellow (Yellw/Straw) Urine Clarity Cloudy H (Clear) Urine pH 6.0 (5.0-8.5) Ur Specific [place] 1.020 (1.002-1.035) Urine Protein Trace (Neg-Trace) mg/dL Urine Glucose (UA) Negative (Negative) mg/dL Urine Ketones Negative (Negative) mg/dL Urine Occult Blood Negative (Negative) Urine Nitrate Positive H (Negative) Urine Bilirubin Negative (Negative) Urine Urobilinogen 0.2 (Less than 2) mg/dL Ur Leukocyte Esterase Small H (Negative) Urine RBC 0-3 (0-3) /hpf Urine WBC 21-50 H (0-5) /hpf Ur Squamous Epith Cells Greater than 10 H (0-5) /hpf Urine Bacteria Many H (None) /hpf Micro UA Comment Culture indicated Ur Microscopic Review Microscopic reviewed Urine Culture Comments Culture indicated Urine Opiates Screen Neg (Neg) Ur Barbiturates Screen Neg (Neg) Ur Amphetamines Screen Neg (Neg) U Benzodiazepines Scrn Neg (Neg) Urine Cocaine Screen Neg (Neg) U Cannabinoids Screen Pos H (Neg) 12/16/17 12/16/17 12/16/17 Range/Units 02:19 02:19 02:19 CBC w Diff WBC 7.3 (4.0-11.0) th/mm3 RBC 4.04 (4.00-5.30) mil/mm3 Hgb 12.4 (11.6-15.3) gm/dL Hct 36.4 (35.0-46.0) % MCV 90.0 (80.0-100.0) fL MCH 30.6 (27.0-34.0) pg MCHC 34.0 (32.0-36.0) % RDW 19.0 H (11.6-17.2) % Plt Count 193 (150-450) th/mm3 MPV 8.6 (7.0-11.0) fL Neut % (Auto) 78.6 H (16.0-70.0) % Lymph % (Auto) 14.3 (9.0-44.0) % [place] % (Auto) 6.3 (0.0-8.0) % Eos % (Auto) 0.6 (0.0-4.0) % Baso % (Auto) 0.2 (0.0-2.0) % Neut # (Auto) 5.7 (1.8-7.7) th/mm3 Lymph # (Auto) 1.0 (1.0-4.8) th/mm3 [place] # (Auto) 0.5 (0.0-0.9) th/mm3 Eos # (Auto) 0.0 (0.0-0.4) th/mm3 Baso # (Auto) 0.0 (0.0-0.2) th/mm3 WBC Differential . Differential Comment Auto diff final Hematology Comments PT 10.2 (9.8-11.6) sec INR 1.0 Ratio APTT 28.3 (24.3-30.1) sec Puncture Site Patient Temperature O2 Saturation (90-100) % ABG pH (7.380-7.420) ABG pCO2 (38-42) mmHg ABG pO2 (61-120) mmHg ABG HCO3 (22-26) mmol/L ABG O2 Content (12.0-20.0) Vol % ABG Base Excess (-2-2) mmol/L ABG Methemoglobin (0-2) % Rod Test Hemoglobin (12.0-16.0) G/DL Carboxyhemoglobin (0-4) % O2 Delivery Device Liter Flow L/M Inspired O2 % Critical Value Sodium 142 D (136-145) meq/L Potassium 3.2 L (3.5-5.1) meq/L Chloride 112 H D (98-107) meq/L Carbon Dioxide 21.9 (21.0-32.0) meq/L Anion Gap 8 (5-15) meq/L BUN 8 (7-18) mg/dL Creatinine 0.67 (0.50-1.00) mg/dL Estimated GFR Greater than 89 (>89) mL/min Random Glucose 119 H (74-106) mg/dL Lactic Acid (0.4-2.0) mmol/L Calcium 9.0 D (8.5-10.1) mg/dL Phosphorus 2.5 D (2.5-4.9) mg/dL Magnesium 2.3 D (1.5-2.5) mg/dL Total Bilirubin 0.2 (0.2-1.0) mg/dL AST 18 (15-37) U/L ALT 21 (10-53) U/L Alkaline Phosphatase 85 (45-117) U/L Total Creatine Kinase 30 (26-192) U/L Troponin I Less than 0.02 L (0.02-0.05) ng/mL Total Protein 6.0 L D (6.4-8.2) g/dL Albumin 2.9 L D (3.4-5.0) g/dL Lipase (73-393) U/L Urine Color (Yellw/Straw) Urine Clarity (Clear) Urine pH (5.0-8.5) Ur Specific [place] (1.002-1.035) Urine Protein (Neg-Trace) mg/dL Urine Glucose (UA) (Negative) mg/dL Urine Ketones (Negative) mg/dL Urine Occult Blood (Negative) Urine Nitrate (Negative) Urine Bilirubin (Negative) Urine Urobilinogen (Less than 2) mg/dL Ur Leukocyte Esterase (Negative) Urine RBC (0-3) /hpf Urine WBC (0-5) /hpf Ur Squamous Epith Cells (0-5) /hpf Urine Bacteria (None) /hpf Micro UA Comment Ur Microscopic Review Urine Culture Comments Urine Opiates Screen (Neg) Ur Barbiturates Screen (Neg) Ur Amphetamines Screen (Neg) U Benzodiazepines Scrn (Neg) Urine Cocaine Screen (Neg) U Cannabinoids Screen (Neg) 12/16/17 Range/Units 02:19 CBC w Diff WBC (4.0-11.0) th/mm3 RBC (4.00-5.30) mil/mm3 Hgb (11.6-15.3) gm/dL Hct (35.0-46.0) % MCV (80.0-100.0) fL MCH (27.0-34.0) pg MCHC (32.0-36.0) % RDW (11.6-17.2) % Plt Count (150-450) th/mm3 MPV (7.0-11.0) fL Neut % (Auto) (16.0-70.0) % Lymph % (Auto) (9.0-44.0) % [place] % (Auto) (0.0-8.0) % Eos % (Auto) (0.0-4.0) % Baso % (Auto) (0.0-2.0) % Neut # (Auto) (1.8-7.7) th/mm3 Lymph # (Auto) (1.0-4.8) th/mm3 [place] # (Auto) (0.0-0.9) th/mm3 Eos # (Auto) (0.0-0.4) th/mm3 Baso # (Auto) (0.0-0.2) th/mm3 WBC Differential Differential Comment Hematology Comments PT (9.8-11.6) sec INR Ratio APTT (24.3-30.1) sec Puncture Site Patient Temperature O2 Saturation (90-100) % ABG pH (7.380-7.420) ABG pCO2 (38-42) mmHg ABG pO2 (61-120) mmHg ABG HCO3 (22-26) mmol/L ABG O2 Content (12.0-20.0) Vol % ABG Base Excess (-2-2) mmol/L ABG Methemoglobin (0-2) % Rod Test Hemoglobin (12.0-16.0) G/DL Carboxyhemoglobin (0-4) % O2 Delivery Device Liter Flow L/M Inspired O2 % Critical Value Sodium (136-145) meq/L Potassium (3.5-5.1) meq/L Chloride (98-107) meq/L Carbon Dioxide (21.0-32.0) meq/L Anion Gap (5-15) meq/L BUN (7-18) mg/dL Creatinine (0.50-1.00) mg/dL Estimated GFR (>89) mL/min Random Glucose (74-106) mg/dL Lactic Acid 0.3 L (0.4-2.0) mmol/L Calcium (8.5-10.1) mg/dL Phosphorus (2.5-4.9) mg/dL Magnesium (1.5-2.5) mg/dL Total Bilirubin (0.2-1.0) mg/dL AST (15-37) U/L ALT (10-53) U/L Alkaline Phosphatase (45-117) U/L Total Creatine Kinase (26-192) U/L Troponin I (0.02-0.05) ng/mL Total Protein (6.4-8.2) g/dL Albumin (3.4-5.0) g/dL Lipase (73-393) U/L Urine Color (Yellw/Straw) Urine Clarity (Clear) Urine pH (5.0-8.5) Ur Specific [place] (1.002-1.035) Urine Protein (Neg-Trace) mg/dL Urine Glucose (UA) (Negative) mg/dL Urine Ketones (Negative) mg/dL Urine Occult Blood (Negative) Urine Nitrate (Negative) Urine Bilirubin (Negative) Urine Urobilinogen (Less than 2) mg/dL Ur Leukocyte Esterase (Negative) Urine RBC (0-3) /hpf Urine WBC (0-5) /hpf Ur Squamous Epith Cells (0-5) /hpf Urine Bacteria (None) /hpf Micro UA Comment Ur Microscopic Review Urine Culture Comments Urine Opiates Screen (Neg) Ur Barbiturates Screen (Neg) Ur Amphetamines Screen (Neg) U Benzodiazepines Scrn (Neg) Urine Cocaine Screen (Neg) U Cannabinoids Screen (Neg) Imaging Data Radiologist's impression: Abdomen/Pelvis CTA 12/15/17 17:26 CONCLUSION: 1. The mesenteric arterial supply appears intact. 2. Thickening of the mid sigmoid colon with surrounding inflammatory change likely from diverticulitis. 3. Atherosclerotic change seen throughout the arterial system as described above. ECG Data Attestation: I personally reviewed and interpreted this ECG as follows: Interpretation: Rate: 62 BPM Rhythm: Sinus [place]: Normal Intervals: Normal intervals, no blocks, QTc 410 ms Q waves: aVL T waves: Inverted in aVL ST segments: No elevations or depressions Impression: Non-specific EKG; aside from isolated Q wave/ TWI in aVL, no significant changes as compared to EKG from 11/03/2017. Discharge Plan Discharge Disposition Patient Disposition: 30 Still Patient Discharge Condition Condition: Fair Discharge Details Diagnosis: Diverticulitis, UTI (urinary tract infection), Hypotension Physicians Team ED Provider: Hailey Segundo Primary Care Provider: UNKNOWN, Attending Provider: Hugo Rodriguez Status ED Status: Left Department Discharge Information Discharge Date/Time: 12/15/17 23:33
[2017-12-15 17:42] LABS: Baso # (Auto) 0.2 th/mm3 (0.0-0.2); Baso % (Auto) 2.5 % (0.0-2.0); Eos % (Auto) 0.6 % (0.0-4.0); Hemoglobin 12.9 gm/dL (11.6-15.3); Lymph # (Auto) 1.2 th/mm3 (1.0-4.8); Lymph % (Auto) 15.2 % (9.0-44.0); Mean Corpuscular HGB Conc 33.8 % (32.0-36.0); Mean Corpuscular Hemoglobin 30.1 pg (27.0-34.0); Mean Platelet Volume 8.8 fL (7.0-11.0); Mono # (Auto) 0.5 th/mm3 (0.0-0.9); Mono % (Auto) 6.5 % (0.0-8.0); Neut # (Auto) 6.1 th/mm3 (1.8-7.7); Neut % (Auto) 75.2 % (16.0-70.0); Platelet Count 246 th/mm3 (150-450); Red Blood Count 4.27 mil/mm3 (4.00-5.30); Red Cell Distribution Width 19.1 % (11.6-17.2)
[2017-12-15 17:50] LABS: Chloride 96 meq/L (98-107); Potassium 3.2 meq/L (3.5-5.1); Sodium 130 meq/L (136-145)
[2017-12-15 17:54] LABS: Albumin 3.5 g/dL (3.4-5.0); Anion Gap 10 meq/L (5-15); Blood Urea Nitrogen 13 mg/dL (7-18); Calcium 10.7 mg/dL (8.5-10.1); Glucose,Random 95 mg/dL (74-106); Lipase 116 U/L (73-393); Magnesium 1.7 mg/dL (1.5-2.5)
[2017-12-15] MEDS ORDERED: Magnesium Sulfate Inj 2 GM in Sodium Chlor 0.9% Inj 96 ML IV.SIG ONE (17:56)
[2017-12-15 17:57] LABS: Alanine Aminotransferase 27 U/L (10-53); Aspartate Aminotransferase 23 U/L (15-37); Glomerular Filtration Rate 82 mL/min (>89); Phosphorus 3.5 mg/dL (2.5-4.9)
[2017-12-15 17:58] LABS: Total Protein 6.8 g/dL (6.4-8.2)
[2017-12-15 18:00] LABS: Alkaline Phosphatase 98 U/L (45-117)
[2017-12-15] MEDS ORDERED: Potassium Chlor 20 mEq Premix 20 MEQ/100 ML PIGGYBACK IV.SIG SCH (18:00)
[2017-12-15 18:14] LABS: Bilirubin,Urine Negative (Negative); Clarity,Urine Cloudy (Clear); Color,Urine Yellow (Yellw/Straw); Glucose,Urine (UA) Negative (Negative); Leukocyte Esterase,Urine Small (Negative); Nitrite,Urine Positive (Negative); Urobilinogen,Urine 0.2 mg/dL (Less than 2)
[2017-12-15 18:19] LABS: Bacteria,Urine Many /hpf; RBC,Urine 0-3 /hpf (0-3); Squamous Epithelial Cell,Urine Greater than 10 /hpf (0-5); WBC,Urine 21-50 /hpf (0-5)
[2017-12-15] MEDS: Mag Sulf 1 gm/100 ml Premix 100 ML IV.SIG SCH ×2 (19:13→20:15)
--- NOTE | 2017-12-15 19:45 | CT ---
EXAM DATE: 12/15/2017 7:27 PM EDT AGE/SEX: 52 years / Female INDICATIONS: Abdominal pain. Evaluate for mesenteric ischemia. CLINICAL DATA: This is the patient's initial encounter. Patient reports that signs and symptoms have been present for 7 - 11 months and indicates a pain score of 8/10. MEDICAL/SURGICAL HISTORY: Irritable bowel syndrome. 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 section. Cholecystectomy. Appendectomy. Multiple abdominal artery stents. RADIATION DOSE: 18.03 CTDI (mGy) COMPARISON: [facility], CT ABDOMEN & PELVIS W CONTRAST, 11/04/2017. . TECHNIQUE: Volumetric scanning was performed using a multi-row detector CT scanner during bolus infu иван of 100 ml Omnipaque 350 (iohexol) nonionic water-soluble contrast as a single exam dose. The data was post processed with a variety of visualization algorithms including full volume maximum inte nsity projection, multi-planar sliding thin slab reformation, curved planar reformation, and surface rendering techniques. Using automated exposure control and adjustment of the mA and/or kV according to patient size, radiation dose was kept as low as reasonably achievable to obtain optimal diagnostic quality images. DICOM format image data is available electronically for review and comparison. FINDINGS: Abdominal Aorta: There is atherosclerotic plaque and calcification seen throughout the abdominal aor ta. There are metallic stents in the proximal celiac and SMA regions. The celiac, SMA and DARRIUS are pat ent. Single renal arteries are seen bilaterally which are patent. Bifurcation: Atherosclerotic change is seen at the aortic bifurcation and proximal common iliac rodney riky bilaterally. There is a stent in the right common iliac artery. There is a moderate to severe st enosis at the proximal left common iliac artery narrowing the lumen by over 50%. Right Pelvis: There is a stent in the right common carotid iliac artery and proximal external iliac artery. The internal iliac artery is patent. Left Pelvis: Again noted is the moderate to severe plaque at the proximal left common iliac artery. There is moderate plaque at the proximal left external iliac artery. There is a stent in the distal l eft common iliac artery extending into the common femoral region. There is increased density seen in the posterior lower lobes likely related to atelectasis. There is some heterogeneity in the spleen which is thought to be secondary to the phase of enhancement. The sp oswaldo appears normal. There is thickening of the sigmoid colon with some mild surrounding inflammatory change. Diverticula are seen in this region. CONCLUSION: 1. The mesenteric arterial supply appears intact. 2. Thickening of the mid sigmoid colon with surrounding inflammatory change likely from diverticulit is. 3. Atherosclerotic change seen throughout the arterial system as described above. Electronically signed by: Steven Conklin MD 12/15/2017 7:44 PM EDT
[2017-12-15] MEDS ORDERED: Piperacil/Tazo 4.5 GM Premix 4.5 GM/100 ML BAG IV.SIG ONE (20:01)
[2017-12-15] MEDS ORDERED: Sod Chloride 0.9% Inj 1,000 ML IV.SIG SCH (20:45)
[2017-12-15] MEDS ORDERED: Sodium Chlor 0.9% Inj 500 ML IV.SIG SCH ×2 (21:00→23:00)
[2017-12-15 22:07] LABS: Amphetamine Screen,Urine Neg (Neg)
[2017-12-15 22:08] LABS: Barbiturate Screen,Urine Neg (Neg)
[2017-12-15 22:11] LABS: Cannabinoid Screen,Urine Pos (Neg)
[2017-12-15 22:12] LABS: Cocaine Screen,Urine Neg (Neg)
[2017-12-15 22:16] LABS: Opiate Screen,Urine Neg (Neg)
[2017-12-15] MEDS ORDERED: DOPamine 800 MG/500 ML Premix 800 MG/500 ML PLAST..BAG IV.CONT PRN (22:17)
[2017-12-15] MEDS ORDERED: DOPamine 400 MG/250 ML Premix 400 MG/250 ML BAG IV.CONT ONE (22:31)
[2017-12-15 23:04] LABS: ABG PCO2 42 mmHg (38-42); ABG PO2 74 mmHg (61-120)
[2017-12-16] MEDS ORDERED: Bisacodyl 10 MG Supp RECTAL PRN (00:20)
[2017-12-16] MEDS ORDERED: Acetaminophen 325 MG Tablet PO PRN (00:20)
[2017-12-16] MEDS ORDERED: HYDROmorphone PF Inj 1 MG/ML Ampul IV.PUSH PRN (00:20)
--- NOTE | 2017-12-16 00:27 | P.HPCC ---
History of Present Illness Primary Care Physician: UNKNOWN History of Present Illness: 52-year-old female presents with abdominal pain, nausea, and vomiting. The patient has an extensive past medical history including multiple stenotic vessels in her abdomen status post multiple stent placement, gastroparesis, and multiple abdominal surgeries. She was admitted last month for hypotension and electrolyte derangements. She states that for the past 8 months she's had diffuse severe abdominal pain which is constant, worse with PO intake and not made better by anything, and non-radiating. For the past 3 days, she has been unable to tolerate any PO intake and reports multiple episodes of vomiting per day. Denies fever but admits to chills, denies chest pain, diarrhea, hematochezia, or dysuria. She was started on aggressive IV fluid resuscitation at the emergency department at [facility] as well as dopamine drip to keep her MAP above 65 and transferred here to [facility] ICU for higher level of care. Inpatient Certification: I certify that the inpatient services were ordered in accordance with Medicare regulations governing the order. This includes certification that hospital inpatient services are reasonable and necessary and in the case of services not specified as inpatient-only under 42 CFR 419.22(n), that they are appropriately provided as inpatient services in accordance to with the 2-midnight benchmark under 43 CFR 412.3(e) Estimated Total Length of Stay (Days): 5 Plans for Post Hospital Care: Not yet determined Review of Systems All other systems reviewed negative except as stated in [facility] - History History Provided By: Patient - Medical History Medical History: Medical History (Last Reviewed 12/15/17 @ 17:42 by Neda Flores DO) Subclavian artery stenosis, left (Acute) 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) Restless leg syndrome (Acute) Depression (Acute) Hypothyroid (Acute) Tobacco abuse (Acute) IBS (irritable bowel syndrome) (Acute) TIA (transient ischemic attack) (Acute) COPD (chronic obstructive pulmonary disease) (Acute) CAD (coronary artery disease) (Acute) PAD (peripheral artery disease) (Acute) - Surgical History Surgical History: Surgical History (Last Reviewed 12/15/17 @ 17:42 by Neda Flores DO) S/P appy (Acute) History of cholecystectomy (Acute) History of (Acute) H/O heart artery stent (Acute) - Family History Family History: Family History (Last Reviewed 12/15/17 @ 17:42 by Neda Flores DO) Mother HTN (hypertension) Emphysema of lung - Tobacco History Second Hand Smoke Exposure: No Tobacco Use In Past 30 Days: Yes Smoking Status: Current every day smoker Tobacco Type: Cigarettes - Alcohol History How Often Do You Have a Drink Containing Alcohol: Never - Substance Use History Substance History: Active Abuse - Substance Use Type Marijuana Status: Active Route Used: Inhalation Frequency: 4-5x/day Reason for Use: Calm Down - Travel History Recent Travel in the [place] Within the Last 8 Weeks: No Recent Travel Out of the Country Within the Last 8 Weeks: No - Immunization History Tetanus Immunization: <5 Years Hx Influenza Vaccine This Season: No Medications and Allergies Active Medications: Active Medications Acetaminophen (Tylenol) 650 mg PO Q6H PRN PRN Reason: PAIN 1-10 AND/OR FEVER >101F Al Hydroxide/Mg Hydroxide (Milk Of Magndionicio Liq) 30 ml PO Q12H PRN PRN Reason: Mild Constipation Albuterol (Duoneb Neb (Prn)) 1 ampul NEB Q2HR NEB PRN PRN Reason: WHEEZING Aspirin (Aspirin Chew) 81 mg PO DAILY REGINALDO Bisacodyl (Dulcolax Supp) 10 mg RECTAL DAILY PRN PRN Reason: SEVERE CONSITIPATION Chlorhexidine Gluconate (Chlorhexidine 2% Cloth) 3 pack TOPICAL DAILY@0400 REGINALDO Stop: 12/21/17 03:59 Chlorhexidine Gluconate (Chlorhexidine 2% Cloth) 3 pack TOPICAL DAILY@0400 PRN PRN Reason: Extra cloth needed Stop: 12/21/17 03:59 Clonazepam (Klonopin) 0.5 mg PO TID REGINALDO Dicyclomine HCl (Bentyl) 10 mg PO QID REGINALDO Hydromorphone HCl (Dilaudid Pf Inj) 1 mg IV.PUSH Q4H PRN PRN Reason: PAIN SCALE 6 TO 10 Sodium Chloride (Ns Inj) 500 mls @ 0 mls/hr IV.SIG BOLUS REGINALDO Last Infusion: 12/15/17 22:58 Dose: Infused Sodium Chloride (Ns Inj) 1,000 mls @ 0 mls/hr IV.SIG BOLUS REGINALDO Last Infusion: 12/15/17 22:00 Dose: Infused Dopamine HCl/Dextrose (Dopamine 800 Mg/500 Ml Premix) 800 mg in 500 mls @ 7.335 mls/hr IV.CONT TITRATE PRN; Protocol PRN Reason: Per Protocol Sodium Chloride (Ns Inj) 500 mls @ 0 mls/hr IV.SIG BOLUS REGINALDO Last Infusion: 12/15/17 23:29 Dose: Infused Sodium Chloride (Ns Inj) 1,000 mls @ 154 mls/hr IV.CONT .Q6H30M REGINALDO Levothyroxine Sodium (Synthroid) 100 mcg PO DAILY REGINALDO Metoclopramide HCl (Reglan Inj) 10 mg IV.PUSH Q6H PRN; Protocol PRN Reason: NAUSEA OR VOMITING Ondansetron HCl (Zofran Inj) 4 mg IV.PUSH Q6H PRN PRN Reason: NAUSEA OR VOMITING Pantoprazole Sodium (Protonix) 40 mg PO DAILY [facility] Potassium Chloride (Klor-Con 10) 10 meq PO DAILY [facility] Rivaroxaban (Xarelto) 20 mg PO DAILY [facility] Ropinirole HCl (Requip) 2 mg PO DAILY [facility] Senna/Docusate Sodium (Ericka-Colace) 1 tab PO BID [facility] Sennosides (Senokot) 17.2 mg PO Q12H PRN PRN Reason: Moderate Constipation Sertraline HCl (Zoloft) 200 mg PO DAILY [facility] Sodium Chloride (Ns Flush) 2 ml IV.FLUSH PRN PRN PRN Reason: FLUSH AFTER USING IV ACCESS Sodium Chloride (Ns Flush) 2 ml IV.FLUSH BID REGINALDO Sodium Chloride (Ns Flush) 2 ml IV.FLUSH PRN PRN PRN Reason: FLUSH AFTER USING IV ACCESS Allergies Allergy/AdvReac Type Severity Reaction Status Date / Time budesonide Allergy Severe Swelling Verified 12/15/17 16:58 of Lip/Tongue/Throat formoterol Allergy Severe Swelling Verified 12/15/17 16:58 of Lip/Tongue/Throat codeine Allergy Intermediate Anaphylaxis Verified 12/15/17 16:58 Home Medications Medication Instructions Recorded Confirmed Type Aspirin Low Dose 81 mg PO DAILY 11/03/17 12/15/17 History albuterol sulfate [ProAir HFA] 2 puff INHALATION Q4H PRN 11/03/17 12/15/17 History levothyroxine 100 mcg PO DAILY 11/03/17 12/15/17 History lisinopril 5 mg PO DAILY 11/03/17 12/15/17 History metoprolol succinate 50 mg PO DAILY 11/03/17 12/15/17 History pantoprazole [Protonix] 40 mg PO DAILY 11/03/17 12/15/17 History potassium chloride [Klor-Con 10] 10 meq PO DAILY 11/03/17 12/15/17 History rivaroxaban [Xarelto] 20 mg PO DAILY 11/03/17 12/15/17 History ropinirole 2 mg PO DAILY 11/03/17 12/15/17 History sertraline 200 mg PO DAILY 11/03/17 12/15/17 History umeclidinium-vilanterol [Anoro 1 inh INHALATION Q24H 11/03/17 12/15/17 History Ellipta] ziprasidone HCl [Geodon] 80 mg PO QPM 11/03/17 12/15/17 History clonazepam 0.5 mg PO TID 12/15/17 12/15/17 History Results - Labs CBC & Chem 7: 12/16/17 02:19 12/16/17 02:19 Labs: Short CBC 12/15/17 Range/Units 17:35 WBC 8.0 (4.0-11.0) th/mm3 Hgb 12.9 (11.6-15.3) gm/dL Hct 38.0 (35.0-46.0) % Plt Count 246 (150-450) th/mm3 BMP 12/15/17 17:35 Sodium 130 L Potassium 3.2 L Chloride 96 L Carbon Dioxide 24.0 BUN 13 Creatinine 0.74 Calcium 10.7 H Liver Function 12/15/17 Range/Units 17:35 Total Bilirubin 0.3 (0.2-1.0) mg/dL AST 23 (15-37) U/L ALT 27 (10-53) U/L Alkaline Phosphatase 98 (45-117) U/L Albumin 3.5 (3.4-5.0) g/dL Urine 12/15/17 Range/Units 18:00 Urine Color Yellow (Yellw/Straw) Urine Clarity Cloudy H (Clear) Urine pH 6.0 (5.0-8.5) Ur Specific Leonore 1.020 (1.002-1.035) Urine Protein Trace (Neg-Trace) mg/dL Urine Glucose (UA) Negative (Negative) mg/dL - Imaging Impressions Abdomen/Pelvis CTA 12/15/17 17:26 CONCLUSION: 1. The mesenteric arterial supply appears intact. 2. Thickening of the mid sigmoid colon with surrounding inflammatory change likely from diverticulitis. 3. Atherosclerotic change seen throughout the arterial system as described above. Exam Vital signs: Vital Signs 12/15/17 16:54 12/15/17 17:20 12/15/17 18:00 Temperature 98.5 F Pulse Rate 75 64 63 Respiratory Rate 16 16 16 Blood Pressure 99/65 L 92/52 L 91/62 L Pulse Oximetry 98 99 97 12/15/17 19:22 12/15/17 20:05 12/15/17 20:58 Temperature Pulse Rate 65 63 63 Respiratory Rate 18 18 20 Blood Pressure 102/65 99/59 L 73/49 L Pulse Oximetry 96 98 12/15/17 21:05 12/15/17 21:36 12/15/17 21:48 Temperature Pulse Rate 62 60 58 L Respiratory Rate 18 16 18 Blood Pressure 74/49 L 80/53 L 93/58 L Pulse Oximetry 99 95 96 12/15/17 22:29 12/15/17 22:43 12/15/17 22:59 Temperature Pulse Rate 56 L 58 L 58 L Respiratory Rate 18 Blood Pressure 63/49 L 73/40 L 92/57 L Pulse Oximetry 99 98 12/15/17 23:13 12/15/17 23:30 12/15/17 23:58 Temperature Pulse Rate 69 70 Respiratory Rate Blood Pressure 104/63 116/63 Pulse Oximetry 99 87 L 12/16/17 00:00 12/16/17 00:05 Temperature 97.9 F Pulse Rate 83 79 Respiratory Rate 11 L 15 Blood Pressure 114/54 L Pulse Oximetry 88 L 97 Intake & Output 12/15/17 12/15/17 12/16/17 06:59 18:59 06:59 Intake Total 1000 / 1000 3300 / 3300 Output Total 1600 / 1600 Balance 1000 / 1000 1700 / 1700 Weight 65.2 kg 69 kg Intake: IV 1000 / 1000 3300 / 3300 Magnesium Sulfate 1 gm/D5W 100 200 / 200 ml Premix 100 ML @ 100 mls/hr IV.SIG Q1H [facility] Rx#:[id number] Zosyn 4.5 GM Premix 4.5 gm In 100 / 100 100 ml @ 200 mls/hr IV.SIG ONCE ONE Rx#:[id number] NS Inj 1,000 ML @ Wide Open IV. 1000 / 1000 1000 / 1000 SIG BOLUS REGINALDO Rx#:[id number] NS Inj 500 ML @ Wide Open IV. 1000 / 1000 SIG BOLUS REGINALDO Rx#:[id number] Output: Urine 1600 / 1600 Other: # Voids 1 # Urine Diapers 1 Weight On Admission 69 kg - Constitutional mild distress - Routine HEENT Exam Head: Present: normocephalic, atraumatic Eye: Present: PERRL, normal accommodation. Absent: conjunctival icterus ENT: Present: mucous membranes moist - Routine Neck Exam Present: supple, full ROM. Absent: JVD, carotid bruit - Routine Respiratory Exam Absent: accessory muscle use, rhonchi, stridor, wheezes - Routine Cardiovascular Exam Present: RRR, S1, S2. Absent: murmur, gallop, rubs - Routine Abdominal Exam Present: soft, normoactive bowel sounds. Absent: tenderness, distended - Routine Extremities Exam Absent: cyanosis, clubbing, edema - Routine Skin Exam Absent: intact, cyanosis - Routine Neurological Exam Present: alert, oriented X3 Septic Shock Reassessment Septic shock perfusion: reassessment completed Caprini VTE Risk Assessment Caprini VTE Risk Assessment: Moderate/High Risk (score >= 2) Caprini Risk Assessment Model: Point Value = 1 Point Value = 2 Point Value = 3 Point Value = 5 Age 41-60 Minor surgery BMI > 25 kg/m2 Swollen legs Varicose veins or History of unexplained or recurrent spontaneous Oral contraceptives or hormone replacement Sepsis (< 1 month) Serious lung disease, including pneumonia (< 1 month) Abnormal pulmonary function Acute myocardial infarction Congestive heart failure (< 1 month) History of inflammatory bowel disease Medical patient at bed rest Age 61-74 Arthroscopic surgery Major open surgery (> 45 min) Laparoscopic surgery (> 45 min) Malignancy Confined to bed (> 72 hours) Immobilizing plaster cast Central venous access Age >= 75 History of VTE Family history of VTE Factor V Leiden Prothrombin [id number] Lupus anticoagulant Anticardiolipin antibodies Elevated serum homocysteine Heparin-induced thrombocytopenia Other congenital or acquired thrombophilia Stroke (< 1 month) Elective arthroplasty Hip, pelvis, or leg fracture Acute spinal cord injury (< 1 month) Prophylaxis Regimen: Total Risk Factor Score Risk Level Prophylaxis Regimen 0-1 Low Early ambulation 2 Moderate Order ONE of the following: *Sequential Compression Device (SCD) *Heparin 5000 units SQ BID 3-4 Higher Order ONE of the following medications: *Heparin 5000 units SQ TID *Enoxaparin/Lovenox 40 mg SQ daily (WT < 150 kg, CrCl > 30 mL/min) *Enoxaparin/Lovenox 30 mg SQ daily (WT < 150 kg, CrCl > 10-29 mL/min) *Enoxaparin/Lovenox 30 mg SQ BID (WT < 150 kg, CrCl > 30 mL/min) AND/OR *Sequential Compression Device (SCD) 5 or more Highest Order ONE of the following medications: *Heparin 5000 units SQ TID (Preferred with Epidurals) *Enoxaparin/Lovenox 40 mg SQ daily (WT < 150 kg, CrCl > 30 mL/min) *Enoxaparin/Lovenox 30 mg SQ daily (WT < 150 kg, CrCl > 10-29 mL/min) *Enoxaparin/Lovenox 30 mg SQ BID (WT < 150 kg, CrCl > 30 mL/min) AND *Sequential Compression Device (SCD) Assessment and Plan - Assessment and Plan Plan: Diverticulitis -Broad-spectrum antibiotics -N.p.o. -IV fluid hydration -Gastroenterology consultation Hypotension -Due to dehydration/SIRS/sepsis -Aggressive IV fluid resuscitation -Blood cultures to follow-up -Dopamine as needed to keep map above 65 Restless leg syndrome -Ropinirole Depression (Acute) -Sertraline Hypothyroid -Levothyroxine IBS -Dicyclomine COPD -DuoNeb PRN -O2 nasal cannula as needed CAD -Aspirin -Hold beta-satish and lisinopril due to hypotension DVT GI prophylaxis -Teds SCDs -Xarelto -Protonix 35 minutes of critical care H&P: Quality - VTE Deep Vein Thrombosis/Pulmonary Embolism Present on Admission: No
[2017-12-16] MEDS ORDERED: Sod Chloride 0.9% Inj 2,000 ML IV.SIG STA (01:38)
[2017-12-16 02:40] LABS: Baso % (Auto) 0.2 % (0.0-2.0); Eos % (Auto) 0.6 % (0.0-4.0); Hematocrit 36.4 % (35.0-46.0); Hemoglobin 12.4 gm/dL (11.6-15.3); Lymph % (Auto) 14.3 % (9.0-44.0); Mean Corpuscular Hemoglobin 30.6 pg (27.0-34.0); Mean Platelet Volume 8.6 fL (7.0-11.0); Mono # (Auto) 0.5 th/mm3 (0.0-0.9); Mono % (Auto) 6.3 % (0.0-8.0); Neut # (Auto) 5.7 th/mm3 (1.8-7.7); Neut % (Auto) 78.6 % (16.0-70.0); Platelet Count 193 th/mm3 (150-450); Red Blood Count 4.04 mil/mm3 (4.00-5.30); White Blood Count 7.3 th/mm3 (4.0-11.0)
[2017-12-16 02:41] LABS: Alanine Aminotransferase 21 U/L (10-53); Albumin 2.9 g/dL (3.4-5.0); Anion Gap 8 meq/L (5-15); Aspartate Aminotransferase 18 U/L (15-37); Blood Urea Nitrogen 8 mg/dL (7-18); Carbon Dioxide 21.9 meq/L (21.0-32.0); Chloride 112 meq/L (98-107); Glomerular Filtration Rate Greater Than 89 mL/min (>89); Glucose,Random 119 mg/dL (74-106); Magnesium 2.3 mg/dL (1.5-2.5); Phosphorus 2.5 mg/dL (2.5-4.9); Potassium 3.2 meq/L (3.5-5.1); Sodium 142 meq/L (136-145)
[2017-12-16 02:45] LABS: Alkaline Phosphatase 85 U/L (45-117)
[2017-12-16 02:46] LABS: Activated Partial Thrombo Time 28.3 sec (24.3-30.1); Creatine Kinase 30 U/L (26-192); Prothrombin Time 10.2 sec (9.8-11.6)
[2017-12-16] MEDS ORDERED: Chlorhexidine Gluconate 2% 1 Pack (2 Cloths) TOPICAL PRN (04:00)
[2017-12-16] MEDS: Chlorhexidine Gluconate 2% 1 Pack (2 Cloths) TOPICAL SCH (05:52)
[2017-12-16] MEDS: Sod Chloride 0.9% Inj 1,000 ML IV.CONT SCH ×4 (05:53→21:26)
--- NOTE | 2017-12-16 08:53 | P.CONGI ---
History of Present Illness Consult date: 12/16/17 Consult reason: Abdominal pain Chief complaint: Sigmoid Diverticulitis; UTI; Recurring Hypotension History of Present Illness: This is a 52 yo F with PMH significant for mesenteric ischemia S/P stenting of the celiac axis and SMA, PAD with bilateral iliac stent, left subclavian stent, hypothyroidism, depression, chronic pain, restless leg syndrome, TIA and GERD who presented to the ER yesterday with complaints of nausea, vomiting and abdominal pain. Pt reports that this abdominal pain is not new and that it just never improves, she came in because of her blood pressure. She attributes her abdominal pain to her known gastroparesis. She states abdominal pain is constant , described as dull and aching, located throughout her entire abdomen. Reports multiple episodes of emesis daily, related to PO intake. Also reports abdominal bloating after meals. Pt does report BMs are normal, last BM was yesterday, takes Linzess at home. Pt does not currently have a GI doctor that she follows outpatient, she was previously seeing on in [place]. She is known to our service from previous admissions, lat seen in October of this year. Pt was advised to stop smoking marijuana and informed about the possibility of cyclical vomiting, however, pt continues to smoke marijuana, last smoked yesterday. She states the only think she takes for her gastroparesis is Bentyl. She had a previous GES done in October, she was found to be unresponsive to Reglan and was placed on trial of Bethanechol. Last EGD in and colonoscopy in October 2017 --> Mild gastritis, mild diverticulosis, internal hemorrhoids. Pathology (stomach antrum) features suggestive of reactive gastropathy (ascending colon and descending colon) without significant histologic abnormality. Denies ETOH. Smokes 10 cigarettes a day. Also admits to routine marijuana use, last use was yesterday. Denies NSAID use. Of note, pt is on Xarelto and ASA for multiple stents, states her sand tester told her she needs one in her carotid. <Carin Omalley - Last Filed: 12/16/17 13:24> Review of Systems Constitutional: Reports lack of energy Gastrointestinal: Reports abdominal pain, Reports nausea, Reports vomiting, Denies black, tarry stools, Denies bright, red blood in stools, Denies change in bowel habits, Denies vomiting blood Comments: abdominal bloating <Carin Omalley - Last Filed: 12/16/17 13:24> PMFSH - History History Provided By: Patient - Medical History Medical History: Medical History (Last Reviewed 12/16/17 @ 08:53 by Robina Velasco) Subclavian artery stenosis, left (Acute) 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) Restless leg syndrome (Acute) Depression (Acute) Hypothyroid (Acute) Tobacco abuse (Acute) IBS (irritable bowel syndrome) (Acute) TIA (transient ischemic attack) (Acute) COPD (chronic obstructive pulmonary disease) (Acute) CAD (coronary artery disease) (Acute) PAD (peripheral artery disease) (Acute) - Surgical History Surgical History: Surgical History (Last Reviewed 12/15/17 @ 17:42 by Neda Flores DO) S/P appy (Acute) History of cholecystectomy (Acute) History of (Acute) H/O heart artery stent (Acute) - Family History Family History: Family History (Last Reviewed 12/15/17 @ 17:42 by Neda Flores DO) Mother HTN (hypertension) Emphysema of lung - Tobacco History Second Hand Smoke Exposure: No Tobacco Use In Past 30 Days: Yes Smoking Status: Current every day smoker Tobacco Type: Cigarettes - Alcohol History How Often Do You Have a Drink Containing Alcohol: Never - Substance Use History Substance History: Active Abuse - Substance Use Type Marijuana Status: Active Route Used: Inhalation Frequency: 4-5x/day Reason for Use: Calm Down - Travel History Recent Travel in the [place] Within the Last 8 Weeks: No Recent Travel Out of the Country Within the Last 8 Weeks: No - Immunization History Tetanus Immunization: <5 Years Hx Influenza Vaccine This Season: No <Carin Omalley - Last Filed: 12/16/17 13:24> - Medical History Medical History: Medical History (Last Reviewed 12/16/17 @ 08:53 by Robina Velasco) Subclavian artery stenosis, left (Acute) 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) Restless leg syndrome (Acute) Depression (Acute) Hypothyroid (Acute) Tobacco abuse (Acute) IBS (irritable bowel syndrome) (Acute) TIA (transient ischemic attack) (Acute) COPD (chronic obstructive pulmonary disease) (Acute) CAD (coronary artery disease) (Acute) PAD (peripheral artery disease) (Acute) - Surgical History Surgical History: Surgical History (Last Reviewed 12/15/17 @ 17:42 by Neda Flores DO) S/P appy (Acute) History of cholecystectomy (Acute) History of (Acute) H/O heart artery stent (Acute) - Family History Family History: Family History (Last Reviewed 12/15/17 @ 17:42 by Neda Flores DO) Mother HTN (hypertension) Emphysema of lung <Gabe Brady - Last Filed: 12/16/17 15:25> Medications and Allergies Active Medications: Active Medications Acetaminophen (Tylenol) 650 mg PO Q6H PRN PRN Reason: PAIN 1-10 AND/OR FEVER >101F Al Hydroxide/Mg Hydroxide (Milk Of Magndionicio Liq) 30 ml PO Q12H PRN PRN Reason: Mild Constipation Albuterol (Duoneb Neb (Prn)) 1 ampul NEB Q2HR NEB PRN PRN Reason: WHEEZING Aspirin (Aspirin Chew) 81 mg PO DAILY [facility] Bisacodyl (Dulcolax Supp) 10 mg RECTAL DAILY PRN PRN Reason: SEVERE CONSITIPATION Chlorhexidine Gluconate (Chlorhexidine 2% Cloth) 3 pack TOPICAL DAILY@0400 [facility] Stop: 12/21/17 03:59 Last Admin: 12/16/17 05:52 Dose: 3 pack Chlorhexidine Gluconate (Chlorhexidine 2% Cloth) 3 pack TOPICAL DAILY@0400 PRN PRN Reason: Extra cloth needed Stop: 12/21/17 03:59 Clonazepam (Klonopin) 0.5 mg PO TID [facility] Dicyclomine HCl (Bentyl) 10 mg PO QID [facility] Hydromorphone HCl (Dilaudid Pf Inj) 1 mg IV.PUSH Q4H PRN PRN Reason: PAIN SCALE 6 TO 10 Sodium Chloride (Ns Inj) 500 mls @ 0 mls/hr IV.SIG BOLUS [facility] Last Infusion: 12/15/17 22:58 Dose: Infused Sodium Chloride (Ns Inj) 1,000 mls @ 0 mls/hr IV.SIG BOLUS [facility] Last Infusion: 12/15/17 22:00 Dose: Infused Dopamine HCl/Dextrose (Dopamine 800 Mg/500 Ml Premix) 800 mg in 500 mls @ 7.335 mls/hr IV.CONT TITRATE PRN; Protocol PRN Reason: Per Protocol Sodium Chloride (Ns Inj) 500 mls @ 0 mls/hr IV.SIG BOLUS [facility] Last Infusion: 12/15/17 23:29 Dose: Infused Sodium Chloride (Ns Inj) 1,000 mls @ 154 mls/hr IV.CONT .Q6H30M [facility] Last Admin: 12/16/17 05:53 Dose: 154 mls/hr Ceftriaxone Sodium 1,000 mg/ (Sodium Chloride) 100 mls @ 200 mls/hr IV.SIG Q12H [facility] Last Infusion: 12/16/17 06:31 Dose: 200 mls/hr Metronidazole/Sodium Chloride (Flagyl 500 Mg Inj) 100 mls @ 100 mls/hr IV.SIG Q6H [facility] Last Admin: 12/16/17 05:52 Dose: 100 mls/hr Lactulose (Lactulose Liq) 30 ml PO DAILY PRN PRN Reason: SEVERE CONSITIPATION Levothyroxine Sodium (Synthroid) 100 mcg PO DAILY [facility] Metoclopramide HCl (Reglan Inj) 10 mg IV.PUSH Q6H PRN; Protocol PRN Reason: NAUSEA OR VOMITING Ondansetron HCl (Zofran Inj) 4 mg IV.PUSH Q6H PRN PRN Reason: NAUSEA OR VOMITING Pantoprazole Sodium (Protonix) 40 mg PO DAILY [facility] Potassium Chloride (Klor-Con 10) 10 meq PO DAILY [facility] Rivaroxaban (Xarelto) 20 mg PO DAILY [facility] Ropinirole HCl (Requip) 2 mg PO DAILY [facility] Senna/Docusate Sodium (Ericka-Colace) 1 tab PO BID [facility] Sennosides (Senokot) 17.2 mg PO Q12H PRN PRN Reason: Moderate Constipation Sertraline HCl (Zoloft) 200 mg PO DAILY [facility] Sodium Chloride (Ns Flush) 2 ml IV.FLUSH PRN PRN PRN Reason: FLUSH AFTER USING IV ACCESS Sodium Chloride (Ns Flush) 2 ml IV.FLUSH BID [facility] Sodium Chloride (Ns Flush) 2 ml IV.FLUSH PRN PRN PRN Reason: FLUSH AFTER USING IV ACCESS <Carin Omalley - Last Filed: 12/16/17 13:24> Active Medications: Active Medications Acetaminophen (Tylenol) 650 mg PO Q6H PRN PRN Reason: PAIN 1-10 AND/OR FEVER >101F Al Hydroxide/Mg Hydroxide (Milk Of Lary Barney) 30 ml PO Q12H PRN PRN Reason: Mild Constipation Albuterol (Duoneb Neb (Prn)) 1 ampul NEB Q2HR NEB PRN PRN Reason: WHEEZING Aspirin (Aspirin Chew) 81 mg PO DAILY [facility] Last Admin: 12/16/17 09:08 Dose: 81 mg Bethanechol Chloride (Urecholine) 10 mg PO TID [facility] Last Admin: 12/16/17 12:26 Dose: 10 mg Bisacodyl (Dulcolax Supp) 10 mg RECTAL DAILY PRN PRN Reason: SEVERE CONSITIPATION Chlorhexidine Gluconate (Chlorhexidine 2% Cloth) 3 pack TOPICAL DAILY@0400 [facility] Stop: 12/21/17 03:59 Last Admin: 12/16/17 05:52 Dose: 3 pack Chlorhexidine Gluconate (Chlorhexidine 2% Cloth) 3 pack TOPICAL DAILY@0400 PRN PRN Reason: Extra cloth needed Stop: 12/21/17 03:59 Clonazepam (Klonopin) 0.5 mg PO TID [facility] Last Admin: 12/16/17 12:25 Dose: 0.5 mg Dicyclomine HCl (Bentyl) 10 mg PO QID [facility] Last Admin: 12/16/17 12:26 Dose: 10 mg Hydromorphone HCl (Dilaudid Pf Inj) 1 mg IV.PUSH Q4H PRN PRN Reason: PAIN 6-10 Last Admin: 12/16/17 12:26 Dose: 1 mg Sodium Chloride (Ns Inj) 500 mls @ 0 mls/hr IV.SIG BOLUS [facility] Last Infusion: 12/15/17 22:58 Dose: Infused Sodium Chloride (Ns Inj) 1,000 mls @ 0 mls/hr IV.SIG BOLUS [facility] Last Infusion: 12/15/17 22:00 Dose: Infused Dopamine HCl/Dextrose (Dopamine 800 Mg/500 Ml Premix) 800 mg in 500 mls @ 7.335 mls/hr IV.CONT TITRATE PRN; Protocol PRN Reason: Per Protocol Sodium Chloride (Ns Inj) 500 mls @ 0 mls/hr IV.SIG BOLUS [facility] Last Infusion: 12/15/17 23:29 Dose: Infused Sodium Chloride (Ns Inj) 1,000 mls @ 154 mls/hr IV.CONT .Q6H30M [facility] Last Admin: 12/16/17 14:41 Dose: 154 mls/hr Ceftriaxone Sodium 1,000 mg/ (Sodium Chloride) 100 mls @ 200 mls/hr IV.SIG Q12H [facility] Last Infusion: 12/16/17 09:11 Dose: Infused Metronidazole/Sodium Chloride (Flagyl 500 Mg Inj) 100 mls @ 100 mls/hr IV.SIG Q6H [facility] Last Infusion: 12/16/17 13:53 Dose: Infused Lactulose (Lactulose Liq) 30 ml PO DAILY PRN PRN Reason: SEVERE CONSITIPATION Levothyroxine Sodium (Synthroid) 100 mcg PO DAILY [facility] Last Admin: 12/16/17 09:08 Dose: 100 mcg Ondansetron HCl (Zofran Inj) 4 mg IV.PUSH Q6H PRN PRN Reason: NAUSEA OR VOMITING Last Admin: 12/16/17 09:11 Dose: 4 mg Pantoprazole Sodium (Protonix) 40 mg PO DAILY [facility] Last Admin: 12/16/17 09:09 Dose: 40 mg Potassium Chloride (Klor-Con 10) 10 meq PO DAILY [facility] Last Admin: 12/16/17 09:09 Dose: 10 meq Rivaroxaban (Xarelto) 20 mg PO DAILY [facility] Last Admin: 12/16/17 10:21 Dose: 20 mg Ropinirole HCl (Requip) [address] [facility] Senna/Docusate Sodium (Ericka-Colace) 1 tab PO BID [facility] Last Admin: 12/16/17 09:09 Dose: 1 tab Sennosides (Senokot) 17.2 mg PO Q12H PRN PRN Reason: Moderate Constipation Sertraline HCl (Zoloft) 200 mg PO DAILY [facility] Last Admin: 12/16/17 09:37 Dose: 200 mg Sodium Chloride (Ns Flush) 2 ml IV.FLUSH PRN PRN PRN Reason: FLUSH AFTER USING IV ACCESS Sodium Chloride (Ns Flush) 2 ml IV.FLUSH BID [facility] Last Admin: 12/16/17 09:09 Dose: 2 ml Sodium Chloride (Ns Flush) 2 ml IV.FLUSH PRN PRN PRN Reason: FLUSH AFTER USING IV ACCESS <Gabe Brady - Last Filed: 12/16/17 15:25> Allergies Allergy/AdvReac Type Severity Reaction Status Date / Time budesonide Allergy Severe Swelling Verified 12/15/17 16:58 of Lip/Tongue/Throat formoterol Allergy Severe Swelling Verified 12/15/17 16:58 of Lip/Tongue/Throat codeine Allergy Intermediate Anaphylaxis Verified 12/15/17 16:58 Home Medications Medication Instructions Recorded Confirmed Type Aspirin Low Dose 81 mg PO DAILY 11/03/17 12/15/17 History albuterol sulfate [ProAir HFA] 2 puff INHALATION Q4H PRN 11/03/17 12/15/17 History levothyroxine 100 mcg PO DAILY 11/03/17 12/15/17 History lisinopril 5 mg PO DAILY 11/03/17 12/15/17 History metoprolol succinate 50 mg PO DAILY 11/03/17 12/15/17 History pantoprazole [Protonix] 40 mg PO DAILY 11/03/17 12/15/17 History potassium chloride [Klor-Con 10] 10 meq PO DAILY 11/03/17 12/15/17 History rivaroxaban [Xarelto] 20 mg PO DAILY 11/03/17 12/15/17 History ropinirole 2 mg PO DAILY 11/03/17 12/15/17 History sertraline 200 mg PO DAILY 11/03/17 12/15/17 History umeclidinium-vilanterol [Anoro 1 inh INHALATION Q24H 11/03/17 12/15/17 History Ellipta] ziprasidone HCl [Geodon] 80 mg PO QPM 11/03/17 12/15/17 History clonazepam 0.5 mg PO TID 12/15/17 12/15/17 History Exam Vital signs: Vital Signs 12/15/17 16:54 12/15/17 17:20 12/15/17 18:00 Temperature 98.5 F Pulse Rate 75 64 63 Respiratory Rate 16 16 16 Blood Pressure 99/65 L 92/52 L 91/62 L Pulse Oximetry 98 99 97 12/15/17 19:22 12/15/17 20:05 12/15/17 20:58 Temperature Pulse Rate 65 63 63 Respiratory Rate 18 18 20 Blood Pressure 102/65 99/59 L 73/49 L Pulse Oximetry 96 98 12/15/17 21:05 12/15/17 21:36 12/15/17 21:48 Temperature Pulse Rate 62 60 58 L Respiratory Rate 18 16 18 Blood Pressure 74/49 L 80/53 L 93/58 L Pulse Oximetry 99 95 96 12/15/17 22:29 12/15/17 22:43 12/15/17 22:59 Temperature Pulse Rate 56 L 58 L 58 L Respiratory Rate 18 Blood Pressure 63/49 L 73/40 L 92/57 L Pulse Oximetry 99 98 12/15/17 23:13 12/15/17 23:30 12/15/17 23:58 Temperature Pulse Rate 69 70 Respiratory Rate Blood Pressure 104/63 116/63 Pulse Oximetry 99 87 L 12/16/17 00:00 12/16/17 00:05 12/16/17 00:15 Temperature 97.9 F Pulse Rate 83 79 72 Respiratory Rate 11 L 15 18 Blood Pressure 114/54 L 130/66 Pulse Oximetry 88 L 97 97 12/16/17 00:30 12/16/17 00:45 12/16/17 01:00 Temperature Pulse Rate 73 74 73 Respiratory Rate 21 25 H 28 H Blood Pressure 115/58 L 111/58 L 108/58 L Pulse Oximetry 95 95 95 12/16/17 01:15 12/16/17 01:38 12/16/17 02:00 Temperature Pulse Rate 73 71 67 Respiratory Rate 17 21 18 Blood Pressure 113/62 117/62 76/48 L Pulse Oximetry 97 96 97 12/16/17 02:07 12/16/17 02:08 12/16/17 02:18 Temperature Pulse Rate 61 62 68 Respiratory Rate 22 23 16 Blood Pressure 71/40 L 71/46 L 122/66 Pulse Oximetry 95 96 97 12/16/17 03:00 12/16/17 04:00 12/16/17 04:56 Temperature 98.2 F Pulse Rate 102 H 65 76 Respiratory Rate 19 22 24 Blood Pressure 106/63 Pulse Oximetry 93 L 96 99 12/16/17 05:00 12/16/17 05:01 12/16/17 05:02 Temperature Pulse Rate 69 66 66 Respiratory Rate 22 33 H 30 H Blood Pressure 83/45 L 79/47 L Pulse Oximetry 99 98 98 12/16/17 05:07 12/16/17 06:00 12/16/17 06:02 Temperature Pulse Rate 65 64 62 Respiratory Rate 20 21 10 L Blood Pressure 103/59 L 98/55 L Pulse Oximetry 96 100 100 12/16/17 06:15 Temperature Pulse Rate 61 Respiratory Rate 14 Blood Pressure 75/46 L Pulse Oximetry 91 L Intake & Output 12/15/17 12/16/17 12/16/17 18:59 06:59 18:59 Intake Total 1000 / 1000 3300 / 3300 Output Total 4100 / 4100 Balance 1000 / 1000 -800 / -800 Weight 65.2 kg 68.946 kg Intake: IV 1000 / 1000 3300 / 3300 Magnesium Sulfate 1 gm/D5W 100 200 / 200 ml Premix 100 ML @ 100 mls/hr IV.SIG Q1H [facility] Rx#:[id number] Zosyn 4.5 GM Premix 4.5 gm In 100 / 100 100 ml @ 200 mls/hr IV.SIG ONCE ONE Rx#:[id number] NS Inj 1,000 ML @ Wide Open IV. 1000 / 1000 1000 / 1000 SIG BOLUS [facility] Rx#:[id number] NS Inj 500 ML @ Wide Open IV. 1000 / 1000 SIG BOLUS [facility]DO Rx#:[id number] Output: Urine 4100 / 4100 Other: # Voids 1 # Urine Diapers 0 Weight On Admission 69 kg - Constitutional no acute distress - Routine HEENT Exam Head: Present: normocephalic, atraumatic - Routine Respiratory Exam Absent: accessory muscle use - Routine Abdominal Exam Present: soft, normoactive bowel sounds, tenderness (diffuse tenderness ), distended - Routine Skin Exam Present: dry, warm - Routine Neurological Exam Present: alert, oriented X3 <Carin Omalley - Last Filed: 12/16/17 13:24> Vital signs: Vital Signs 12/15/17 16:54 12/15/17 17:20 12/15/17 18:00 Temperature 98.5 F Pulse Rate 75 64 63 Respiratory Rate 16 16 16 Blood Pressure 99/65 L 92/52 L 91/62 L Pulse Oximetry 98 99 97 12/15/17 19:22 12/15/17 20:05 12/15/17 20:58 Temperature Pulse Rate 65 63 63 Respiratory Rate 18 18 20 Blood Pressure 102/65 99/59 L 73/49 L Pulse Oximetry 96 98 12/15/17 21:05 12/15/17 21:36 12/15/17 21:48 Temperature Pulse Rate 62 60 58 L Respiratory Rate 18 16 18 Blood Pressure 74/49 L 80/53 L 93/58 L Pulse Oximetry 99 95 96 12/15/17 22:29 12/15/17 22:43 12/15/17 22:59 Temperature Pulse Rate 56 L 58 L 58 L Respiratory Rate 18 Blood Pressure 63/49 L 73/40 L 92/57 L Pulse Oximetry 99 98 12/15/17 23:13 12/15/17 23:30 12/15/17 23:58 Temperature Pulse Rate 69 70 Respiratory Rate Blood Pressure 104/63 116/63 Pulse Oximetry 99 87 L 12/16/17 00:00 12/16/17 00:05 12/16/17 00:15 Temperature 97.9 F Pulse Rate 83 79 72 Respiratory Rate 11 L 15 18 Blood Pressure 114/54 L 130/66 Pulse Oximetry 88 L 97 97 12/16/17 00:30 12/16/17 00:45 12/16/17 01:00 Temperature Pulse Rate 73 74 73 Respiratory Rate 21 25 H 28 H Blood Pressure 115/58 L 111/58 L 108/58 L Pulse Oximetry 95 95 95 12/16/17 01:15 12/16/17 01:38 12/16/17 02:00 Temperature Pulse Rate 73 71 67 Respiratory Rate 17 21 18 Blood Pressure 113/62 117/62 76/48 L Pulse Oximetry 97 96 97 12/16/17 02:07 12/16/17 02:08 12/16/17 02:18 Temperature Pulse Rate 61 62 68 Respiratory Rate 22 23 16 Blood Pressure 71/40 L 71/46 L 122/66 Pulse Oximetry 95 96 97 12/16/17 03:00 12/16/17 04:00 12/16/17 04:56 Temperature 98.2 F Pulse Rate 102 H 65 76 Respiratory Rate 19 22 24 Blood Pressure 106/63 Pulse Oximetry 93 L 96 99 12/16/17 05:00 12/16/17 05:01 12/16/17 05:02 Temperature Pulse Rate 69 66 66 Respiratory Rate 22 33 H 30 H Blood Pressure 83/45 L 79/47 L Pulse Oximetry 99 98 98 12/16/17 05:07 12/16/17 06:00 12/16/17 06:02 Temperature Pulse Rate 65 64 62 Respiratory Rate 20 21 10 L Blood Pressure 103/59 L 98/55 L Pulse Oximetry 96 100 100 12/16/17 06:15 Temperature Pulse Rate 61 Respiratory Rate 14 Blood Pressure 75/46 L Pulse Oximetry 91 L Intake & Output 12/15/17 12/16/17 12/16/17 18:59 06:59 18:59 Intake Total 1000 / 1000 3300 / 3300 3300 / 3300 Output Total 4100 / 4100 Balance 1000 / 1000 -800 / -800 3300 / 3300 Weight 65.2 kg 68.946 kg Intake: IV 1000 / 1000 3300 / 3300 3300 / 3300 NS Inj 1,000 ML @ 154 mls/hr IV 1999 / 1999 .CONT .Q6H30M [facility] Rx#:[id number] Magnesium Sulfate 1 gm/D5W 100 200 / 200 ml Premix 100 ML @ 100 mls/hr IV.SIG Q1H [facility] Rx#:[id number] Zosyn 4.5 GM Premix 4.5 gm In 100 / 100 100 ml @ 200 mls/hr IV.SIG ONCE ONE Rx#:[id number] NS Inj 2,000 ML @ As Directed 1000 / 1000 1000 / 1000 1000 / 1000 IV.SIG BOLUS STA Rx#:[id number] NS Inj 500 ML @ Wide Open IV. 1000 / 1000 SIG BOLUS [facility] Rx#:[id number] Rocephin Inj 1,000 MG In NS Inj 100 / 100 100 ML @ 200 mls/hr IV.SIG Q12H [facility] Rx#:[id number] Flagyl 500 MG Inj 100 ML @ 100 200 / 200 mls/hr IV.SIG Q6H [facility] Rx#: [id number] Output: Urine 4100 / 4100 Other: # Voids 1 # Urine Diapers 0 Weight On Admission 69 kg <Gabe Brady - Last Filed: 12/16/17 15:25> Results - Labs CBC & Chem 7: 12/16/17 02:19 12/16/17 02:19 Labs: Laboratory Results - last 24 hr 12/15/17 12/15/17 12/15/17 17:35 17:35 17:35 CBC w Diff Auto diff final WBC 8.0 RBC 4.27 Hgb 12.9 Hct 38.0 MCV 89.0 MCH 30.1 MCHC 33.8 RDW 19.1 H Plt Count 246 MPV 8.8 Neut % (Auto) 75.2 H Lymph % (Auto) 15.2 Motley % (Auto) 6.5 Eos % (Auto) 0.6 Baso % (Auto) 2.5 H Neut # (Auto) 6.1 Lymph # (Auto) 1.2 Motley # (Auto) 0.5 Eos # (Auto) 0.0 Baso # (Auto) 0.2 WBC Differential . Differential Comment . Hematology Comments PT INR APTT Puncture Site Patient Temperature O2 Saturation ABG pH ABG pCO2 ABG pO2 ABG HCO3 ABG O2 Content ABG Base Excess ABG Methemoglobin Rod Test Hemoglobin Carboxyhemoglobin O2 Delivery Device Liter Flow Inspired O2 Critical Value Sodium 130 L Potassium 3.2 L Chloride 96 L Carbon Dioxide 24.0 Anion Gap 10 BUN 13 Creatinine 0.74 Estimated GFR 82 L Random Glucose 95 Lactic Acid 0.2 L Calcium 10.7 H Phosphorus 3.5 Magnesium 1.7 Total Bilirubin 0.3 AST 23 ALT 27 Alkaline Phosphatase 98 Total Creatine Kinase Troponin I Total Protein 6.8 Albumin 3.5 Lipase 116 Urine Color Urine Clarity Urine pH Ur Specific Homer Urine Protein Urine Glucose (UA) Urine Ketones Urine Occult Blood Urine Nitrate Urine Bilirubin Urine Urobilinogen Ur Leukocyte Esterase Urine RBC Urine WBC Ur Squamous Epith Cells Urine Bacteria Micro UA Comment Ur Microscopic Review Urine Culture Comments Nasal Screen MRSA (PCR) Urine Opiates Screen Ur Barbiturates Screen Ur Amphetamines Screen U Benzodiazepines Scrn Urine Cocaine Screen U Cannabinoids Screen 12/15/17 12/15/17 12/15/17 18:00 21:40 22:52 CBC w Diff WBC RBC Hgb Hct MCV MCH MCHC RDW Plt Count MPV Neut % (Auto) Lymph % (Auto) Motley % (Auto) Eos % (Auto) Baso % (Auto) Neut # (Auto) Lymph # (Auto) Motley # (Auto) Eos # (Auto) Baso # (Auto) WBC Differential Differential Comment Hematology Comments PT INR APTT Puncture Site Left radial Patient Temperature 98.6 O2 Saturation 89 L* ABG pH 7.30 L ABG pCO2 42 ABG pO2 74 ABG HCO3 20 L ABG O2 Content 13.7 ABG Base Excess -5.0 L ABG Methemoglobin 1.2 Rod Test Y Hemoglobin 10.9 L Carboxyhemoglobin 5.2 H* O2 Delivery Device Nasal cannula Liter Flow 3.00 Inspired O2 21 Critical Value Yes Sodium Potassium Chloride Carbon Dioxide Anion Gap BUN Creatinine Estimated GFR Random Glucose Lactic Acid Calcium Phosphorus Magnesium Total Bilirubin AST ALT Alkaline Phosphatase Total Creatine Kinase Troponin I Total Protein Albumin Lipase Urine Color Yellow Urine Clarity Cloudy H Urine pH 6.0 Ur Specific Homer 1.020 Urine Protein Trace Urine Glucose (UA) Negative Urine Ketones Negative Urine Occult Blood Negative Urine Nitrate Positive H Urine Bilirubin Negative Urine Urobilinogen 0.2 Ur Leukocyte Esterase Small H Urine RBC 0-3 Urine WBC 21-50 H Ur Squamous Epith Cells Greater than 10 H Urine Bacteria Many H Micro UA Comment Culture indicated Ur Microscopic Review Microscopic reviewed Urine Culture Comments Culture indicated Nasal Screen MRSA (PCR) Urine Opiates Screen Neg Ur Barbiturates Screen Neg Ur Amphetamines Screen Neg U Benzodiazepines Scrn Neg Urine Cocaine Screen Neg U Cannabinoids Screen Pos H 12/16/17 12/16/17 12/16/17 00:00 02:19 02:19 CBC w Diff WBC 7.3 RBC 4.04 Hgb 12.4 Hct 36.4 MCV 90.0 MCH 30.6 MCHC 34.0 RDW 19.0 H Plt Count 193 MPV 8.6 Neut % (Auto) 78.6 H Lymph % (Auto) 14.3 Motley % (Auto) 6.3 Eos % (Auto) 0.6 Baso % (Auto) 0.2 Neut # (Auto) 5.7 Lymph # (Auto) 1.0 Motley # (Auto) 0.5 Eos # (Auto) 0.0 Baso # (Auto) 0.0 WBC Differential . Differential Comment Auto diff final Hematology Comments PT 10.2 INR 1.0 APTT 28.3 Puncture Site Patient Temperature O2 Saturation ABG pH ABG pCO2 ABG pO2 ABG HCO3 ABG O2 Content ABG Base Excess ABG Methemoglobin Rod Test Hemoglobin Carboxyhemoglobin O2 Delivery Device Liter Flow Inspired O2 Critical Value Sodium Potassium Chloride Carbon Dioxide Anion Gap BUN Creatinine Estimated GFR Random Glucose Lactic Acid Calcium Phosphorus Magnesium Total Bilirubin AST ALT Alkaline Phosphatase Total Creatine Kinase Troponin I Total Protein Albumin Lipase Urine Color Urine Clarity Urine pH Ur Specific [place] Urine Protein Urine Glucose (UA) Urine Ketones Urine Occult Blood Urine Nitrate Urine Bilirubin Urine Urobilinogen Ur Leukocyte Esterase Urine RBC Urine WBC Ur Squamous Epith Cells Urine Bacteria Micro UA Comment Ur Microscopic Review Urine Culture Comments Nasal Screen MRSA (PCR) Not detected Urine Opiates Screen Ur Barbiturates Screen Ur Amphetamines Screen U Benzodiazepines Scrn Urine Cocaine Screen U Cannabinoids Screen 0812/16/17 12/16/17 02:19 02:19 06:13 CBC w Diff WBC RBC Hgb Hct MCV MCH MCHC RDW Plt Count MPV Neut % (Auto) Lymph % (Auto) Motley % (Auto) Eos % (Auto) Baso % (Auto) Neut # (Auto) Lymph # (Auto) Motley # (Auto) Eos # (Auto) Baso # (Auto) WBC Differential Differential Comment Hematology Comments PT INR APTT Puncture Site Patient Temperature O2 Saturation ABG pH ABG pCO2 ABG pO2 ABG HCO3 ABG O2 Content ABG Base Excess ABG Methemoglobin Rod Test Hemoglobin Carboxyhemoglobin O2 Delivery Device Liter Flow Inspired O2 Critical Value Sodium 142 D Potassium 3.2 L Chloride 112 H D Carbon Dioxide 21.9 Anion Gap 8 BUN 8 Creatinine 0.67 Estimated GFR Greater than 89 Random Glucose 119 H Lactic Acid 0.3 L Calcium 9.0 D Phosphorus 2.5 D Magnesium 2.3 D Total Bilirubin 0.2 AST 18 ALT 21 Alkaline Phosphatase 85 Total Creatine Kinase 30 Troponin I Less than 0.02 L Less than 0.02 L Total Protein 6.0 L D Albumin 2.9 L D Lipase Urine Color Urine Clarity Urine pH Ur Specific [place] Urine Protein Urine Glucose (UA) Urine Ketones Urine Occult Blood Urine Nitrate Urine Bilirubin Urine Urobilinogen Ur Leukocyte Esterase Urine RBC Urine WBC Ur Squamous Epith Cells Urine Bacteria Micro UA Comment Ur Microscopic Review Urine Culture Comments Nasal Screen MRSA (PCR) Urine Opiates Screen Ur Barbiturates Screen Ur Amphetamines Screen U Benzodiazepines Scrn Urine Cocaine Screen U Cannabinoids Screen - Imaging Impressions Abdomen/Pelvis CTA 12/15/17 17:26 CONCLUSION: 1. The mesenteric arterial supply appears intact. 2. Thickening of the mid sigmoid colon with surrounding inflammatory change likely from diverticulitis. 3. Atherosclerotic change seen throughout the arterial system as described above. <Carin Omalley - Last Filed: 12/16/17 13:24> - Labs CBC & Chem 7: 12/16/17 02:19 12/16/17 02:19 Labs: Laboratory Results - last 24 hr 12/15/17 12/15/17 12/15/17 17:35 17:35 17:35 CBC w Diff Auto diff final WBC 8.0 RBC 4.27 Hgb 12.9 Hct 38.0 MCV 89.0 MCH 30.1 MCHC 33.8 RDW 19.1 H Plt Count 246 MPV 8.8 Neut % (Auto) 75.2 H Lymph % (Auto) 15.2 [place] % (Auto) 6.5 Eos % (Auto) 0.6 Baso % (Auto) 2.5 H Neut # (Auto) 6.1 Lymph # (Auto) 1.2 Motley # (Auto) 0.5 Eos # (Auto) 0.0 Baso # (Auto) 0.2 WBC Differential . Differential Comment . Hematology Comments PT INR APTT Puncture Site Patient Temperature O2 Saturation ABG pH ABG pCO2 ABG pO2 ABG HCO3 ABG O2 Content ABG Base Excess ABG Methemoglobin Rdo Test Hemoglobin Carboxyhemoglobin O2 Delivery Device Liter Flow Inspired O2 Critical Value Sodium 130 L Potassium 3.2 L Chloride 96 L Carbon Dioxide 24.0 Anion Gap 10 BUN 13 Creatinine 0.74 Estimated GFR 82 L Random Glucose 95 Lactic Acid 0.2 L Calcium 10.7 H Phosphorus 3.5 Magnesium 1.7 Total Bilirubin 0.3 AST 23 ALT 27 Alkaline Phosphatase 98 Total Creatine Kinase Troponin I Total Protein 6.8 Albumin 3.5 Lipase 116 Urine Color Urine Clarity Urine pH Ur Specific [place] Urine Protein Urine Glucose (UA) Urine Ketones Urine Occult Blood Urine Nitrate Urine Bilirubin Urine Urobilinogen Ur Leukocyte Esterase Urine RBC Urine WBC Ur Squamous Epith Cells Urine Bacteria Micro UA Comment Ur Microscopic Review Urine Culture Comments Nasal Screen MRSA (PCR) Urine Opiates Screen Ur Barbiturates Screen Ur Amphetamines Screen U Benzodiazepines Scrn Urine Cocaine Screen U Cannabinoids Screen 12/15/17 12/15/17 12/15/17 18:00 21:40 22:52 CBC w Diff WBC RBC Hgb Hct MCV MCH MCHC RDW Plt Count MPV Neut % (Auto) Lymph % (Auto) [place] % (Auto) Eos % (Auto) Baso % (Auto) Neut # (Auto) Lymph # (Auto) [place] # (Auto) Eos # (Auto) Baso # (Auto) WBC Differential Differential Comment Hematology Comments PT INR APTT Puncture Site Left radial Patient Temperature 98.6 O2 Saturation 89 L* ABG pH 7.30 L ABG pCO2 42 ABG pO2 74 ABG HCO3 20 L ABG O2 Content 13.7 ABG Base Excess -5.0 L ABG Methemoglobin 1.2 Rod Test Y Hemoglobin 10.9 L Carboxyhemoglobin 5.2 H* O2 Delivery Device Nasal cannula Liter Flow 3.00 Inspired O2 21 Critical Value Yes Sodium Potassium Chloride Carbon Dioxide Anion Gap BUN Creatinine Estimated GFR Random Glucose Lactic Acid Calcium Phosphorus Magnesium Total Bilirubin AST ALT Alkaline Phosphatase Total Creatine Kinase Troponin I Total Protein Albumin Lipase Urine Color Yellow Urine Clarity Cloudy H Urine pH 6.0 Ur Specific [place] 1.020 Urine Protein Trace Urine Glucose (UA) Negative Urine Ketones Negative Urine Occult Blood Negative Urine Nitrate Positive H Urine Bilirubin Negative Urine Urobilinogen 0.2 Ur Leukocyte Esterase Small H Urine RBC 0-3 Urine WBC 21-50 H Ur Squamous Epith Cells Greater than 10 H Urine Bacteria Many H Micro UA Comment Culture indicated Ur Microscopic Review Microscopic reviewed Urine Culture Comments Culture indicated Nasal Screen MRSA (PCR) Urine Opiates Screen Neg Ur Barbiturates Screen Neg Ur Amphetamines Screen Neg U Benzodiazepines Scrn Neg Urine Cocaine Screen Neg U Cannabinoids Screen Pos H 12/16/17 12/16/17 12/16/17 00:00 02:19 02:19 CBC w Diff WBC 7.3 RBC 4.04 Hgb 12.4 Hct 36.4 MCV 90.0 MCH 30.6 MCHC 34.0 RDW 19.0 H Plt Count 193 MPV 8.6 Neut % (Auto) 78.6 H Lymph % (Auto) 14.3 [place] % (Auto) 6.3 Eos % (Auto) 0.6 Baso % (Auto) 0.2 Neut # (Auto) 5.7 Lymph # (Auto) 1.0 Motley # (Auto) 0.5 Eos # (Auto) 0.0 Baso # (Auto) 0.0 WBC Differential . Differential Comment Auto diff final Hematology Comments PT 10.2 INR 1.0 APTT 28.3 Puncture Site Patient Temperature O2 Saturation ABG pH ABG pCO2 ABG pO2 ABG HCO3 ABG O2 Content ABG Base Excess ABG Methemoglobin Rod Test Hemoglobin Carboxyhemoglobin O2 Delivery Device Liter Flow Inspired O2 Critical Value Sodium Potassium Chloride Carbon Dioxide Anion Gap BUN Creatinine Estimated GFR Random Glucose Lactic Acid Calcium Phosphorus Magnesium Total Bilirubin AST ALT Alkaline Phosphatase Total Creatine Kinase Troponin I Total Protein Albumin Lipase Urine Color Urine Clarity Urine pH Ur Specific [place] Urine Protein Urine Glucose (UA) Urine Ketones Urine Occult Blood Urine Nitrate Urine Bilirubin Urine Urobilinogen Ur Leukocyte Esterase Urine RBC Urine WBC Ur Squamous Epith Cells Urine Bacteria Micro UA Comment Ur Microscopic Review Urine Culture Comments Nasal Screen MRSA (PCR) Not detected Urine Opiates Screen Ur Barbiturates Screen Ur Amphetamines Screen U Benzodiazepines Scrn Urine Cocaine Screen U Cannabinoids Screen 12/16/17 12/16/17 12/16/17 02:19 02:19 06:13 CBC w Diff WBC RBC Hgb Hct MCV MCH MCHC RDW Plt Count MPV Neut % (Auto) Lymph % (Auto) [place] % (Auto) Eos % (Auto) Baso % (Auto) Neut # (Auto) Lymph # (Auto) [place] # (Auto) Eos # (Auto) Baso # (Auto) WBC Differential Differential Comment Hematology Comments PT INR APTT Puncture Site Patient Temperature O2 Saturation ABG pH ABG pCO2 ABG pO2 ABG HCO3 ABG O2 Content ABG Base Excess ABG Methemoglobin Rod Test Hemoglobin Carboxyhemoglobin O2 Delivery Device Liter Flow Inspired O2 Critical Value Sodium 142 D Potassium 3.2 L Chloride 112 H D Carbon Dioxide 21.9 Anion Gap 8 BUN 8 Creatinine 0.67 Estimated GFR Greater than 89 Random Glucose 119 H Lactic Acid 0.3 L Calcium 9.0 D Phosphorus 2.5 D Magnesium 2.3 D Total Bilirubin 0.2 AST 18 ALT 21 Alkaline Phosphatase 85 Total Creatine Kinase 30 Troponin I Less than 0.02 L Less than 0.02 L Total Protein 6.0 L D Albumin 2.9 L D Lipase Urine Color Urine Clarity Urine pH Ur Specific [place] Urine Protein Urine Glucose (UA) Urine Ketones Urine Occult Blood Urine Nitrate Urine Bilirubin Urine Urobilinogen Ur Leukocyte Esterase Urine RBC Urine WBC Ur Squamous Epith Cells Urine Bacteria Micro UA Comment Ur Microscopic Review Urine Culture Comments Nasal Screen MRSA (PCR) Urine Opiates Screen Ur Barbiturates Screen Ur Amphetamines Screen U Benzodiazepines Scrn Urine Cocaine Screen U Cannabinoids Screen 12/16/17 11:39 CBC w Diff WBC RBC Hgb Hct MCV MCH MCHC RDW Plt Count MPV Neut % (Auto) Lymph % (Auto) [place] % (Auto) Eos % (Auto) Baso % (Auto) Neut # (Auto) Lymph # (Auto) [place] # (Auto) Eos # (Auto) Baso # (Auto) WBC Differential Differential Comment Hematology Comments PT INR APTT Puncture Site Patient Temperature O2 Saturation ABG pH ABG pCO2 ABG pO2 ABG HCO3 ABG O2 Content ABG Base Excess ABG Methemoglobin Rod Test Hemoglobin Carboxyhemoglobin O2 Delivery Device Liter Flow Inspired O2 Critical Value Sodium Potassium Chloride Carbon Dioxide Anion Gap BUN Creatinine Estimated GFR Random Glucose Lactic Acid Calcium Phosphorus Magnesium Total Bilirubin AST ALT Alkaline Phosphatase Total Creatine Kinase Troponin I Total Protein Albumin Lipase 104 Urine Color Urine Clarity Urine pH Ur Specific [place] Urine Protein Urine Glucose (UA) Urine Ketones Urine Occult Blood Urine Nitrate Urine Bilirubin Urine Urobilinogen Ur Leukocyte Esterase Urine RBC Urine WBC Ur Squamous Epith Cells Urine Bacteria Micro UA Comment Ur Microscopic Review Urine Culture Comments Nasal Screen MRSA (PCR) Urine Opiates Screen Ur Barbiturates Screen Ur Amphetamines Screen U Benzodiazepines Scrn Urine Cocaine Screen U Cannabinoids Screen - Imaging Impressions Abdomen/Pelvis CTA 12/15/17 17:26 CONCLUSION: 1. The mesenteric arterial supply appears intact. 2. Thickening of the mid sigmoid colon with surrounding inflammatory change likely from diverticulitis. 3. Atherosclerotic change seen throughout the arterial system as described above. 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 Pt reports abdominal pain is chronic, no increase in pain or changes in characteristics of pain. States secondary to gastroparesis. Described as dull and aching, constant, worse after eating, located throughout entire abdomen. Also reports nausea and vomiting, chronic, denies hematemesis and coffee ground emesis. Does not follow up with GI outpatient, known to our service from previous hospitalizations, last seen in October 2017. States only medication she takes for her gastroparesis is Bentyl. Pt was advised to stop smoking marijuana during last hospitalization due to concern of cyclical vomiting, pt continues to smoke marijuana, last smoked yesterday. [facility] (November 07, 2017) Abnormal gastric emptying with T1 half of approximately 96 minutes. Reglan was given with no therapeutic response. CTA abdomen/pelvis noted (12/15) The mesenteric arterial supply appears intact.Thickening of the mid sigmoid colon with surrounding inflammatory change likely from diverticulitis. Atherosclerotic change seen throughout the arterial system as described above. Last EGD in and colonoscopy in October 2017 --> Mild gastritis, mild diverticulosis, internal hemorrhoids. Pathology (stomach antrum) features suggestive of reactive gastropathy (ascending colon and descending colon) without significant histologic abnormality. - Diverticulitis- as noted in CTA abdomen/pelvis above. Pt denies change in bowel habits. Last BM was yesterday and normal. Takes Linzess for constipation No leukocytosis. Afebrile. Pt on Rocephin and Flagyl. - Hypotension- now on Dopamine gtt Plan: Abdominal stents patent DC Reglan- no response per GES Start Bethanechol EES not chosen- pt on other medications with QT prolongation Continue Bentyl OK to start clear liquids Bowel regimen to prevent constipation Continue abx for diverticulitis Advised pt to stop smoking marijuana- previously advised of this IV fluids Monitor BP Xarelto and ASA for multiple stents Supportive care Further recommendations to follow Pt has been seen and examined by myself and Dr. Brady and this note is written on his behalf <Carin Omalley - Last Filed: 12/16/17 13:24> - Plan Seen and examined with [employer]< gastroparesis and diverticulitis. Plan as above. Thank you The exam, history, and the medical decision-making described in the above note were completed with the assistance of the mid-level provider. I reviewed and agree with the findings presented. I attest that I had a [id number] encounter with the patient on the same day, and personally performed and documented my assessment and findings in the medical record. <Gabe Brady - Last Filed: 12/16/17 15:25>
[2017-12-16] MEDS: Levothyroxine 50 MCG Tablet PO SCH (09:08)
[2017-12-16] MEDS: Senna/Docusate Sodium 8.6/50 MG Tablet PO SCH ×2 (09:09→21:25)
[2017-12-16] MEDS: Sertraline 100 MG Tablet PO SCH (09:37)
[2017-12-16] MEDS: clonazePAM 0.5 MG Tablet PO SCH ×3 (10:00→16:59)
[2017-12-16] MEDS: Dicyclomine 10 MG Capsule PO SCH ×4 (10:21→21:25)
[2017-12-16] MEDS: Rivaroxaban 10 MG Tablet PO SCH (10:21)
--- NOTE | 2017-12-16 10:58 | ECG ---
Date Performed: 12/16/2017 Time Performed: 06:01:04 PTAGE: 52 years EKG: Sinus rhythm . Septal T wave changes are nonspecific Borderline ECG Since the PREVIOUS TRACING , no significant change noted PREVIOUS TRACIN12/16/2017 01.57 DOCTOR: Pedro Marks Interpretating Date/Time 12/16/2017 10:56:20
--- NOTE | 2017-12-16 11:27 | ECG ---
Date Performed: 12/15/2017 Time Performed: 17:37:47 PTAGE: 52 years EKG: Sinus rhythm NORMAL ECG PREVIOUS TRACING : 11/03/2017 22.09 Compared to previous tracing, QT interval is short DOCTOR: Pedro Marks Interpretating Date/Time 12/16/2017 11:26:26
--- NOTE | 2017-12-16 11:28 | ECG ---
Date Performed: 12/16/2017 Time Performed: 01:57:40 PTAGE: 52 years EKG: Normal Sinus rhythm Borderline ECG PREVIOUS TRACING : 12/15/2017 17.37 Since the previous tracing, no significant change noted DOCTOR: Pedro Marks Interpretating Date/Time 12/16/2017 11:26:46
[2017-12-16] MEDS: HYDROmorphone PF Inj 2 MG/ML Vial IV.PUSH PRN ×3 (12:26→21:47)
[2017-12-17] MEDS: HYDROmorphone PF Inj 2 MG/ML Vial IV.PUSH PRN ×2 (01:35→06:03)
[2017-12-17] MEDS: Chlorhexidine Gluconate 2% 1 Pack (2 Cloths) TOPICAL SCH (03:11)
[2017-12-17] MEDS: Sod Chloride 0.9% Inj 1,000 ML IV.CONT SCH ×2 (04:09→09:04)
--- NOTE | 2017-12-17 08:05 | P.PN ---
Subjective Interval history: In bed appears in nad Tolerates food Had some nausea in the morning no vomiting, says also abdominal pain however says she is back at her baseline. No fever or chills. Did not have a bowel movement yet. Feels much better and says it is at her baseline and she will like to go home. Potassium is low replaced. Says she does have a GI doctor however she will follow-up with Dr. Jose Antonio CHAVIRA as outpatient when discharged. Physical Exam Vital signs: Vital Signs 12/16/17 08:00 12/16/17 08:15 12/16/17 08:30 Temperature Pulse Rate 92 H 110 H 101 H Respiratory Rate 16 27 H 15 Blood Pressure 167/85 H 131/73 171/99 H Pulse Oximetry 89 L 97 98 12/16/17 08:56 12/16/17 09:00 12/16/17 09:33 Temperature Pulse Rate 69 69 59 L Respiratory Rate 13 24 11 L Blood Pressure 86/52 L 87/52 L Pulse Oximetry 98 94 L 93 L 12/16/17 10:00 12/16/17 10:14 12/16/17 10:18 Temperature Pulse Rate 58 L 59 L 58 L Respiratory Rate 13 29 H 13 Blood Pressure 87/54 L 96/54 L Pulse Oximetry 94 L 96 99 12/16/17 10:30 12/16/17 10:42 12/16/17 12:05 Temperature Pulse Rate 57 L 57 L 58 L Respiratory Rate 21 18 55 H Blood Pressure 85/55 L 104/51 L 99/55 L Pulse Oximetry 99 98 12/16/17 13:00 12/16/17 14:00 12/16/17 14:37 Temperature Pulse Rate 62 61 66 Respiratory Rate 23 17 19 Blood Pressure 89/56 L Pulse Oximetry 12/16/17 15:00 12/16/17 15:30 12/16/17 16:00 Temperature Pulse Rate 59 L 57 L 58 L Respiratory Rate 10 L 18 19 Blood Pressure 91/55 L 102/57 L 99/58 L Pulse Oximetry 12/16/17 16:30 12/16/17 17:00 12/16/17 17:30 Temperature Pulse Rate 57 L 55 L 59 L Respiratory Rate 16 14 14 Blood Pressure 103/59 L 104/60 97/60 L Pulse Oximetry 12/16/17 18:00 12/16/17 18:30 12/16/17 20:00 Temperature Pulse Rate 69 65 58 L Respiratory Rate 17 15 Blood Pressure 101/62 83/54 L Pulse Oximetry 12/16/17 21:00 12/16/17 22:00 12/17/17 00:00 Temperature 97.9 F 98 F Pulse Rate 58 L 52 L 58 L Respiratory Rate 20 20 Blood Pressure 75/44 L 94/59 L 86/50 L Pulse Oximetry 94 L 100 100 12/17/17 04:00 Temperature 98 F Pulse Rate 56 L Respiratory Rate 16 Blood Pressure 101/59 L Pulse Oximetry 100 Intake & Output 12/16/17 12/17/17 12/17/17 18:59 06:59 18:59 Intake Total 3530 / 3530 1660 / 1660 Output Total 600 / 600 Balance 3530 / 3530 1060 / 1060 Weight 71 kg Intake: IV 3530 / 3530 1300 / 1300 NS Inj 1,000 ML @ 154 mls/hr IV 2000 / 2000 1000 / 1000 .CONT .Q6H30M REGINALDO Rx#:[id number] NS Inj 2,000 ML @ As Directed 1000 / 1000 IV.SIG BOLUS STA Rx#:[id number] Rocephin Inj 1,000 MG In NS Inj 200 / 200 100 / 100 100 ML @ 200 mls/hr IV.SIG Q12H REGINALDO Rx#:[id number] Flagyl 500 MG Inj 100 ML @ 100 300 / 300 200 / 200 mls/hr IV.SIG Q6H REGINALDO Rx#: [id number] Oral 360 / 360 Output: Urine 600 / 600 Narrative: GENERAL: 52 yo F in nad. CARDIOVASCULAR: Regular rate and rhythm without murmurs, gallops, or rubs. RESPIRATORY: Breath sounds equal bilaterally. No accessory muscle use. GASTROINTESTINAL: Abdomen soft, mildly tender to palpation periumbilical area, nondistended. MUSCULOSKELETAL: No cyanosis, or edema. BACK: Nontender without obvious deformity. No CVA tenderness. Results - Labs CBC & Chem 7: 12/16/17 02:19 12/16/17 02:19 Laboratory Results - last 24 hr 12/15/17 12/16/17 12/16/17 18:00 06:13 11:39 Troponin I Less than 0.02 L Lipase 104 Urine Color Yellow Urine Clarity Cloudy H Urine pH 6.0 Ur Specific [place] 1.020 Urine Protein Trace Urine Glucose (UA) Negative Urine Ketones Negative Urine Occult Blood Negative Urine Nitrate Positive H Urine Bilirubin Negative Urine Urobilinogen 0.2 Ur Leukocyte Esterase Small H Urine RBC 0-3 Urine WBC 21-50 H Ur Squamous Epith Cells Greater than 10 H Urine Bacteria Many H Micro UA Comment Culture indicated Ur Microscopic Review Microscopic reviewed Urine Culture Comments Culture indicated Microbiology 12/15/17 18:00 Clean Catch Urine Urine Culture - Preliminary gram negative rods 12/15/17 20:20 Blood - Peripheral Aerobic Blood Culture - Preliminary No growth in 1 day 12/15/17 20:20 Blood - Peripheral Anaerobic Blood Culture - Preliminary No growth in 1 day 12/15/17 20:10 Blood - Peripheral Aerobic Blood Culture - Preliminary No growth in 1 day 12/15/17 20:10 Blood - Peripheral Anaerobic Blood Culture - Preliminary No growth in 1 day Assessment and Plan - Plan Diverticulitis Nausea. Cyclical Vomiting. Marijuana use. Abdominal pain H/o mesenteric ischemia s/p stenting of the celiac and SMA and gastroparesis -Broad-spectrum antibiotics -CTA A/P reviewed shows The mesenteric arterial supply appears intact.Thickening of the mid sigmoid colon with surrounding inflammatory change likely from diverticulitis. Atherosclerotic change seen throughout the arterial system. -IV fluid hydration -Gastroenterology consulted appreciate recommendations -Start Bethanechol, continue bentyl - Bowel regimen - counselled regarding marijuana use as might be the culprit for cyclic vomiting - Continue Xarelto and asa for multiple stents - Metronodazole Hypotension -Due to dehydration 2/2 cyclical vomiting -Aggressive IV fluid resuscitation -Blood cultures NTD -Urine cultures with E Coli pansensitive . On ceftriaxone IV switch to cipro PO as OP Restless leg syndrome -Ropinirole Depression (Acute) -Sertraline Hypothyroid -Levothyroxine IBS -Dicyclomine COPD -DuoNeb PRN -O2 nasal cannula as needed CAD -Aspirin -Hold beta-satish and lisinopril due to hypotension DVT GI prophylaxis -Teds SCDs -Xarelto -Protonix Discussed with the patient, nurse , GI service Patient improved DC home in stable condition to follow up as OP with PCP and GI
[2017-12-17] MEDS: Levothyroxine 50 MCG Tablet PO SCH (09:00)
[2017-12-17] MEDS: Rivaroxaban 10 MG Tablet PO SCH (09:01)
[2017-12-17] MEDS: Sertraline 100 MG Tablet PO SCH (09:01)
[2017-12-17] MEDS: clonazePAM 0.5 MG Tablet PO SCH ×2 (09:01→14:09)
[2017-12-17] MEDS: Dicyclomine 10 MG Capsule PO SCH ×2 (09:02→14:09)
[2017-12-17] MEDS: Senna/Docusate Sodium 8.6/50 MG Tablet PO SCH (09:03)
--- NOTE | 2017-12-17 10:34 | P.DS ---
Date of admission: 12/15/17 20:45 Primary care physician: UNKNOWN Brief History from admission: 52-year-old female presents with abdominal pain, nausea, and vomiting. The patient has an extensive past medical history including multiple stenotic vessels in her abdomen status post multiple stent placement, gastroparesis, and multiple abdominal surgeries. She was admitted last month for hypotension and electrolyte derangements. She states that for the past 8 months she's had diffuse severe abdominal pain which is constant, worse with PO intake and not made better by anything, and non-radiating. For the past 3 days, she has been unable to tolerate any PO intake and reports multiple episodes of vomiting per day. Denies fever but admits to chills, denies chest pain, diarrhea, hematochezia, or dysuria. She was started on aggressive IV fluid resuscitation at the emergency department at [place] as well as dopamine drip to keep her MAP above 65 and transferred here to [facility] ICU for higher level of care. DS: Medications - Discharge Medications Prescriptions: bethanechol chloride [Urecholine] 10 mg PO TID #90 tab ciprofloxacin HCl 500 mg PO BID #14 tab metronidazole [Flagyl] 500 mg PO TID #30 tab DS: Summary Hospital Course: Diverticulitis Nausea. Cyclical Vomiting. Marijuana use. Abdominal pain H/o mesenteric ischemia s/p stenting of the celiac and SMA and gastroparesis -Broad-spectrum antibiotics -CTA A/P reviewed shows The mesenteric arterial supply appears intact.Thickening of the mid sigmoid colon with surrounding inflammatory change likely from diverticulitis. Atherosclerotic change seen throughout the arterial system. -IV fluid hydration -Gastroenterology consulted appreciate recommendations -Start Bethanechol, continue bentyl - Bowel regimen - counselled regarding marijuana use as might be the culprit for cyclic vomiting - Continue Xarelto and asa for multiple stents - Metronodazole Hypotension -Due to dehydration 2/2 cyclical vomiting -Aggressive IV fluid resuscitation -Blood cultures NTD -Urine cultures with E Coli pansensitive . On ceftriaxone IV switch to cipro PO as OP Restless leg syndrome -Ropinirole Depression (Acute) -Sertraline Hypothyroid -Levothyroxine IBS -Dicyclomine COPD -DuoNeb PRN -O2 nasal cannula as needed CAD -Aspirin -Hold beta-satish and lisinopril due to hypotension DVT GI prophylaxis -Teds SCDs -Xarelto -Protonix Discussed with the patient, nurse , GI service Patient improved DC home in stable condition to follow up as OP with PCP and GI - Time Spent with Patient Total time spent providing and/or coordinating discharge services: Greater than 30 minutes - Quality: VTE Deep Vein Thrombosis/Pulmonary Embolism Present on Admission: No Exam Vital signs: Vital Signs 12/16/17 10:42 12/16/17 12:05 12/16/17 13:00 Temperature Pulse Rate 57 L 58 L 62 Respiratory Rate 18 55 H 23 Blood Pressure 104/51 L 99/55 L Pulse Oximetry 98 12/16/17 14:00 12/16/17 14:37 12/16/17 15:00 Temperature Pulse Rate 61 66 59 L Respiratory Rate 17 19 10 L Blood Pressure 89/56 L 91/55 L Pulse Oximetry 12/16/17 15:30 12/16/17 16:00 12/16/17 16:30 Temperature Pulse Rate 57 L 58 L 57 L Respiratory Rate 18 19 16 Blood Pressure 102/57 L 99/58 L 103/59 L Pulse Oximetry 12/16/17 17:00 12/16/17 17:30 12/16/17 18:00 Temperature Pulse Rate 55 L 59 L 69 Respiratory Rate 14 14 17 Blood Pressure 104/60 97/60 L 101/62 Pulse Oximetry 12/16/17 18:30 12/16/17 20:00 12/16/17 21:00 Temperature 97.9 F Pulse Rate 65 58 L 58 L Respiratory Rate 15 20 Blood Pressure 83/54 L 75/44 L Pulse Oximetry 94 L 12/16/17 22:00 12/17/17 00:00 12/17/17 04:00 Temperature 98 F 98 F Pulse Rate 52 L 58 L 56 L Respiratory Rate 20 16 Blood Pressure 94/59 L 86/50 L 101/59 L Pulse Oximetry 100 100 100 12/17/17 07:00 12/17/17 08:56 Temperature Pulse Rate Respiratory Rate 18 Blood Pressure Pulse Oximetry 94 L Intake & Output 12/16/17 12/17/17 12/17/17 18:59 06:59 18:59 Intake Total 3530 / 3530 1660 / 1660 1000 / 1000 Output Total 600 / 600 Balance 3530 / 3530 1060 / 1060 1000 / 1000 Weight 71 kg Intake: IV 3530 / 3530 1300 / 1300 1000 / 1000 NS Inj 1,000 ML @ 154 mls/hr IV 2000 / 2000 1000 / 1000 1000 / 1000 .CONT .Q6H30M REGINALDO Rx#:[id number] NS Inj 2,000 ML @ As Directed 1000 / 1000 IV.SIG BOLUS STA Rx#:[id number] Rocephin Inj 1,000 MG In NS Inj 200 / 200 100 / 100 100 ML @ 200 mls/hr IV.SIG Q12H REGINALDO Rx#:[id number] Flagyl 500 MG Inj 100 ML @ 100 300 / 300 200 / 200 mls/hr IV.SIG Q6H REGINALDO Rx#: [id number] Oral 360 / 360 Output: Urine 600 / 600 Narrative: GENERAL: 52 yo F in nad. CARDIOVASCULAR: Regular rate and rhythm without murmurs, gallops, or rubs. RESPIRATORY: Breath sounds equal bilaterally. No accessory muscle use. GASTROINTESTINAL: Abdomen soft, mildly tender to palpation periumbilical area, nondistended. MUSCULOSKELETAL: No cyanosis, or edema. BACK: Nontender without obvious deformity. No CVA tenderness. Results Procedures completed during hospitalization: none Labs on day of discharge: Labs from last 24 hours 12/16/17 12/15/17 11:39 18:00 Lipase 104 Urine Color Yellow Urine Clarity Cloudy H Urine pH 6.0 Ur Specific [place] 1.020 Urine Protein Trace Urine Glucose (UA) Negative Urine Ketones Negative Urine Occult Blood Negative Urine Nitrate Positive H Urine Bilirubin Negative Urine Urobilinogen 0.2 Ur Leukocyte Esterase Small H Urine RBC 0-3 Urine WBC 21-50 H Ur Squamous Epith Cells Greater than 10 H Urine Bacteria Many H Micro UA Comment Culture indicated Ur Microscopic Review Microscopic reviewed Urine Culture Comments Culture indicated Preliminary micro results at discharge 12/15/17 20:20 Aerobic Blood Culture - Preliminary Blood - Peripheral No growth in 1 day Anaerobic Blood Culture - Preliminary No growth in 1 day 12/15/17 20:10 Aerobic Blood Culture - Preliminary Blood - Peripheral No growth in 1 day Anaerobic Blood Culture - Preliminary No growth in 1 day - Impressions ITS Impressions Abdomen/Pelvis CTA 12/15/17 17:26 CONCLUSION: 1. The mesenteric arterial supply appears intact. 2. Thickening of the mid sigmoid colon with surrounding inflammatory change likely from diverticulitis. 3. Atherosclerotic change seen throughout the arterial system as described above. Discharge Plan - Discharge Disposition Patient Disposition: 01 Discharge Home - Discharge Condition Condition: Fair - Discharge Order Discharge Orders: Discharge Order (Routine); Ordered 12/17/17 Ordered By: Danya Blackwood - Discharge Details Anticipated Discharge Date: 12/17/17 - Physicians Team Primary Care Provider: UNKNOWN, Attending Provider: Danya Blackwood Other Providers: Gabe Brady MD ; [facility],Insurance
--- NOTE | 2017-12-17 10:56 | P.PNGI ---
Subjective Interval history: Pt resting in bed, appears more comfortable today. States continued abdominal pain, states same pain she has been having for over 9 months. Still having nausea and vomiting, has been able to keep down some liquids. <Carin Omalley - Last Filed: 12/17/17 10:47> Physical Exam Vital signs: Vital Signs 12/16/17 12:05 12/16/17 13:00 12/16/17 14:00 Temperature Pulse Rate 58 L 62 61 Respiratory Rate 55 H 23 17 Blood Pressure 99/55 L Pulse Oximetry 12/16/17 14:37 12/16/17 15:00 12/16/17 15:30 Temperature Pulse Rate 66 59 L 57 L Respiratory Rate 19 10 L 18 Blood Pressure 89/56 L 91/55 L 102/57 L Pulse Oximetry 12/16/17 16:00 12/16/17 16:30 12/16/17 17:00 Temperature Pulse Rate 58 L 57 L 55 L Respiratory Rate 19 16 14 Blood Pressure 99/58 L 103/59 L 104/60 Pulse Oximetry 12/16/17 17:30 12/16/17 18:00 12/16/17 18:30 Temperature Pulse Rate 59 L 69 65 Respiratory Rate 14 17 15 Blood Pressure 97/60 L 101/62 83/54 L Pulse Oximetry 12/16/17 20:00 12/16/17 21:00 12/16/17 22:00 Temperature 97.9 F Pulse Rate 58 L 58 L 52 L Respiratory Rate 20 Blood Pressure 75/44 L 94/59 L Pulse Oximetry 94 L 100 12/17/17 00:00 12/17/17 04:00 12/17/17 07:00 Temperature 98 F 98 F Pulse Rate 58 L 56 L Respiratory Rate 20 16 18 Blood Pressure 86/50 L 101/59 L Pulse Oximetry 100 100 12/17/17 08:56 Temperature Pulse Rate Respiratory Rate Blood Pressure Pulse Oximetry 94 L Intake & Output 12/16/17 12/17/17 12/17/17 18:59 06:59 18:59 Intake Total 3530 / 3530 1660 / 1660 1000 / 1000 Output Total 600 / 600 Balance 3530 / 3530 1060 / 1060 1000 / 1000 Weight 71 kg Intake: IV 3530 / 3530 1300 / 1300 1000 / 1000 NS Inj 1,000 ML @ 154 mls/hr IV 1999 / 1999 1000 / 1000 1000 / 1000 .CONT .Q6H30M REGINALDO Rx#:[id number] NS Inj 2,000 ML @ As Directed 1000 / 1000 IV.SIG BOLUS STA Rx#:[id number] Rocephin Inj 1,000 MG In NS Inj 200 / 200 100 / 100 100 ML @ 200 mls/hr IV.SIG Q12H REGINALDO Rx#:[id number] Flagyl 500 MG Inj 100 ML @ 100 300 / 300 200 / 200 mls/hr IV.SIG Q6H REGINALDO Rx#: [id number] Oral 360 / 360 Output: Urine 600 / 600 - Constitutional no acute distress - Routine HEENT Exam Head: Present: normocephalic, atraumatic - Routine Respiratory Exam Absent: accessory muscle use - Routine Abdominal Exam Present: soft, normoactive bowel sounds, tenderness. Absent: distended - Routine Skin Exam Present: dry, warm - Routine Neurological Exam Present: alert, oriented X3 <Carin Omalley - Last Filed: 12/17/17 10:47> Vital signs: Vital Signs 12/16/17 17:00 12/16/17 17:30 12/16/17 18:00 Temperature Pulse Rate 55 L 59 L 69 Respiratory Rate 14 14 17 Blood Pressure 104/60 97/60 L 101/62 Pulse Oximetry 12/16/17 18:30 12/16/17 19:00 12/16/17 19:05 Temperature Pulse Rate 65 61 60 Respiratory Rate 15 13 15 Blood Pressure 83/54 L 72/48 L 68/47 L Pulse Oximetry 12/16/17 19:06 12/16/17 19:07 12/16/17 19:30 Temperature Pulse Rate 63 62 60 Respiratory Rate 20 20 14 Blood Pressure 69/48 L 72/49 L 61/38 L Pulse Oximetry 12/16/17 19:45 12/16/17 20:00 12/16/17 20:31 Temperature Pulse Rate 63 58 L 62 Respiratory Rate 15 15 36 H Blood Pressure 85/49 L 75/44 L 110/55 L Pulse Oximetry 95 94 L 94 L 12/16/17 21:00 12/16/17 22:00 12/16/17 23:00 Temperature 97.9 F Pulse Rate 57 L 64 53 L Respiratory Rate 15 17 19 Blood Pressure 96/58 L 94/59 L 96/59 L Pulse Oximetry 92 L 75 L 100 12/17/17 00:00 12/17/17 01:00 12/17/17 02:00 Temperature 98 F Pulse Rate 58 L 154 H 52 L Respiratory Rate 20 0 L 21 Blood Pressure 86/50 L 83/46 L 90/54 L Pulse Oximetry 100 100 99 12/17/17 03:00 12/17/17 04:00 12/17/17 05:00 Temperature 98 F Pulse Rate 53 L 56 L 57 L Respiratory Rate 11 L 15 12 Blood Pressure 83/52 L 101/59 L 82/52 L Pulse Oximetry 100 100 99 12/17/17 06:00 12/17/17 07:00 12/17/17 08:00 Temperature Pulse Rate 61 61 63 Respiratory Rate 15 14 16 Blood Pressure 89/54 L 92/57 L Pulse Oximetry 98 98 94 L 12/17/17 08:04 12/17/17 08:56 12/17/17 09:00 Temperature 98.0 F Pulse Rate 62 90 Respiratory Rate 13 17 Blood Pressure 85/48 L 93/58 L Pulse Oximetry 94 L 94 L 98 12/17/17 10:00 12/17/17 10:01 12/17/17 11:00 Temperature Pulse Rate 116 H 95 H 62 Respiratory Rate 20 21 16 Blood Pressure 105/50 L 84/51 L Pulse Oximetry 94 L 96 96 12/17/17 11:26 12/17/17 12:07 12/17/17 13:00 Temperature 98.5 F Pulse Rate 68 63 65 Respiratory Rate 21 19 14 Blood Pressure 87/53 L 100/52 L Pulse Oximetry Intake & Output 12/16/17 12/17/17 12/17/17 18:59 06:59 18:59 Intake Total 3530 / 3530 1660 / 1660 1740 / 1740 Output Total 600 / 600 800 / 800 Balance 3530 / 3530 1060 / 1060 940 / 940 Weight 71 kg Intake: IV 3530 / 3530 1300 / 1300 1500 / 1500 NS Inj 1,000 ML @ 154 mls/hr IV 2000 / 2000 1000 / 1000 1400 / 1400 .CONT .Q6H30M REGINALDO Rx#:[id number] NS Inj 2,000 ML @ As Directed 1000 / 1000 IV.SIG BOLUS STA Rx#:[id number] Rocephin Inj 1,000 MG In NS Inj 200 / 200 100 / 100 100 ML @ 200 mls/hr IV.SIG Q12H REGINALDO Rx#:[id number] Flagyl 500 MG Inj 100 ML @ 100 300 / 300 200 / 200 100 / 100 mls/hr IV.SIG Q6H REGINALDO Rx#: [id number] Oral 360 / 360 240 / 240 Output: Urine 600 / 600 600 / 600 Emesis 200 / 200 Other: # Emeses 1 <Gabe Brady - Last Filed: 12/17/17 16:49> Results - Labs CBC & Chem 7: 12/16/17 02:19 12/16/17 02:19 Laboratory Results - last 24 hr 12/15/17 12/16/17 18:00 11:39 Lipase 104 Urine Color Yellow Urine Clarity Cloudy H Urine pH 6.0 Ur Specific [place] 1.020 Urine Protein Trace Urine Glucose (UA) Negative Urine Ketones Negative Urine Occult Blood Negative Urine Nitrate Positive H Urine Bilirubin Negative Urine Urobilinogen 0.2 Ur Leukocyte Esterase Small H Urine RBC 0-3 Urine WBC 21-50 H Ur Squamous Epith Cells Greater than 10 H Urine Bacteria Many H Micro UA Comment Culture indicated Ur Microscopic Review Microscopic reviewed Urine Culture Comments Culture indicated Microbiology 12/15/17 18:00 Clean Catch Urine Urine Culture - Final Escherichia coli 12/15/17 20:20 Blood - Peripheral Aerobic Blood Culture - Preliminary No growth in 1 day 12/15/17 20:20 Blood - Peripheral Anaerobic Blood Culture - Preliminary No growth in 1 day 12/15/17 20:10 Blood - Peripheral Aerobic Blood Culture - Preliminary No growth in 1 day 12/15/17 20:10 Blood - Peripheral Anaerobic Blood Culture - Preliminary No growth in 1 day <Carin Omalley - Last Filed: 12/17/17 10:47> - Labs CBC & Chem 7: 12/16/17 02:19 12/16/17 02:19 Microbiology 12/15/17 20:20 Blood - Peripheral Aerobic Blood Culture - Preliminary No growth in 2 days 12/15/17 20:20 Blood - Peripheral Anaerobic Blood Culture - Preliminary No growth in 2 days 12/15/17 20:10 Blood - Peripheral Aerobic Blood Culture - Preliminary No growth in 2 days 12/15/17 20:10 Blood - Peripheral Anaerobic Blood Culture - Preliminary No growth in 2 days 12/15/17 18:00 Clean Catch Urine Urine Culture - Final Escherichia coli <Gabe Brady - Last Filed: 12/17/17 16:49> Assessment and Plan - Plan Assessment: - Nausea/vomiting/abdominal pain History of mesenteric ischemia S/P stenting of the celiac axis and SMA and gastroparesis. Pt reports abdominal pain is chronic, no increase in pain or changes in characteristics of pain. States secondary to gastroparesis. Described as dull and aching, constant, worse after eating, located throughout entire abdomen. Also reports nausea and vomiting, chronic, denies hematemesis and coffee ground emesis. Does not follow up with GI outpatient, known to our service from previous hospitalizations, last seen in October 2017. States only medication she takes for her gastroparesis is Bentyl. Pt was advised to stop smoking marijuana during last hospitalization due to concern of cyclical vomiting, pt continues to smoke marijuana, last smoked yesterday. GES (November 07, 2017) Abnormal gastric emptying with T1 half of approximately 96 minutes. Reglan was given with no therapeutic response. CTA abdomen/pelvis noted (12/15) The mesenteric arterial supply appears intact.Thickening of the mid sigmoid colon with surrounding inflammatory change likely from diverticulitis. Atherosclerotic change seen throughout the arterial system as described above. Last EGD in and colonoscopy in October 2017 --> Mild gastritis, mild diverticulosis, internal hemorrhoids. Pathology (stomach antrum) features suggestive of reactive gastropathy (ascending colon and descending colon) without significant histologic abnormality. - Diverticulitis- as noted in CTA abdomen/pelvis above. Pt denies change in bowel habits. Last BM was yesterday and normal. Takes Linzess for constipation No leukocytosis. Afebrile. Pt on Rocephin and Flagyl. - Hypotension- now on Dopamine gtt (12/16) Pt appears more comfortable today, still having abdominal pain but states same pain she has been having for over nine months. Still with nausea and emesis but has been able to tolerate some liquids. Her blood pressure is improved. Discussed with Dr. Blackwood Discussed with DANA Beckford Plan: Abdominal stents patent Continue Bethanechol Continue Bentyl Recommend soft diet, small meals Bowel regimen to prevent constipation Continue abx for diverticulitis- cipro and Flagyl at [place] Advised pt to stop smoking marijuana- previously advised of this Xarelto and ASA for multiple stents OK for [place] from a GI standpoint Follow up with GI doctor outpatient Pt has been seen and examined by myself and Dr. Brady and this note is written on his behalf <Carin Omalley - Last Filed: 12/17/17 10:47> - Plan Seen and examined with PAIN COORDINATOR, symptoms at baseline. Complete antibiotic course. GI fu upon dc. Thank you The exam, history, and the medical decision-making described in the above note were completed with the assistance of the mid-level provider. I reviewed and agree with the findings presented. I attest that I had a [id number] encounter with the patient on the same day, and personally performed and documented my assessment and findings in the medical record. <Gabe Brady - Last Filed: 12/17/17 16:49>
== END 2017-12-17 16:00 | disposition home or self-care (01) ==
LOC: PHED 16:49 → PHEDA 20:45 → HIMC 23:50
PROVIDERS: ADMIT Hospitalist; ATTEND Hospitalist

== ENCOUNTER 2017-12-29 21:38 | Observation (INO) ==
[2017-12-29] MEDS ORDERED: Sod Chloride 0.9% Inj 2,000 ML IV.SIG ONE (22:29)
--- NOTE | 2017-12-29 22:35 | ED ---
HPI General Chief complaint: Weakness Stated complaint: abd pain x3days History of Present Illness HPI narrative: The patient was seen and examined in the presence of the nurse. This is a patient with chronic abdominal pain and multiple mesenteric ischemic issues. She has been admitted multiple times recently. She usually presents with hypotension and vomiting abdominal pain. She has gastroparesis and chronically on narcotics. Today she has vomiting and diarrhea and increase in her chronic daily pain. She denies fever. No syncope. Severity is moderate. No alleviating factors. No exacerbating factors. Duration 6 days Related Data Home Medications Medication Instructions Recorded Confirmed Aspirin Low Dose 81 mg PO DAILY 11/03/17 12/15/17 albuterol sulfate [ProAir HFA] 2 puff INHALATION Q4H PRN 11/03/17 12/15/17 levothyroxine 100 mcg PO DAILY 11/03/17 12/15/17 lisinopril 5 mg PO DAILY 11/03/17 12/15/17 metoprolol succinate 50 mg PO DAILY 11/03/17 12/15/17 pantoprazole [Protonix] 40 mg PO DAILY 11/03/17 12/15/17 potassium chloride [Klor-Con 10] 10 meq PO DAILY 11/03/17 12/15/17 rivaroxaban [Xarelto] 20 mg PO DAILY 11/03/17 12/15/17 ropinirole 2 mg PO DAILY 11/03/17 12/15/17 sertraline 200 mg PO DAILY 11/03/17 12/15/17 umeclidinium-vilanterol [Anoro 1 inh INHALATION Q24H 11/03/17 12/15/17 Ellipta] ziprasidone HCl [Geodon] 80 mg PO QPM 11/03/17 12/15/17 clonazepam 0.5 mg PO TID 12/15/17 12/15/17 Previous Rx's Medication Instructions Recorded dicyclomine 10 mg PO QID #120 cap 11/08/17 bethanechol chloride [Urecholine] 10 mg PO TID #90 tab 12/17/17 ciprofloxacin HCl 500 mg PO BID #14 tab 12/17/17 metronidazole [Flagyl] 500 mg PO TID #30 tab 12/17/17 Allergies Allergy/AdvReac Type Severity Reaction Status Date / Time budesonide Allergy Severe Swelling Verified 12/29/17 22:19 of Lip/Tongue/Throat formoterol Allergy Severe Swelling Verified 12/29/17 22:19 of Lip/Tongue/Throat codeine Allergy Intermediate Anaphylaxis Verified 12/29/17 22:19 Review of Systems ROS: all other systems reviewed are negative PMFSH Social History Social History Substance History: No History of Abuse Second Hand Smoke Exposure: Yes Smoking Status: Current every day smoker Tobacco Type: Cigarettes How Often Do You Have a Drink Containing Alcohol: Never Recent Travel in [facility] within the Last 8 Weeks: No Recent Out of Country Travel within the Last 8 Weeks: No Immunization History Tetanus Immunization: Unsure Hx Influenza Vaccine This Season: No Exam Narrative Exam Narrative: GENERAL: Well-nourished, well-developed patient with abdominal pain SKIN: Focused skin assessment reveals no rash and nodules. Skin is Warm and dry. HEAD: Atraumatic. Normocephalic. EYES: Pupils equal and round. No scleral icterus. No injection or drainage. ENT: No nasal bleeding or discharge. Mucous membranes pink and moist. NECK: Trachea midline. No JVD. CARDIOVASCULAR: Regular rate and rhythm. No murmur appreciated. RESPIRATORY: No accessory muscle use. Clear to auscultation. Breath sounds equal bilaterally. GASTROINTESTINAL: Abdomen soft, diffusely tender without rebound or guarding , nondistended. Hepatic and splenic margins not palpable. MUSCULOSKELETAL: No obvious deformities. No clubbing. No cyanosis. No edema. NEUROLOGICAL: Awake and alert. No obvious cranial nerve deficits. Motor grossly within normal limits. Normal speech. PSYCHIATRIC: Appropriate mood and affect; insight and judgment normal. Course Initial Documented Vital Signs Temperature 97.7 F 12/29/17 21:56 Pulse Rate 58 L 12/29/17 21:56 Respiratory Rate 18 12/29/17 21:56 Blood Pressure 87/54 L 12/29/17 21:56 Pulse Oximetry 95 12/29/17 21:56 Last Documented Vital Signs Temperature 97.7 F 12/29/17 21:56 Pulse Rate 57 L 12/29/17 23:57 Respiratory Rate 18 12/29/17 23:57 Blood Pressure 104/55 L 12/29/17 23:57 Pulse Oximetry 97 12/29/17 23:57 Medical Decision Making MDM Narrative Medical decision making narrative: 2 IVs placed. 2 L normal saline IV bolus given as well as IV nausea medicine. She is dehydrated and has azotemia and hyponatremia. Blood pressure initially quite low in the 80s but after 2 L it is now over 100 systolic. She never had tachycardia. Her lactate is normal. She will require admission for further IV hydration and nausea control. I discussed with Dr. Walter Medical Screen Exam Complete: Yes Emergency Medical Condition: Yes Differential Diagnosis Differential Diagnosis: Gastroparesis, chronic abdominal pain, colitis Medical Records Medical records reviewed: Yes I reviewed the patient's medical records. Lab Data Lab results reviewed: Yes I reviewed the patient's lab results. Result diagrams: 12/29/17 22:50 12/29/17 22:50 Lab Results 12/29/17 12/29/17 12/29/17 Range/Units 22:50 22:50 22:50 CBC w Diff Auto diff final WBC 6.3 (4.0-11.0) th/mm3 RBC 3.97 L (4.00-5.30) mil/mm3 Hgb 12.5 (11.6-15.3) gm/dL Hct 35.5 (35.0-46.0) % MCV 89.5 (80.0-100.0) fL MCH 31.5 (27.0-34.0) pg MCHC 35.2 (32.0-36.0) % RDW 17.6 H (11.6-17.2) % Plt Count 164 (150-450) th/mm3 MPV 9.4 (7.0-11.0) fL Neut % (Auto) 70.8 H (16.0-70.0) % Lymph % (Auto) 21.6 (9.0-44.0) % [place] % (Auto) 5.3 (0.0-8.0) % Eos % (Auto) 1.9 (0.0-4.0) % Baso % (Auto) 0.4 (0.0-2.0) % Neut # (Auto) 4.5 (1.8-7.7) th/mm3 Lymph # (Auto) 1.4 (1.0-4.8) th/mm3 [place] # (Auto) 0.3 (0.0-0.9) th/mm3 Eos # (Auto) 0.1 (0.0-0.4) th/mm3 Baso # (Auto) 0.0 (0.0-0.2) th/mm3 WBC Differential . Differential Comment . Sodium 128 L (136-145) meq/L Potassium 3.5 (3.5-5.1) meq/L Chloride 97 L (98-107) meq/L Carbon Dioxide 19.5 L (21.0-32.0) meq/L Anion Gap 12 (5-15) meq/L BUN 34 H (7-18) mg/dL Creatinine 1.60 H (0.50-1.00) mg/dL Estimated GFR 34 L (>89) mL/min Random Glucose 155 H (74-106) mg/dL Lactic Acid 1.3 (0.4-2.0) mmol/L Calcium 10.6 H (8.5-10.1) mg/dL Total Bilirubin Less than 0.1 L (0.2-1.0) mg/dL AST 38 H (15-37) U/L ALT 37 (10-53) U/L Alkaline Phosphatase 84 (45-117) U/L Total Protein 6.3 L (6.4-8.2) g/dL Albumin 3.4 (3.4-5.0) g/dL Lipase 148 (73-393) U/L Discharge Plan Discharge Disposition Patient Disposition: 30 Still Patient Discharge Details Diagnosis: Acute dehydration, Acute hyponatremia Physicians Team ED Provider: Remigio Mahan Primary Care Provider: UNKNOWN, Rxs /Orders / Referrals /Forms Prescriptions: No Action clonazepam 0.5 mg Tablet 0.5 mg PO TID RF: 0 bethanechol chloride [Urecholine] 10 mg Tablet 10 mg PO TID Qty: 90 RF: 0 metronidazole [Flagyl] 250 mg Tablet 500 mg PO TID Qty: 30 RF: 0 ciprofloxacin HCl 250 mg Tablet 500 mg PO BID Qty: 14 RF: 0 Aspirin Low Dose 81 mg PO DAILY RF: 0 sertraline 100 mg Tablet 200 mg PO DAILY RF: 0 levothyroxine 50 mcg Tablet 100 mcg PO DAILY RF: 0 pantoprazole [Protonix] 40 mg Tablet,Delayed Release (Dr/Ec) 40 mg PO DAILY RF: 0 rivaroxaban [Xarelto] 10 mg Tablet 20 mg PO DAILY RF: 0 ziprasidone HCl [Geodon] 80 mg Capsule 80 mg PO QPM RF: 0 metoprolol succinate 50 mg Tablet Extended Release 24 Hr 50 mg PO DAILY RF: 0 potassium chloride [Klor-Con 10] 10 mEq Tablet Extended Release 10 meq PO DAILY RF: 0 lisinopril 5 mg Tablet 5 mg PO DAILY RF: 0 albuterol sulfate [ProAir HFA] 90 mcg/actuation Hfa Aerosol Inhaler 2 puff INHALATION Q4H PRN (Reason: Bronchodilation) RF: 0 ropinirole 2 mg Tablet Extended Release 24 Hr 2 mg PO DAILY RF: 0 umeclidinium-vilanterol [Anoro Ellipta] 62.5-25 mcg/actuation Blister With Device 1 inh INHALATION Q24H RF: 0 dicyclomine 10 mg Capsule 10 mg PO QID Qty: 120 RF: 0 Status ED Status: In Room
[2017-12-29 23:09] LABS: Chloride 97 meq/L (98-107); Potassium 3.5 meq/L (3.5-5.1); Sodium 128 meq/L (136-145)
[2017-12-29 23:12] LABS: Calcium 10.6 mg/dL (8.5-10.1)
[2017-12-29 23:13] LABS: Albumin 3.4 g/dL (3.4-5.0); Anion Gap 12 meq/L (5-15); Blood Urea Nitrogen 34 mg/dL (7-18); Carbon Dioxide 19.5 meq/L (21.0-32.0); Glucose,Random 155 mg/dL (74-106); Lipase 148 U/L (73-393)
[2017-12-29 23:15] LABS: Baso % (Auto) 0.4 % (0.0-2.0); Eos # (Auto) 0.1 th/mm3 (0.0-0.4); Eos % (Auto) 1.9 % (0.0-4.0); Hematocrit 35.5 % (35.0-46.0); Hemoglobin 12.5 gm/dL (11.6-15.3); Lymph # (Auto) 1.4 th/mm3 (1.0-4.8); Lymph % (Auto) 21.6 % (9.0-44.0); Mean Corpuscular HGB Conc 35.2 % (32.0-36.0); Mean Corpuscular Hemoglobin 31.5 pg (27.0-34.0); Mean Corpuscular Volume 89.5 fL (80.0-100.0); Mean Platelet Volume 9.4 fL (7.0-11.0); Mono # (Auto) 0.3 th/mm3 (0.0-0.9); Mono % (Auto) 5.3 % (0.0-8.0); Neut # (Auto) 4.5 th/mm3 (1.8-7.7); Neut % (Auto) 70.8 % (16.0-70.0); Platelet Count 164 th/mm3 (150-450); Red Blood Count 3.97 mil/mm3 (4.00-5.30); Red Cell Distribution Width 17.6 % (11.6-17.2); White Blood Count 6.3 th/mm3 (4.0-11.0)
[2017-12-29 23:16] LABS: Alanine Aminotransferase 37 U/L (10-53); Aspartate Aminotransferase 38 U/L (15-37); Glomerular Filtration Rate 34 mL/min (>89)
[2017-12-29 23:17] LABS: Total Protein 6.3 g/dL (6.4-8.2)
[2017-12-29 23:19] LABS: Alkaline Phosphatase 84 U/L (45-117)
[2017-12-29] MEDS ORDERED: Bisacodyl 10 MG Supp RECTAL PRN (23:59)
[2017-12-29] MEDS ORDERED: Acetaminophen 325 MG Tablet PO PRN (23:59)
[2017-12-30] MEDS: Sod Chloride 0.9% Inj 1,000 ML IV.CONT SCH ×3 (00:59→21:26)
[2017-12-30] MEDS ORDERED: Sod Chloride 0.9% Inj 1,000 ML IV.SIG ONE ×2 (08:15→10:45)
[2017-12-30 08:32] LABS: Carbon Dioxide 20.1 meq/L (21.0-32.0); Potassium 4.2 meq/L (3.5-5.1)
[2017-12-30] MEDS: Senna/Docusate Sodium 8.6/50 MG Tablet PO SCH ×2 (09:27→21:19)
--- NOTE | 2017-12-30 10:51 | P.HP ---
History of Present Illness Primary Care Physician: UNKNOWN Chief Complaint: Weakness History of Present Illness: 52-year-old female with known history of delayed gastric emptying, gastroparesis, chronic marijuana use who presented to the hospital for evaluation of weakness, fatigue, nausea, vomiting. Patient does have rather significant history of gastroparesis with being admitted in the hospital at least one time every month. Patient has had previous workup done by instrumentation tech with endoscopies. Patient indicates that she has not been able to get a follow-up appointment soon enough for outpatient care before she has to come back in the hospital for reevaluation and recurrence of symptoms. Patient indicates that she does try to drink as much fluids as she can on a daily basis. However she does get significant abdominal distention, abdominal discomfort. Patient states that she tries to hold back the vomiting but still does have episodes of vomiting. Patient does continue smoke marijuana on a daily basis. Patient was counseled on previous admissions about discontinuation of marijuana. I reiterated and the fact that she needs to quit smoking marijuana. Presently the patient is feeling much better. She is tolerating liquids. She is wondering when she can go home. - Diagnosis (1) Gastroparesis (2) Acute renal failure (3) Hypotension Review of Systems All other systems reviewed negative except as stated in HPI Gastrointestinal: Reports abdominal pain, Reports nausea, Reports vomiting PMFSH - History History Provided By: Patient, Friend - Medical History Medical History: Medical History (Last Reviewed 12/30/17 @ 11:04 by TANA Steele) Subclavian artery stenosis, left (Acute) 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) Restless leg syndrome (Acute) Depression (Acute) Hypothyroid (Acute) Tobacco abuse (Acute) IBS (irritable bowel syndrome) (Acute) TIA (transient ischemic attack) (Acute) COPD (chronic obstructive pulmonary disease) (Acute) CAD (coronary artery disease) (Acute) PAD (peripheral artery disease) (Acute) - Surgical History Surgical History: Surgical History (Last Reviewed 12/30/17 @ 11:04 by TANA Steele) S/P appy (Acute) History of cholecystectomy (Acute) History of (Acute) H/O heart artery stent (Acute) - Family History Family History: Family History (Last Reviewed 12/30/17 @ 11:04 by TANA Steele) Mother HTN (hypertension) Emphysema of lung - Tobacco History Second Hand Smoke Exposure: Yes Tobacco Use In Past 30 Days: Yes Smoking Status: Current every day smoker Tobacco Type: Cigarettes - Alcohol History How Often Do You Have a Drink Containing Alcohol: Monthly or less - Substance Use History Substance History: Active Abuse - Substance Use Type Marijuana Status: Active Route Used: Inhalation Comment: "To help with nausea." - Travel History Recent Travel in the [place] Within the Last 8 Weeks: No Recent Travel Out of the Country Within the Last 8 Weeks: No - Immunization History Tetanus Immunization: Unsure Hx Influenza Vaccine This Season: No Medications and Allergies Active Medications: Active Medications Acetaminophen (Tylenol) 650 mg PO Q4H PRN PRN Reason: Temp > 100.4 Last Admin: 12/30/17 06:42 Dose: 650 mg Al Hydroxide/Mg Hydroxide (Milk Of Magnesia Liq) 30 ml PO Q12H PRN PRN Reason: Mild Constipation Bethanechol Chloride (Urecholine) 10 mg PO TID REGINALDO Bisacodyl (Dulcolax Supp) 10 mg RECTAL DAILY PRN PRN Reason: SEVERE CONSITIPATION Cyclobenzaprine HCl (Flexeril) 10 mg PO TID REGINALDO Dicyclomine HCl (Bentyl) 10 mg PO QID REGINALDO Sodium Chloride (Ns Inj) 1,000 mls @ 100 mls/hr IV.CONT .Q10H REGINALDO Last Admin: 12/30/17 00:59 Dose: 100 mls/hr Sodium Chloride (Ns Inj) 1,000 mls @ 0 mls/hr IV.SIG BOLUS ONE Stop: 12/30/17 10:46 Lactulose (Lactulose Liq) 30 ml PO DAILY PRN PRN Reason: SEVERE CONSITIPATION Levothyroxine Sodium (Synthroid) 100 mcg PO DAILY [facility] Metoclopramide HCl (Reglan Inj) 5 mg IV.PUSH Q6HR PRN; Protocol PRN Reason: N/V resistant to zofran Last Admin: 12/30/17 01:04 Dose: 5 mg Non-Formulary Medication (Aspirin Low Dose) 81 mg PO DAILY [facility] Non-Formulary Medication (Ropinirole [Ropinirole]) 2 mg PO DAILY [facility] Ondansetron HCl (Zofran Inj) 4 mg IV.PUSH Q6H PRN PRN Reason: NAUSEA OR VOMITING Last Admin: 12/30/17 06:41 Dose: 4 mg Potassium Chloride (Klor-Con 10) 10 meq PO DAILY [facility] Rivaroxaban (Xarelto) 20 mg PO DAILY [facility] Senna/Docusate Sodium (Ericka-Colace) 1 tab PO BID [facility] Last Admin: 12/30/17 09:27 Dose: Not Given Sennosides (Senokot) 17.2 mg PO Q12H PRN PRN Reason: Moderate Constipation Sertraline HCl (Zoloft) 200 mg PO DAILY [facility] Ziprasidone (Geodon) 80 mg PO QPM [facility] Allergies Allergy/AdvReac Type Severity Reaction Status Date / Time budesonide Allergy Severe Swelling Verified 12/29/17 22:19 of Lip/Tongue/Throat formoterol Allergy Severe Swelling Verified 12/29/17 22:19 of Lip/Tongue/Throat codeine Allergy Intermediate Anaphylaxis Verified 12/29/17 22:19 Home Medications Medication Instructions Recorded Confirmed Type Aspirin Low Dose 81 mg PO DAILY 11/03/17 12/30/17 History levothyroxine 100 mcg PO DAILY 11/03/17 12/30/17 History pantoprazole [Protonix] 40 mg PO DAILY 11/03/17 12/30/17 History potassium chloride [Klor-Con 10] 10 meq PO DAILY 11/03/17 12/30/17 History rivaroxaban [Xarelto] 20 mg PO DAILY 11/03/17 12/30/17 History ropinirole 2 mg PO DAILY 11/03/17 12/30/17 History sertraline 200 mg PO DAILY 11/03/17 12/30/17 History ziprasidone HCl [Geodon] 80 mg PO QPM 11/03/17 12/30/17 History cyclobenzaprine 10 mg PO TID 12/30/17 12/30/17 History hydrocodone-acetaminophen [[place]] 1 tab PO Q6H 12/30/17 12/30/17 History omeprazole 20 mg PO DAILY 12/30/17 12/30/17 History Exam Vital signs: Vital Signs 12/29/17 21:56 12/29/17 23:57 12/30/17 01:20 Temperature 97.7 F Pulse Rate 58 L 57 L 57 L Respiratory Rate 18 18 16 Blood Pressure 87/54 L 104/55 L 87/52 L Pulse Oximetry 95 97 94 L 12/30/17 08:00 12/30/17 10:13 Temperature 97.5 F L Pulse Rate 53 L Respiratory Rate 19 Blood Pressure 71/41 L 90/60 L Pulse Oximetry 96 Intake & Output 12/29/17 12/30/17 12/30/17 18:59 06:59 18:59 Intake Total 1999 240 / 240 Output Total 240 / 240 Balance 1999 0 / 0 Weight 65 kg Intake: IV 1999 NS Inj 2,000 ML @ Wide Open IV. 1999 SIG BOLUS ONE Rx#:[id number] Oral 240 / 240 Output: Urine 240 / 240 Narrative: GENERAL: Well-developed, well-nourished, in no acute distress. alert and orientated HEENT: Head is normocephalic without any lesions or masses noted. Facial features are symmetric. Eyes: Pupils equal round reactive to light. Extraocular muscles are intact. Conjunctivae were clear. Oropharyngeal: Pharynx without any erythema edema. Tongue is midline without deviation. Buccal mucosa is moist without any masses or lesions NECK: Supple without any masses. Trachea midline no deviation. No JVD, no bruits are appreciated CARDIAC: Regular rhythm, regular rate. S1/S2 are heard. No murmurs gallops or rubs. LUNGS: Clear to auscultation bilaterally. No wheeze, rhonchi or rales. No use of accessory muscles on inspiration or expiration. ABDOMEN: Soft, nontender. Nondistended. Bowel sounds heard in all 4 quadrants. No organomegaly or masses. Negative rebound, negative guarding EXTREMITIES: No edema, pulses are equal bilaterally. No cyanosis or clubbing NEUROLOGY: Mood and affect appear appropriate. Cranial nerves II through XII grossly intact. Muscle strength 5/5 in upper and lower extremities bilaterally. Deep tendon reflexes are 2+ in upper and lower extremities bilaterally. Results - Labs CBC & Chem 7: 12/29/17 22:50 12/30/17 07:37 Labs: Laboratory Results - last 24 hr 12/29/17 12/29/17 12/29/17 22:50 22:50 22:50 CBC w Diff Auto diff final WBC 6.3 RBC 3.97 L Hgb 12.5 Hct 35.5 MCV 89.5 MCH 31.5 MCHC 35.2 RDW 17.6 H Plt Count 164 MPV 9.4 Neut % (Auto) 70.8 H Lymph % (Auto) 21.6 [place] % (Auto) 5.3 Eos % (Auto) 1.9 Baso % (Auto) 0.4 Neut # (Auto) 4.5 Lymph # (Auto) 1.4 [place] # (Auto) 0.3 Eos # (Auto) 0.1 Baso # (Auto) 0.0 WBC Differential . Differential Comment . Sodium 128 L Potassium 3.5 Chloride 97 L Carbon Dioxide 19.5 L Anion Gap 12 BUN 34 H Creatinine 1.60 H Estimated GFR 34 L Random Glucose 155 H Lactic Acid 1.3 Calcium 10.6 H Total Bilirubin Less than 0.1 L AST 38 H ALT 37 Alkaline Phosphatase 84 Total Protein 6.3 L Albumin 3.4 Lipase 148 12/30/17 07:37 CBC w Diff WBC RBC Hgb Hct MCV MCH MCHC RDW Plt Count MPV Neut % (Auto) Lymph % (Auto) [place] % (Auto) Eos % (Auto) Baso % (Auto) Neut # (Auto) Lymph # (Auto) [place] # (Auto) Eos # (Auto) Baso # (Auto) WBC Differential Differential Comment Sodium 136 Potassium 4.2 Chloride 109 H D Carbon Dioxide 20.1 L Anion Gap 7 BUN 25 H Creatinine 1.10 H Estimated GFR 52 L Random Glucose 89 Lactic Acid Calcium 9.0 D Total Bilirubin AST ALT Alkaline Phosphatase Total Protein Albumin Lipase Caprini VTE Risk Assessment Caprini VTE Risk Assessment: Moderate/High Risk (score >= 2) Caprini Risk Assessment Model: Point Value = 1 Point Value = 2 Point Value = 3 Point Value = 5 Age 41-60 Minor surgery BMI > 25 kg/m2 Swollen legs Varicose veins or History of unexplained or recurrent spontaneous Oral contraceptives or hormone replacement Sepsis (< 1 month) Serious lung disease, including pneumonia (< 1 month) Abnormal pulmonary function Acute myocardial infarction Congestive heart failure (< 1 month) History of inflammatory bowel disease Medical patient at bed rest Age 61-74 Arthroscopic surgery Major open surgery (> 45 min) Laparoscopic surgery (> 45 min) Malignancy Confined to bed (> 72 hours) Immobilizing plaster cast Central venous access Age >= 75 History of VTE Family history of VTE Factor V Leiden Prothrombin [id number] Lupus anticoagulant Anticardiolipin antibodies Elevated serum homocysteine Heparin-induced thrombocytopenia Other congenital or acquired thrombophilia Stroke (< 1 month) Elective arthroplasty Hip, pelvis, or leg fracture Acute spinal cord injury (< 1 month) Prophylaxis Regimen: Total Risk Factor Score Risk Level Prophylaxis Regimen 0-1 Low Early ambulation 2 Moderate Order ONE of the following: *Sequential Compression Device (SCD) *Heparin 5000 units SQ BID 3-4 Higher Order ONE of the following medications: *Heparin 5000 units SQ TID *Enoxaparin/Lovenox 40 mg SQ daily (WT < 150 kg, CrCl > 30 mL/min) *Enoxaparin/Lovenox 30 mg SQ daily (WT < 150 kg, CrCl > 10-29 mL/min) *Enoxaparin/Lovenox 30 mg SQ BID (WT < 150 kg, CrCl > 30 mL/min) AND/OR *Sequential Compression Device (SCD) 5 or more Highest Order ONE of the following medications: *Heparin 5000 units SQ TID (Preferred with Epidurals) *Enoxaparin/Lovenox 40 mg SQ daily (WT < 150 kg, CrCl > 30 mL/min) *Enoxaparin/Lovenox 30 mg SQ daily (WT < 150 kg, CrCl > 10-29 mL/min) *Enoxaparin/Lovenox 30 mg SQ BID (WT < 150 kg, CrCl > 30 mL/min) AND *Sequential Compression Device (SCD) Assessment and Plan - Assessment (1) Gastroparesis Code(s): K31.84 - Gastroparesis Status: Acute (2) Acute renal failure Code(s): N17.9 - Acute kidney failure, unspecified Status: Acute (3) Hypotension Code(s): I95.9 - Hypotension, unspecified Status: Acute - Plan Gastroparesis, irritable bowel syndrome, exacerbation -Possibly related to cyclic vomiting syndrome secondary to marijuana abuse -Patient counseled on marijuana cessation -Continue IV fluids -Continue bethanechol, Bentyl -Discussed with patient that she needs to follow-up with outpatient instrumentation tech for further care and management Hypotension -Secondary to hypovolemia from gastroparesis, nausea vomiting -Status post 4 L normal saline -Blood pressure improved -Continue to hold metoprolol/lisinopril Restless leg syndrome -Continue Requip Hypothyroidism -Continue levothyroxine DVT prevention -Continue Xarelto
[2017-12-30] MEDS: Sertraline 100 MG Tablet PO SCH (11:53)
[2017-12-30] MEDS: Rivaroxaban 20 MG Tablet PO SCH (11:53)
[2017-12-30] MEDS: Levothyroxine 100 MCG Tablet PO SCH (12:07)
[2017-12-30] MEDS: Dicyclomine 10 MG Capsule PO SCH ×3 (12:07→21:19)
[2017-12-31] MEDS: Sod Chloride 0.9% Inj 1,000 ML IV.CONT SCH ×2 (06:14→09:01)
[2017-12-31] MEDS: Levothyroxine 100 MCG Tablet PO SCH (06:17)
[2017-12-31] MEDS ORDERED: Sod Chloride 0.9% Inj 1,000 ML IV.SIG ONE (07:08)
[2017-12-31 08:57] VITALS: TEMP 97.1; O2SAT 97
[2017-12-31] MEDS: Rivaroxaban 20 MG Tablet PO SCH (08:59)
[2017-12-31] MEDS: Dicyclomine 10 MG Capsule PO SCH (09:00)
[2017-12-31] MEDS: Sertraline 100 MG Tablet PO SCH (09:00)
[2017-12-31] MEDS: Senna/Docusate Sodium 8.6/50 MG Tablet PO SCH (09:13)
[2017-12-31 09:17] VITALS: BP 98/54; PULSE 68
[2017-12-31 10:15] VITALS: RESP 18
--- NOTE | 2017-12-31 10:20 | P.PN ---
Subjective Interval history: 52-year-old female who is seen and examined today for follow-up on gastroparesis. Patient tolerated dinner and breakfast this morning. She states that she can only eat a small amount of time but she is able to keep the food down. Patient is doing well. She is very eager to go home. Vital signs show low blood pressure, however review of her medical records indicate that she has chronically low blood pressure without any significant change even with multiple fluid boluses. Patient remains afebrile Physical Exam Vital signs: Vital Signs 12/30/17 12:00 12/30/17 18:33 12/30/17 20:00 Temperature 97.3 F L 97.4 F L Pulse Rate 58 L 66 Respiratory Rate 19 16 20 Blood Pressure 109/53 L 98/61 L Pulse Oximetry 99 95 12/31/17 00:00 12/31/17 03:43 12/31/17 04:00 Temperature 96.7 F L 96.6 F L Pulse Rate 80 60 Respiratory Rate 20 20 20 Blood Pressure 84/48 L 100/51 L Pulse Oximetry 95 95 12/31/17 08:00 12/31/17 09:16 Temperature 97.1 F L Pulse Rate 64 68 Respiratory Rate 18 Blood Pressure 89/52 L 98/54 L Pulse Oximetry 97 Intake & Output 12/30/17 12/31/17 12/31/17 18:59 06:59 18:59 Intake Total 3720 / 3720 1720 / 1720 1240 / 1240 Output Total 840 / 840 300 / 300 Balance 2880 / 2880 1720 / 1720 940 / 940 Weight 65.3 kg Intake: IV 3000 / 3000 1000 / 1000 1000 / 1000 NS Inj 1,000 ML @ 100 mls/hr IV 1000 / 1000 1000 / 1000 .CONT .Q10H REGINALDO Rx#:[id number] NS Inj 1,000 ML @ Wide Open IV. 1999 / 1999 1000 / 1000 SIG BOLUS ONE Rx#:[id number] Oral 720 / 720 720 / 720 240 / 240 Output: Urine 840 / 840 300 / 300 Other: # Voids 3 Narrative: GENERAL: Well-developed, well-nourished, in no acute distress. alert and orientated HEENT: Head is normocephalic without any lesions or masses noted. Facial features are symmetric. Eyes: Extraocular muscles are intact. Conjunctivae were clear. NECK: Supple without any masses. Trachea midline no deviation. No JVD, CARDIAC: Regular rhythm, regular rate. S1/S2 are heard. No murmurs gallops or rubs. LUNGS: Clear to auscultation bilaterally. No wheeze, rhonchi or rales. No use of accessory muscles on inspiration or expiration. ABDOMEN: Soft, nontender. Nondistended. Bowel sounds heard in all 4 quadrants. No organomegaly or masses. Negative rebound, negative guarding EXTREMITIES: No edema, pulses are equal bilaterally. No cyanosis or clubbing NEUROLOGY: Mood and affect appear appropriate. Cranial nerves II through XII grossly intact. Moving all extremities, speech is clear Results - Labs CBC & Chem 7: 12/29/17 22:50 12/30/17 07:37 Assessment and Plan - Assessment (1) Gastroparesis Code(s): K31.84 - Gastroparesis Status: Acute (2) Acute renal failure Code(s): N17.9 - Acute kidney failure, unspecified Status: Acute (3) Hypotension Code(s): I95.9 - Hypotension, unspecified Status: Acute - Plan Gastroparesis, irritable bowel syndrome, exacerbation -Possibly related to cyclic vomiting syndrome secondary to marijuana abuse -Patient counseled on marijuana cessation -Continue IV fluids -Continue bethanechol, Bentyl -Diet has been advanced, patient tolerating diet at this time -Discussed with patient that she needs to follow-up with outpatient hospital plan administrator for further care and management Hypotension -Secondary to hypovolemia from gastroparesis, nausea vomiting -Status post 4 L normal saline -Blood pressure stable -Continue to hold metoprolol/lisinopril Restless leg syndrome -Continue Requip Hypothyroidism -Continue levothyroxine DVT prevention -Continue Xarelto Discharge Planning: Discharge home in stable condition Activity: Ad arnoldo. Diet: Healthy heart diet Medication per medication reconciliation Follow-up with primary medical doctor in 1 week
== END 2017-12-31 10:42 | disposition home or self-care (01) ==
LOC: PHEDA 21:38 → PHED 21:38 → PH3 12-30 00:43
PROVIDERS: ADMIT Family Medicine; ATTEND Family Medicine

== ENCOUNTER 2018-01-25 15:31 | Inpatient (IN) ==
[2018-01-25] MEDS: Sod Chloride 0.9% Inj 1,000 ML IV.SIG SCH ×2 (16:43→20:47)
--- NOTE | 2018-01-25 16:43 | ED ---
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 She had multiple recent admissions for hypotension and electrolyte imbalance last admission was 12/29. She is here for dehydration, nausea but no vomiting. She checked her blood pressure at home and it was 70/45, she says she has been having on and off abdominal pain. 2 days ago she fell and hit her right side of her rib cage, she is complaining of pain in the right side, rated 3 out of 10, worse when she takes deep inspirations, she has no fever chills or night sweats, no shortness of breath. Related Data Home Medications Medication Instructions Recorded Confirmed Aspirin Low Dose 81 mg PO DAILY 11/03/17 01/25/18 levothyroxine 100 mcg PO DAILY 11/03/17 01/25/18 pantoprazole [Protonix] 40 mg PO DAILY 11/03/17 01/25/18 potassium chloride [Klor-Con 10] 10 meq PO DAILY 11/03/17 01/25/18 rivaroxaban [Xarelto] 20 mg PO DAILY 11/03/17 01/25/18 ropinirole 5 mg PO DAILY 11/03/17 01/25/18 sertraline 200 mg PO DAILY 11/03/17 01/25/18 ziprasidone HCl [Geodon] 80 mg PO QPM 11/03/17 01/25/18 cyclobenzaprine 10 mg PO TID 12/30/17 01/25/18 hydrocodone-acetaminophen [Poplar] 1 tab PO Q6H 12/30/17 01/25/18 omeprazole 20 mg PO DAILY 12/30/17 01/25/18 bethanechol chloride [Urecholine] 10 mg PO DAILY 01/25/18 01/25/18 clonazepam 0.5 mg PO TID 01/25/18 01/25/18 Previous Rx's Medication Instructions Recorded dicyclomine 10 mg PO QID #120 cap 11/08/17 Allergies Allergy/AdvReac Type Severity Reaction Status Date / Time budesonide Allergy Severe Swelling Verified 01/25/18 15:35 of Lip/Tongue/Throat formoterol Allergy Severe Swelling Verified 01/25/18 15:35 of Lip/Tongue/Throat codeine Allergy Intermediate Anaphylaxis Verified 01/25/18 15:35 Review of Systems ROS: all other systems reviewed are negative [facility] Social History Social History Substance History: No History of Abuse Second Hand Smoke Exposure: No Smoking Status: Current every day smoker Tobacco Type: Cigarettes How Often Do You Have a Drink Containing Alcohol: Never Recent Travel in [facility] within the Last 8 Weeks: No Recent Out of Country Travel within the Last 8 Weeks: No Immunization History Tetanus Immunization: <5 Years Exam Narrative Exam Narrative: GENERAL: Alert oriented x3 no acute distress. SKIN: Focused skin assessment warm/dry. HEAD: Atraumatic. Normocephalic. EYES: Pupils equal and round. No scleral icterus. No injection or drainage. ENT: No nasal bleeding or discharge. Mucous membranes pink and moist. NECK: Trachea midline. No JVD. CARDIOVASCULAR: Regular rate and rhythm. No murmur appreciated. RESPIRATORY: No accessory muscle use. Clear to auscultation. Breath sounds equal bilaterally. GASTROINTESTINAL: Abdomen soft, non-tender, nondistended. Hepatic and splenic margins not palpable. MUSCULOSKELETAL: No obvious deformities. No clubbing. No cyanosis. No edema. NEUROLOGICAL: Awake and alert. No obvious cranial nerve deficits. Motor grossly within normal limits. Normal speech. PSYCHIATRIC: Appropriate mood and affect; insight and judgment normal. Course Initial Documented Vital Signs Temperature 97.8 F 01/25/18 15:36 Pulse Rate 78 01/25/18 15:36 Respiratory Rate 18 01/25/18 15:36 Blood Pressure 101/59 L 01/25/18 15:36 Pulse Oximetry 98 01/25/18 15:36 Last Documented Vital Signs Temperature 98.2 F 01/26/18 11:45 Pulse Rate 58 L 01/26/18 14:45 Respiratory Rate 14 01/26/18 14:45 Blood Pressure 137/71 01/26/18 14:32 Pulse Oximetry 100 01/26/18 14:45 Medical Decision Making MDM Narrative Medical decision making narrative: 52 female with extensive medical here for hypotension and nausea. Patient potassium is 2.6, no EKG changes, she continues to have hypotension even with 2L normal saline IV bolus fluid challenge, patient was here multiple times for same reason. Patient received aggressive hydration, blood pressure is slowly responding to IV fluids, will admit to ICU. Medical Screen Exam Complete: Yes Emergency Medical Condition: Yes Lab Data Result diagrams: 01/26/18 04:25 01/26/18 04:25 Lab Results 01/25/18 01/25/18 01/25/18 Range/Units 16:32 16:32 16:32 CBC w Diff Auto diff final WBC 7.4 (4.0-11.0) th/mm3 RBC 4.19 (4.00-5.30) mil/mm3 Hgb 13.3 (11.6-15.3) gm/dL Hct 39.0 (35.0-46.0) % MCV 92.9 (80.0-100.0) fL MCH 31.7 (27.0-34.0) pg MCHC 34.1 (32.0-36.0) % RDW 15.4 (11.6-17.2) % Plt Count 221 D (150-450) th/mm3 MPV 9.3 (7.0-11.0) fL Neut % (Auto) 73.9 H (16.0-70.0) % Lymph % (Auto) 18.0 (9.0-44.0) % Hartley % (Auto) 7.0 (0.0-8.0) % Eos % (Auto) 0.5 (0.0-4.0) % Baso % (Auto) 0.6 (0.0-2.0) % Neut # (Auto) 5.6 (1.8-7.7) th/mm3 Lymph # (Auto) 1.3 (1.0-4.8) th/mm3 Hartley # (Auto) 0.5 (0.0-0.9) th/mm3 Eos # (Auto) 0.0 (0.0-0.4) th/mm3 Baso # (Auto) 0.0 (0.0-0.2) th/mm3 WBC Differential . Differential Comment . PT 10.3 (9.8-11.6) sec INR 1.0 Ratio APTT 28.7 (24.3-30.1) sec Sodium 131 L (136-145) meq/L Potassium 2.6 L* (3.5-5.1) meq/L Chloride 98 (98-107) meq/L Carbon Dioxide 22.5 (21.0-32.0) meq/L Anion Gap 11 (5-15) meq/L BUN 22 H (7-18) mg/dL Creatinine 0.83 (0.50-1.00) mg/dL Estimated GFR 72 L (>89) mL/min Random Glucose 101 (74-106) mg/dL Lactic Acid Calcium 10.2 H (8.5-10.1) mg/dL Phosphorus (2.5-4.9) mg/dL Magnesium 1.9 (1.5-2.5) mg/dL Total Bilirubin 0.2 (0.2-1.0) mg/dL AST 23 (15-37) U/L ALT 30 (10-53) U/L Alkaline Phosphatase 97 (45-117) U/L Total Creatine Kinase 54 (26-192) U/L Troponin I Less than 0.02 L (0.02-0.05) ng/mL Total Protein 6.7 (6.4-8.2) g/dL Albumin 3.7 (3.4-5.0) g/dL Free T4 (0.76-1.46) ng/dL Urine Color (Yellw/Straw) Urine Clarity (Clear) Urine pH (5.0-8.5) Ur Specific [place] (1.002-1.035) Urine Protein (Neg-Trace) mg/dL Urine Glucose (UA) (Negative) mg/dL Urine Ketones (Negative) mg/dL Urine Occult Blood (Negative) Urine Nitrate (Negative) Urine Bilirubin (Negative) Urine Urobilinogen (Less than 2) mg/dL Ur Leukocyte Esterase (Negative) Urine RBC (0-3) /hpf Urine WBC (0-5) /hpf Ur Squamous Epith Cells (0-5) /hpf Urine Bacteria (None) /hpf Micro UA Comment Ur Microscopic Review Urine Culture Comments 01/25/18 01/25/18 01/25/18 Range/Units 16:32 19:04 21:05 CBC w Diff WBC (4.0-11.0) th/mm3 RBC (4.00-5.30) mil/mm3 Hgb (11.6-15.3) gm/dL Hct (35.0-46.0) % MCV (80.0-100.0) fL MCH (27.0-34.0) pg MCHC (32.0-36.0) % RDW (11.6-17.2) % Plt Count (150-450) th/mm3 MPV (7.0-11.0) fL Neut % (Auto) (16.0-70.0) % Lymph % (Auto) (9.0-44.0) % Hartley % (Auto) (0.0-8.0) % Eos % (Auto) (0.0-4.0) % Baso % (Auto) (0.0-2.0) % Neut # (Auto) (1.8-7.7) th/mm3 Lymph # (Auto) (1.0-4.8) th/mm3 Hartley # (Auto) (0.0-0.9) th/mm3 Eos # (Auto) (0.0-0.4) th/mm3 Baso # (Auto) (0.0-0.2) th/mm3 WBC Differential Differential Comment PT (9.8-11.6) sec INR Ratio APTT (24.3-30.1) sec Sodium (136-145) meq/L Potassium (3.5-5.1) meq/L Chloride (98-107) meq/L Carbon Dioxide (21.0-32.0) meq/L Anion Gap (5-15) meq/L BUN (7-18) mg/dL Creatinine (0.50-1.00) mg/dL Estimated GFR (>89) mL/min Random Glucose (74-106) mg/dL Lactic Acid Cancelled Calcium (8.5-10.1) mg/dL Phosphorus (2.5-4.9) mg/dL Magnesium (1.5-2.5) mg/dL Total Bilirubin (0.2-1.0) mg/dL AST (15-37) U/L ALT (10-53) U/L Alkaline Phosphatase (45-117) U/L Total Creatine Kinase (26-192) U/L Troponin I Less than 0.02 L (0.02-0.05) ng/mL Total Protein (6.4-8.2) g/dL Albumin (3.4-5.0) g/dL Free T4 (0.76-1.46) ng/dL Urine Color Straw (Yellw/Straw) Urine Clarity Clear (Clear) Urine pH 7.0 (5.0-8.5) Ur Specific [place] 1.010 (1.002-1.035) Urine Protein Negative (Neg-Trace) mg/dL Urine Glucose (UA) Negative (Negative) mg/dL Urine Ketones Negative (Negative) mg/dL Urine Occult Blood Negative (Negative) Urine Nitrate Negative (Negative) Urine Bilirubin Negative (Negative) Urine Urobilinogen 0.2 (Less than 2) mg/dL Ur Leukocyte Esterase Negative (Negative) Urine RBC 0-3 (0-3) /hpf Urine WBC 0-5 (0-5) /hpf Ur Squamous Epith Cells 0-5 (0-5) /hpf Urine Bacteria Rare H (None) /hpf Micro UA Comment Culture not ind Ur Microscopic Review Microscopic reviewed Urine Culture Comments Culture not ind 01/26/18 01/26/18 01/26/18 Range/Units 04:25 04:25 04:25 CBC w Diff Auto diff final WBC 6.0 (4.0-11.0) th/mm3 RBC 3.88 L (4.00-5.30) mil/mm3 Hgb 12.1 (11.6-15.3) gm/dL Hct 36.5 (35.0-46.0) % MCV 94.1 (80.0-100.0) fL MCH 31.3 (27.0-34.0) pg MCHC 33.2 (32.0-36.0) % RDW 15.4 (11.6-17.2) % Plt Count 203 (150-450) th/mm3 MPV 8.9 (7.0-11.0) fL Neut % (Auto) 70.1 H (16.0-70.0) % Lymph % (Auto) 20.8 (9.0-44.0) % Hartley % (Auto) 8.1 H (0.0-8.0) % Eos % (Auto) 0.7 (0.0-4.0) % Baso % (Auto) 0.3 (0.0-2.0) % Neut # (Auto) 4.2 (1.8-7.7) th/mm3 Lymph # (Auto) 1.3 (1.0-4.8) th/mm3 Hartley # (Auto) 0.5 (0.0-0.9) th/mm3 Eos # (Auto) 0.0 (0.0-0.4) th/mm3 Baso # (Auto) 0.0 (0.0-0.2) th/mm3 WBC Differential . Differential Comment . PT 10.2 (9.8-11.6) sec INR 1.0 Ratio APTT 27.8 (24.3-30.1) sec Sodium (136-145) meq/L Potassium (3.5-5.1) meq/L Chloride (98-107) meq/L Carbon Dioxide (21.0-32.0) meq/L Anion Gap (5-15) meq/L BUN (7-18) mg/dL Creatinine (0.50-1.00) mg/dL Estimated GFR (>89) mL/min Random Glucose (74-106) mg/dL Lactic Acid Calcium (8.5-10.1) mg/dL Phosphorus (2.5-4.9) mg/dL Magnesium (1.5-2.5) mg/dL Total Bilirubin (0.2-1.0) mg/dL AST (15-37) U/L ALT (10-53) U/L Alkaline Phosphatase (45-117) U/L Total Creatine Kinase (26-192) U/L Troponin I Less than 0.02 L (0.02-0.05) ng/mL Total Protein (6.4-8.2) g/dL Albumin (3.4-5.0) g/dL Free T4 (0.76-1.46) ng/dL Urine Color (Yellw/Straw) Urine Clarity (Clear) Urine pH (5.0-8.5) Ur Specific [place] (1.002-1.035) Urine Protein (Neg-Trace) mg/dL Urine Glucose (UA) (Negative) mg/dL Urine Ketones (Negative) mg/dL Urine Occult Blood (Negative) Urine Nitrate (Negative) Urine Bilirubin (Negative) Urine Urobilinogen (Less than 2) mg/dL Ur Leukocyte Esterase (Negative) Urine RBC (0-3) /hpf Urine WBC (0-5) /hpf Ur Squamous Epith Cells (0-5) /hpf Urine Bacteria (None) /hpf Micro UA Comment Ur Microscopic Review Urine Culture Comments 01/26/18 01/26/18 Range/Units 04:25 07:10 CBC w Diff WBC (4.0-11.0) th/mm3 RBC (4.00-5.30) mil/mm3 Hgb (11.6-15.3) gm/dL Hct (35.0-46.0) % MCV (80.0-100.0) fL MCH (27.0-34.0) pg MCHC (32.0-36.0) % RDW (11.6-17.2) % Plt Count (150-450) th/mm3 MPV (7.0-11.0) fL Neut % (Auto) (16.0-70.0) % Lymph % (Auto) (9.0-44.0) % Hartley % (Auto) (0.0-8.0) % Eos % (Auto) (0.0-4.0) % Baso % (Auto) (0.0-2.0) % Neut # (Auto) (1.8-7.7) th/mm3 Lymph # (Auto) (1.0-4.8) th/mm3 Hartley # (Auto) (0.0-0.9) th/mm3 Eos # (Auto) (0.0-0.4) th/mm3 Baso # (Auto) (0.0-0.2) th/mm3 WBC Differential Differential Comment PT (9.8-11.6) sec INR Ratio APTT (24.3-30.1) sec Sodium 143 D (136-145) meq/L Potassium 3.6 D (3.5-5.1) meq/L Chloride 114 H D (98-107) meq/L Carbon Dioxide 20.3 L (21.0-32.0) meq/L Anion Gap 9 (5-15) meq/L BUN 14 (7-18) mg/dL Creatinine 0.66 (0.50-1.00) mg/dL Estimated GFR Greater than 89 (>89) mL/min Random Glucose 87 (74-106) mg/dL Lactic Acid 0.4 Calcium 8.8 D (8.5-10.1) mg/dL Phosphorus 2.1 L (2.5-4.9) mg/dL Magnesium 1.8 (1.5-2.5) mg/dL Total Bilirubin 0.2 (0.2-1.0) mg/dL AST 21 (15-37) U/L ALT 26 (10-53) U/L Alkaline Phosphatase 88 (45-117) U/L Total Creatine Kinase (26-192) U/L Troponin I (0.02-0.05) ng/mL Total Protein 5.9 L D (6.4-8.2) g/dL Albumin 3.1 L D (3.4-5.0) g/dL Free T4 0.97 (0.76-1.46) ng/dL Urine Color (Yellw/Straw) Urine Clarity (Clear) Urine pH (5.0-8.5) Ur Specific [place] (1.002-1.035) Urine Protein (Neg-Trace) mg/dL Urine Glucose (UA) (Negative) mg/dL Urine Ketones (Negative) mg/dL Urine Occult Blood (Negative) Urine Nitrate (Negative) Urine Bilirubin (Negative) Urine Urobilinogen (Less than 2) mg/dL Ur Leukocyte Esterase (Negative) Urine RBC (0-3) /hpf Urine WBC (0-5) /hpf Ur Squamous Epith Cells (0-5) /hpf Urine Bacteria (None) /hpf Micro UA Comment Ur Microscopic Review Urine Culture Comments Imaging Data Radiologist's impression: Ribs X-Ray 01/25/18 16:39 CONCLUSION: Acute right-sided rib fracture not seen. Discharge Plan Discharge Disposition Patient Disposition: 30 Still Patient Discharge Condition Condition: Stable Physicians Team ED Provider: Justus Buchanan Primary Care Provider: Primary Care Aminata Mukherjee Attending Provider: Eb Mendoza Discharge Interventions Interventions: ED Discharge Assessment Last Done: 01/25/18 21:02 Vital Signs Last Done: 01/25/18 20:48 Status ED Status: Left Department Discharge Information Discharge Date/Time: 01/25/18 21:02
[2018-01-25 16:44] LABS: Baso % (Auto) 0.6 % (0.0-2.0); Eos % (Auto) 0.5 % (0.0-4.0); Hemoglobin 13.3 gm/dL (11.6-15.3); Lymph # (Auto) 1.3 th/mm3 (1.0-4.8); Mean Corpuscular HGB Conc 34.1 % (32.0-36.0); Mean Corpuscular Hemoglobin 31.7 pg (27.0-34.0); Mean Corpuscular Volume 92.9 fL (80.0-100.0); Mean Platelet Volume 9.3 fL (7.0-11.0); Mono # (Auto) 0.5 th/mm3 (0.0-0.9); Neut # (Auto) 5.6 th/mm3 (1.8-7.7); Neut % (Auto) 73.9 % (16.0-70.0); Platelet Count 221 th/mm3 (150-450); Red Blood Count 4.19 mil/mm3 (4.00-5.30); Red Cell Distribution Width 15.4 % (11.6-17.2); White Blood Count 7.4 th/mm3 (4.0-11.0)
[2018-01-25 17:13] LABS: Activated Partial Thrombo Time 28.7 sec (24.3-30.1); Prothrombin Time 10.3 sec (9.8-11.6)
--- NOTE | 2018-01-25 17:26 | XR ---
EXAM DATE: 01/25/2018 4:39 PM EDT AGE/SEX: 52 years / Female INDICATIONS: Patient had syncopal episode and fell landing on right flank. Complains of right rib pa in. CLINICAL DATA: This is the patient's initial encounter. Patient reports that signs and symptoms have been present for 3 days and indicates a pain score of 9/10. MEDICAL/SURGICAL HISTORY: None. None. COMPARISON: No prior exams available for comparison. FINDINGS: There is no evidence of displaced fracture. No destructive lesions or areas of periosteal thickening are seen. Expiratory view of the chest is negative for pneumothorax. The mediastinal structures ar e midline. Left basilar subsegmental atelectasis/scarring. CONCLUSION: Acute right-sided rib fracture not seen. Electronically signed by: Eb Garcia MD 01/25/2018 5:25 PM EDT
[2018-01-25 17:44] LABS: Alanine Aminotransferase 30 U/L (10-53); Albumin 3.7 g/dL (3.4-5.0); Alkaline Phosphatase 97 U/L (45-117); Anion Gap 11 meq/L (5-15); Aspartate Aminotransferase 23 U/L (15-37); Blood Urea Nitrogen 22 mg/dL (7-18); Calcium 10.2 mg/dL (8.5-10.1); Carbon Dioxide 22.5 meq/L (21.0-32.0); Chloride 98 meq/L (98-107); Glomerular Filtration Rate 72 mL/min (>89); Glucose,Random 101 mg/dL (74-106); Magnesium 1.9 mg/dL (1.5-2.5); Sodium 131 meq/L (136-145); Total Protein 6.7 g/dL (6.4-8.2)
[2018-01-25 17:45] LABS: Creatine Kinase 54 U/L (26-192); Potassium 2.6 meq/L (3.5-5.1)
[2018-01-25] MEDS ORDERED: Potassium Chlor 40 mEq Premix 40 MEQ/100 ML PIGGYBACK IV.SIG ONE (17:51)
[2018-01-25] MEDS: Potassium Chlor 20 mEq Premix 20 MEQ/100 ML PIGGYBACK IV.SIG SCH ×2 (18:10→22:00)
[2018-01-25] MEDS ORDERED: Sod Chloride 0.9% Inj 1,000 ML IV.SIG ONE (18:35)
[2018-01-25 19:07] LABS: Bilirubin,Urine Negative (Negative); Clarity,Urine Clear (Clear); Glucose,Urine (UA) Negative (Negative); Leukocyte Esterase,Urine Negative (Negative); Nitrite,Urine Negative (Negative); Urobilinogen,Urine 0.2 mg/dL (Less than 2)
[2018-01-25 19:10] LABS: Color,Urine Straw (Yellw/Straw)
[2018-01-25 19:12] LABS: Bacteria,Urine Rare /hpf; RBC,Urine 0-3 /hpf (0-3); Squamous Epithelial Cell,Urine 0-5 /hpf (0-5); WBC,Urine 0-5 /hpf (0-5)
[2018-01-25] MEDS ORDERED: Acetaminophen 325 MG Tablet PO PRN (20:45)
[2018-01-25] MEDS ORDERED: Temazepam 15 MG Capsule PO PRN (20:45)
[2018-01-25] MEDS ORDERED: Bisacodyl 10 MG Supp RECTAL PRN (20:45)
[2018-01-25] MEDS ORDERED: Phenylephrine Inj 40 MG in Dextrose 5% in Water Inj 496 ML IV.CONT PRN ×2 (21:40)
[2018-01-25] MEDS ORDERED: Enoxaparin Inj 30 MG/0.3 ML Syringe SQ SCH (22:00)
[2018-01-25] MEDS: Sod Chloride 0.9% Inj 1,000 ML IV.CONT SCH (22:02)
[2018-01-25] MEDS: Senna/Docusate Sodium 8.6/50 MG Tablet PO SCH (23:11)
[2018-01-26] MEDS ORDERED: Chlorhexidine Gluconate 2% 1 Pack (2 Cloths) TOPICAL PRN (04:00)
[2018-01-26] MEDS: Albumin Human 5% Inj 500 ML IV.SIG SCH ×4 (04:47→20:15)
[2018-01-26 04:48] LABS: Baso % (Auto) 0.3 % (0.0-2.0); Eos % (Auto) 0.7 % (0.0-4.0); Hematocrit 36.5 % (35.0-46.0); Hemoglobin 12.1 gm/dL (11.6-15.3); Lymph # (Auto) 1.3 th/mm3 (1.0-4.8); Lymph % (Auto) 20.8 % (9.0-44.0); Mean Corpuscular HGB Conc 33.2 % (32.0-36.0); Mean Corpuscular Hemoglobin 31.3 pg (27.0-34.0); Mean Corpuscular Volume 94.1 fL (80.0-100.0); Mean Platelet Volume 8.9 fL (7.0-11.0); Mono # (Auto) 0.5 th/mm3 (0.0-0.9); Mono % (Auto) 8.1 % (0.0-8.0); Neut # (Auto) 4.2 th/mm3 (1.8-7.7); Neut % (Auto) 70.1 % (16.0-70.0); Platelet Count 203 th/mm3 (150-450); Red Blood Count 3.88 mil/mm3 (4.00-5.30); Red Cell Distribution Width 15.4 % (11.6-17.2)
[2018-01-26] MEDS: Sod Chloride 0.9% Inj 1,000 ML IV.CONT SCH (04:49)
[2018-01-26] MEDS: Chlorhexidine Gluconate 2% 1 Pack (2 Cloths) TOPICAL SCH (04:54)
[2018-01-26 04:59] LABS: Calcium 8.8 mg/dL (8.5-10.1); Chloride 114 meq/L (98-107); Potassium 3.6 meq/L (3.5-5.1); Sodium 143 meq/L (136-145)
[2018-01-26 05:01] LABS: Activated Partial Thrombo Time 27.8 sec (24.3-30.1); Prothrombin Time 10.2 sec (9.8-11.6)
[2018-01-26 05:08] LABS: Alanine Aminotransferase 26 U/L (10-53); Albumin 3.1 g/dL (3.4-5.0); Alkaline Phosphatase 88 U/L (45-117); Anion Gap 9 meq/L (5-15); Aspartate Aminotransferase 21 U/L (15-37); Blood Urea Nitrogen 14 mg/dL (7-18); Carbon Dioxide 20.3 meq/L (21.0-32.0); Glomerular Filtration Rate Greater Than 89 mL/min (>89); Glucose,Random 87 mg/dL (74-106); Magnesium 1.8 mg/dL (1.5-2.5); Phosphorus 2.1 mg/dL (2.5-4.9); Total Protein 5.9 g/dL (6.4-8.2)
--- NOTE | 2018-01-26 06:30 | P.HPCC ---
History of Present Illness Service: Critical care Primary Care Physician: No Primary Care Physician Chief Complaint: Dehydration History of Present Illness: 52yF presenting with feeling "dehydrated" and nauseous. The patient has an extensive past medical/ surgical history including gastroparesis, SMA/ celiac artery stenosis requiring stents, multiple abdominal surgeries, frequent dehydration and electrolyte abnormalities requiring multiple admissions to the ICU for aggressive IV fluids/ electrolyte repletion over the past several months. The patient checks her BP at home routinely and presented to the ED last night when she began to notice that it was low (70s/40s). She also reports a mechanical fall at home 2 days ago, causing her to fall on her right lower ribs; denies head injury or LOC. Inpatient Certification: I certify that the inpatient services were ordered in accordance with Medicare regulations governing the order. This includes certification that hospital inpatient services are reasonable and necessary and in the case of services not specified as inpatient-only under 42 CFR 419.22(n), that they are appropriately provided as inpatient services in accordance to with the 2-midnight benchmark under 43 CFR 412.3(e) Estimated Total Length of Stay (Days): 5 Plans for Post Hospital Care: Not yet determined Review of Systems All other systems reviewed negative except as stated in HPI Constitutional: Denies fever(s) Eyes: Denies blurry vision Cardiovascular: Denies chest pain Respiratory: Denies cough Gastrointestinal: Reports abdominal pain (chronic), Reports vomiting Genitourinary: Denies painful urination Neurologic: Denies confusion PMFSH - History History Provided By: Patient - Medical History Medical History: Medical History (Last Reviewed 01/26/18 @ 06:42 by Neda Flores DO) Subclavian artery stenosis, left (Acute) 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) Restless leg syndrome (Acute) Depression (Acute) Hypothyroid (Acute) Tobacco abuse (Acute) IBS (irritable bowel syndrome) (Acute) TIA (transient ischemic attack) (Acute) COPD (chronic obstructive pulmonary disease) (Acute) CAD (coronary artery disease) (Acute) PAD (peripheral artery disease) (Acute) TIA (transient ischemic attack) - Surgical History Surgical History: Surgical History (Last Reviewed 01/26/18 @ 06:42 by Neda Flores DO) S/P appy (Acute) History of cholecystectomy (Acute) History of (Acute) H/O heart artery stent (Acute) - Family History Family History: Family History (Last Reviewed 01/26/18 @ 06:42 by Neda Flores DO) Mother HTN (hypertension) Emphysema of lung - Tobacco History Second Hand Smoke Exposure: No Tobacco Use In Past 30 Days: Yes Smoking Status: Current every day smoker Tobacco Type: Cigarettes - Alcohol History How Often Do You Have a Drink Containing Alcohol: Never - Substance Use History Substance History: No History of Abuse - Substance Use Type Marijuana Status: Active Route Used: Inhalation Frequency: daily Comment: states uses for pain relief and increase appetite. - Travel History Recent Travel in the [place] Within the Last 8 Weeks: No Recent Travel Out of the Country Within the Last 8 Weeks: No - Immunization History Tetanus Immunization: Unsure Hx Influenza Vaccine This Season: No Medications and Allergies Active Medications: Active Medications Acetaminophen (Tylenol) 650 mg PO Q6H PRN PRN Reason: PAIN 1-10 AND/OR FEVER >101F Al Hydroxide/Mg Hydroxide (Milk Of Magndionicio Liq) 30 ml PO Q12H PRN PRN Reason: Mild Constipation Albuterol (Duoneb Neb (Prn)) 1 ampul NEB Q2HR NEB PRN PRN Reason: WHEEZING Aspirin (Aspirin Chew) 81 mg PO DAILY REGINALDO Bethanechol Chloride (Urecholine) 10 mg PO DAILY REGINAL[facility] Bisacodyl (Dulcolax Supp) 10 mg RECTAL DAILY PRN PRN Reason: SEVERE CONSITIPATION Chlorhexidine Gluconate (Chlorhexidine 2% Cloth) 3 pack TOPICAL DAILY@0400 PRN PRN Reason: Extra cloth needed Stop: 01/31/18 03:59 Chlorhexidine Gluconate (Chlorhexidine 2% Cloth) 3 pack TOPICAL DAILY@0400 [facility] Stop: 01/31/18 03:59 Last Admin: 01/26/18 04:54 Dose: 3 pack Clonazepam (Klonopin) 0.5 mg PO TID REGIN[facility] Cyclobenzaprine HCl (Flexeril) 10 mg PO TID REGIN[facility] Dicyclomine HCl (Bentyl) 10 mg PO QID [facility]GIN[facility] Sodium Chloride (Ns Inj) 1,000 mls @ 0 mls/hr IV.SIG BOLUS REGINALDO Stop: 01/26/18 16:31 Last Infusion: 01/25/18 23:30 Dose: Infused Sodium Chloride (Ns Inj) 1,000 mls @ 184 mls/hr IV.CONT .Q5H27M [facility] Last Admin: 01/26/18 04:49 Dose: 184 mls/hr Phenylephrine HCl 40 mg/ (Dextrose) 500 mls @ 30 mls/hr IV.CONT TITRATE PRN; Protocol PRN Reason: Per Protocol Last Titration: 01/26/18 02:22 Dose: 40 mcg/min, 30 mls/hr Albumin Human (Alburx 5% Inj) 500 mls @ 250 mls/hr IV.SIG Q6H [facility] Stop: 01/26/18 22:59 Last Admin: 01/26/18 04:47 Dose: 250 mls/hr Influenza Virus Vaccine (Fluarix (Quad) Vaccine Inj) 0.5 ml IM .ONCE ONE Stop: 01/26/18 09:01 Lactulose (Lactulose Liq) 30 ml PO DAILY PRN PRN Reason: SEVERE CONSITIPATION Levothyroxine Sodium (Synthroid) 100 mcg PO DAILY@0700 [facility] Ondansetron HCl (Zofran Inj) 4 mg IV.PUSH Q6H PRN PRN Reason: NAUSEA OR VOMITING Potassium Chloride (Klor-Con 10) 10 meq PO DAILY [facility] Rivaroxaban (Xarelto) 20 mg PO DAILY [facility] Ropinirole HCl (Requip) 5 mg PO DAILY [facility] Senna/Docusate Sodium (Ericka-Colace) 1 tab PO BID [facility] Last Admin: 01/25/18 23:11 Dose: Not Given Sennosides (Senokot) 17.2 mg PO Q12H PRN PRN Reason: Moderate Constipation Sertraline HCl (Zoloft) 200 mg PO DAILY [facility] Sodium Chloride (Ns Flush) 2 ml IV.FLUSH BID [facility] Last Admin: 01/25/18 21:59 Dose: Not Given Sodium Chloride (Ns Flush) 2 ml IV.FLUSH PRN PRN PRN Reason: FLUSH AFTER USING IV ACCESS Temazepam (Restoril) 15 mg PO HS PRN PRN Reason: INSOMNIA Terbutaline Sulfate (Brethine Inj) 1 mg SQ UNSCH PRN PRN Reason: For Extravasation Ziprasidone (Geodon) 80 mg PO QPM [facility] Allergies Allergy/AdvReac Type Severity Reaction Status Date / Time budesonide Allergy Severe Swelling Verified 01/25/18 15:35 of Lip/Tongue/Throat formoterol Allergy Severe Swelling Verified 01/25/18 15:35 of Lip/Tongue/Throat codeine Allergy Intermediate Anaphylaxis Verified 01/25/18 15:35 Home Medications Medication Instructions Recorded Confirmed Type Aspirin Low Dose 81 mg PO DAILY 11/03/17 01/25/18 History levothyroxine 100 mcg PO DAILY 11/03/17 01/25/18 History pantoprazole [Protonix] 40 mg PO DAILY 11/03/17 01/25/18 History potassium chloride [Klor-Con 10] 10 meq PO DAILY 11/03/17 01/25/18 History rivaroxaban [Xarelto] 20 mg PO DAILY 11/03/17 01/25/18 History ropinirole 5 mg PO DAILY 11/03/17 01/25/18 History sertraline 200 mg PO DAILY 11/03/17 01/25/18 History ziprasidone HCl [Geodon] 80 mg PO QPM 11/03/17 01/25/18 History cyclobenzaprine 10 mg PO TID 12/30/17 01/25/18 History hydrocodone-acetaminophen [[place]] 1 tab PO Q6H 12/30/17 01/25/18 History omeprazole 20 mg PO DAILY 12/30/17 01/25/18 History bethanechol chloride [Urecholine] 10 mg PO DAILY 01/25/18 01/25/18 History clonazepam 0.5 mg PO TID 01/25/18 01/25/18 History Results - Labs CBC & Chem 7: 01/26/18 04:25 01/26/18 04:25 Labs: Short CBC 01/25/18 01/26/18 Range/Units 16:32 04:25 WBC 7.4 6.0 (4.0-11.0) th/mm3 Hgb 13.3 12.1 (11.6-15.3) gm/dL Hct 39.0 36.5 (35.0-46.0) % Plt Count 221 D 203 (150-450) th/mm3 BMP 01/25/18 01/26/18 16:32 04:25 Sodium 131 L 143 D Potassium 2.6 L* 3.6 D Chloride 98 114 H D Carbon Dioxide 22.5 20.3 L BUN 22 H 14 Creatinine 0.83 0.66 Calcium 10.2 H 8.8 D Cardiac Enzymes 10/01/0401/25/18 01/26/18 Range/Units 16:32 21:05 04:25 Total Creatine Kinase 54 (26-192) U/L Troponin I Less than 0.02 L Less than 0.02 L Less than 0.02 L (0.02-0.05) ng/mL Liver Function 01/25/18 01/26/18 Range/Units 16:32 04:25 Total Bilirubin 0.2 0.2 (0.2-1.0) mg/dL AST 23 21 (15-37) U/L ALT 30 26 (10-53) U/L Alkaline Phosphatase 97 88 (45-117) U/L Albumin 3.7 3.1 L D (3.4-5.0) g/dL Urine 01/25/18 Range/Units 19:04 Urine Color Straw (Yellw/Straw) Urine Clarity Clear (Clear) Urine pH 7.0 (5.0-8.5) Ur Specific Secretary 1.010 (1.002-1.035) Urine Protein Negative (Neg-Trace) mg/dL Urine Glucose (UA) Negative (Negative) mg/dL - Imaging Impressions Ribs X-Ray 01/25/18 16:39 CONCLUSION: Acute right-sided rib fracture not seen. Exam Vital signs: Vital Signs 01/25/18 15:36 01/25/18 15:55 01/25/18 17:20 Temperature 97.8 F Pulse Rate 78 63 59 L Respiratory Rate 18 16 16 Blood Pressure 101/59 L 78/52 L 81/56 L Pulse Oximetry 98 97 94 L 01/25/18 19:15 01/25/18 20:11 01/25/18 20:48 Temperature Pulse Rate 67 68 64 Respiratory Rate 20 20 18 Blood Pressure 120/75 86/61 L 83/53 L Pulse Oximetry 95 97 94 L 01/25/18 21:29 01/25/18 21:30 01/25/18 21:45 Temperature 97.6 F Pulse Rate 62 62 62 Respiratory Rate 20 15 19 Blood Pressure 55/33 L 55/33 L 66/34 L Pulse Oximetry 93 L 89 L 96 01/25/18 21:50 01/25/18 22:00 01/25/18 22:29 Temperature Pulse Rate 62 64 Respiratory Rate 15 19 Blood Pressure 62/36 L 68/43 L 75/33 L Pulse Oximetry 93 L 95 10/09/18 22:44 01/25/18 23:01 01/25/18 23:14 Temperature Pulse Rate 66 66 64 Respiratory Rate 21 17 16 Blood Pressure 71/52 L 65/40 L 82/52 L Pulse Oximetry 92 L 89 L 91 L 01/25/18 23:29 01/25/18 23:44 01/25/18 23:59 Temperature 97.9 F Pulse Rate 60 62 64 Respiratory Rate 15 15 15 Blood Pressure 91/49 L 121/54 L 146/85 H Pulse Oximetry 93 L 98 98 01/26/18 00:00 01/26/18 00:14 01/26/18 00:44 Temperature Pulse Rate 58 L 60 Respiratory Rate 20 15 23 Blood Pressure 140/74 97/51 L Pulse Oximetry 98 98 01/26/18 00:59 01/26/18 01:14 01/26/18 01:29 Temperature Pulse Rate 60 62 66 Respiratory Rate 15 16 15 Blood Pressure 101/61 118/72 140/85 Pulse Oximetry 97 98 99 01/26/18 01:44 01/26/18 02:00 01/26/18 02:15 Temperature Pulse Rate 58 L 62 62 Respiratory Rate 15 16 18 Blood Pressure 114/60 134/67 137/72 Pulse Oximetry 98 99 99 01/26/18 02:29 01/26/18 02:44 01/26/18 03:00 Temperature Pulse Rate 56 L 56 L 62 Respiratory Rate 18 15 18 Blood Pressure 102/59 L 90/58 L 88/46 L Pulse Oximetry 98 97 98 01/26/18 03:14 01/26/18 03:29 01/26/18 03:44 Temperature Pulse Rate 64 62 62 Respiratory Rate 17 19 16 Blood Pressure 103/42 L 119/61 128/60 Pulse Oximetry 97 99 99 01/26/18 03:45 01/26/18 03:59 01/26/18 04:14 Temperature Pulse Rate 62 64 60 Respiratory Rate 15 17 15 Blood Pressure 125/70 140/68 Pulse Oximetry 98 97 98 01/26/18 04:30 01/26/18 04:47 01/26/18 05:15 Temperature Pulse Rate 58 L 60 58 L Respiratory Rate 15 25 H 16 Blood Pressure 139/63 109/51 L 142/73 H Pulse Oximetry 100 98 98 Intake & Output 01/25/18 01/25/18 01/26/18 06:59 18:59 06:59 Intake Total 1000 / 1000 3100 / 3100 Output Total 1700 / 1700 Balance 1000 / 1000 1400 / 1400 Weight 62.8 kg 66.2 kg Intake: IV 1000 / 1000 3100 / 3100 NS Inj 1,000 ML @ 184 mls/hr IV 1000 / 1000 .CONT .Q5H27M REGINALDO Rx#: [id number] KCl 20 mEq Premix Inj 20 meq In 100 / 100 100 ml @ 50 mls/hr IV.SIG Q2H REGINALDO Rx#:[id number] NS Inj 1,000 ML @ Wide Open IV. 1000 / 1000 2000 / 1999 SIG BOLUS REGINALDO Rx#:[id number] Output: Urine 1700 / 1700 Other: Post Void Residual 300 Date of Last Bowel Movement 01/25/18 Weight On Admission 66.2 kg Narrative: GEN: Resting comfortably, no acute distress HEENT: NCAT NECK: Trachea midline CARDIO: Regular rate and rhythm, strong peripheral pulses RESP: Clear to auscultation bilaterally ABD/GI: Soft, mild to moderate diffuse tenderness (baseline as per patient), no guarding EXT/MSK: No lower extremity edema SKIN: No rashes or lesions, warm and well-perfused NEURO: A&Ox3, no focal neuro deficits PSYCH: Appropriate affect Caprini VTE Risk Assessment Caprini VTE Risk Assessment: No/Low Risk (score <= 1) Caprini Risk Assessment Model: Point Value = 1 Point Value = 2 Point Value = 3 Point Value = 5 Age 41-60 Minor surgery BMI > 25 kg/m2 Swollen legs Varicose veins or History of unexplained or recurrent spontaneous Oral contraceptives or hormone replacement Sepsis (< 1 month) Serious lung disease, including pneumonia (< 1 month) Abnormal pulmonary function Acute myocardial infarction Congestive heart failure (< 1 month) History of inflammatory bowel disease Medical patient at bed rest Age 61-74 Arthroscopic surgery Major open surgery (> 45 min) Laparoscopic surgery (> 45 min) Malignancy Confined to bed (> 72 hours) Immobilizing plaster cast Central venous access Age >= 75 History of VTE Family history of VTE Factor V Leiden Prothrombin [id number] Lupus anticoagulant Anticardiolipin antibodies Elevated serum homocysteine Heparin-induced thrombocytopenia Other congenital or acquired thrombophilia Stroke (< 1 month) Elective arthroplasty Hip, pelvis, or leg fracture Acute spinal cord injury (< 1 month) Prophylaxis Regimen: Total Risk Factor Score Risk Level Prophylaxis Regimen 0-1 Low Early ambulation 2 Moderate Order ONE of the following: *Sequential Compression Device (SCD) *Heparin 5000 units SQ BID 3-4 Higher Order ONE of the following medications: *Heparin 5000 units SQ TID *Enoxaparin/Lovenox 40 mg SQ daily (WT < 150 kg, CrCl > 30 mL/min) *Enoxaparin/Lovenox 30 mg SQ daily (WT < 150 kg, CrCl > 10-29 mL/min) *Enoxaparin/Lovenox 30 mg SQ BID (WT < 150 kg, CrCl > 30 mL/min) AND/OR *Sequential Compression Device (SCD) 5 or more Highest Order ONE of the following medications: *Heparin 5000 units SQ TID (Preferred with Epidurals) *Enoxaparin/Lovenox 40 mg SQ daily (WT < 150 kg, CrCl > 30 mL/min) *Enoxaparin/Lovenox 30 mg SQ daily (WT < 150 kg, CrCl > 10-29 mL/min) *Enoxaparin/Lovenox 30 mg SQ BID (WT < 150 kg, CrCl > 30 mL/min) AND *Sequential Compression Device (SCD) Assessment and Plan - Assessment and Plan Plan: 52yF with history of gastroparesis presenting with dehydration, hypotension, electrolyte abnormalities NEURO: Continue home meds (geodon, zoloft, percocet for chronic pain, klonopin, flexeril, restoril) CARDIO: Patient's previous visits reviewed, appears to chronically have borderline low BP, will change MAP goal to 60 instead of 65 Phenylephrine started overnight, currently on hold Patient received aggressive IVF resuscitation, also given albumin, urine output 2L overnight, no current symptoms of hypotension Continue aspirin/ Xarelto for abdominal stents PULM: PRN nebs Nicotine patch, counseled patient on smoking cessation F/E/N: Regular diet D/C IVF Hypokalemia significantly improved (2.6--> 3.6), continue to replete lytes PRN Will also give 2gm mag sulfate this morning Continue home meds (protonix, bentyl, zofran), bowel regimen ENDO: No history of DM Continue synthroid, has thyroid function studies pending PROPHY: PPI (home med) SCDs, Xarelto OOB today Patient can likely be transferred to [facility] tomorrow if off pressors Counseling/ Coordination of Care: Total critical care time: 42 minutes. This includes examining the patient, gathering history from someone other than the patient (i.e., chart review), discussing the patient's care with other providers, managing the patient's blood pressure and pressor requirements, ordering and interpreting laboratory studies, and documentation. All critical care time is separate and exclusive of procedures, teaching, and patient/ family updates. Code Status: Full H&P: Quality - VTE Deep Vein Thrombosis/Pulmonary Embolism Present on Admission: No
[2018-01-26] MEDS ORDERED: Magnesium Sulfate Inj 2 GM in Sodium Chlor 0.9% Inj 96 ML IV.SIG ONE (08:00)
[2018-01-26] MEDS: clonazePAM 0.5 MG Tablet PO SCH ×3 (08:43→17:34)
[2018-01-26] MEDS: Senna/Docusate Sodium 8.6/50 MG Tablet PO SCH ×2 (08:43→20:14)
[2018-01-26] MEDS: Levothyroxine 100 MCG Tablet PO SCH (08:43)
[2018-01-26] MEDS ORDERED: Rivaroxaban 20 MG Tablet PO SCH (09:00)
[2018-01-26] MEDS ORDERED: Rivaroxaban 10 MG Tablet PO SCH (09:00)
[2018-01-26] MEDS ORDERED: Influenza (Quadrivalent) Vaccine 0.5 ML Syringe IM ONE (09:00)
--- NOTE | 2018-01-26 09:03 | ECG ---
Date Performed: 01/26/2018 Time Performed: 03:25:36 PTAGE: 52 years EKG: Sinus rhythm NORMAL ECG PREVIOUS TRACING : 01/25/2018 21.30 DOCTOR: Vernon Hanson Interpretating Date/Time 01/26/2018 09:01:25
[2018-01-26] MEDS: Sertraline 100 MG Tablet PO SCH (09:36)
--- NOTE | 2018-01-26 09:48 | ECG ---
Date Performed: 01/25/2018 Time Performed: 21:30:42 PTAGE: 52 years EKG: Sinus rhythm PROLONGED QT INTERVAL ABNORMAL ECG PREVIOUS TRACING : 01/25/2018 16.27 DOCTOR: Vernon Hanson Interpretating Date/Time 01/26/2018 09:46:57
[2018-01-26 10:27] LABS: Free T4 (Free Thyroxine) 0.97 ng/dL (0.76-1.46)
--- NOTE | 2018-01-26 11:08 | ECG ---
Date Performed: 01/25/2018 Time Performed: 16:27:06 PTAGE: 52 years EKG: Sinus rhythm LOW QRS VOLTAGE IN PRECORDIAL LEADS MODERATE ST DEPRESSION ABNORMAL ECG PREVIOUS TRACING : 12/16/2017 06.01 DOCTOR: Vernon Hanson Interpretating Date/Time 01/26/2018 11:06:23
[2018-01-26] MEDS: Dicyclomine 10 MG Capsule PO SCH ×4 (11:13→20:14)
[2018-01-26] MEDS ORDERED: Phenylephrine Inj 40 MG in Dextrose 5% in Water Inj 496 ML IV.CONT PRN ×2 (11:46)
[2018-01-26] MEDS: Rivaroxaban 20 MG Tablet PO SCH (20:13)
[2018-01-27] MEDS: Chlorhexidine Gluconate 2% 1 Pack (2 Cloths) TOPICAL SCH (03:43)
[2018-01-27 05:15] LABS: Baso % (Auto) 0.4 % (0.0-2.0); Eos % (Auto) 0.9 % (0.0-4.0); Hematocrit 35.2 % (35.0-46.0); Hemoglobin 11.7 gm/dL (11.6-15.3); Lymph # (Auto) 0.7 th/mm3 (1.0-4.8); Lymph % (Auto) 13.3 % (9.0-44.0); Mean Corpuscular HGB Conc 33.2 % (32.0-36.0); Mean Corpuscular Hemoglobin 31.4 pg (27.0-34.0); Mean Corpuscular Volume 94.5 fL (80.0-100.0); Mean Platelet Volume 9.4 fL (7.0-11.0); Mono # (Auto) 0.2 th/mm3 (0.0-0.9); Mono % (Auto) 4.2 % (0.0-8.0); Neut # (Auto) 4.3 th/mm3 (1.8-7.7); Neut % (Auto) 81.2 % (16.0-70.0); Platelet Count 162 th/mm3 (150-450); Red Blood Count 3.72 mil/mm3 (4.00-5.30); Red Cell Distribution Width 15.4 % (11.6-17.2); White Blood Count 5.2 th/mm3 (4.0-11.0)
[2018-01-27 05:32] LABS: Chloride 112 meq/L (98-107); Potassium 3.1 meq/L (3.5-5.1); Sodium 144 meq/L (136-145)
[2018-01-27 05:55] LABS: Anion Gap 11 meq/L (5-15); Blood Urea Nitrogen 7 mg/dL (7-18); Calcium 9.8 mg/dL (8.5-10.1); Carbon Dioxide 21.1 meq/L (21.0-32.0); Glomerular Filtration Rate Greater Than 89 mL/min (>89); Glucose,Random 83 mg/dL (74-106)
[2018-01-27] MEDS: Levothyroxine 100 MCG Tablet PO SCH (06:32)
[2018-01-27] MEDS ORDERED: Potassium Chloride 25 MEQ Effervescent Tablet PO ONE (07:59)
[2018-01-27] MEDS: Senna/Docusate Sodium 8.6/50 MG Tablet PO SCH ×2 (08:31→22:18)
[2018-01-27] MEDS: Dicyclomine 10 MG Capsule PO SCH ×4 (08:32→22:14)
[2018-01-27] MEDS: clonazePAM 0.5 MG Tablet PO SCH ×3 (08:32→17:38)
[2018-01-27] MEDS: Sertraline 100 MG Tablet PO SCH (08:32)
--- NOTE | 2018-01-27 11:52 | P.PN ---
Subjective Interval history: 52-year-old female who was seen today to assume medical management from critical care team. Patient originally presented with recurrent nausea, vomiting, hypotension. Patient does have chronic gastroparesis. Patient presented with obvious signs of dehydration, hypotension in which she was given multiple fluid boluses and undergone infusion of albumin. Patient blood pressure has improved and doing quite well at this time. Patient is tolerating diet without any nausea or vomiting. However patient does have hypokalemia which has always been a significant issue with the patient. She is only on KCl 10 mEq daily. However she does require multiple extra replacements during her stay in the hospital. Patient states that she is doing much better at this time. Tolerating diet. Vital signs are stable. Patient remains afebrile. Physical Exam Vital signs: Vital Signs 01/26/18 11:45 01/26/18 12:00 01/26/18 12:15 Temperature 98.2 F Pulse Rate 64 64 60 Respiratory Rate 22 16 14 Blood Pressure 102/57 L 114/62 135/73 Pulse Oximetry 97 97 99 01/26/18 12:30 01/26/18 12:45 01/26/18 13:00 Temperature Pulse Rate 62 62 62 Respiratory Rate 14 16 18 Blood Pressure 119/65 106/64 117/80 Pulse Oximetry 97 98 95 01/26/18 13:15 01/26/18 13:30 01/26/18 13:44 Temperature Pulse Rate 58 L 60 Respiratory Rate 14 15 16 Blood Pressure 126/72 115/62 Pulse Oximetry 96 95 01/26/18 13:45 01/26/18 14:00 01/26/18 14:15 Temperature Pulse Rate 60 60 60 Respiratory Rate 15 17 17 Blood Pressure 136/73 137/78 142/83 H Pulse Oximetry 96 99 100 01/26/18 14:30 01/26/18 14:32 01/26/18 14:45 Temperature Pulse Rate 58 L 58 L 58 L Respiratory Rate 17 14 14 Blood Pressure 150/78 H 137/71 Pulse Oximetry 100 100 100 01/26/18 14:58 01/26/18 15:00 01/26/18 15:15 Temperature Pulse Rate 58 L 58 L 58 L Respiratory Rate 15 14 13 Blood Pressure 140/71 Pulse Oximetry 100 100 100 01/26/18 15:25 01/26/18 15:30 01/26/18 15:45 Temperature Pulse Rate 60 62 58 L Respiratory Rate 17 15 14 Blood Pressure 137/74 Pulse Oximetry 97 97 95 01/26/18 16:00 01/26/18 16:15 01/26/18 16:25 Temperature Pulse Rate 60 60 58 L Respiratory Rate 16 12 13 Blood Pressure 138/75 Pulse Oximetry 94 L 93 L 92 L 01/26/18 16:30 01/26/18 16:45 01/26/18 17:00 Temperature Pulse Rate 60 62 62 Respiratory Rate 13 13 14 Blood Pressure Pulse Oximetry 93 L 92 L 97 01/26/18 17:15 01/26/18 17:25 01/26/18 17:30 Temperature Pulse Rate 60 64 62 Respiratory Rate 18 24 16 Blood Pressure 142/64 H Pulse Oximetry 99 96 96 01/26/18 17:45 01/26/18 18:00 01/26/18 18:56 Temperature Pulse Rate 64 60 61 Respiratory Rate 13 13 14 Blood Pressure 140/83 Pulse Oximetry 97 95 98 01/26/18 19:03 01/26/18 19:33 01/26/18 20:00 Temperature 98.1 F Pulse Rate 61 Respiratory Rate 16 18 14 Blood Pressure 140/71 Pulse Oximetry 95 01/26/18 20:07 01/26/18 21:00 01/26/18 22:00 Temperature Pulse Rate 58 L 74 Respiratory Rate 14 16 Blood Pressure 114/54 L 94/60 L Pulse Oximetry 98 98 98 01/26/18 23:00 01/26/18 23:30 01/26/18 23:45 Temperature Pulse Rate 78 76 74 Respiratory Rate 19 18 16 Blood Pressure 85/50 L Pulse Oximetry 98 01/27/18 00:00 01/27/18 00:07 01/27/18 00:09 Temperature 97.5 F L Pulse Rate 76 76 74 Respiratory Rate 16 17 14 Blood Pressure 102/58 L 78/55 L 84/55 L Pulse Oximetry 98 01/27/18 00:15 01/27/18 00:25 01/27/18 00:30 Temperature Pulse Rate 74 76 76 Respiratory Rate 16 16 16 Blood Pressure 102/58 L Pulse Oximetry 01/27/18 00:45 01/27/18 01:00 01/27/18 01:15 Temperature Pulse Rate 78 76 78 Respiratory Rate 17 16 17 Blood Pressure 102/58 L Pulse Oximetry 98 01/27/18 01:25 01/27/18 01:30 01/27/18 01:45 Temperature Pulse Rate 78 78 78 Respiratory Rate 17 18 18 Blood Pressure 107/69 Pulse Oximetry 01/27/18 02:00 01/27/18 02:15 01/27/18 02:25 Temperature Pulse Rate 78 74 74 Respiratory Rate 18 17 17 Blood Pressure 107/69 89/53 L Pulse Oximetry 99 01/27/18 02:30 01/27/18 02:45 01/27/18 03:00 Temperature Pulse Rate 72 74 76 Respiratory Rate 18 18 18 Blood Pressure 138/77 Pulse Oximetry 98 01/27/18 03:15 01/27/18 03:25 01/27/18 03:30 Temperature Pulse Rate 80 72 72 Respiratory Rate 19 19 17 Blood Pressure 135/77 Pulse Oximetry 01/27/18 03:45 01/27/18 03:47 01/27/18 04:00 Temperature 98.3 F Pulse Rate 74 76 76 Respiratory Rate 17 20 19 Blood Pressure 135/77 Pulse Oximetry 98 01/27/18 04:15 01/27/18 04:25 01/27/18 04:30 Temperature Pulse Rate 78 74 74 Respiratory Rate 18 19 20 Blood Pressure 149/82 H Pulse Oximetry 01/27/18 04:45 01/27/18 04:50 01/27/18 05:00 Temperature Pulse Rate 72 73 74 Respiratory Rate 18 20 19 Blood Pressure 149/82 H Pulse Oximetry 01/27/18 05:15 01/27/18 05:25 01/27/18 05:30 Temperature Pulse Rate 76 80 88 Respiratory Rate 20 18 41 H Blood Pressure 150/69 H Pulse Oximetry 01/27/18 05:45 01/27/18 05:57 01/27/18 06:00 Temperature Pulse Rate 70 72 Respiratory Rate 18 25 H 20 Blood Pressure 150/69 H Pulse Oximetry 01/27/18 06:15 01/27/18 06:25 01/27/18 06:30 Temperature Pulse Rate 70 72 76 Respiratory Rate 19 18 19 Blood Pressure 155/85 H Pulse Oximetry 01/27/18 06:45 01/27/18 07:00 01/27/18 07:15 Temperature Pulse Rate 74 76 82 Respiratory Rate 17 20 19 Blood Pressure Pulse Oximetry 01/27/18 07:25 01/27/18 07:30 01/27/18 07:45 Temperature Pulse Rate 78 76 68 Respiratory Rate 20 19 14 Blood Pressure 132/64 Pulse Oximetry 01/27/18 07:59 01/27/18 08:00 01/27/18 08:15 Temperature Pulse Rate 70 70 70 Respiratory Rate 15 20 22 Blood Pressure 126/78 126/78 Pulse Oximetry 95 01/27/18 08:30 01/27/18 08:45 01/27/18 09:00 Temperature Pulse Rate 72 70 72 Respiratory Rate 28 H 21 29 H Blood Pressure Pulse Oximetry 01/27/18 09:15 Temperature Pulse Rate 68 Respiratory Rate 18 Blood Pressure Pulse Oximetry Intake & Output 01/26/18 01/27/18 01/27/18 18:59 06:59 18:59 Intake Total 2835 / 2835 2080 / 2080 240 / 240 Output Total 2600 / 2600 1850 / 1850 Balance 235 / 235 230 / 230 240 / 240 Weight 68.1 kg Intake: IV 1875 / 1875 1000 / 1000 Neosynephrine Inj 40 MG In D5W 175 / 175 Inj 496 ML @ 40 MCG/MIN 30 mls/ hr IV.CONT TITRATE PRN Rx#: [id number] NS Inj 1,000 ML @ 184 mls/hr IV 600 / 600 .CONT .Q5H27M [facility] Rx#: [id number] Alburx 5% Inj 500 ML @ 250 mls/ 1000 / 1000 1000 / 1000 hr IV.SIG Q6H [facility] Rx#: [id number] Magnesium Sulfate Inj 2 GM In 100 / 100 NS Inj 96 ML @ 50 mls/hr IV.SIG ONCE ONE Rx#:[id number] Oral 960 / 960 1080 / 1080 240 / 240 Output: Urine 2600 / 2600 1850 / 1850 Other: Date of Last Bowel Movement 01/25/18 # Bowel Movements 0 Narrative: GENERAL: Well-developed, well-nourished, in no acute distress. alert and orientated HEENT: Head is normocephalic without any lesions or masses noted. Facial features are symmetric. Eyes: Extraocular muscles are intact. Conjunctivae were clear. NECK: Supple without any masses. Trachea midline no deviation. No JVD, CARDIAC: Regular rhythm, regular rate. S1/S2 are heard. No murmurs gallops or rubs. LUNGS: Clear to auscultation bilaterally. No wheeze, rhonchi or rales. No use of accessory muscles on inspiration or expiration. ABDOMEN: Soft, nontender. Nondistended. Bowel sounds heard in all 4 quadrants. No organomegaly or masses. Negative rebound, negative guarding EXTREMITIES: No edema, pulses are equal bilaterally. No cyanosis or clubbing NEUROLOGY: Mood and affect appear appropriate. Cranial nerves II through XII grossly intact. Moving all extremities, speech is clear Results - Labs CBC & Chem 7: 01/27/18 04:40 01/27/18 04:40 Laboratory Results - last 24 hr 01/27/18 01/27/18 04:40 04:40 CBC w Diff Auto diff final WBC 5.2 RBC 3.72 L Hgb 11.7 Hct 35.2 MCV 94.5 MCH 31.4 MCHC 33.2 RDW 15.4 Plt Count 162 MPV 9.4 Neut % (Auto) 81.2 H Lymph % (Auto) 13.3 Villalba % (Auto) 4.2 Eos % (Auto) 0.9 Baso % (Auto) 0.4 Neut # (Auto) 4.3 Lymph # (Auto) 0.7 L Villalba # (Auto) 0.2 Eos # (Auto) 0.0 Baso # (Auto) 0.0 WBC Differential . Differential Comment . Sodium 144 Potassium 3.1 L Chloride 112 H Carbon Dioxide 21.1 Anion Gap 11 BUN 7 Creatinine 0.62 Estimated GFR Greater than 89 Random Glucose 83 Calcium 9.8 D Microbiology 01/25/18 16:37 Blood - Peripheral Aerobic Blood Culture - Preliminary No growth in 2 days 01/25/18 16:37 Blood - Peripheral Anaerobic Blood Culture - Preliminary No growth in 2 days 01/25/18 16:32 Blood - Peripheral Aerobic Blood Culture - Preliminary No growth in 2 days 01/25/18 16:32 Blood - Peripheral Anaerobic Blood Culture - Preliminary No growth in 2 days Assessment and Plan - Plan Hypotension, resolved -Patient does have chronicity of low blood pressure, however worsened likely secondary to her gastroparesis, nausea, vomiting, dehydration, multiple sedating medications, pain medication -Status post IV fluid bolus, IV fluids -Status post albumin infusion -Status post Madhu-Synephrine infusion Hypokalemia, chronic -Patient was on KCl 10 mEq daily, however due to her recurrent hospitalizations due to severe hypokalemia will increase to KCl 20 mEq twice daily -Monitor potassium level daily Gastroparesis, irritable bowel syndrome, cyclic vomiting secondary to marijuana abuse -Continue home medications -Patient will need to follow-up with 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
[2018-01-27] MEDS: Rivaroxaban 20 MG Tablet PO SCH (22:18)
[2018-01-28 03:50] LABS: Thyroglobulin 20.8 ng/mL (2.8-40.9)
[2018-01-28] MEDS: Chlorhexidine Gluconate 2% 1 Pack (2 Cloths) TOPICAL SCH (04:00)
[2018-01-28] MEDS: Levothyroxine 100 MCG Tablet PO SCH (06:05)
[2018-01-28] MEDS: Senna/Docusate Sodium 8.6/50 MG Tablet PO SCH ×2 (08:36→20:01)
[2018-01-28] MEDS: Dicyclomine 10 MG Capsule PO SCH ×4 (08:37→20:24)
[2018-01-28] MEDS: clonazePAM 0.5 MG Tablet PO SCH ×3 (08:37→18:14)
[2018-01-28] MEDS: Sertraline 100 MG Tablet PO SCH (08:42)
[2018-01-28 09:26] LABS: Anion Gap 12 meq/L (5-15); Blood Urea Nitrogen 5 mg/dL (7-18); Calcium 9.9 mg/dL (8.5-10.1); Carbon Dioxide 19.9 meq/L (21.0-32.0); Chloride 105 meq/L (98-107); Glomerular Filtration Rate Greater Than 89 mL/min (>89); Glucose,Random 122 mg/dL (74-106); Sodium 137 meq/L (136-145)
[2018-01-28 09:28] LABS: Potassium 2.9 meq/L (3.5-5.1)
--- NOTE | 2018-01-28 10:40 | P.PN ---
Subjective Interval history: 52-year-old female who is seen and examined today for follow-up on nausea, vomiting, hypokalemia. Patient denies any new complaints or any problems at this time. Vital signs are stable. Patient remains afebrile. Physical Exam Vital signs: Vital Signs 01/27/18 10:45 01/27/18 11:00 01/27/18 11:15 Temperature Pulse Rate 64 64 74 Respiratory Rate 16 13 16 Blood Pressure Pulse Oximetry 97 97 93 L 01/27/18 11:30 01/27/18 11:45 01/27/18 12:00 Temperature Pulse Rate 72 66 68 Respiratory Rate 16 13 20 Blood Pressure Pulse Oximetry 93 L 96 96 01/27/18 12:15 01/27/18 12:30 01/27/18 12:45 Temperature Pulse Rate 68 66 68 Respiratory Rate 17 18 17 Blood Pressure Pulse Oximetry 95 96 95 01/27/18 12:59 01/27/18 13:00 01/27/18 13:15 Temperature Pulse Rate 70 70 66 Respiratory Rate 26 H 27 H 16 Blood Pressure 119/66 Pulse Oximetry 95 95 94 L 01/27/18 13:30 01/27/18 13:45 01/27/18 14:00 Temperature Pulse Rate 68 70 70 Respiratory Rate 15 14 14 Blood Pressure Pulse Oximetry 92 L 91 L 90 L 01/27/18 14:15 01/27/18 14:30 01/27/18 14:45 Temperature Pulse Rate 72 72 70 Respiratory Rate 14 13 12 Blood Pressure Pulse Oximetry 95 89 L 91 L 01/27/18 15:00 01/27/18 15:15 01/27/18 15:30 Temperature Pulse Rate 72 72 70 Respiratory Rate 14 17 14 Blood Pressure Pulse Oximetry 91 L 92 L 92 L 01/27/18 15:45 01/27/18 16:00 01/27/18 16:15 Temperature Pulse Rate 68 68 66 Respiratory Rate 15 14 17 Blood Pressure Pulse Oximetry 95 94 L 96 01/27/18 16:30 01/27/18 16:45 01/27/18 17:00 Temperature Pulse Rate 66 66 66 Respiratory Rate 14 14 14 Blood Pressure Pulse Oximetry 93 L 92 L 94 L 01/27/18 17:15 01/27/18 17:30 01/27/18 17:45 Temperature Pulse Rate 70 66 68 Respiratory Rate 21 20 16 Blood Pressure Pulse Oximetry 95 97 93 L 01/27/18 18:00 01/27/18 18:51 01/27/18 18:57 Temperature Pulse Rate 66 66 Respiratory Rate 14 16 14 Blood Pressure 154/82 H Pulse Oximetry 93 L 96 01/27/18 19:21 01/27/18 19:23 01/27/18 20:00 Temperature Pulse Rate 71 Respiratory Rate 14 Blood Pressure Pulse Oximetry 94 L 01/27/18 22:10 01/28/18 01:02 01/28/18 02:00 Temperature Pulse Rate 64 70 Respiratory Rate 14 14 16 Blood Pressure Pulse Oximetry 94 L 98 01/28/18 06:00 01/28/18 06:04 01/28/18 07:26 Temperature 98.7 F Pulse Rate 65 75 Respiratory Rate 29 H 29 H 22 Blood Pressure 124/72 Pulse Oximetry 98 95 01/28/18 07:43 Temperature Pulse Rate Respiratory Rate Blood Pressure Pulse Oximetry 90 L Intake & Output 01/27/18 01/28/18 01/28/18 18:59 06:59 18:59 Intake Total 1340 / 1340 720 / 720 Output Total 1800 / 1800 Balance -460 / -460 720 / 720 Weight 66.6 kg Intake: Oral 1340 / 1340 720 / 720 Output: Urine 1800 / 1800 Other: # Voids 4 # Bowel Movements 0 Narrative: GENERAL: Well-developed, well-nourished, in no acute distress. alert and orientated HEENT: Head is normocephalic without any lesions or masses noted. Facial features are symmetric. Eyes: Extraocular muscles are intact. Conjunctivae were clear. NECK: Supple without any masses. Trachea midline no deviation. No JVD, CARDIAC: Regular rhythm, regular rate. S1/S2 are heard. No murmurs gallops or rubs. LUNGS: Clear to auscultation bilaterally. No wheeze, rhonchi or rales. No use of accessory muscles on inspiration or expiration. ABDOMEN: Soft, nontender. Nondistended. Bowel sounds heard in all 4 quadrants. No organomegaly or masses. Negative rebound, negative guarding EXTREMITIES: No edema, pulses are equal bilaterally. No cyanosis or clubbing NEUROLOGY: Mood and affect appear appropriate. Cranial nerves II through XII grossly intact. Moving all extremities, speech is clear Results - Labs CBC & Chem 7: 01/27/18 04:40 01/28/18 08:40 Laboratory Results - last 24 hr 01/25/18 01/27/18 01/28/18 21:05 18:52 08:40 Sodium 137 Potassium 2.9 L* Chloride 105 Carbon Dioxide 19.9 L Anion Gap 12 BUN 5 L Creatinine 0.66 Estimated GFR Greater than 89 Random Glucose 122 H Calcium 9.9 Thyroglobulin 20.8 Nasal Screen MRSA (PCR) Not detected Thyroglobulin Antibody Less than 1 Microbiology 01/25/18 16:37 Blood - Peripheral Aerobic Blood Culture - Preliminary No growth in 2 days 01/25/18 16:37 Blood - Peripheral Anaerobic Blood Culture - Preliminary No growth in 2 days 01/25/18 16:32 Blood - Peripheral Aerobic Blood Culture - Preliminary No growth in 2 days 01/25/18 16:32 Blood - Peripheral Anaerobic Blood Culture - Preliminary No growth in 2 days Assessment and Plan - Plan Hypotension, resolved -Patient does have chronicity of low blood pressure, however worsened likely secondary to her gastroparesis, nausea, vomiting, dehydration, multiple sedating medications, pain medication -Status post IV fluid bolus, IV fluids -Status post albumin infusion -Status post Madhu infusion Hypokalemia, chronic -Potassium replacement was increased to 20 mEq twice daily, increase to KCl 30 mEq twice daily -Potassium still significantly low despite the increase in replacement Gastroparesis, irritable bowel syndrome, cyclic vomiting secondary to marijuana abuse -Continue home medications -Patient will need to 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
[2018-01-28 16:29] LABS: Anion Gap 9 meq/L (5-15); Blood Urea Nitrogen 5 mg/dL (7-18); Calcium 9.8 mg/dL (8.5-10.1); Carbon Dioxide 21.7 meq/L (21.0-32.0); Chloride 107 meq/L (98-107); Glomerular Filtration Rate Greater Than 89 mL/min (>89); Glucose,Random 88 mg/dL (74-106); Sodium 138 meq/L (136-145)
[2018-01-28 16:31] LABS: Potassium 2.9 meq/L (3.5-5.1)
[2018-01-28] MEDS: Rivaroxaban 20 MG Tablet PO SCH (20:23)
[2018-01-29] MEDS: Chlorhexidine Gluconate 2% 1 Pack (2 Cloths) TOPICAL SCH (05:54)
[2018-01-29 07:35] LABS: Anion Gap 9 meq/L (5-15); Blood Urea Nitrogen 5 mg/dL (7-18); Calcium 9.6 mg/dL (8.5-10.1); Carbon Dioxide 21.4 meq/L (21.0-32.0); Chloride 110 meq/L (98-107); Glomerular Filtration Rate Greater Than 89 mL/min (>89); Glucose,Random 85 mg/dL (74-106); Potassium 3.7 meq/L (3.5-5.1); Sodium 140 meq/L (136-145)
[2018-01-29 08:56] VITALS: BP 118/70; PULSE 65; RESP 15; TEMP 97.3; O2SAT 94
[2018-01-29] MEDS: Senna/Docusate Sodium 8.6/50 MG Tablet PO SCH (09:16)
[2018-01-29] MEDS: clonazePAM 0.5 MG Tablet PO SCH (09:16)
[2018-01-29] MEDS: Sertraline 100 MG Tablet PO SCH (09:16)
[2018-01-29] MEDS: Dicyclomine 10 MG Capsule PO SCH (09:16)
--- NOTE | 2018-01-29 12:30 | P.DS ---
Date of admission: 01/25/18 18:35 Primary care physician: No Primary Care Physician Attending physician on discharge: Eb Mendoza Anticipated date of discharge: 01/29/18 Brief History from admission: 52yF presenting with feeling "dehydrated" and nauseous. The patient has an extensive past medical/ surgical history including gastroparesis, SMA/ celiac artery stenosis requiring stents, multiple abdominal surgeries, frequent dehydration and electrolyte abnormalities requiring multiple admissions to the ICU for aggressive IV fluids/ electrolyte repletion over the past several months. The patient checks her BP at home routinely and presented to the ED last night when she began to notice that it was low (70s/40s). She also reports a mechanical fall at home 2 days ago, causing her to fall on her right lower ribs; denies head injury or LOC. DS: Diagnosis - Discharge Diagnosis (1) Cyclic vomiting syndrome Status: Acute (2) Hypotension Status: Acute (3) Acute dehydration Status: Acute (4) Acute hyponatremia Status: Acute (5) Gastroparesis Status: Acute DS: Medications - Discharge Medications Prescriptions: potassium chloride [Klor-Con 10] 10 meq PO BID #60 tab DS: Summary Hospital Course: Hypotension, resolved -Patient does have chronicity of low blood pressure, however worsened likely secondary to her gastroparesis, nausea, vomiting, dehydration, multiple sedating medications, pain medication -Status post IV fluid bolus, IV fluids -Status post albumin infusion -Status post Madhu infusion Hypokalemia, chronic, improved after adjustment of potassium replacement -Patient did have significant diuresis after the use of albumin which has started to improve, as well as potassium level improving -Continue potassium 10 mEq twice daily upon discharge Gastroparesis, irritable bowel syndrome, cyclic vomiting secondary to marijuana abuse -Continue home medications -Patient will need to follow-up with her rn invasive upon discharge Restless leg syndrome -Continue Requip Hypothyroidism -Continue home medications - Time Spent with Patient Total time spent providing and/or coordinating discharge services: Greater than 30 minutes - Quality: VTE Deep Vein Thrombosis/Pulmonary Embolism Present on Admission: No Exam Vital signs: Vital Signs 01/28/18 16:00 01/28/18 19:15 01/28/18 20:00 Temperature 98.2 F 98.7 F Pulse Rate 78 68 72 Respiratory Rate 18 14 22 Blood Pressure 134/85 114/61 Pulse Oximetry 95 93 L 01/28/18 21:00 01/28/18 22:00 01/28/18 23:00 Temperature Pulse Rate 62 68 68 Respiratory Rate 11 L 12 22 Blood Pressure 140/71 119/57 L 117/61 Pulse Oximetry 93 L 01/29/18 00:00 01/29/18 00:15 01/29/18 00:24 Temperature 97 F L Pulse Rate 66 70 Respiratory Rate 15 20 16 Blood Pressure 130/82 Pulse Oximetry 92 L 01/29/18 00:30 01/29/18 00:45 01/29/18 01:00 Temperature Pulse Rate 68 66 64 Respiratory Rate 29 H 17 16 Blood Pressure 93/56 L Pulse Oximetry 01/29/18 01:15 01/29/18 01:25 01/29/18 02:00 Temperature Pulse Rate 66 64 Respiratory Rate 19 16 14 Blood Pressure 95/53 L Pulse Oximetry 01/29/18 03:00 01/29/18 04:00 01/29/18 05:00 Temperature 98 F Pulse Rate 64 64 64 Respiratory Rate 14 13 13 Blood Pressure 107/63 99/61 L 115/72 Pulse Oximetry 94 L 01/29/18 07:00 01/29/18 07:15 01/29/18 07:21 Temperature Pulse Rate 68 68 64 Respiratory Rate 23 15 15 Blood Pressure 118/75 Pulse Oximetry 95 01/29/18 07:30 01/29/18 07:45 01/29/18 07:49 Temperature Pulse Rate 74 68 71 Respiratory Rate 20 16 16 Blood Pressure Pulse Oximetry 01/29/18 08:00 Temperature 97.3 F L Pulse Rate 65 Respiratory Rate 15 Blood Pressure 118/70 Pulse Oximetry 94 L Intake & Output 01/28/18 01/29/18 01/29/18 18:59 06:59 18:59 Intake Total 240 / 240 600 / 600 Output Total 1100 / 1100 450 / 450 Balance 240 / 240 -500 / -500 -450 / -450 Weight 65.1 kg Intake: Oral 600 / 600 Tube Feeding 240 / 240 Output: Urine 1100 / 1100 450 / 450 Urine/Stool Mix 0 / 0 Other: Date of Last Bowel Movement 01/25/18 Narrative: GENERAL: Well-developed, well-nourished, in no acute distress. alert and orientated HEENT: Head is normocephalic without any lesions or masses noted. Facial features are symmetric. Eyes: Extraocular muscles are intact. Conjunctivae were clear. NECK: Supple without any masses. Trachea midline no deviation. No JVD, CARDIAC: Regular rhythm, regular rate. S1/S2 are heard. No murmurs gallops or rubs. LUNGS: Clear to auscultation bilaterally. No wheeze, rhonchi or rales. No use of accessory muscles on inspiration or expiration. ABDOMEN: Soft, nontender. Nondistended. Bowel sounds heard in all 4 quadrants. No organomegaly or masses. Negative rebound, negative guarding EXTREMITIES: No edema, pulses are equal bilaterally. No cyanosis or clubbing NEUROLOGY: Mood and affect appear appropriate. Cranial nerves II through XII grossly intact. Moving all extremities, speech is clear Results Procedures completed during hospitalization: None Labs on day of discharge: Labs from last 24 hours 01/29/18 01/28/18 05:32 15:40 Sodium 140 138 Potassium 3.7 D 2.9 L* Chloride 110 H 107 Carbon Dioxide 21.4 21.7 Anion Gap 9 9 BUN 5 L 5 L Creatinine 0.44 L 0.50 Estimated GFR Greater than 89 Greater than 89 Random Glucose 85 88 Calcium 9.6 9.8 Preliminary micro results at discharge 01/25/18 16:37 Aerobic Blood Culture - Preliminary Blood - Peripheral No growth in 4 days Anaerobic Blood Culture - Preliminary No growth in 4 days 01/25/18 16:32 Aerobic Blood Culture - Preliminary Blood - Peripheral No growth in 4 days Anaerobic Blood Culture - Preliminary No growth in 4 days - Impressions ITS Impressions Ribs X-Ray 01/25/18 16:39 CONCLUSION: Acute right-sided rib fracture not seen. Discharge Plan - Discharge Disposition Patient Disposition: 01 Discharge Home - Discharge Condition Condition: Stable - Discharge Order Discharge Orders: Discharge Order (Routine); Ordered 01/29/18 Ordered By: Remigio Nunez - Discharge Details Anticipated Discharge Date: 01/29/18 - Physicians Team Primary Care Provider: Primary Care Lonny,Aminata Attending Provider: Eb Mendoza
== END 2018-01-29 11:20 | disposition home or self-care (01) ==
LOC: PHED 15:31 → PHEDA 18:35 → PHICU 21:12
PROVIDERS: ADMIT Hospitalist; ATTEND Hospitalist